=== PATIENT | female | born 1955 | race Caucasian/White ===

== ENCOUNTER 2023-04-07 11:13 | Emergency (ER) | payer MEDICARE ==
[2023-04-07 11:42] VITALS: BP 173/77; PULSE 70; RESP 18; TEMP 98.7
--- NOTE | 2023-04-07 12:07 | ED ---
Neck Injury/Pain HPI - General Chief Complaint: Neck Pain/Injury Stated Complaint: pain management Time Seen by Provider: 04/07/23 11:46 Source: patient, RN notes reviewed Mode of arrival: ambulatory Limitations: no limitations - History of Present Illness Initial Comments: This is a 67-year-old female who presents to the emergency department for pain medication. Patient just moved here from [place] 2 weeks ago, and on 01/28 of this year she fell and fractured C2. She is taking oxycodone 5 mg every 6 hours for pain management, however she has since run out of her medication, and she is here for medication refills. She does have an upcoming appointment with Dr. Morales next week, which was the soonest that she could get in. The medication is working very well for her and she denies any other complaints. MD Complaint: neck pain, neck injury - Related Data Previous Rx's Medication Instructions Recorded oxyCODONE-APAP 5-325MG [Percocet 1 tab PO Q6HR PRN 7 Days #28 tab 04/07/23 5-325 mg] Allergies Allergy/AdvReac Type Severity Reaction Status Date / Time gabapentin Allergy Confusion Verified 04/07/23 11:37 Iodinated Contrast Media Allergy Rash/Hives Verified 04/07/23 11:37 lisinopril Allergy Unknown Verified 04/07/23 11:37 Review of Systems ROS Statement: Those systems with pertinent positive or pertinent negative responses have been documented in the HPI. ROS Other: All systems not noted in ROS Statement are negative. Past Medical History Past Medical History: CVA/TIA, GERD/Reflux, Hypertension, Liver Disease Additional Past Medical History / Comment(s): Anemia History of Any Multi-Drug Resistant Organisms: C-DIFF, MRSA Smoking Status: Never smoker Past Alcohol Use History: Abuse Past Drug Use History: None Reported General Exam Limitations: no limitations General appearance: alert, in no apparent distress Head exam: Present: atraumatic, normocephalic, normal inspection Neck exam: Present: other (C-collar in place) Respiratory exam: Present: normal lung sounds bilaterally. Absent: respiratory distress, wheezes, rales, rhonchi, stridor Cardiovascular Exam: Present: regular rate, normal rhythm, normal heart sounds. Absent: systolic murmur, diastolic murmur, rubs, gallop, clicks Neurological exam: Present: alert, oriented X3, CN II-XII intact Psychiatric exam: Present: normal affect, normal mood Skin exam: Present: warm, dry, intact, normal color. Absent: rash Course Vital Signs 04/07/23 11:19 Temperature 98.7 F Pulse Rate 70 Respiratory 18 Rate Blood Pressure 173/77 O2 Sat by Pulse 95 Oximetry Medical Decision Making - Medical Decision Making This is a 67-year-old female who presents to the emergency department for pain medication refill. Was pt. sent in by a medical professional or institution? @ -No Did you speak to anyone other than the patient for history? @ -No Did you review nursing and triage notes? @ -Yes, and I agree, it is accurate with regards to the patient's symptoms. Were old charts reviewed? @ -No Differential Diagnosis? @ -Not applicable EKG interpreted by me (3pts min.)? @ -Not obtained X-rays interpreted by me (1pt min.)? @ -Not obtained CT interpreted by me (1pt min.)? @ -Not obtained U/S interpreted by me (1pt. min.)? @ -Not obtained What testing was considered but not performed? (CT, X-rays, U/S, labs)? Why? @ -None What meds were considered but not given? Why? @ -None Did you discuss the management of the patient with other professionals? @ -No Did you reconcile home meds? @ -No Was smoking cessation discussed for >3mins.? @ -No Was critical care preformed (if so, how long)? @ -No Were there social determinants of health that impacted care today? How? (Ho melessness, low income, unemployed, alcoholism, drug addiction, transportation, low edu. Level, literacy, decrease access to med. care, [facility], rehab)? @ -No Was there de-escalation of care discussed even if they declined? (Discuss DNR or withdrawal of care, Hospice)? @ -No What co-morbidities impacted this encounter? (DM, HTN, Smoking, COPD, CAD, Cancer, CVA, Hep., AIDS, mental health diagnosis, sleep apnea, morbid obesity)? @ -Cervical fracture Was patient admitted / discharged? @ -Discharged. Patient brought with her substantial documentation confirming her injury and medication dosing. Given the nature of her injury and because she is already taking this medication, I was agreeable to giving her a short refill until she is able to see Dr. Morales next week. Rx for oxycodone provided to be taken every 6 hours as previously prescribed. Patient discharged home in stable condition. Undiagnosed new problem with uncertain prognosis? @ -None Drug Therapy requiring intensive monitoring for toxicity (Heparin, Nitro, Insulin, Cardizem)? @ -None Were any procedures done? @ -None Diagnosis/symptom? @ -C2 fracture Acute, or Chronic, or Acute on Chronic? @ -Acute Uncomplicated (without systemic symptoms) or Complicated (systemic symptoms)? @ -Uncomplicated Side effects of treatment? @ -None Exacerbation, Progression, or Severe Exacerbation] @ -Not applicable Poses a threat to life or bodily function? @ -No Return precautions reviewed in depth, the patient is instructed to return to the emergency department with any new, worsening, or concerning symptoms. Patient verbalized understanding. This case was discussed in detail with the attending ED physician, Dr. Clemens. Presentation, findings, and treatment plan discussed in detail as well. Disposition Clinical Impression: C2 cervical fracture Disposition: HOME SELF-CARE Instructions (If sedation given, give patient instructions): Cervical Fracture (ED) Additional Instructions: Return to the emergency department with any new, worsening, or concerning symptoms. Continue taking your pain medication as prescribed. Follow up with Dr. Morales as scheduled. Prescriptions: oxyCODONE-APAP 5-325MG [Percocet 5-325 mg] 1 tab PO Q6HR PRN 7 Days #28 tab PRN Reason: Pain Is patient prescribed a controlled substance at d/c from ED?: Yes When asked, does pt state using other controlled substances?: No Referrals: None,Stated [Primary Care Provider] - 1-2 days Forms: [facility], [facility]
== END 2023-04-07 13:06 | disposition home or self-care (01) ==
LOC: EC 11:13
DX: S12.100A Unspecified displaced fracture of second cervical vertebra, initial encounter for closed fracture (principal); I10 Essential (primary) hypertension; Z88.9 Allergy status to unspecified drugs, medicaments and biological substances; Z91.041 Radiographic dye allergy status; Z88.8 Allergy status to other drugs, medicaments and biological substances; X58.XXXA Exposure to other specified factors, initial encounter
CPT/HCPCS: 99283

== ENCOUNTER → 2023-04-10 | Outpatient (CLI) | payer MEDICARE, OTHER ==
--- NOTE | 2023-04-10 16:55 | CT ---
EXAMINATION TYPE: CT cervical spine wo con CT DLP: 268.3 mGycm, Automated exposure control for dose reduction was used. DATE OF EXAM: 04/10/2023 4:37 PM COMPARISON: Radiograph 04/10/2023. CLINICAL INDICATION:Female, 67 years old with history of M54.2 CERVICALIA; neck pain x 6 weeks, pt un sure of level of fx TECHNIQUE: Axial CT images from the skull base to the inferior aspect of T2 we obtained without intra venous contrast. Coronal and sagittal reformatted images were also reviewed. Contrast used: mL of , (if blank None) Oral contrast used: (if blank None) FINDINGS: Fracture: No acute fracture visualized. Remote appearing fracture of the odontoid process is present. Osseous structures: Multilevel degenerative disc disease changes with endplate spurring and disc oste ophyte complex's. Vertebral alignment: Grade 1 anterolisthesis of C5 and C6. Spinal canal/Neural Foramina: Disc osteophyte complexes at C5-C6 with at least mild spinal canal sten osis. Facet joint uncovertebral joint arthropathy scattered throughout the cervical spine with varyin g degrees of neural foraminal stenosis. Neck soft tissues: Prevertebral soft tissues are within normal limits. Other: The airway is patent. The lung apices are clear. Atherosclerosis of the arterial vasculature. IMPRESSION: 1. No evidence of cervical spine fracture. Remote Appearing odontoid process fracture. Correlate with priors at outside institutions. 2. Moderate to severe multilevel degenerative disc disease.
== END | disposition home or self-care (01) ==
LOC: RADCTMAIN 16:20
PROVIDERS: ATTEND Orthopaedic Surgery
DX: M50.30 Other cervical disc degeneration, unspecified cervical region (principal); Z87.81 Personal history of (healed) traumatic fracture
CPT/HCPCS: 72125

== ENCOUNTER → 2023-04-11 | Outpatient (CLI) | payer MEDICARE, OTHER ==
--- NOTE | 2023-04-11 17:01 | MR ---
EXAMINATION TYPE: MR cervical spine wo con DATE OF EXAM: 04/11/2023 COMPARISON: CT cervical spine 04/10/2023 HISTORY: Neck fracture C2. CONTRAST: None TECHNIQUE: Multiplanar multiecho imaging on a 3.0 Felicitas magnet is performed through the cervical spin e. FINDINGS: The craniovertebral junction is normal. Vertebral body alignment is reviewed. There is a g rade 1 spondylolisthesis of C5 anteriorly on C6. Remaining vertebral body alignment is preserved. The fracture at C2 appears in preserved alignment and positioning. Spinal cord maintains normal signal throughout its visualized course. C7-T1: No focal disc herniation or significant disc bulge is evident. No spinal canal stenosis or n eural foraminal stenosis is present. C6-7: No focal disc herniation or significant disc bulge is evident. No spinal canal stenosis or summer ral foraminal stenosis is present. C5-6: Grade 1 spondylolisthesis of C5 anteriorly on C6. Disc uncovering is present. Some posterior th ecal sac compression from the facets may be present. C4-5: No focal disc herniation or significant disc bulge is evident. No spinal canal stenosis or summer ral foraminal stenosis is present. C3-4: No focal disc herniation or significant disc bulge is evident. No spinal canal stenosis or summer ral foraminal stenosis is present. C2-3: No focal disc herniation or significant disc bulge is evident. No spinal canal stenosis or summer ral foraminal stenosis is present. The base of the dens fracture is evident as a low signal area. IMPRESSION: 1. Base of the dens fracture. C2 fracture fragments appearing preserved alignment and positioning. 2. Grade 1 spondylolisthesis of C5 anterior on C6.
== END | disposition home or self-care (01) ==
LOC: RADMRIMAIN 14:47
PROVIDERS: ATTEND Orthopaedic Surgery
DX: S12.110A Anterior displaced Type II dens fracture, initial encounter for closed fracture (principal); M43.12 Spondylolisthesis, cervical region
CPT/HCPCS: 72141

== ENCOUNTER 2023-04-20 11:10 | Inpatient (IN) | payer MEDICARE, OTHER ==
[2023-04-20] MEDS ORDERED: SODIUM CHLORIDE 0.9% 1,000 ML IV ONE (11:52)
[2023-04-20] MEDS ORDERED: LORazepam 2 MG/ML INJ IV STA (12:20)
--- NOTE | 2023-04-20 12:43 | XR ---
EXAMINATION TYPE: XR chest 2V DATE OF EXAM: 04/20/2023 12:38 PM CLINICAL INDICATION:Female, 67 years old with history of altered mental status; COMPARISON: None TECHNIQUE: XR chest 2V Frontal and lateral views of the chest. FINDINGS: Lungs/Pleura: There is no evidence of pleural effusion, focal consolidation, or pneumothorax. Pulmonary vascularity: Mild pulmonary vascular congestion. Heart/mediastinum: Cardiomediastinal silhouette is enlarged and stable. Musculoskeletal: No acute osseous pathology. Shoulder fixation hardware appears intact. IMPRESSION: Cardiomegaly and may be mild pulmonary gastric congestion correlate with serum BNP.
[2023-04-20 12:49] LABS: INR 1.1 (<1.2); Partial Thromboplastin Time 28.9 sec (22.0-30.0)
[2023-04-20 12:55] LABS: Anisocytosis Slight; Basophils % (A) 0 %; Eosinophils # (A) 0.2 k/uL (0-0.7); Eosinophils % (A) 6 %; HCT 31.9 % (34.0-46.0); HGB 11.3 gm/dL (11.4-16.0); Lymphocytes # (A) 0.7 k/uL (1.0-4.8); Lymphocytes % (A) 18 %; MCH 31.9 pg (25.0-35.0); MCHC 35.4 g/dL (31.0-37.0); MCV 90.1 fL (80.0-100.0); Mean Platelet Volume 8.7; Monocytes # (A) 0.2 k/uL (0-1.0); Monocytes % (A) 6 %; Neutrophils # (A) 2.7 k/uL (1.3-7.7); Neutrophils % (A) 68 %; Poikilocytosis Slight; RBC 3.54 m/uL (3.80-5.40); RDW 16.2 % (11.5-15.5)
[2023-04-20 13:06] LABS: ALT 24 U/L (4-34); AST 45 U/L (14-36); African American GFR (CKD) >90 (>60 ml/min/1.73 sqM); Albumin 3.7 g/dL (3.5-5.0); Alcohol <10 mg/dL; Alkaline Phosphatase 260 U/L (38-126); Anion Gap 12 mmol/L; Blood Urea Nitrogen 27 mg/dL (7-17); Calcium 9.5 mg/dL (8.4-10.2); Carbon Dioxide 16 mmol/L (22-30); Chloride 110 mmol/L (98-107); Glucose 110 mg/dL (74-99); Non-African American GFR(CKD) >90 (>60 ml/min/1.73 sqM); Potassium 4.6 mmol/L (3.5-5.1); Sodium 138 mmol/L (137-145); Total Bilirubin 2.4 mg/dL (0.2-1.3); Total Protein 7.8 g/dL (6.3-8.2)
[2023-04-20 13:07] LABS: Platelet Count 67 k/uL (150-450)
[2023-04-20 13:20] LABS: Appearance,Urine Clear (Clear); Bilirubin,Urine Negative (Negative); Blood,Urine Negative (Negative); Color,Urine Colorless; Glucose,Urine (UA) Negative (Negative); Ketones,Urine Negative (Negative); Leukocyte Esterase,Urine Negative (Negative); Nitrite,Urine Negative (Negative); Protein,Urine Negative (Negative); Specific Gravity,Urine 1.004 (1.001-1.035); Urobilinogen,Urine <2.0 mg/dL (<2.0)
[2023-04-20 13:28] LABS: Amphetamine Screen,Urine Not Detected (NotDetected); Barbiturate Screen,Urine Not Detected (NotDetected); Benzodiazepines Screen,Urine Not Detected (NotDetected); Cocaine Screen,Urine Not Detected (NotDetected); Methadone Screen, Urine Not Detected (NotDetected); Opiate Screen,Urine Not Detected (NotDetected); Oxycodone Screen, Urine Not Detected (NotDetected); Phencyclidine Screen,Urine Not Detected (NotDetected); Tricyclic Antidepressant,Urine Not Detected (NotDetected); Urn Cannabinoid Scrn Not Detected (NotDetected)
--- NOTE | 2023-04-20 13:30 | CT ---
EXAMINATION TYPE: CT brain cspine wo con DATE OF EXAM: 04/20/2023 COMPARISON: Cervical spine 04/10/2023 HISTORY: 67-year-old female confusion, AMS CT DLP: 1330.4 mGycm Automated exposure control for dose reduction was used. Technique: Examination of the head was done in axial plane without intravenous contrast. Coronal and sagittal reconstructions performed. CT of the cervical spine was obtained in axial plane without intravenous injection of contrast mater ial. Coronal and sagittal reformatted images were obtained from the axial views for evaluation of f ractures, spinal alignment and canal. FINDINGS: Head: There is no evidence of acute intracranial hemorrhage, acute ischemic changes, mass, mass-effect, or extra-axial fluid collection. There is no effacement of cerebral sulci or basal subarachnoid cister ns. There is no hydrocephalus. There is no midline shift. Paulson-white matter distinction is preserv ed. Atherosclerotic calcifications in the carotid siphons. Rightward nasal septal deviation. Paranasal sinuses and mastoid air cells are well pneumatized. Orbit s and globes are intact. Cervical spine: Redemonstrated type II dens fracture. 4 mm of distraction slightly increased from prior. Degenerative change C1 dens articulation. Slight posterior subluxation of C1 on C2 when assessing the lateral mas s articulations from side to side. Severe degenerative disc disease C5-C6. Nearly grade 2 anterolisthesis secondary to hypertrophic face t arthropathy. Remaining alignment is maintained. No taya canal compromise is seen. Variable mild neural foraminal stenoses as outlined above. Sagittal and coronal reformatted images confirm above findings. COMBINED IMPRESSION: 1. No acute intracranial abnormality seen. 2. Known unstable type II dens fracture. Discussed with Dr. Smith in the ER. Additional history th at the patient sustained injury back in January and remains in a C-collar for conservative management . Healing remains incomplete. There may be minimally increased distraction of 4 mm now versus 3 mm, p reviously. Additional moderate multilevel spondylotic change with similar grade 2 anterolisthesis C5- C6. No new fracture seen.
[2023-04-20] MEDS ORDERED: LACTULOSE 20 GM/30 ML CUP PO ONE (13:42)
[2023-04-20] MEDS ORDERED: NALOXONE 0.4 MG/ML 1 ML VIAL IV PRN (14:16)
[2023-04-20 14:19] LABS: Glucose,Whole Blood 108 mg/dL (70-110)
--- NOTE | 2023-04-20 14:59 | ED ---
General Adult HPI - General Chief complaint: Altered Mental Status Stated complaint: confusion Time Seen by Provider: 04/20/23 11:19 Source: patient, family, RN notes reviewed, old records reviewed Mode of arrival: ambulatory Limitations: no limitations - History of Present Illness Initial comments: Patient is a 67-year-old female presents with her son over concern for altered mental status. History of a known medically managed dens fracture currently in a cervical collar and follows up with Dr. Morales. Also has a history of alcoholic liver disease, as well as elevated ammonia levels. Has been without her normal medications for blood days is patient is recently relocated to [place]. Since for multiple days of confusion. Patient's son is concerned that ammonia levels may be elevated. No obvious fevers, cough, vomiting, chest pain, nausea, vomiting, diarrhea. No other acute complaints this time. Presents for further evaluation. Patient is unable to provide any history. She is confused. She is only able to tell me her name. Is due to follow-up with Dr. Merritt as her new PCP but has not yet been seen. - Related Data Home Medications Medication Instructions Recorded Confirmed Multivitamins, Thera [Multivitamin 1 tab PO DAILY 04/20/23 04/20/23 (formulary)] oxyCODONE HCL [OxyIR] 5 mg PO Q6H PRN 04/20/23 04/20/23 Allergies Allergy/AdvReac Type Severity Reaction Status Date / Time gabapentin Allergy Confusion Verified 04/20/23 14:24 Iodinated Contrast Media Allergy Rash/Hives Verified 04/20/23 14:24 lisinopril Allergy Unknown Verified 04/20/23 14:24 Review of Systems ROS Statement: Those systems with pertinent positive or pertinent negative responses have been documented in the HPI. ROS Other: All systems not noted in ROS Statement are negative. Past Medical History Past Medical History: CVA/TIA, GERD/Reflux, Hypertension, Liver Disease Additional Past Medical History / Comment(s): Anemia History of Any Multi-Drug Resistant Organisms: C-DIFF, MRSA Past Surgical History: No Surgical Hx Reported Past Psychological History: No Psychological Hx Reported Smoking Status: Never smoker Past Alcohol Use History: Abuse Past Drug Use History: None Reported General Exam - General Exam Comments Initial Comments: General: Appears confused. Cervical collar in place. HEAD: Normal with no signs of head trauma. EYES: PERRLA, EOMI, conjunctiva normal, no discharge. Pupils are 3 mm and equal bilaterally. ENT: Hearing grossly intact, normal oropharynx. Cervical collar in place. RESPIRATORY: Clear breath sounds bilaterally. No wheezes, rales, or rhonchi. C/V: Regular rate and rhythm. S1 and S2 auscultated, peripheral pulses 2+ and intact throughout ABD: Abd is soft, nontender, nondistended EXT: Normal range of motion, no obvious deformity SKIN: No rashes or lesions observed on exposed skin. NEURO: Alert and oriented x 1. This is below baseline. Moving all 4 extremities. Limitations: no limitations Course Vital Signs 04/20/23 11:12 Temperature 97.6 F Pulse Rate 76 Respiratory 20 Rate Blood Pressure 168/95 O2 Sat by Pulse 99 Oximetry Medical Decision Making - Medical Decision Making Was pt. sent in by a medical professional or institution (, [place], [facility], urgent care, hospital, or residential...) When possible be specific @ -No Did you speak to anyone other than the patient for history (EMS, parent, family, police, friend...)? What history was obtained from this source @ -Patient's son is the primary historian. Did you review nursing and triage notes (agree or disagree)? Why? @ -I reviewed and agree with nursing and triage notes Were old charts reviewed (outside hosp., previous admission, EMS record, old EKG, old radiological studies, urgent care reports/EKG's, residential records)? Report findings @ -Old charts reviewed Differential Diagnosis (chest pain, altered mental status, abdominal pain women, abdominal pain men, vaginal bleeding, weakness, fever, dyspnea, syncope, headache, dizziness, GI bleed, back pain, seizure, CVA, palpatations, mental health, musculoskeletal)? @ -Differential Altered Mental Status: Hypoglycemia, DKA, hypercapnia, ETOH, overdose, CO poisoning, trauma, myxedema coma, HTN encephalopathy, infection, encephalitis, psychosis, intercranial h emorrhage, hepatic encephalopathy, meningitis, CVA, this is not meant to be an all-inclusive list EKG interpreted by me (3pts min.). @ -As above X-rays interpreted by me (1pt min.). @ -Chest xRay reveals no obvious acute cardio pulmonary process. CT interpreted by me (1pt min.). @ -CT brain and C-spine reveals chronic findings including the dens fracture, which appears similar in nature to recent CT imaging. U/S interpreted by me (1pt. min.). @ -None done What testing was considered but not performed or refused? (CT, X-rays, U/S, labs)? Why? @ -None What meds were considered but not given or refused? Why? @ -None Did you discuss the management of the patient with other professionals (professionals i.e. DrBlanquita, PA, [facility], lab, RT, psych nurse, addiction social worker, photography and prints curator, teacher, admitting officer, field nurse case manager)? Give summary @ -No Was smoking cessation discussed for >3mins.? @ -No Was critical care preformed (if so, how long)? @ -No Were there social determinants of health that impacted care today? How? (Homelessness, low income, unemployed, alcoholism, drug addiction, transportation, low edu. Level, literacy, decrease access to med. care, [facility], rehab)? @ -No Was there de-escalation of care discussed even if they declined (Discuss DNR or withdrawal of care, Hospice)? DNR status @ -No What co-morbidities impacted this encounter? (DM, HTN, Smoking, COPD, CAD, Cancer, CVA, ARF, Chemo, Hep., AIDS, mental health diagnosis, sleep apnea, morbid obesity)? @ -None Was patient admitted / discharged? Hospital course, mention meds given and route, prescriptions, significant lab abnormalities, going to OR and other pertinent info. @ -Based on the patient's presentation and physical exam, was brought in by son for altered mental status. We will obtain workup. Patient sent in agreement this plan. Patient will be given a 1 L fluid bolus. We will reimage her C- spine as we are uncertain if she fell. This also included CT of the brain. He was in agreement with this plan. Vital signs are within acceptable limits. EKG shows no signs of acute ischemia. Imaging unremarkable for any acute process. Chronic process of the dens fracture is redemonstrated and appears unchanged. Patient's labs are remarkable for mild thrombocytopenia at 67. Patient has elevated ammonia of 295. Remainder of the workup relatively unremarkable. I updated the patient as well as her son. She'll be started on lactulose. She will be admitted. He was in agreement this plan. This patient is supposed to follow up with Dr. Merritt, and therefore the patient will be admitted to a nature is covering for his group. Dr. Alcantara accepted the admission. Undiagnosed new problem with uncertain prognosis? @ -No Drug Therapy requiring intensive monitoring for toxicity (Heparin, Nitro, Insulin, Cardizem)? @ -No Were any procedures done? @ -No Diagnosis/symptom? @ -Hepatic encephalopathy, hyperammonemia Acute, or Chronic, or Acute on Chronic? @ -Acute Uncomplicated (without systemic symptoms) or Complicated (systemic symptoms)? @ -Complicated Side effects of treatment? @ -No Exacerbation, Progression, or Severe Exacerbation? @ -No Poses a threat to life or bodily function? How? (Chest pain, USA, SC, pneumonia, PE, COPD, DKA, ARF, appy, cholecystitis, CVA, Diverticulitis, Homicidal, Suicid al, threat to staff... and all critical care pts) @ -yes Diagnosis/symptom? @ -Type II dens fracture Acute, or Chronic, or Acute on Chronic? @ -Chronic Uncomplicated (without systemic symptoms) or Complicated (systemic symptoms)? @ -Uncomplicated Side effects of treatment? @ -none Exacerbation, Progression, or Severe Exacerbation] @ -no Poses a threat to life or bodily function? @ -Potentially - Lab Data Result diagrams: 04/20/23 12:28 04/20/23 12:28 Lab Results 04/20/23 04/20/23 04/20/23 Range/Units 12:28 12:28 12:28 WBC 4.0 (3.8-10.6) k/uL RBC 3.54 L (3.80-5.40) m/uL Hgb 11.3 L (11.4-16.0) gm/dL Hct 31.9 L (34.0-46.0) % MCV 90.1 (80.0-100.0) fL MCH 31.9 (25.0-35.0) pg MCHC 35.4 (31.0-37.0) g/dL RDW 16.2 H (11.5-15.5) % Plt Count 67 L (150-450) k/uL MPV 8.7 Neutrophils % 68 % Lymphocytes % 18 % Monocytes % 6 % Eosinophils % 6 % Basophils % 0 % Neutrophils # 2.7 (1.3-7.7) k/uL Lymphocytes # 0.7 L (1.0-4.8) k/uL Monocytes # 0.2 (0-1.0) k/uL Eosinophils # 0.2 (0-0.7) k/uL Basophils # 0.0 (0-0.2) k/uL Manual Slide Review Performed Poikilocytosis Slight Anisocytosis Slight PT 12.0 (10.0-12.5) sec INR 1.1 (<1.2) APTT 28.9 (22.0-30.0) sec Sodium 138 (137-145) mmol/L Potassium 4.6 (3.5-5.1) mmol/L Chloride 110 H (98-107) mmol/L Carbon Dioxide 16 L (22-30) mmol/L Anion Gap 12 mmol/L BUN 27 H (7-17) mg/dL Creatinine 0.65 (0.52-1.04) mg/dL Est GFR (CKD-EPI)AfAm >90 (>60 ml/min/1.73 sqM) Est GFR (CKD-EPI)NonAf >90 (>60 ml/min/1.73 sqM) Glucose 110 H (74-99) mg/dL POC Glucose (mg/dL) (70-110) mg/dL POC Glu Facing Baster ID Calcium 9.5 (8.4-10.2) mg/dL Total Bilirubin 2.4 H (0.2-1.3) mg/dL AST 45 H (14-36) U/L ALT 24 (4-34) U/L Alkaline Phosphatase 260 H (38-126) U/L Ammonia (<30) umol/L Troponin I (0.000-0.034) ng/mL Total Protein 7.8 (6.3-8.2) g/dL Albumin 3.7 (3.5-5.0) g/dL Urine Color Urine Appearance (Clear) Urine pH (5.0-8.0) Ur Specific [place] (1.001-1.035) Urine Protein (Negative) Urine Glucose (UA) (Negative) Urine Ketones (Negative) Urine Blood (Negative) Urine Nitrite (Negative) Urine Bilirubin (Negative) Urine Urobilinogen (<2.0) mg/dL Ur Leukocyte Esterase (Negative) Urine Opiates Screen (NotDetected) Ur Oxycodone Screen (NotDetected) Urine Methadone Screen (NotDetected) Ur Barbiturates Screen (NotDetected) U Tricyclic Antidepress (NotDetected) Ur Phencyclidine Scrn (NotDetected) Ur Amphetamines Screen (NotDetected) U Methamphetamines Scrn (NotDetected) U Benzodiazepines Scrn (NotDetected) Urine Cocaine Screen (NotDetected) U Marijuana (THC) Screen (NotDetected) Ur Drug Screen Comment Serum Alcohol <10 mg/dL 04/20/23 04/20/23 04/20/23 Range/Units 12:28 12:28 13:10 WBC (3.8-10.6) k/uL RBC (3.80-5.40) m/uL Hgb (11.4-16.0) gm/dL Hct (34.0-46.0) % MCV (80.0-100.0) fL MCH (25.0-35.0) pg MCHC (31.0-37.0) g/dL RDW (11.5-15.5) % Plt Count (150-450) k/uL MPV Neutrophils % % Lymphocytes % % Monocytes % % Eosinophils % % Basophils % % Neutrophils # (1.3-7.7) k/uL Lymphocytes # (1.0-4.8) k/uL Monocytes # (0-1.0) k/uL Eosinophils # (0-0.7) k/uL Basophils # (0-0.2) k/uL Manual Slide Review Poikilocytosis Anisocytosis PT (10.0-12.5) sec INR (<1.2) APTT (22.0-30.0) sec Sodium (137-145) mmol/L Potassium (3.5-5.1) mmol/L Chloride (98-107) mmol/L Carbon Dioxide (22-30) mmol/L Anion Gap mmol/L BUN (7-17) mg/dL Creatinine (0.52-1.04) mg/dL Est GFR (CKD-EPI)AfAm (>60 ml/min/1.73 sqM) Est GFR (CKD-EPI)NonAf (>60 ml/min/1.73 sqM) Glucose (74-99) mg/dL POC Glucose (mg/dL) (70-110) mg/dL POC Glu Facing Baster ID Calcium (8.4-10.2) mg/dL Total Bilirubin (0.2-1.3) mg/dL AST (14-36) U/L ALT (4-34) U/L Alkaline Phosphatase (38-126) U/L Ammonia 295 H (<30) umol/L Troponin I <0.012 (0.000-0.034) ng/mL Total Protein (6.3-8.2) g/dL Albumin (3.5-5.0) g/dL Urine Color Colorless Urine Appearance Clear (Clear) Urine pH 7.0 (5.0-8.0) Ur Specific [place] 1.004 (1.001-1.035) Urine Protein Negative (Negative) Urine Glucose (UA) Negative (Negative) Urine Ketones Negative (Negative) Urine Blood Negative (Negative) Urine Nitrite Negative (Negative) Urine Bilirubin Negative (Negative) Urine Urobilinogen <2.0 (<2.0) mg/dL Ur Leukocyte Esterase Negative (Negative) Urine Opiates Screen Not Detected (NotDetected) Ur Oxycodone Screen Not Detected (NotDetected) Urine Methadone Screen Not Detected (NotDetected) Ur Barbiturates Screen Not Detected (NotDetected) U Tricyclic Antidepress Not Detected (NotDetected) Ur Phencyclidine Scrn Not Detected (NotDetected) Ur Amphetamines Screen Not Detected (NotDetected) U Methamphetamines Scrn Not Detected (NotDetected) U Benzodiazepines Scrn Not Detected (NotDetected) Urine Cocaine Screen Not Detected (NotDetected) U Marijuana (THC) Screen Not Detected (NotDetected) Ur Drug Screen Comment SEE COMMENT Serum Alcohol mg/dL 04/20/23 Range/Units 14:08 WBC (3.8-10.6) k/uL RBC (3.80-5.40) m/uL Hgb (11.4-16.0) gm/dL Hct (34.0-46.0) % MCV (80.0-100.0) fL MCH (25.0-35.0) pg MCHC (31.0-37.0) g/dL RDW (11.5-15.5) % Plt Count (150-450) k/uL MPV Neutrophils % % Lymphocytes % % Monocytes % % Eosinophils % % Basophils % % Neutrophils # (1.3-7.7) k/uL Lymphocytes # (1.0-4.8) k/uL Monocytes # (0-1.0) k/uL Eosinophils # (0-0.7) k/uL Basophils # (0-0.2) k/uL Manual Slide Review Poikilocytosis Anisocytosis PT (10.0-12.5) sec INR (<1.2) APTT (22.0-30.0) sec Sodium (137-145) mmol/L Potassium (3.5-5.1) mmol/L Chloride (98-107) mmol/L Carbon Dioxide (22-30) mmol/L Anion Gap mmol/L BUN (7-17) mg/dL Creatinine (0.52-1.04) mg/dL Est GFR (CKD-EPI)AfAm (>60 ml/min/1.73 sqM) Est GFR (CKD-EPI)NonAf (>60 ml/min/1.73 sqM) Glucose (74-99) mg/dL POC Glucose (mg/dL) 108 (70-110) mg/dL POC Glu Facing Baster ID Paramjit Cm Calcium (8.4-10.2) mg/dL Total Bilirubin (0.2-1.3) mg/dL AST (14-36) U/L ALT (4-34) U/L Alkaline Phosphatase (38-126) U/L Ammonia (<30) umol/L Troponin I (0.000-0.034) ng/mL Total Protein (6.3-8.2) g/dL Albumin (3.5-5.0) g/dL Urine Color Urine Appearance (Clear) Urine pH (5.0-8.0) Ur Specific [place] (1.001-1.035) Urine Protein (Negative) Urine Glucose (UA) (Negative) Urine Ketones (Negative) Urine Blood (Negative) Urine Nitrite (Negative) Urine Bilirubin (Negative) Urine Urobilinogen (<2.0) mg/dL Ur Leukocyte Esterase (Negative) Urine Opiates Screen (NotDetected) Ur Oxycodone Screen (NotDetected) Urine Methadone Screen (NotDetected) Ur Barbiturates Screen (NotDetected) U Tricyclic Antidepress (NotDetected) Ur Phencyclidine Scrn (NotDetected) Ur Amphetamines Screen (NotDetected) U Methamphetamines Scrn (NotDetected) U Benzodiazepines Scrn (NotDetected) Urine Cocaine Screen (NotDetected) U Marijuana (THC) Screen (NotDetected) Ur Drug Screen Comment Serum Alcohol mg/dL - EKG Data -: EKG Interpreted by Me EKG Comments: 12-lead Electrocardiogram Interpretation Note EKG was reviewed and interpreted by myself. 12-lead ECG performed at 1326 is interpreted by me as revealing normal sinus rhythm at a rate of 79 beats per minute. [place] is normal. IA interval is 193 ms, QRS ration is 110 ms, QTc is 444 ms.. There were no ST or T wave abnormalities to suggest myocardial ischemia or injury. R wave progression across the precordium was satisfactory. By my interpretation this EKG is non-diagnostic for acute ischemia. Disposition Clinical Impression: Hepatic encephalopathy, Hyperammonemia, Dens fracture Disposition: ADMITTED IP TO THIS [facility] Condition: Serious Referrals: None,Stated [Primary Care Provider] - 1-2 days Time of Disposition: 14:10
[2023-04-20] MEDS: LACTULOSE 20 GM/30 ML CUP PO SCH ×2 (15:55→23:19)
[2023-04-20] MEDS: SODIUM CHLORIDE 0.9% 1,000 ML IV SCH ×2 (15:55→23:26)
--- NOTE | 2023-04-20 18:28 | P.HPIM ---
History of Present Illness H&P Date: 04/20/23 Chief Complaint: Altered mental status 67-year-old female with history of liver disease, hypertension, CVA/TIA, GERD, presents with her son over concern for altered mental status. History of a known medically managed dens fracture currently in a cervical collar and follows up with Dr. Morales. Also has a history of alcoholic liver disease, as well as elevated ammonia levels. Has been without her normal medications for blood days is patient is recently relocated to [place]. Since for multiple days of confusion. Patient's son is concerned that ammonia levels may be elevated. No obvious fevers, cough, vomiting, chest pain, nausea, vomiting, diarrhea. No other acute complaints this time. Presents for further evaluation. Patient is unable to provide any history. She is confused. She is only able to tell me her name. Is due to follow-up with Dr. Merritt as her new PCP but has not yet been seen. Medrol completed in ED reveals a WBC of 4.0, hemoglobin of 11.3 and platelet count of 67, sodium 138, potassium 4.6, BUN/creatinine of 27/0.65, total bilirub in elevated at 2.4, AST of 45, ammonia elevated at [address] of the head is negative for any acute intracranial process CT cervical spine reveals no known type II dens fracture Review of Systems ROS unobtainable: due to mental status Past Medical History Past Medical History: CVA/TIA, GERD/Reflux, Hypertension, Liver Disease Additional Past Medical History / Comment(s): Anemia History of Any Multi-Drug Resistant Organisms: C-DIFF, MRSA Past Surgical History: No Surgical Hx Reported Past Psychological History: No Psychological Hx Reported Smoking Status: Never smoker Past Alcohol Use History: Abuse Past Drug Use History: None Reported Medications and Allergies Home Medications Medication Instructions Recorded Confirmed Type Multivitamins, Thera [Multivitamin 1 tab PO DAILY 04/20/23 04/20/23 History (formulary)] oxyCODONE HCL [OxyIR] 5 mg PO Q6H PRN 04/20/23 04/20/23 History Allergies Allergy/AdvReac Type Severity Reaction Status Date / Time gabapentin Allergy Confusion Verified 04/20/23 14:24 Iodinated Contrast Media Allergy Rash/Hives Verified 04/20/23 14:24 lisinopril Allergy Unknown Verified 04/20/23 14:24 Physical Exam Vitals: Vital Signs Temp Pulse Resp BP Pulse Ox 04/20/23 11:12 97.6 F 76 20 168/95 99 Intake and Output 04/20/23 04/20/23 04/20/23 06:59 14:59 22:59 Other: Weight 61.235 kg General: Appears confused. Cervical collar in place. HEAD: Normal with no signs of head trauma. EYES: PERRLA, EOMI, conjunctiva normal, no discharge. Pupils are 3 mm and equal bilaterally. ENT: Hearing grossly intact, normal oropharynx. Cervical collar in place. RESPIRATORY: Clear breath sounds bilaterally. No wheezes, rales, or rhonchi. C/V: Regular rate and rhythm. S1 and S2 auscultated, peripheral pulses 2+ and intact throughout ABD: Abd is soft, nontender, nondistended EXT: Normal range of motion, no obvious deformity SKIN: No rashes or lesions observed on exposed skin. NEURO: Alert and oriented x 1. This is below baseline. Moving all 4 extremities. Results CBC & Chem 7: 04/20/23 12:28 04/20/23 12:28 Labs: Abnormal Lab Results - Last 24 Hours (Table) 04/20/23 04/20/23 04/20/23 Range/Units 12:28 12:28 12:28 RBC 3.54 L (3.80-5.40) m/uL Hgb 11.3 L (11.4-16.0) gm/dL Hct 31.9 L (34.0-46.0) % RDW 16.2 H (11.5-15.5) % Plt Count 67 L (150-450) k/uL Lymphocytes # 0.7 L (1.0-4.8) k/uL Chloride 110 H (98-107) mmol/L Carbon Dioxide 16 L (22-30) mmol/L BUN 27 H (7-17) mg/dL Glucose 110 H (74-99) mg/dL Total Bilirubin 2.4 H (0.2-1.3) mg/dL AST 45 H (14-36) U/L Alkaline Phosphatase 260 H (38-126) U/L Ammonia 295 H (<30) umol/L Assessment and Plan Assessment: 1. Altered mental status; hepatic encephalopathy - Ammonia level is elevated at 295 - Patient received lactulose in ED; we will schedule lactulose at 30 mg by mouth 3 times a day with a 2-3 soft bowel movements daily - Monitor serum ammonia levels 2. Liver cirrhosis - AST/ALT and bilirubin is elevated consistent with liver disease - We will monitor periodically 3. Dens fracture; patient has cervical collar; son reports history of fall in January and patient has been in c-collar for conservative management - Patient follows up with surgery as outpatient 4. Uncontrolled hypertension; [place] and has been out of her medications; supposed to be taking lisinopril; we will resume 5 mg daily with plans to titrate as needed DVT prophylaxis; SCDs/subcu heparin CODE STATUS; full code
[2023-04-21] MEDS ORDERED: KETOROLAC 15 MG/ML 1 ML VIAL IVP STA (04:52)
[2023-04-21 08:29] LABS: Basophils % (A) 1 %; Eosinophils # (A) 0.3 k/uL (0-0.7); Eosinophils % (A) 6 %; HCT 34.8 % (34.0-46.0); Lymphocytes % (A) 21 %; MCH 31.7 pg (25.0-35.0); MCHC 34.6 g/dL (31.0-37.0); MCV 91.6 fL (80.0-100.0); Mean Platelet Volume 8.2; Monocytes # (A) 0.4 k/uL (0-1.0); Monocytes % (A) 8 %; Neutrophils # (A) 3.1 k/uL (1.3-7.7); Neutrophils % (A) 64 %; Poikilocytosis Slight; RDW 15.9 % (11.5-15.5); WBC 4.9 k/uL (3.8-10.6)
[2023-04-21 08:42] LABS: Platelet Count 72 k/uL (150-450)
[2023-04-21] MEDS: LACTULOSE 20 GM/30 ML CUP PO SCH ×5 (09:08→21:27)
[2023-04-21] MEDS: MULTIVITAMINS, THERA 1 EACH TAB PO SCH (09:08)
[2023-04-21 09:24] LABS: ALT 25 U/L (4-34); AST 45 U/L (14-36); African American GFR (CKD) >90 (>60 ml/min/1.73 sqM); Albumin 3.8 g/dL (3.5-5.0); Albumin/Globulin Ratio 0.9; Alkaline Phosphatase 214 U/L (38-126); Anion Gap 13 mmol/L; Bilirubin,Unconjugated 2.9 mg/dL (0.0-1.1); Blood Urea Nitrogen 19 mg/dL (7-17); Calcium 9.6 mg/dL (8.4-10.2); Carbon Dioxide 15 mmol/L (22-30); Chloride 113 mmol/L (98-107); Globulin 4.3 g/dL; Glucose 95 mg/dL (74-99); Non-African American GFR(CKD) >90 (>60 ml/min/1.73 sqM); Potassium 3.8 mmol/L (3.5-5.1); Sodium 141 mmol/L (137-145); Total Bilirubin 3.5 mg/dL (0.2-1.3); Total Protein 8.1 g/dL (6.3-8.2)
[2023-04-21] MEDS: ONDANSETRON 4 MG/2 ML VIAL IVP PRN (11:31)
--- NOTE | 2023-04-21 15:54 | P.PN ---
Subjective Progress Note Date: 04/21/23 67-year-old female with history of liver disease, hypertension, CVA/TIA, GERD, presents with her son over concern for altered mental status. History of a known medically managed dens fracture currently in a cervical collar and follows up with Dr. Morales. Also has a history of alcoholic liver disease, as well as elevated ammonia levels. Has been without her normal medications for blood days is patient is recently relocated to [place]. Since for multiple days of confusion. Patient's son is concerned that ammonia levels may be elevated. No obvious fevers, cough, vomiting, chest pain, nausea, vomiting, diarrhea. No other acute complaints this time. Presents for further evaluation. Patient is unable to provide any history. She is confused. She is only able to tell me her name. Is due to follow-up with Dr. Merritt as her new PCP but has not yet been seen. Medrol completed in ED reveals a WBC of 4.0, hemoglobin of 11.3 and platelet count of 67, sodium 138, potassium 4.6, BUN/creatinine of 27/0.65, total bilirubin elevated at 2.4, AST of 45, ammonia elevated at [address] of the head is negative for any acute intracranial process CT cervical spine reveals no known type II dens fracture Objective - Vital Signs Vital signs: Vital Signs Temp 97.9 F 04/21/23 07:15 Pulse 92 04/21/23 07:15 Resp 19 04/21/23 07:15 BP 160/76 04/21/23 07:15 Pulse Ox 95 04/21/23 08:29 FiO2 Intake & Output 04/20/23 04/21/23 04/21/23 18:59 06:59 18:59 Weight 61.235 kg 61.235 kg Other: # Voids 1 - Exam General: Appears confused. Cervical collar in place. HEAD: Normal with no signs of head trauma. EYES: PERRLA, EOMI, conjunctiva normal, no discharge. Pupils are 3 mm and equal bilaterally. ENT: Hearing grossly intact, normal oropharynx. Cervical collar in place. RESPIRATORY: Clear breath sounds bilaterally. No wheezes, rales, or rhonchi. C/V: Regular rate and rhythm. S1 and S2 auscultated, peripheral pulses 2+ and intact throughout ABD: Abd is soft, nontender, nondistended EXT: Normal range of motion, no obvious deformity SKIN: No rashes or lesions observed on exposed skin. NEURO: Alert and oriented x 1. This is below baseline. Moving all 4 extremities. - Labs CBC & Chem 7: 04/21/23 07:10 04/21/23 07:10 Labs: Abnormal Lab Results - Last 24 Hours (Table) 04/20/23 04/20/23 04/20/23 Range/Units 12:28 12:28 12:28 RBC 3.54 L (3.80-5.40) m/uL Hgb 11.3 L (11.4-16.0) gm/dL Hct 31.9 L (34.0-46.0) % RDW 16.2 H (11.5-15.5) % Plt Count 67 L (150-450) k/uL Lymphocytes # 0.7 L (1.0-4.8) k/uL Chloride 110 H (98-107) mmol/L Carbon Dioxide 16 L (22-30) mmol/L BUN 27 H (7-17) mg/dL Glucose 110 H (74-99) mg/dL Total Bilirubin 2.4 H (0.2-1.3) mg/dL Unconjugated Bilirubin (0.0-1.1) mg/dL AST 45 H (14-36) U/L Alkaline Phosphatase 260 H (38-126) U/L Ammonia 295 H (<30) umol/L 04/21/23 04/21/23 Range/Units 07:10 07:10 RBC (3.80-5.40) m/uL Hgb (11.4-16.0) gm/dL Hct (34.0-46.0) % RDW 15.9 H (11.5-15.5) % Plt Count 72 L (150-450) k/uL Lymphocytes # (1.0-4.8) k/uL Chloride 113 H (98-107) mmol/L Carbon Dioxide 15 L (22-30) mmol/L BUN 19 H (7-17) mg/dL Glucose (74-99) mg/dL Total Bilirubin 3.5 H (0.2-1.3) mg/dL Unconjugated Bilirubin 2.9 H (0.0-1.1) mg/dL AST 45 H (14-36) U/L Alkaline Phosphatase 214 H (38-126) U/L Ammonia (<30) umol/L Assessment and Plan Assessment: 1. Altered mental status; hepatic encephalopathy - Ammonia level is elevated at 295 - Patient received lactulose in ED; we will schedule lactulose at 30 mg by mouth 3 times a day with a 2-3 soft bowel movements daily - Monitor serum ammonia levels 2. Liver cirrhosis - AST/ALT and bilirubin is elevated consistent with liver disease - We will monitor periodically 3. Dens fracture; patient has cervical collar; son reports history of fall in January and patient has been in c-collar for conservative management - Patient follows up with surgery as outpatient 4. Uncontrolled hypertension; [place] and has been out of her medications; supposed to be taking lisinopril; we will resume 5 mg daily with plans to titrate as needed DVT prophylaxis; SCDs/subcu heparin CODE STATUS; full code
[2023-04-21] MEDS: KETOROLAC 15 MG/ML 1 ML VIAL IM SCH ×2 (16:51→16:57)
[2023-04-22] MEDS: KETOROLAC 15 MG/ML 1 ML VIAL IM SCH ×2 (06:05→13:57)
[2023-04-22] MEDS: MULTIVITAMINS, THERA 1 EACH TAB PO SCH (09:38)
[2023-04-22] MEDS: LACTULOSE 20 GM/30 ML CUP PO SCH ×3 (09:38→22:09)
[2023-04-22] MEDS: KETOROLAC 15 MG/ML 1 ML VIAL IVP SCH ×2 (14:00→17:17)
[2023-04-22] MEDS: SODIUM CHLORIDE 0.9% 1,000 ML IV SCH (15:42)
--- NOTE | 2023-04-22 17:18 | P.PN ---
Subjective Progress Note Date: 04/22/23 67-year-old female with history of liver disease, hypertension, CVA/TIA, GERD, presents with her son over concern for altered mental status. History of a known medically managed dens fracture currently in a cervical collar and follows up with Dr. Morales. Also has a history of alcoholic liver disease, as well as elevated ammonia levels. Has been without her normal medications for blood days is patient is recently relocated to [place]. Since for multiple days of confusion. Patient's son is concerned that ammonia levels may be elevated. No obvious fevers, cough, vomiting, chest pain, nausea, vomiting, diarrhea. No other acute complaints this time. Presents for further evaluation. Patient is unable to provide any history. She is confused. She is only able to tell me her name. Is due to follow-up with Dr. Merritt as her new PCP but has not yet been seen. Medrol completed in ED reveals a WBC of 4.0, hemoglobin of 11.3 and platelet count of 67, sodium 138, potassium 4.6, BUN/creatinine of 27/0.65, total bilirubin elevated at 2.4, AST of 45, ammonia elevated at [address] of the head is negative for any acute intracranial process CT cervical spine reveals no known type II dens fracture 24 hour interval change 04/22/2023 Patient is seen and evaluated in room at bedside; discussed with nursing staff; patient is more awake and alert but restless Vital signs are reviewed and remained stable Lab review shows ammonia is trending up slightly; patient reports that she did feel a couple doses of lactulose yesterday; counseling done on the need to take lactulose as prescribed; patient understands and is agreeable - We will increase lactulose up to 20 g by mouth 3 times a day Objective - Vital Signs Vital signs: Vital Signs Temp 98.2 F 04/22/23 06:44 Pulse 94 04/22/23 06:44 Resp 17 04/22/23 06:44 BP 155/81 04/22/23 06:44 Pulse Ox 95 04/22/23 09:23 FiO2 Intake & Output 04/21/23 04/22/23 04/22/23 18:59 06:59 18:59 Intake Total 610 Balance 610 Intake: Intake, IV Titration 160 Amount Sodium Chloride 0.9% 1, 160 000 ml @ 20 mls/hr IV . Q24H PIPE Rx#:[id number] Oral 450 Other: Voiding Method Bedside Commode Toilet # Voids 3 1 - Exam General: Appears confused. Cervical collar in place. HEAD: Normal with no signs of head trauma. EYES: PERRLA, EOMI, conjunctiva normal, no discharge. Pupils are 3 mm and equal bilaterally. ENT: Hearing grossly intact, normal oropharynx. Cervical collar in place. RESPIRATORY: Clear breath sounds bilaterally. No wheezes, rales, or rhonchi. C/V: Regular rate and rhythm. S1 and S2 auscultated, peripheral pulses 2+ and intact throughout ABD: Abd is soft, nontender, nondistended EXT: Normal range of motion, no obvious deformity SKIN: No rashes or lesions observed on exposed skin. NEURO: Alert and oriented x 1. This is below baseline. Moving all 4 extremities. - Labs CBC & Chem 7: 04/21/23 07:10 04/21/23 07:10 Labs: Abnormal Lab Results - Last 24 Hours (Table) 04/21/23 04/22/23 Range/Units 13:21 03:55 Ammonia 102 H 131 H (<30) umol/L Assessment and Plan Assessment: 1. Altered mental status; hepatic encephalopathy - Ammonia level is elevated at 295 - Patient received lactulose in ED; we will schedule lactulose at 30 mg by mouth 3 times a day with a 2-3 soft bowel movements daily - Monitor serum ammonia levels 2. Liver cirrhosis - AST/ALT and bilirubin is elevated consistent with liver disease - We will monitor periodically 3. Dens fracture; patient has cervical collar; son reports history of fall in January and patient has been in c-collar for conservative management - Patient follows up with surgery as outpatient 4. Uncontrolled hypertension; [place] and has been out of her medications; supposed to be taking lisinopril; we will resume 5 mg daily with plans to titrate as needed DVT prophylaxis; SCDs/subcu heparin CODE STATUS; full code
[2023-04-22] MEDS: ONDANSETRON 4 MG/2 ML VIAL IVP PRN (18:31)
[2023-04-23] MEDS: KETOROLAC 15 MG/ML 1 ML VIAL IVP SCH ×4 (00:38→17:02)
[2023-04-23] MEDS: QUEtiapine 25 MG TAB PO PRN (00:49)
[2023-04-23] MEDS: MULTIVITAMINS, THERA 1 EACH TAB PO SCH (08:32)
[2023-04-23] MEDS: LACTULOSE 20 GM/30 ML CUP PO SCH ×4 (08:33→21:30)
[2023-04-23] MEDS: SODIUM CHLORIDE 0.9% 1,000 ML IV SCH (15:35)
--- NOTE | 2023-04-23 16:04 | P.PN ---
Subjective Progress Note Date: 04/23/23 67-year-old female with history of liver disease, hypertension, CVA/TIA, GERD, presents with her son over concern for altered mental status. History of a known medically managed dens fracture currently in a cervical collar and follows up with Dr. Morales. Also has a history of alcoholic liver disease, as well as elevated ammonia levels. Has been without her normal medications for blood days is patient is recently relocated to [place]. Since for multiple days of confusion. Patient's son is concerned that ammonia levels may be elevated. No obvious fevers, cough, vomiting, chest pain, nausea, vomiting, diarrhea. No other acute complaints this time. Presents for further evaluation. Patient is unable to provide any history. She is confused. She is only able to tell me her name. Is due to follow-up with Dr. Merritt as her new PCP but has not yet been seen. Medrol completed in ED reveals a WBC of 4.0, hemoglobin of 11.3 and platelet count of 67, sodium 138, potassium 4.6, BUN/creatinine of 27/0.65, total bilirubin elevated at 2.4, AST of 45, ammonia elevated at [address] of the head is negative for any acute intracranial process CT cervical spine reveals no known type II dens fracture 24 hour interval change 04/22/2023 Patient is seen and evaluated in room at bedside; discussed with nursing staff; patient is more awake and alert but restless Vital signs are reviewed and remained stable Lab review shows ammonia is trending up slightly; patient reports that she did feel a couple doses of lactulose yesterday; counseling done on the need to take lactulose as prescribed; patient understands and is agreeable - We will increase lactulose up to 20 g by mouth 3 times a day 04/23/2023 Patient seen and evaluated at nursing staff at bedside; reports she has been taking lactulose as scheduled since morning; had 1 loose bowel movement this morning Vital signs are reviewed and remained stable Lab review shows ammonia trending up to 163 this morning; counseling done for need for taking lactulose as scheduled -- Patient understands; reports she's been taking it more regularly since morning -- Discharge in ammonia level is stable Objective - Vital Signs Vital signs: Vital Signs Temp 97.8 F 04/23/23 08:17 Pulse 101 H 04/23/23 08:17 Resp 17 04/23/23 08:17 BP 162/84 04/23/23 08:17 Pulse Ox 100 04/23/23 08:17 FiO2 Intake & Output 04/22/23 04/23/23 04/23/23 18:59 06:59 18:59 Intake Total 480 240 Balance 480 240 Intake: Oral 480 240 Other: Voiding Method Toilet # Voids 3 2 1 - Exam General: Appears confused. Cervical collar in place. HEAD: Normal with no signs of head trauma. EYES: PERRLA, EOMI, conjunctiva normal, no discharge. Pupils are 3 mm and equal bilaterally. ENT: Hearing grossly intact, normal oropharynx. Cervical collar in place. RESPIRATORY: Clear breath sounds bilaterally. No wheezes, rales, or rhonchi. C/V: Regular rate and rhythm. S1 and S2 auscultated, peripheral pulses 2+ and intact throughout ABD: Abd is soft, nontender, nondistended EXT: Normal range of motion, no obvious deformity SKIN: No rashes or lesions observed on exposed skin. NEURO: Alert and oriented x 1. This is below baseline. Moving all 4 extremities. - Labs CBC & Chem 7: 04/21/23 07:10 04/21/23 07:10 Labs: Abnormal Lab Results - Last 24 Hours (Table) 04/23/23 Range/Units 06:39 Ammonia 163 H (<30) umol/L Assessment and Plan Assessment: 1. Altered mental status; hepatic encephalopathy - Ammonia level is elevated at 295 - Patient received lactulose in ED; we will schedule lactulose at 30 mg by mouth 3 times a day with a 2-3 soft bowel movements daily - Monitor serum ammonia levels 2. Liver cirrhosis - AST/ALT and bilirubin is elevated consistent with liver disease - We will monitor periodically 3. Dens fracture; patient has cervical collar; son reports history of fall in January and patient has been in c-collar for conservative management - Patient follows up with surgery as outpatient 4. Uncontrolled hypertension; [place] and has been out of her medications; supposed to be taking lisinopril; we will resume 5 mg daily with plans to titrate as needed DVT prophylaxis; SCDs/subcu heparin CODE STATUS; full code
[2023-04-24] MEDS: KETOROLAC 15 MG/ML 1 ML VIAL IVP SCH ×5 (00:31→23:58)
[2023-04-24] MEDS ORDERED: LABETALOL 100 MG TAB PO ONE (00:59)
[2023-04-24] MEDS: QUEtiapine 25 MG TAB PO PRN (01:25)
[2023-04-24] MEDS: ONDANSETRON 4 MG/2 ML VIAL IVP PRN (01:44)
[2023-04-24] MEDS: MULTIVITAMINS, THERA 1 EACH TAB PO SCH (10:08)
[2023-04-24] MEDS: LACTULOSE 20 GM/30 ML CUP PO SCH ×3 (10:09→21:20)
--- NOTE | 2023-04-24 12:55 | P.PN ---
Subjective 67-year-old female with history of liver disease, hypertension, CVA/TIA, GERD, presents with her son over concern for altered mental status. History of a known medically managed dens fracture currently in a cervical collar and follows up with Dr. Morales. Also has a history of alcoholic liver disease, as well as elevated ammonia levels. Has been without her normal medications for blood days is patient is recently relocated to [place]. Since for multiple days of confusion. Patient's son is concerned that ammonia levels may be elevated. No obvious fevers, cough, vomiting, chest pain, nausea, vomiting, diarrhea. No other acute complaints this time. Presents for further evaluation. Patient is unable to provide any history. She is confused. She is only able to tell me her name. Is due to follow-up with Dr. Merritt as her new PCP but has not yet been seen. Medrol completed in ED reveals a WBC of 4.0, hemoglobin of 11.3 and platelet count of 67, sodium 138, potassium 4.6, BUN/creatinine of 27/0.65, total bilirubin elevated at 2.4, AST of 45, ammonia elevated at [address] of the head is negative for any acute intracranial process CT cervical spine reveals no known type II dens fracture 24 hour interval change 04/22/2023 Patient is seen and evaluated in room at bedside; discussed with nursing staff; patient is more awake and alert but restless Vital signs are reviewed and remained stable Lab review shows ammonia is trending up slightly; patient reports that she did feel a couple doses of lactulose yesterday; counseling done on the need to take lactulose as prescribed; patient understands and is agreeable - We will increase lactulose up to 20 g by mouth 3 times a day 04/23/2023 Patient seen and evaluated at nursing staff at bedside; reports she has been taking lactulose as scheduled since morning; had 1 loose bowel movement this morning Vital signs are reviewed and remained stable Lab review shows ammonia trending up to 163 this morning; counseling done for need for taking lactulose as scheduled -- Patient understands; reports she's been taking it more regularly since morning I am resuming the care of the patient today 04/24/2023 Patient she knows in the hospital, this is [facility] and the name of the president but she is confused about the date although she can't tell clear correctly. She is somewhat drowsy but easily arousable. She denies headache dizziness. She moves both upper and lower extremities symmetrical. No tingling or numbness. She has evidence of flapping tremor related to her liver disease. Blood pressure was elevated got 1 dose of labetalol every morning. Start small dose of propranolol. Labs reviewed. She has recent history of cervical fracture with 2 dens fracture with increased distraction minimally from 3 mm up to 4 mm, she still complains from neck pain and therefore we going to consult orthopedic service. Currently she has no heart regular in a Place. Patient is not taking lactulose as she supposed to therefore which is dose rectally. And monitor ammonia level and labs tomorrow. Objective - Vital Signs Vital signs: Vital Signs Temp 97.4 F L 04/24/23 07:00 Pulse 79 04/24/23 07:00 Resp 19 04/24/23 07:00 BP 96/61 04/24/23 07:00 Pulse Ox 96 04/24/23 07:00 FiO2 Intake & Output 04/23/23 04/24/23 04/24/23 18:59 06:59 18:59 Intake Total 2019 Balance 2019 Intake: Oral 2019 Other: Voiding Method Toilet # Voids 2 4 # Bowel Movements 2 10 1 - Exam -GENERAL: The patient is alert and oriented x1-2, not in any acute distress. Well developed, well nourished. HEENT: Pupils are round and equally reacting to light. EOMI. No scleral icterus. No conjunctival pallor. Normocephalic, atraumatic. No pharyngeal erythema. No thyromegaly. CARDIOVASCULAR: S1 and S2 present. No murmurs, rubs, or gallops. PULMONARY: Chest is clear to auscultation, no wheezing , no crackles. ABDOMEN: Soft, nontender, nondistended, normoactive bowel sounds. No palpable organomegaly. MUSCULOSKELETAL: No joint swelling or deformity. EXTREMITIES: No cyanosis, clubbing, or pedal edema. NEUROLOGICAL: Gross neurological examination did not reveal any focal deficits. SKIN: No rashes. no petechiae. - Labs CBC & Chem 7: 04/21/23 07:10 04/21/23 07:10 Labs: Abnormal Lab Results - Last 24 Hours (Table) 04/24/23 Range/Units 07:18 Ammonia 56 H (<30) umol/L Assessment and Plan Assessment: 1. Altered mental status; hepatic encephalopathy - Ammonia level is elevated at 295 - Patient received lactulose in ED; we will schedule lactulose, rectally with a 2-3 soft bowel movements daily - Monitor serum ammonia levels 2. Liver cirrhosis - AST/ALT and bilirubin is elevated consistent with liver disease - We will monitor periodically 3. Dens fracture; patient has cervical collar; son reports history of fall in January and patient has been in c-collar for conservative management - Patient follows up with surgery as outpatient - Consult orthopedic service 4. Uncontrolled hypertension; [place] and has been out of her medications; supposed to be taking lisinopril; we will resume 5 mg daily with plans to titrate as needed - Add the propranolol DVT prophylaxis; SCDs/subcu heparin CODE STATUS; full code
[2023-04-24] MEDS ORDERED: LACTULOSE 200 GM/300 ML (FROM 1/2 GAL JUG) RECTAL SCH (13:00)
[2023-04-24] MEDS: SODIUM CHLORIDE 0.9% 1,000 ML IV SCH (15:50)
[2023-04-24] MEDS: PROPRANOLOL 10 MG TAB PO SCH (20:53)
[2023-04-25] MEDS ORDERED: MELATONIN 5 MG TABLET PO PRN (01:17)
[2023-04-25] MEDS: KETOROLAC 15 MG/ML 1 ML VIAL IVP SCH (05:12)
[2023-04-25 08:43] LABS: ALT 27 U/L (8-44); AST 32 U/L (13-35); Albumin 3.8 g/dL (3.8-4.9); Albumin/Globulin Ratio 1.09 Ratio (1.60-3.17); Alkaline Phosphatase 156 U/L (41-126); BUN/Creat Ratio 46.78 Ratio (12.00-20.00); Blood Urea Nitrogen 42.1 mg/dL (9.0-27.0); Calcium 9.5 mg/dL (8.7-10.3); Carbon Dioxide 18.3 mmol/L (21.6-31.8); Chloride 109 mmol/L (96-109); Globulin 3.5 g/dL (1.6-3.3); Glucose 112 mg/dL (70-110); Potassium 4.3 mmol/L (3.5-5.5); Sodium 139 mmol/L (135-145); Total Bilirubin 2.7 mg/dL (0.3-1.2); Total Protein 7.3 g/dL (6.2-8.2)
[2023-04-25] MEDS: PROPRANOLOL 10 MG TAB PO SCH ×2 (08:49→21:55)
[2023-04-25] MEDS: LACTULOSE 20 GM/30 ML CUP PO SCH ×4 (08:49→21:55)
[2023-04-25] MEDS: MULTIVITAMINS, THERA 1 EACH TAB PO SCH (08:49)
[2023-04-25 09:32] LABS: Basophils # (A) 0.03 X 10*3/uL (0.00-0.10); Basophils % (A) 0.5 %; Eosinophils # (A) 0.58 X 10*3/uL (0.04-0.35); Eosinophils % (A) 9.4 %; HCT 31.6 % (37.2-46.3); HGB 10.7 g/dL (12.0-15.0); Immature Platelet Fraction 5.5 % (1.1-6.1); Lymphocytes # (A) 1.32 X 10*3/uL (0.90-5.00); Lymphocytes % (A) 21.3 %; MCH 30.7 pg (27.0-32.0); MCHC 33.9 g/dL (32.0-37.0); MCV 90.5 FL (80.0-97.0); Mean Platelet Volume 11.2 FL (9.5-12.2); Monocytes # (A) 0.58 X 10*3/uL (0.20-1.00); Monocytes % (A) 9.4 %; NRBC Per 100 WBC 0 X 10*3/uL (0.00-0.01); Neutrophils # (A) 3.66 X 10*3/uL (1.80-7.70); Neutrophils % (A) 59.1 %; Platelet Count 72 X 10*3/uL (140-440); RBC 3.49 X 10*6/uL (4.10-5.20); RBC Morphology Normal (Normal); RDW 15.9 % (11.5-14.5); WBC 6.19 X 10*3/uL (4.50-10.00)
--- NOTE | 2023-04-25 12:43 | P.CNOR ---
History of Present Illness - [facility] Consult date: 04/25/23 Requesting physician: Otoniel E Sheet Consult reason: neck pain, other (Type 2 Dens fracture) History of present illness: History of Presenting Illness Patient is a pleasant 67-year-old female who was brought into the ER by her son for altered mental status. Patient is known to our services, she has been seen in office related to a type II dens fracture. Patient was following with an orthopedic spine surgeon in [place]. The type II dens fracture is stable at this time with recommendation of patient to wear [place] J collar at all times. Patient does have a history of alcoholic liver disease, as well as elevated ammonia levels. Patient is to be taking lactulose daily, to which she admits to being noncompliant. Patient was recently relocated to [place] by her son. She has been unable to follow up with a primary care physician at this time. It is documented that patient is to follow with Dr. Merritt as PCP. Patient seen and examined this morning. Patient is resting comfortably in bed. She remains slightly confused, unable to correctly answer date and situation. Patient continues to deny any cervical pain at this time. She denies any numbness or tingling to the bilateral upper extremities. Patient reports that she has been up ambulatory within room with assistance. No acute concerns at this time. Review of Systems Pertinent positives and negatives as discussed in HPI, a complete review of systems was performed and all other systems are negative. Physical Examination General: The patient is awake and alert, in no acute distress Skin: Skin is warm and dry with no obvious rashes or lesions. Eye: Pupils are equal, round and reactive to light, extra-ocular movements are intact; there is normal conjunctiva bilaterally. Neck: The neck is supple, there is no tenderness and ROM intact. Cardiovascular: There is a regular rate and rhythm. No murmur, rub or gallop is appreciated. Respiratory: Lungs are clear to auscultation, respirations are non-labored, breath sounds are equal. Gastrointestinal: Soft, non-distended, non-tender abdomen. Back: There is no tenderness to palpation in the midline, paralumbar, parathoracic or buttocks region. There is no obvious deformity. Musculoskeletal: ROM limited secondary to pain and stiffness from surgical procedure. Shoulder abduction 5/5, elbow flexors 5/5, wrist dorsiflexors 5/5. finger abductor 5/5, methods and procedures analyst 5/5, hip flexor 5/5, knee flexor 5/5, ankle dorsiflexor 5/5, ankle plantarflexion 5/5 and extensor hallucis 5/5. Neurological: CN 2-12 intact. There are no obvious motor or sensory deficits. Movement and coordination equal and intact. Sensory exam to light touch intact C5-T1 and intact from L2-S1. Reflexes 2/4 in bilateral upper and lower extremities. Negative Hoffmans, babinski, and clonus signs. Psychiatric: Cooperative, appropriate mood & affect, normal judgment. Assessment and Plan Stable type II dens fracture At this time we do not recommend any emergent/urgent orthopedic surgical intervention. Patient may follow-up with Dr. Morales in office 06/18/23. Orthopedics is signing off at this time. Please do not hesitate to contact us for any further questions. 2. Appreciate medical management 3. Pain management - continue with chronic pain management 4. GI prophylaxis - senna 5. DVT prophylaxis - mechanical 6. PT/OT - patient is to wear [place] J collar at all times, weightbearing as tolerated with a walker as needed. 7. Appreciate consult I reviewed and discussed this case with my attending Dr. Morales, whom has reviewed this chart and films and is in agreement with assessment and plan of care as outlined above. I have personally seen and examined the patient, performed the documentation and the assessment and plan as written. Number of minutes spent on the visit:. 20m Past Medical History Past Medical History: CVA/TIA, GERD/Reflux, Hypertension, Liver Disease Additional Past Medical History / Comment(s): Anemia History of Any Multi-Drug Resistant Organisms: Unobtainable Past Surgical History: No Surgical Hx Reported Past Psychological History: No Psychological Hx Reported Smoking Status: Former smoker Past Alcohol Use History: Abuse Past Drug Use History: None Reported Medications and Allergies Home Medications Medication Instructions Recorded Confirmed Type Multivitamins, Thera [Multivitamin 1 tab PO DAILY 04/20/23 04/20/23 History (formulary)] oxyCODONE HCL [OxyIR] 5 mg PO Q6H PRN 04/20/23 04/20/23 History Allergies Allergy/AdvReac Type Severity Reaction Status Date / Time gabapentin Allergy Confusion Verified 04/20/23 14:24 Iodinated Contrast Media Allergy Rash/Hives Verified 04/20/23 14:24 lisinopril Allergy Unknown Verified 04/20/23 14:24 Results - Labs Labs: Abnormal Lab Results - Last 24 Hours (Table) 04/24/23 04/25/23 Range/Units 07:18 04:39 Ammonia 56 H 77 H (<30) umol/L H & H 04/20/23 04/21/23 Range/Units 12:28 07:10 Hgb 11.3 L 12.0 (11.4-16.0) gm/dL Hct 31.9 L 34.8 (34.0-46.0) % Coagulation 04/20/23 Range/Units 12:28 INR 1.1 (<1.2) Result Diagrams: 04/25/23 04:39 04/25/23 04:39
--- NOTE | 2023-04-25 12:47 | P.PN ---
Subjective 67-year-old female with history of liver disease, hypertension, CVA/TIA, GERD, presents with her son over concern for altered mental status. History of a known medically managed dens fracture currently in a cervical collar and follows up with Dr. Morales. Also has a history of alcoholic liver disease, as well as elevated ammonia levels. Has been without her normal medications for blood days is patient is recently relocated to [place]. Since for multiple days of confusion. Patient's son is concerned that ammonia levels may be elevated. No obvious fevers, cough, vomiting, chest pain, nausea, vomiting, diarrhea. No other acute complaints this time. Presents for further evaluation. Patient is unable to provide any history. She is confused. She is only able to tell me her name. Is due to follow-up with Dr. Merritt as her new PCP but has not yet been seen. Medrol completed in ED reveals a WBC of 4.0, hemoglobin of 11.3 and platelet count of 67, sodium 138, potassium 4.6, BUN/creatinine of 27/0.65, total bilirubin elevated at 2.4, AST of 45, ammonia elevated at [address] of the head is negative for any acute intracranial process CT cervical spine reveals no known type II dens fracture 24 hour interval change 04/22/2023 Patient is seen and evaluated in room at bedside; discussed with nursing staff; patient is more awake and alert but restless Vital signs are reviewed and remained stable Lab review shows ammonia is trending up slightly; patient reports that she did feel a couple doses of lactulose yesterday; counseling done on the need to take lactulose as prescribed; patient understands and is agreeable - We will increase lactulose up to 20 g by mouth 3 times a day 04/23/2023 Patient seen and evaluated at nursing staff at bedside; reports she has been taking lactulose as scheduled since morning; had 1 loose bowel movement this morning Vital signs are reviewed and remained stable Lab review shows ammonia trending up to 163 this morning; counseling done for need for taking lactulose as scheduled -- Patient understands; reports she's been taking it more regularly since morning I am resuming the care of the patient today 04/24/2023 Patient she knows in the hospital, this is [facility] and the name of the president but she is confused about the date although she can't tell clear correctly. She is somewhat drowsy but easily arousable. She denies headache dizziness. She moves both upper and lower extremities symmetrical. No tingling or numbness. She has evidence of flapping tremor related to her liver disease. Blood pressure was elevated got 1 dose of labetalol every morning. Start small dose of propranolol. Labs reviewed. She has recent history of cervical fracture with 2 dens fracture with increased distraction minimally from 3 mm up to 4 mm, she still complains from neck pain and therefore we going to consult orthopedic service. Currently she has no heart regular in a Place. Patient is not taking lactulose as she supposed to therefore which is dose rectally. And monitor ammonia level and labs tomorrow. 04/25/2023 Patient mentation is improving, close to baseline, she knows in the hospital and the name of the hospital, she knows the name of the president and somewhat the date, she has insight and she is calm. She is getting lactulose 30 g and she is having bowel movement. Discussed with the staff to hold that if she has 3-4 bowel movements. Orthopedic input is appreciated, patient is hard collar now and she can follow up with Dr. morales on 06/18/23 Possible discharge in 24 different or if she keeps improvement Objective - Vital Signs Vital signs: Vital Signs Temp 97.7 F 04/25/23 08:00 Pulse 88 04/25/23 08:00 Resp 16 04/25/23 08:00 BP 152/80 04/25/23 10:54 Pulse Ox 98 04/25/23 08:00 FiO2 Intake & Output 04/24/23 04/25/23 04/25/23 18:59 06:59 18:59 Other: Voiding Method Toilet Toilet # Voids 1 4 # Bowel Movements 1 - Exam -GENERAL: The patient is alert and oriented x1-2, not in any acute distress. Well developed, well nourished. HEENT: Pupils are round and equally reacting to light. EOMI. No scleral icterus. No conjunctival pallor. Normocephalic, atraumatic. No pharyngeal erythema. No thyromegaly. CARDIOVASCULAR: S1 and S2 present. No murmurs, rubs, or gallops. PULMONARY: Chest is clear to auscultation, no wheezing , no crackles. ABDOMEN: Soft, nontender, nondistended, normoactive bowel sounds. No palpable organomegaly. MUSCULOSKELETAL: No joint swelling or deformity. EXTREMITIES: No cyanosis, clubbing, or pedal edema. NEUROLOGICAL: Gross neurological examination did not reveal any focal deficits. SKIN: No rashes. no petechiae. - Labs CBC & Chem 7: 04/25/23 04:39 04/25/23 04:39 Labs: Abnormal Lab Results - Last 24 Hours (Table) 04/25/23 04/25/23 04/25/23 Range/Units 04:39 04:39 04:39 RBC 3.49 L (4.10-5.20) X 10*6/uL Hgb 10.7 L (12.0-15.0) g/dL Hct 31.6 L (37.2-46.3) % RDW 15.9 H (11.5-14.5) % Plt Count 72 L (140-440) X 10*3/uL Eosinophils # 0.58 H (0.04-0.35) X 10*3/uL Carbon Dioxide 18.3 L (21.6-31.8) mmol/L BUN 42.1 H (9.0-27.0) mg/dL BUN/Creatinine Ratio 46.78 H (12.00-20.00) Ratio Glucose 112 H (70-110) mg/dL Total Bilirubin 2.7 H (0.3-1.2) mg/dL Alkaline Phosphatase 156 H (41-126) U/L Ammonia 77 H (<30) umol/L Globulin 3.5 H (1.6-3.3) g/dL Albumin/Globulin Ratio 1.09 L (1.60-3.17) Ratio Assessment and Plan Assessment: 1. Altered mental status; hepatic encephalopathy - Ammonia level is elevated at 295 - Patient received lactulose in ED; we will schedule lactulose, rectally with a 2-3 soft bowel movements daily - Monitor serum ammonia levels 2. Liver cirrhosis - AST/ALT and bilirubin is elevated consistent with liver disease - We will monitor periodically 3. Dens fracture; patient has cervical collar; son reports history of fall in January and patient has been in c-collar for conservative management - Patient follows up with surgery as outpatient - Consult orthopedic service 4. Uncontrolled hypertension; [place] and has been out of her medications; supposed to be taking lisinopril; we will resume 5 mg daily with plans to titrate as needed - Add the propranolol DVT prophylaxis; SCDs/subcu heparin CODE STATUS; full code
[2023-04-25] MEDS: SODIUM CHLORIDE 0.9% 1,000 ML IV SCH (16:22)
[2023-04-26] MEDS: PROPRANOLOL 10 MG TAB PO SCH ×2 (08:44→21:35)
[2023-04-26] MEDS: MULTIVITAMINS, THERA 1 EACH TAB PO SCH (08:44)
[2023-04-26] MEDS: LACTULOSE 20 GM/30 ML CUP PO SCH ×4 (10:40→21:36)
[2023-04-26 11:51] VITALS: BMI 26.4
[2023-04-26] MEDS ORDERED: PROPRANOLOL 10 MG TAB PO STA (13:15)
[2023-04-26] MEDS: SODIUM CHLORIDE 0.9% 1,000 ML IV SCH ×2 (13:34→23:42)
--- NOTE | 2023-04-26 14:49 | CT ---
EXAMINATION TYPE: CT abdomen pelvis wo con DATE OF EXAM: 04/26/2023 COMPARISON: None HISTORY: [facility] CT DLP: 452.5 mGycm Automated exposure control for dose reduction was used. TECHNIQUE: Helical acquisition of images was performed from the lung bases through the pelvis. FINDINGS: The visualized lung bases are clear. There are multiple somewhat ill-defined hypodensities within the left lobe of the liver which could r epresent benign hemangiomas or cysts. Evaluation is limited due to lack of IV contrast. The pancreas is mildly atrophic. The spleen is mildly prominent. The gallbladder is contracted but there is no gallstones or biliary ductal dilatation. There is no renal calcification or hydronephrosis. Caliber the abdominal aorta is normal. The bowel loops are normal in caliber is no evidence of obstruction. There are multiple enlarged lymph nodes in the right paracolic gutter largest measuring approximately 2 cm. There is no free intraperitoneal air or fluid. No focal osseous lesions are seen. IMPRESSION: 1. Multiple enlarged lymph nodes in the right paracolic gutter. Findings are suspicious for malignanc y. 2. Multiple hypodensities within the liver which could represent benign hemangiomas with neoplasm not excluded. 3 prominent spleen. 4. Above combination of findings raises suspicion for lymphoma. CT with contrast might be useful for further evaluation.
[2023-04-26] MEDS ORDERED: RX INFO: IV CONTRAST WAS GIVEN 1 EACH MISC MISCELLANE PRN (16:05)
[2023-04-26] MEDS ORDERED: traMADol 50 MG TAB PO PRN (17:16)
--- NOTE | 2023-04-26 22:21 | P.PN ---
Subjective 67-year-old female with history of liver disease, hypertension, CVA/TIA, GERD, presents with her son over concern for altered mental status. History of a known medically managed dens fracture currently in a cervical collar and follows up with Dr. Morales. Also has a history of alcoholic liver disease, as well as elevated ammonia levels. Has been without her normal medications for blood days is patient is recently relocated to [place]. Since for multiple days of confusion. Patient's son is concerned that ammonia levels may be elevated. No obvious fevers, cough, vomiting, chest pain, nausea, vomiting, diarrhea. No other acute complaints this time. Presents for further evaluation. Patient is unable to provide any history. She is confused. She is only able to tell me her name. Is due to follow-up with Dr. Merritt as her new PCP but has not yet been seen. Medrol completed in ED reveals a WBC of 4.0, hemoglobin of 11.3 and platelet count of 67, sodium 138, potassium 4.6, BUN/creatinine of 27/0.65, total bilirubin elevated at 2.4, AST of 45, ammonia elevated at [address] of the head is negative for any acute intracranial process CT cervical spine reveals no known type II dens fracture 24 hour interval change 04/22/2023 Patient is seen and evaluated in room at bedside; discussed with nursing staff; patient is more awake and alert but restless Vital signs are reviewed and remained stable Lab review shows ammonia is trending up slightly; patient reports that she did feel a couple doses of lactulose yesterday; counseling done on the need to take lactulose as prescribed; patient understands and is agreeable - We will increase lactulose up to 20 g by mouth 3 times a day 04/23/2023 Patient seen and evaluated at nursing staff at bedside; reports she has been taking lactulose as scheduled since morning; had 1 loose bowel movement this morning Vital signs are reviewed and remained stable Lab review shows ammonia trending up to 163 this morning; counseling done for need for taking lactulose as scheduled -- Patient understands; reports she's been taking it more regularly since morning I am resuming the care of the patient today 04/24/2023 Patient she knows in the hospital, this is [facility] and the name of the president but she is confused about the date although she can't tell clear correctly. She is somewhat drowsy but easily arousable. She denies headache dizziness. She moves both upper and lower extremities symmetrical. No tingling or numbness. She has evidence of flapping tremor related to her liver disease. Blood pressure was elevated got 1 dose of labetalol every morning. Start small dose of propranolol. Labs reviewed. She has recent history of cervical fracture with 2 dens fracture with increased distraction minimally from 3 mm up to 4 mm, she still complains from neck pain and therefore we going to consult orthopedic service. Currently she has no heart regular in a Place. Patient is not taking lactulose as she supposed to therefore which is dose rectally. And monitor ammonia level and labs tomorrow. 04/25/2023 Patient mentation is improving, close to baseline, she knows in the hospital and the name of the hospital, she knows the name of the president and somewhat the date, she has insight and she is calm. She is getting lactulose 30 g and she is having bowel movement. Discussed with the staff to hold that if she has 3-4 bowel movements. Orthopedic input is appreciated, patient is hard collar now and she can follow up with Dr. morales on 06/18/23 Possible discharge in 24 different or if she keeps improvement 04/26/2023 Patient is still mildly confused, she has frequent bowel movements but neither the patient nor bedside nurse to tell how many. But her mentation improvement yet not back to baseline Maribel I talked to the son over the phone and he came to visit his mother for a few minutes. She denies any other complaints. She has occasional mild abdominal pain, she is also have certain jaundice. She just came from [place] as per son and she lives with him in her house, he works as a fire man and he works 24 hour shift for example tomorrow. She still drinking alcohol since last January Computed tomography scan of the abdomen without contrast showing a large lymphadenopathy in the right paracolic gutter, multiple hypodensities of the liver suspicious for cysts or hemangioma however cancer cannot be excluded and has prominent mild splenomegaly. These findings were suspicious for malignancy or lymphoma therefore hematology/oncology team were consulted Hematology/oncology team recommended CT of the chest with IV contrast, therefore IV line would be obtained and start gentle hydration until tomorrow with normal saline 75 mL/h. Check ammonia level tomorrow and continue with lactulose. Case discussed with the bedside nurse and the morning and at night as well. Review of systems CONSTITUTIONAL: No fever, no malaise, no fatigue. HEENT: No recent visual problems or hearing problems. Denied any sore throat. CARDIOVASCULAR: No orthopnea, PND, no palpitations, no syncope. PULMONARY: No shortness of breath, no cough, no hemoptysis. GASTROINTESTINAL: No diarrhea, no nausea, no vomiting, . Normoactive bowel sounds. NEUROLOGICAL: No headaches, no weakness, no numbness. Active Medications Generic Name Dose Route Start Last Admin Trade Name Freq PRN Reason Stop Dose Admin Sodium Chloride 1,000 mls @ 20 mls/hr 04/20/23 14:30 04/26/23 13:34 Saline 0.9% IV Not Given .Q24H PIPE Sodium Chloride 1,000 mls @ 75 mls/hr 04/26/23 22:30 Saline 0.9% IV .[id number] PIPE Lactulose 30 gm 04/24/23 18:00 04/26/23 21:36 Lactulose 20 Gm/30 Ml Cup PO 30 gm QID PIPE Administration Melatonin 5 mg 04/25/23 01:17 04/25/23 01:21 Melatonin 5 Mg Tablet PO 5 mg HS PRN Administration Insomnia Miscellaneous Information 1 each 04/26/23 16:05 Rx Info: Iv Contrast Was Given 1 Each Misc MISCELLANE 04/28/23 16:09 DAILY PRN Per Protocol Multivitamins 1 each 04/21/23 09:00 04/26/23 08:44 Multivitamins, Thera 1 Each Tab PO 1 each DAILY PIPE Administration Naloxone HCl 0.2 mg 04/20/23 14:16 Naloxone 0.4 Mg/Ml 1 Ml Vial IV Q2M PRN Opioid Reversal Ondansetron HCl 4 mg 04/20/23 14:16 04/24/23 01:44 Ondansetron 4 Mg/2 Ml Vial IVP 4 mg Q8HR PRN Administration Nausea And Vomiting Propranolol HCl 20 mg 04/26/23 21:00 04/26/23 21:35 Propranolol 10 Mg Tab PO 20 mg BID PIPE Administration Ropinirole HCl 0.75 mg 04/21/23 21:00 04/26/23 21:35 Ropinirole Hcl 0.25 Mg Tab PO 0.75 mg HS PIPE Administration Tramadol HCl 25 mg 04/26/23 17:16 Tramadol 50 Mg Tab PO QID PRN Pain Objective - Vital Signs Vital signs: Vital Signs Temp 98.2 F 04/26/23 19:20 Pulse 71 04/26/23 19:20 Resp 15 04/26/23 19:20 BP 137/73 04/26/23 19:20 Pulse Ox 95 04/26/23 19:20 FiO2 Intake & Output 04/26/23 04/26/23 04/27/23 06:59 18:59 06:59 Weight 61.235 kg Other: # Voids 4 4 # Bowel Movements 1 3 - Exam -GENERAL: The patient is alert and oriented x1-2, not in any acute distress. Well developed, well nourished. HEENT: Pupils are round and equally reacting to light. EOMI. No scleral icterus. No conjunctival pallor. Normocephalic, atraumatic. No pharyngeal erythema. No thyromegaly. CARDIOVASCULAR: S1 and S2 present. No murmurs, rubs, or gallops. PULMONARY: Chest is clear to auscultation, no wheezing , no crackles. ABDOMEN: Soft, nontender, nondistended, normoactive bowel sounds. No palpable organomegaly. MUSCULOSKELETAL: No joint swelling or deformity. EXTREMITIES: No cyanosis, clubbing, or pedal edema. NEUROLOGICAL: Gross neurological examination did not reveal any focal deficits. SKIN: No rashes. no petechiae. - Labs CBC & Chem 7: 04/25/23 04:39 04/25/23 04:39 Assessment and Plan Assessment: 1. Altered mental status; hepatic encephalopathy - Ammonia level is elevated at 295 - Patient received lactulose in ED; we will schedule lactulose, rectally with a 2-3 soft bowel movements daily - Monitor serum ammonia levels 2. Liver cirrhosis - AST/ALT and bilirubin is elevated consistent with liver disease - We will monitor periodically 3. Dens fracture; patient has cervical collar; son reports history of fall in January and patient has been in c-collar for conservative management - Patient follows up with surgery as outpatient - Consult orthopedic service 4. Uncontrolled hypertension; [place] and has been out of her medications; supposed to be taking lisinopril; we will resume 5 mg daily with plans to titrate as needed - Add the propranolol 5. Right paracolic gutter lymphadenopathy with multiple hypodensities of the liver and prominent splenic suspicious for lymphoma. - Hematology/oncology team consult - Screening CAT scan of the chest with contrast is ordered but oncology team Case discussed with the son and he is agreeable with the management plan so far DVT prophylaxis; SCDs/subcu heparin CODE STATUS; full code
[2023-04-26 23:03] LABS: Alpha Fetoprotein, Tumor Mkr <3.00 ng/mL (0.00-7.90); Cancer Antigen 19-9 51.1 U/mL (0.0-34.9); Carcinoembryonic Antigen 2.6 ng/mL (0.0-4.9)
[2023-04-27] MEDS ORDERED: FAMOTIDINE 20 MG/2 ML VIAL IV ONE (08:00)
[2023-04-27] MEDS ORDERED: diphenhydrAMINE 50 MG/ML 1 ML VIAL IVP ONE (08:00)
[2023-04-27] MEDS ORDERED: methylPREDNISolone SOD SUCCI 125 MG/2 ML VIAL IV ONE (08:00)
[2023-04-27] MEDS ORDERED: LORazepam 2 MG/ML INJ IV ONE (08:00)
[2023-04-27] MEDS: MULTIVITAMINS, THERA 1 EACH TAB PO SCH (09:40)
[2023-04-27] MEDS: PROPRANOLOL 10 MG TAB PO SCH ×2 (09:40→22:12)
--- NOTE | 2023-04-27 09:46 | P.PN ---
Subjective Progress Note Date: 04/27/23 Principal diagnosis: Neck pain Type II dens fracture Patient seen and examined at bedside. Patient is resting comfortably in bed. She continues to be mildly confused, oriented her to situation. Patient does present again without the [place] J collar. She states she does not feel like wearing it. Discussed risks of not wearing the collar. Patient verbalizes understanding. Patient denies any numbness or tingling to her upper extremities. New imaging of her cervical spine has been ordered, pending results. Continue to encourage patient to place collar and leave in place at all times. Objective - Vital Signs Vital signs: Vital Signs Temp 98.2 F 04/27/23 00:02 Pulse 63 04/27/23 00:02 Resp 16 04/27/23 00:02 BP 161/78 04/27/23 00:02 Pulse Ox 95 04/27/23 00:02 FiO2 Intake & Output 04/26/23 04/27/23 04/27/23 18:59 06:59 18:59 Weight 61.235 kg Other: Voiding Method Bedside Commode # Voids 4 4 # Bowel Movements 3 - Exam General: The patient is awake and alert, in no acute distress Skin: Skin is warm and dry with no obvious rashes or lesions. Eye: Pupils are equal, round and reactive to light, extra-ocular movements are intact; there is normal conjunctiva bilaterally. Neck: The neck is supple, there is no tenderness and ROM intact. Cardiovascular: There is a regular rate and rhythm. No murmur, rub or gallop is appreciated. Respiratory: Lungs are clear to auscultation, respirations are non-labored, breath sounds are equal. Gastrointestinal: Soft, non-distended, non-tender abdomen. Back: There is no tenderness to palpation in the midline, paralumbar, parathoracic or buttocks region. There is no obvious deformity. Musculoskeletal: ROM limited secondary to pain and stiffness from surgical procedure. Shoulder abduction 5/5, elbow flexors 5/5, wrist dorsiflexors 5/5. finger abductor 5/5, transfer controller 5/5, hip flexor 5/5, knee flexor 5/5, ankle dorsiflexor 5/5, ankle plantarflexion 5/5 and extensor hallucis 5/5. Neurological: CN 2-12 intact. There are no obvious motor or sensory deficits. Movement and coordination equal and intact. Sensory exam to light touch intact C5-T1 and intact from L2-S1. Reflexes 2/4 in bilateral upper and lower extremities. Negative Hoffmans, babinski, and clonus signs. Psychiatric: Cooperative, appropriate mood & affect, normal judgment. - Labs CBC & Chem 7: 04/25/23 04:39 04/25/23 04:39 Labs: Abnormal Lab Results - Last 24 Hours (Table) 04/26/23 04/27/23 Range/Units 04:39 06:27 Ammonia 128 H (<30) umol/L CA 19-9 Antigen 51.1 H (0.0-34.9) U/mL Assessment and Plan Assessment: 1. Neck pain 2. Type 2 dens fracture Plan: 1. Appreciate medical management 2. Pending CT of cervical spine 3. Pain management - continue with chronic pain management 4. GI prophylaxis - senna 5. DVT prophylaxis - mechanical 6. PT/OT - patient is to wear [place] J collar at all times, weightbearing as tolerated with a walker as needed. 7. Appreciate consult
[2023-04-27] MEDS: LACTULOSE 20 GM/30 ML CUP PO SCH ×4 (11:03→22:11)
[2023-04-27] MEDS: SODIUM CHLORIDE 0.9% 1,000 ML IV SCH ×2 (11:03→15:13)
[2023-04-27 12:18] LABS: ALT 28 U/L (8-44); AST 43 U/L (13-35); Albumin 3.5 g/dL (3.8-4.9); Alkaline Phosphatase 169 U/L (41-126); BUN/Creat Ratio 34.71 Ratio (12.00-20.00); Blood Urea Nitrogen 24.3 mg/dL (9.0-27.0); Calcium 9.2 mg/dL (8.7-10.3); Carbon Dioxide 16.1 mmol/L (21.6-31.8); Chloride 110 mmol/L (96-109); Globulin 3.5 g/dL (1.6-3.3); Glucose 111 mg/dL (70-110); Potassium 4.1 mmol/L (3.5-5.5); Sodium 137 mmol/L (135-145); Total Bilirubin 2.2 mg/dL (0.3-1.2)
--- NOTE | 2023-04-27 13:10 | CT ---
EXAMINATION TYPE: CT ChestAbdPelvis w con DATE OF EXAM: 04/27/2023 COMPARISON: CT abdomen pelvis without contrast dated 04/18/2023 HISTORY: LYMPHADENOPATHY CT DLP: 910.5 mGycm Automated exposure control for dose reduction was used. CONTRAST: CT scan of the chest, abdomen and pelvis is performed without Oral Contrast and with IV Contrast, pat ient injected with 100 mL of Isovue 300. FINDINGS: CT chest: The lungs are clear and there is no lung mass or nodule. There is no airspace consolidation or abnorm al interstitial density. There is no pleural effusion, pleural thickening or pneumothorax. The great vessels chest are normal is no mediastinal, hilar or axillary adenopathy. No focal osseous lesions are seen. There are postsurgical changes of the left humerus. CT abdomen and pelvis: The gallbladder wall is prominent but may be secondary to nondistention of the gallbladder. There is no gallstones and there is no pericholecystic fluid. There are multiple hypodense lesions within the liver the largest of which is seen in the lateral segment left lobe of liver measuring 2.7 cm. Statis tically these most likely represent simple cysts or hemangiomas. There is no focal mass of the pancreas or adrenal glands. There is mild splenomegaly. The greatest di mension spleen is 14.5 cm. The caliber the abdominal aorta is normal and there is no retroperitoneal adenopathy or hemorrhage. T here is no solid renal mass or hydronephrosis. There are multiple dilated veins in the right paracolic gutter which ultimately empty into the superi or mesenteric vein. There is no venous outflow obstruction. The inferior vena cava is widely patent a nd there are no filling defects. There are no filling defects within the portal vein. 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 The bowel loops are normal is no dilatation or obstruction. No inflammatory changes are identified in the bowel wall or mesentery. There is no free intraperitoneal air or fluid. There is no pelvic mass, free fluid, abscess or adenopathy. No focal osseous lesions are seen. IMPRESSION: 1. No significant abnormality seen within the chest. No adenopathy. 2. Mild splenomegaly. 3. Abnormal structures in the right paracolic gutter previously thought to represent enlarged lymph n odes on the noncontrast CT the abdomen dated 04/18/2023 correspond to what is now identified as a analia icocele or dilated veins draining into what appears to be a normal superior mesenteric vein and rolando l vein.. 4. Multiple hypodense lesions within liver, statistically most likely represent hepatic cysts or sherie gn hemangiomas. 5. No adenopathy within the abdomen or pelvis.
--- NOTE | 2023-04-27 13:24 | CT ---
EXAMINATION TYPE: CT soft tissue neck w con DATE OF EXAM: 04/27/2023 10:04 AM COMPARISON: None HISTORY: LYMPHADENOPATHY CT DLP: 194.9 mGycm Automated exposure control for dose reduction was used. CONTRAST: CT scan of the neck is performed following with IV Contrast, patient injected with 100 mL of Isovue 3 00. Axial images are obtained, coronal and sagittal reformatted images are reviewed. FINDINGS: Thyroid gland is homogeneous and not enlarged with no focal abnormality. The larynx including the thyroid, arytenoid and cricoid cartilages as well as the true and false voca l cords are normal and symmetric. The tongue base, epiglottis, aryepiglottic folds, piriform sinuses and vallecula are normal and symme tric. The parotid and submandibular glands are normal in size. There is no pharyngeal or parapharyngeal sof t tissue mass or fluid collection There is no adenopathy within the neck. There is calcification of the carotid bifurcations but no significant stenosis. IMPRESSION: No significant abnormality seen. There is no adenopathy within the neck.
--- NOTE | 2023-04-27 14:49 | P.CONS ---
History of Present Illness - Reason for Consult Consult date: 04/27/[address] AP, LAD Requesting physician: Otoniel Jurado Sheet - Chief Complaint altered mental status - History of Present Illness Patient is a 67-year-old female with a significant history of EtOH abuse, liver disease,and recent dens fracture and c-collar. consult was placed for abnormal CT abdomen and pelvis. Patient presented to emergency room for altered mental status. Upon admission ammonia was noted at 163. She's been treated with lactulose with some improvement in ammonia, today at 128. Bilirubin elevated at 2.7. AST and ALT normal. ALP elevated at 156. Continues on lactulose [address] abdomen and pelvis w/o revealed multiple large lymph nodes in the right paracolic gutter. Multiple hypodensities within the liver. Prominent spleen. chest x-ray revealed cardiomegaly and mild pulmonary congestion. HPI is limited due to patient's confusion. At today's visit patient is somnolent and was not answering questions. Spoke with nursing patient is somewhat confused but is usually A&Ox2, however she just received IV Benadryl prior to visit for premedications for CT scans. CBC revealed, WBC 6.1, hemoglobin 10.7, platelets 72,000. H2 17. AFP and CEA normal. CA 19-9 mildly elevated at 51.1, likely reactive. Review of Systems 10 point ROS is negative except as stated in the HPI Past Medical History Past Medical History: CVA/TIA, GERD/Reflux, Hypertension, Liver Disease Additional Past Medical History / Comment(s): Anemia History of Any Multi-Drug Resistant Organisms: Unobtainable Past Surgical History: No Surgical Hx Reported Past Psychological History: No Psychological Hx Reported Smoking Status: Former smoker Past Alcohol Use History: Abuse Past Drug Use History: None Reported Medications and Allergies Home Medications Medication Instructions Recorded Confirmed Type Multivitamins, Thera [Multivitamin 1 tab PO DAILY 04/20/23 04/20/23 History (formulary)] oxyCODONE HCL [OxyIR] 5 mg PO Q6H PRN 04/20/23 04/20/23 History Allergies Allergy/AdvReac Type Severity Reaction Status Date / Time gabapentin Allergy Confusion Verified 04/20/23 14:24 Iodinated Contrast Media Allergy Rash/Hives Verified 04/20/23 14:24 lisinopril Allergy Unknown Verified 04/20/23 14:24 Physical Exam Vitals: Vital Signs Temp Pulse Resp BP Pulse Ox 04/27/23 08:00 97.8 F 74 18 147/81 95 04/27/23 00:02 98.2 F 63 16 161/78 95 04/26/23 19:20 98.2 F 71 15 137/73 95 Intake and Output 04/26/23 04/27/23 04/27/23 22:59 06:59 14:59 Other: Voiding Method Bedside Commode Bedside Commode # Voids 4 4 1 # Bowel Movements 3 - Constitutional General appearance: no acute distress - Neck Neck: no lymphadenopathy - Respiratory Respiratory: bilateral: diminished - Cardiovascular Rhythm: regular Heart sounds: normal: S1, S2 - Gastrointestinal General gastrointestinal: soft, no tenderness - Integumentary Integumentary: no cyanotic - Musculoskeletal Musculoskeletal: generalized weakness - Psychiatric somnolent Results CBC & Chem 7: 04/25/23 04:39 04/27/23 06:27 Labs: Abnormal Lab Results - Last 24 Hours (Table) 04/26/23 04/27/23 04/27/23 Range/Units 04:39 06:27 06:27 Chloride 110 H (96-109) mmol/L Carbon Dioxide 16.1 L (21.6-31.8) mmol/L BUN/Creatinine Ratio 34.71 H (12.00-20.00) Ratio Glucose 111 H (70-110) mg/dL Total Bilirubin 2.2 H (0.3-1.2) mg/dL AST 43 H (13-35) U/L Alkaline Phosphatase 169 H (41-126) U/L Ammonia 128 H (<30) umol/L Albumin 3.5 L (3.8-4.9) g/dL Globulin 3.5 H (1.6-3.3) g/dL Albumin/Globulin Ratio 1.00 L (1.60-3.17) Ratio CA 19-9 Antigen 51.1 H (0.0-34.9) U/mL Comments: CT neck reviewed CT scan - abdomen: report reviewed CT scan - chest: report reviewed CT scan - pelvis: report reviewed Assessment and Plan (1) Abnormal CT of the abdomen Current Visit: Yes Status: Acute Priority: Medium Code(s): R93.5 - ABN FINDINGS ON DX IMAGING OF ABD REGIONS, INC RETROPERITON SNOMED Code(s): 92547751004813683 (2) Hepatic encephalopathy Current Visit: Yes Status: Acute Priority: High Code(s): K76.82 - HEPATIC ENCEPHALOPATHY SNOMED Code(s): 20699782 (3) Hyperammonemia Current Visit: Yes Status: Acute Priority: High Code(s): E72.20 - DISORDER OF UREA CYCLE METABOLISM, UNSPECIFIED SNOMED Code(s): 0425734 Plan: Hepatic encephalopathy/hyperammonemia: -Presented with altered mental status. Hx of ETOH abuse and hyperammonemia. Upon admission ammonia was noted at 163. She's been treated with lactulose with some improvement in ammonia, today at 128. Bilirubin elevated at 2.7. AST and ALT normal. ALP elevated at 156. Continues on lactulose 4 times daily -Defer to IM team for medical management Abnormal CT AP: -CT abdomen and pelvis w/o revealed multiple large lymph nodes in the right paracolic gutter. Multiple hypodensities within the liver. Prominent spleen. -LDH 217. AFP and CEA normal. CA 19-9 mildly elevated at 51.1, likely reactive in nature due to liver disease/cirrhosis -CT CAP and soft tissue w/ contrast ordered for further evaluation. CT chest abdomen and pelvis with contrast revealed no significant abnormality seen within the chest. Mild splenomegaly. Abnormal structures in the right pericolic gutter previously thought to represent enlarged lymph nodes correspond to what is now identified as a varicocele or dilated veins draining into what appears to the superior mesenteric vein and portal vein. Mild nodularity of the margin of the liver suggesting cirrhosis. Given the dilated veins in the right pericolic gutter and presence of mild splenomegaly, concern for portal hypertension. Multiple hypodense lesions within liver, most likely represent hepatic cysts or benign hemangiomas. No adenopathy within the abdomen or pelvis. CT soft tissue neck negative for any significant abnormality. No abnormal adenopathy noted. -As stated above, no concern for malignancy, workup negative. No further workup needed at that this time.
[2023-04-28] MEDS: SODIUM CHLORIDE 0.9% 1,000 ML IV SCH ×2 (02:50→02:52)
[2023-04-28 09:15] VITALS: RESP 19
[2023-04-28] MEDS: LACTULOSE 20 GM/30 ML CUP PO SCH ×3 (09:36→14:28)
[2023-04-28] MEDS: PROPRANOLOL 10 MG TAB PO SCH (09:36)
[2023-04-28] MEDS: MULTIVITAMINS, THERA 1 EACH TAB PO SCH (09:36)
[2023-04-28 15:59] VITALS: BP 138/75; PULSE 78; TEMP 97.9
--- NOTE | 2023-04-28 23:50 | P.DS ---
Providers Date of admission: 04/20/23 15:37 Attending physician: Eda Alcantara MD Consults: 04/24/23 12:47 Consult Physician Routine Consulting Provider: Woody Morales Consult Reason/Comments: cx fracture ,known to your service Do you want consulting provider notified?: Yes 04/26/23 15:52 Consult Physician Urgent Consulting Provider: Allan Roy Consult Reason/Comments: abn ct of abd, LAP Do you want consulting provider notified?: Yes Primary care physician: Jason Merritt MD Hospital Course: Diagnoses: 1. Altered mental status; hepatic encephalopathy, clinically improved and patient back to baseline 2. Liver cirrhosis, alcoholic 3. Dens fracture; patient has cervical collar; son reports history of fall in January and patient has been in c-collar for conservative management - Patient follows up with surgery as outpatient 4. Uncontrolled hypertension; - Add the propranolol, blood pressure better controlled 5. Right paracolic gutter lymphadenopathy with multiple hypodensities of the liver and prominent splenic suspicious for lymphoma. Developed by oncologist, repeat CAT scan show variceal rather than lymphadenopathy most likely related to her liver cirrhosis and her portal hypertension. Patient therefore was cleared for discharge by oncologist Hospital course: 67-year-old female with history of liver disease, hypertension, CVA/TIA, GERD, presents with her son over concern for altered mental status. History of a known medically managed dens fracture currently in a cervical collar and follows up with Dr. Morales. Also has a history of alcoholic liver disease, as well as elevated ammonia levels. Has been without her normal medications for blood days is patient is recently relocated to [place]. Since for multiple days of confusion. Patient's son is concerned that ammonia levels may be elevated. Was admitted with hepatic encephalopathy, she was treated with rifaximin and lactulose, yesterday she had 6 or movement on lactulose 30 g every 4 hours, as a result today she is fully awake and oriented, for the first time she is oriented to date and she told me the exact date. Also she is oriented to place and person as she knows she is in the hospital and the name of the president. She has insight into her illness and the importance of heaviness to treatment is explained extensively and she agrees. Patient was dissected decrease the frequ ency of lactulose 10-3 times a day to titrate bowel movement 3-4 per day. These instructions were provided both the patient and the son over the phone and both agreed to. Oncologist Faisal to the patient because CAT scan was suspicious for lymphadenopathy however repeat CAT scan with IV contrast showing the adhesions were actually varicocele related to portal hypertension and there is no suspicious past. Oncologist team after the patient for discharge today. However patient and son both informed her CA 19-9 still mildly elevated and therefore I recommended the patient follow up with oncologist Dr. Roy in 2 weeks after discharge also I like the patient to follow-up with engineering technology instructor and the contact information is provided for the patient and son for Dr. Rodriguez and they agreed to call and make appointment. Risks of cancer explained for them and both verbalized understanding Dr. Morales the patient for recent dense cervical fracture and the recommended outpatient follow-up scheduled date on May and patient agrees. Patient denies chest pain or dyspnea. She denies any other complaints. I talked to the son about the importance of it has to therapy and he agrees also about the importance of outpatient follow-up and he agrees as well. Problems and management plan were discussed with the patient and he verbalized understanding and acceptance Patient was found stable and can be discharged home in guarded prognosis however he needs follow-up as an outpatient. Patient was instructed to follow up with PCP Dr. Merritt within one week and patient agrees Patient was instructed to follow up with and Dr. Morales and engineering technology instructor Dr. Rodriguez as above and patient Agrees Physical exam Gen: patient is a AAOx3, no distress CVS: S1-S2, RRR, no murmur Lungs: B/L CTA, no wheezing Abdomen: soft, no distention, no tenderness, positive bowel sounds Extremity: no leg edema or induration Time spent more than 35 minutes Patient Condition at Discharge: Serious Plan - Discharge Summary Discharge Rx Participant: Yes New Discharge Prescriptions: New Lactulose [Cephulac] 30 gm PO TID #4000 ml Melatonin 5 mg PO HS PRN 5 Days #5 tab PRN Reason: Insomnia rOPINIRole HCL [Requip] 0.5 mg PO HS #60 tab Propranolol [Inderal] 20 mg PO BID #120 tab Ondansetron [Zofran] 4 mg PO Q8HR PRN 5 Days #10 tab PRN Reason: Nausea And Vomiting Continue Multivitamins, Thera [Multivitamin (formulary)] 1 tab PO DAILY Discontinued oxyCODONE HCL [OxyIR] 5 mg PO Q6H PRN PRN Reason: Pain Discharge Medication List Multivitamins, Thera [Multivitamin (formulary)] 1 tab PO DAILY 04/20/23 [ History] Lactulose [Cephulac] 30 gm PO TID #4000 ml 04/28/23 [Rx] Melatonin 5 mg PO HS PRN 5 Days #5 tab 04/28/23 [Rx] Ondansetron [Zofran] 4 mg PO Q8HR PRN 5 Days #10 tab 04/28/23 [Rx] Propranolol [Inderal] 20 mg PO BID #120 tab 04/28/23 [Rx] rOPINIRole HCL [Requip] 0.5 mg PO HS #60 tab 04/28/23 [Rx] Follow up Appointment(s)/Referral(s): Jaz Funes MD [STAFF PHYSICIAN] - 2 Weeks (engineering technology instructor ) Cyndie Pacheco MD [STAFF PHYSICIAN] - 2 Weeks None,Stated [REFERRING] - 1-2 days Woody Morales DO [Doctor of Osteopathic Medicine] - 06/18/23 Allan Roy MD [STAFF PHYSICIAN] - 2 Weeks Activity/Diet/Wound Care/Special Instructions: heart healthy diet activity is restricted till you see your doctor continue taking lactulose 30 mg three times per day , titrate for 3-4 bowel movements in 24 hours ( hold for more than 4 bowel movements) Discharge Disposition: HOME WITH HOME HEALTH SERVICES
== END 2023-04-28 15:54 | disposition home or self-care (01) | DRG 442 ==
LOC: EC 11:10 → 4SSUR 15:37
PROVIDERS: ADMIT Internal Medicine; ATTEND Internal Medicine
DX: K76.82 Hepatic encephalopathy (principal); K76.6 Portal hypertension; D69.6 Thrombocytopenia, unspecified; G25.2 Other specified forms of tremor; K21.9 Gastro-esophageal reflux disease without esophagitis; I10 Essential (primary) hypertension; W19.XXXD Unspecified fall, subsequent encounter; K70.30 Alcoholic cirrhosis of liver without ascites; S12.110D Anterior displaced Type II dens fracture, subsequent encounter for fracture with routine healing; Z86.14 Personal history of Methicillin resistant Staphylococcus aureus infection; Z11.52 Encounter for screening for COVID-19; Z91.041 Radiographic dye allergy status; Z86.73 Personal history of transient ischemic attack (TIA), and cerebral infarction without residual deficits; Z88.8 Allergy status to other drugs, medicaments and biological substances
CPT/HCPCS: 36415; 70450; 70491; 71046; 71260; 72125; 74176; 74177; 80048; 80053; 80076; 80306; 80320; 81003; 82105; 82140; 82378; 83615; 84484; 85025; 85610; 85730; 86301; 87636; 94760; 96360; 96361; 99285

== ENCOUNTER 2023-05-08 17:45 | Inpatient (IN) | payer MEDICARE, OTHER ==
--- NOTE | 2023-05-08 18:34 | ED ---
General Adult HPI - General Chief complaint: Weakness Stated complaint: AMS Time Seen by Provider: 05/08/23 18:10 Source: patient, family, RN notes reviewed Mode of arrival: wheelchair Limitations: no limitations - History of Present Illness Initial comments: Patient is a pleasant 67-year-old female presenting to the emergency department with confusion. Majority of history comes from sun patient is a poor historian. Patient has no complaints of this time. Patient is on lactulose secondary to chronic liver disease from history of alcohol use. No weakness. No fevers at home. No upper respiratory symptoms - Related Data Home Medications Medication Instructions Recorded Confirmed Multivitamins, Thera [Multivitamin 1 tab PO DAILY 04/20/23 05/08/23 (formulary)] Previous Rx's Medication Instructions Recorded Lactulose [Cephulac] 30 gm PO TID #4000 ml 04/28/23 Melatonin 5 mg PO HS PRN 5 Days #5 tab 04/28/23 Ondansetron [Zofran] 4 mg PO Q8HR PRN 5 Days #10 tab 04/28/23 Propranolol [Inderal] 20 mg PO BID #120 tab 04/28/23 rOPINIRole HCL [Requip] 0.5 mg PO HS #60 tab 04/28/23 Allergies Allergy/AdvReac Type Severity Reaction Status Date / Time Iodinated Contrast Media Allergy Rash/Hives Verified 05/08/23 20:16 lisinopril Allergy Unknown Verified 05/08/23 20:16 gabapentin AdvReac Confusion/a Verified 05/08/23 20:16 ggression/v iolent Review of Systems ROS Statement: Those systems with pertinent positive or pertinent negative responses have been documented in the HPI. ROS Other: All systems not noted in ROS Statement are negative. Constitutional: Denies: fever, chills Eyes: Denies: eye pain ENT: Denies: congestion Respiratory: Denies: cough, dyspnea Neurological: Reports: as per HPI, confusion Past Medical History Past Medical History: CVA/TIA, GERD/Reflux, Hypertension, Liver Disease Additional Past Medical History / Comment(s): Anemia, hepatic encephlopathy History of Any Multi-Drug Resistant Organisms: Unobtainable Past Surgical History: No Surgical Hx Reported Past Psychological History: No Psychological Hx Reported Smoking Status: Former smoker Past Alcohol Use History: Abuse Past Drug Use History: None Reported General Exam Limitations: no limitations General appearance: alert, in no apparent distress Head exam: Present: normocephalic Eye exam: Present: normal appearance, PERRL, EOMI ENT exam: Present: mucous membranes dry Neck exam: Present: normal inspection Respiratory exam: Present: normal lung sounds bilaterally Cardiovascular Exam: Present: regular rate, normal rhythm GI/Abdominal exam: Present: soft, tenderness (Diffuse tenderness which patient states is chronic). Absent: distended Extremities exam: Present: normal inspection. Absent: pedal edema, calf tenderness Neurological exam: Present: alert. Absent: motor sensory deficit Expanded Neurological exam: Present: protecting the airway Patient oriented to: Present: person, place. Absent: time Cranial nerves: EOM's Intact: Normal Motor strength exam: RUE: 5, LUE: 5, RLE: 5, LLE: 5 Eye Response: (4) open spontaneously Motor Response: (6) obeys commands Verbal Response: (4) confused conversation Psychiatric exam: Present: flat affect Skin exam: Present: normal color Course Vital Signs 05/08/23 05/08/23 17:57 20:06 Temperature 99.4 F Pulse Rate 77 74 Respiratory 20 18 Rate Blood Pressure 135/75 132/65 O2 Sat by Pulse 98 100 Oximetry EKG Findings - EKG Results: EKG: interpreted by ERMD, sinus rhythm, normal axis, normal QRS, normal ST/T Medical Decision Making - Medical Decision Making Was pt. sent in by a medical professional or institution ([facility], [facility], urgent care, hospital, or residential...) When possible be specific @ -No Did you speak to anyone other than the patient for history (EMS, parent, family, police, friend...)? What history was obtained from this source @ -Son provides majority of history is patient is a poor historian Did you review nursing and triage notes (agree or disagree)? Why? @ -I reviewed and agree with nursing and triage notes Were old charts reviewed (outside hosp., previous admission, EMS record, old EKG, old radiological studies, urgent care reports/EKG's, residential records)? Report findings @ -Previous admission reviewed Differential Diagnosis (chest pain, altered mental status, abdominal pain women, abdominal pain men, vaginal bleeding, weakness, fever, dyspnea, syncope, headache, dizziness, GI bleed, back pain, seizure, CVA, palpatations, mental health, musculoskeletal)? @ -Differential Altered Mental Status: Hypoglycemia, DKA, hypercapnia, ETOH, overdose, CO poisoning, trauma, myxedema coma, HTN encephalopathy, infection, encephalitis, psychosis, intercranial hemorrhage, hepatic encephalopathy, meningitis, CVA, this is not meant to be an all-inclusive list EKG interpreted by me (3pts min.). @ -As above X-rays interpreted by me (1pt min.). @ -Chest x-ray may have a small amount cephalization CT interpreted by me (1pt min.). @ -None done U/S interpreted by me (1pt. min.). @ -None done What testing was considered but not performed or refused? (CT, X-rays, U/S, labs)? Why? @ -Computed tomography scan of the brain and BNP will be added What meds were considered but not given or refused? Why? @ -None Did you discuss the management of the patient with other professionals (niels edgar i.e. , PA, [facility], lab, RT, psych nurse, social worker clinical, weave defect charting clerk, teacher, second officer, case making machine operator)? Give summary @ -Case discussed with Dr. Calix who will admit Was smoking cessation discussed for >3mins.? @ -No Was critical care preformed (if so, how long)? @ -No Were there social determinants of health that impacted care today? How? (Homelessness, low income, unemployed, alcoholism, drug addiction, transportation, low edu. Level, literacy, decrease access to med. care, assisted, rehab)? @ -No Was there de-escalation of care discussed even if they declined (Discuss DNR or withdrawal of care, Hospice)? DNR status @ -No What co-morbidities impacted this encounter? (DM, HTN, Smoking, COPD, CAD, Cancer, CVA, ARF, Chemo, Hep., AIDS, mental health diagnosis, sleep apnea, morbid obesity)? @ -None Was patient admitted / discharged? Hospital course, mention meds given and route, prescriptions, significant lab abnormalities, going to OR and other pertinent info. @ -Patient reevaluated and somewhat improved. Patient is alert and eating with sons assistant operator's. Patient and family are updated on results and plan. Patient will be admitted with probable placement. Computed tomography scan brain and BNP have been added. Undiagnosed new problem with uncertain prognosis? @ -No Drug Therapy requiring intensive monitoring for toxicity (Heparin, Nitro, Insulin, Cardizem)? @ -No Were any procedures done? @ -No Diagnosis/symptom? @ -Weakness, dehydration, altered mental status Acute, or Chronic, or Acute on Chronic? @ -Acute on chronic, acute, acute on chronic Uncomplicated (without systemic symptoms) or Complicated (systemic symptoms)? @ -default Side effects of treatment? @ -No Exacerbation, Progression, or Severe Exacerbation? @ -No Poses a threat to life or bodily function? How? (Chest pain, [place], [place], pneumonia, PE, COPD, DKA, ARF, appy, cholecystitis, CVA, Diverticulitis, Homicidal, Suicidal, threat to staff... and all critical care pts) @ -No - Lab Data Result diagrams: 05/08/23 21:26 05/08/23 21:26 Lab Results 05/08/23 05/08/23 05/08/23 Range/Units 19:03 19:03 19:03 WBC (3.8-10.6) k/uL RBC (3.80-5.40) m/uL Hgb (11.4-16.0) gm/dL Hct (34.0-46.0) % MCV (80.0-100.0) fL MCH (25.0-35.0) pg MCHC (31.0-37.0) g/dL RDW (11.5-15.5) % Plt Count (150-450) k/uL MPV Neutrophils % % Lymphocytes % % Monocytes % % Eosinophils % % Basophils % % Neutrophils # (1.3-7.7) k/uL Lymphocytes # (1.0-4.8) k/uL Monocytes # (0-1.0) k/uL Eosinophils # (0-0.7) k/uL Basophils # (0-0.2) k/uL Poikilocytosis Anisocytosis PT (10.0-12.5) sec INR (<1.2) APTT (22.0-30.0) sec Sodium (137-145) mmol/L Potassium (3.5-5.1) mmol/L Chloride (98-107) mmol/L Carbon Dioxide (22-30) mmol/L Anion Gap mmol/L BUN (7-17) mg/dL Creatinine (0.52-1.04) mg/dL Est GFR (CKD-EPI)AfAm (>60 ml/min/1.73 sqM) Est GFR (CKD-EPI)NonAf (>60 ml/min/1.73 sqM) Glucose (74-99) mg/dL Plasma Lactic Acid Hola 1.7 (0.7-2.0) mmol/L Calcium (8.4-10.2) mg/dL Magnesium (1.6-2.3) mg/dL Total Bilirubin (0.2-1.3) mg/dL AST (14-36) U/L ALT (4-34) U/L Alkaline Phosphatase (38-126) U/L Ammonia (<30) umol/L Troponin I <0.012 (0.000-0.034) ng/mL Total Protein (6.3-8.2) g/dL Albumin (3.5-5.0) g/dL Urine Color Yellow Urine Appearance Clear (Clear) Urine pH 5.0 (5.0-8.0) Ur Specific Fowler 1.031 (1.001-1.035) Urine Protein Trace H (Negative) Urine Glucose (UA) Negative (Negative) Urine Ketones Negative (Negative) Urine Blood Negative (Negative) Urine Nitrite Negative (Negative) Urine Bilirubin Negative (Negative) Urine Urobilinogen <2.0 (<2.0) mg/dL Ur Leukocyte Esterase Moderate H (Negative) Urine RBC 11 H (0-5) /hpf Urine WBC 6 H (0-5) /hpf Ur Squamous Epith Cells 4 (0-4) /hpf Hyaline Casts 1 (0-2) /lpf Urine Mucus Moderate H (None) /hpf Influenza Type A (PCR) (Not Detectd) Influenza Type B (PCR) (Not Detectd) RSV (PCR) (Not Detectd) SARS-CoV-2 (PCR) (Not Detectd) 05/08/23 05/08/23 05/08/23 Range/Units 19:03 21:26 21:26 WBC 4.2 (3.8-10.6) k/uL RBC 3.45 L (3.80-5.40) m/uL Hgb 11.1 L (11.4-16.0) gm/dL Hct 31.2 L (34.0-46.0) % MCV 90.4 (80.0-100.0) fL MCH 32.0 (25.0-35.0) pg MCHC 35.4 (31.0-37.0) g/dL RDW 16.4 H (11.5-15.5) % Plt Count 76 L (150-450) k/uL MPV 8.4 Neutrophils % 76 % Lymphocytes % 14 % Monocytes % 7 % Eosinophils % 1 % Basophils % 0 % Neutrophils # 3.2 (1.3-7.7) k/uL Lymphocytes # 0.6 L (1.0-4.8) k/uL Monocytes # 0.3 (0-1.0) k/uL Eosinophils # 0.0 (0-0.7) k/uL Basophils # 0.0 (0-0.2) k/uL Poikilocytosis Slight Anisocytosis Slight PT 12.5 (10.0-12.5) sec INR 1.2 H (<1.2) APTT 28.6 (22.0-30.0) sec Sodium (137-145) mmol/L Potassium (3.5-5.1) mmol/L Chloride (98-107) mmol/L Carbon Dioxide (22-30) mmol/L Anion Gap mmol/L BUN (7-17) mg/dL Creatinine (0.52-1.04) mg/dL Est GFR (CKD-EPI)AfAm (>60 ml/min/1.73 sqM) Est GFR (CKD-EPI)NonAf (>60 ml/min/1.73 sqM) Glucose (74-99) mg/dL Plasma Lactic Acid Hola (0.7-2.0) mmol/L Calcium (8.4-10.2) mg/dL Magnesium (1.6-2.3) mg/dL Total Bilirubin (0.2-1.3) mg/dL AST (14-36) U/L ALT (4-34) U/L Alkaline Phosphatase (38-126) U/L Ammonia (<30) umol/L Troponin I (0.000-0.034) ng/mL Total Protein (6.3-8.2) g/dL Albumin (3.5-5.0) g/dL Urine Color Urine Appearance (Clear) Urine pH (5.0-8.0) Ur Specific Fowler (1.001-1.035) Urine Protein (Negative) Urine Glucose (UA) (Negative) Urine Ketones (Negative) Urine Blood (Negative) Urine Nitrite (Negative) Urine Bilirubin (Negative) Urine Urobilinogen (<2.0) mg/dL Ur Leukocyte Esterase (Negative) Urine RBC (0-5) /hpf Urine WBC (0-5) /hpf Ur Squamous Epith Cells (0-4) /hpf Hyaline Casts (0-2) /lpf Urine Mucus (None) /hpf Influenza Type A (PCR) Not Detected (Not Detectd) Influenza Type B (PCR) Not Detected (Not Detectd) RSV (PCR) Not Detected (Not Detectd) SARS-CoV-2 (PCR) Not Detected (Not Detectd) 05/08/23 05/08/23 Range/Units 21:26 21:26 WBC (3.8-10.6) k/uL RBC (3.80-5.40) m/uL Hgb (11.4-16.0) gm/dL Hct (34.0-46.0) % MCV (80.0-100.0) fL MCH (25.0-35.0) pg MCHC (31.0-37.0) g/dL RDW (11.5-15.5) % Plt Count (150-450) k/uL MPV Neutrophils % % Lymphocytes % % Monocytes % % Eosinophils % % Basophils % % Neutrophils # (1.3-7.7) k/uL Lymphocytes # (1.0-4.8) k/uL Monocytes # (0-1.0) k/uL Eosinophils # (0-0.7) k/uL Basophils # (0-0.2) k/uL Poikilocytosis Anisocytosis PT (10.0-12.5) sec INR (<1.2) APTT (22.0-30.0) sec Sodium 137 (137-145) mmol/L Potassium 3.7 (3.5-5.1) mmol/L Chloride 111 H (98-107) mmol/L Carbon Dioxide 13 L (22-30) mmol/L Anion Gap 13 mmol/L BUN 25 H (7-17) mg/dL Creatinine 0.70 (0.52-1.04) mg/dL Est GFR (CKD-EPI)AfAm >90 (>60 ml/min/1.73 sqM) Est GFR (CKD-EPI)NonAf 89 (>60 ml/min/1.73 sqM) Glucose 105 H (74-99) mg/dL Plasma Lactic Acid Hola (0.7-2.0) mmol/L Calcium 9.3 (8.4-10.2) mg/dL Magnesium 1.7 (1.6-2.3) mg/dL Total Bilirubin 4.0 H (0.2-1.3) mg/dL AST 40 H (14-36) U/L ALT 32 (4-34) U/L Alkaline Phosphatase 176 H (38-126) U/L Ammonia 28 (<30) umol/L Troponin I (0.000-0.034) ng/mL Total Protein 7.6 (6.3-8.2) g/dL Albumin 3.6 (3.5-5.0) g/dL Urine Color Urine Appearance (Clear) Urine pH (5.0-8.0) Ur Specific Fowler (1.001-1.035) Urine Protein (Negative) Urine Glucose (UA) (Negative) Urine Ketones (Negative) Urine Blood (Negative) Urine Nitrite (Negative) Urine Bilirubin (Negative) Urine Urobilinogen (<2.0) mg/dL Ur Leukocyte Esterase (Negative) Urine RBC (0-5) /hpf Urine WBC (0-5) /hpf Ur Squamous Epith Cells (0-4) /hpf Hyaline Casts (0-2) /lpf Urine Mucus (None) /hpf Influenza Type A (PCR) (Not Detectd) Influenza Type B (PCR) (Not Detectd) RSV (PCR) (Not Detectd) SARS-CoV-2 (PCR) (Not Detectd) Disposition Clinical Impression: Weakness, Dehydration, Altered mental status Disposition: ADMITTED IP TO THIS HOSP Is patient prescribed a controlled substance at d/c from ED?: No Referrals: Jason Merritt MD [STAFF PHYSICIAN] - 1-2 days Time of Disposition: 22:24
--- NOTE | 2023-05-08 20:24 | XR ---
EXAMINATION TYPE: XR chest 2V DATE OF EXAM: 05/08/2023 7:39 PM CLINICAL INDICATION:Female, 67 years old with history of Weakness; [facility] COMPARISON: Chest radiographs from TECHNIQUE: XR chest 2V Frontal and lateral views of the chest. FINDINGS: Lungs/Pleura: There is no evidence of pleural effusion, focal consolidation, or pneumothorax. Pulmonary vascularity: Pulmonary vascular congestion. Heart/mediastinum: Cardiomediastinal silhouette is enlarged and stable. Musculoskeletal: No acute osseous pathology. Left shoulder hardware appears intact. IMPRESSION: Cardiomegaly and mild pulmonary vascular congestion. Correlate with BNP for congestive heart failure.
[2023-05-08 21:19] LABS: Appearance,Urine Clear (Clear); Bilirubin,Urine Negative (Negative); Blood,Urine Negative (Negative); Color,Urine Yellow; Glucose,Urine (UA) Negative (Negative); Hyaline Casts,Urine 1 /lpf (0-2); Ketones,Urine Negative (Negative); Leukocyte Esterase,Urine Moderate (Negative); Mucus,Urine Moderate /hpf; Nitrite,Urine Negative (Negative); Protein,Urine Trace (Negative); RBC,Urine 11 /hpf (0-5); Specific Gravity,Urine 1.031 (1.001-1.035); Squamous Epithelial Cell,Urine 4 /hpf (0-4); Urobilinogen,Urine <2.0 mg/dL (<2.0); WBC,Urine 6 /hpf (0-5)
[2023-05-08 21:36] LABS: Anisocytosis Slight; Basophils % (A) 0 %; Eosinophils % (A) 1 %; HCT 31.2 % (34.0-46.0); HGB 11.1 gm/dL (11.4-16.0); Lymphocytes # (A) 0.6 k/uL (1.0-4.8); Lymphocytes % (A) 14 %; MCHC 35.4 g/dL (31.0-37.0); MCV 90.4 fL (80.0-100.0); Mean Platelet Volume 8.4; Monocytes # (A) 0.3 k/uL (0-1.0); Monocytes % (A) 7 %; Neutrophils # (A) 3.2 k/uL (1.3-7.7); Neutrophils % (A) 76 %; Platelet Count 76 k/uL (150-450); Poikilocytosis Slight; RBC 3.45 m/uL (3.80-5.40); RDW 16.4 % (11.5-15.5); WBC 4.2 k/uL (3.8-10.6)
[2023-05-08 21:54] LABS: INR 1.2 (<1.2); Partial Thromboplastin Time 28.6 sec (22.0-30.0); Prothrombin Time 12.5 sec (10.0-12.5)
[2023-05-08 22:06] LABS: ALT 32 U/L (4-34); AST 40 U/L (14-36); African American GFR (CKD) >90 (>60 ml/min/1.73 sqM); Albumin 3.6 g/dL (3.5-5.0); Alkaline Phosphatase 176 U/L (38-126); Anion Gap 13 mmol/L; Blood Urea Nitrogen 25 mg/dL (7-17); Calcium 9.3 mg/dL (8.4-10.2); Carbon Dioxide 13 mmol/L (22-30); Chloride 111 mmol/L (98-107); Glucose 105 mg/dL (74-99); Magnesium 1.7 mg/dL (1.6-2.3); Non-African American GFR(CKD) 89 (>60 ml/min/1.73 sqM); Potassium 3.7 mmol/L (3.5-5.1); Sodium 137 mmol/L (137-145); Total Protein 7.6 g/dL (6.3-8.2)
[2023-05-08] MEDS ORDERED: NALOXONE 0.4 MG/ML 1 ML VIAL IV PRN (22:25)
--- NOTE | 2023-05-09 00:02 | CT ---
EXAM: CT Head Without Intravenous Contrast CLINICAL HISTORY: ITS.REASON CT Reason: ams TECHNIQUE: Axial computed tomography images of the head/brain without intravenous contrast. CTDI is 49.2 mGy and DLP is 1153.4 mGy-cm. This CT exam was performed using one or more of the following dose reduction techniques: automated exposure control, adjustment of the mA and/or kV according to patient size, and/or use of iterative reconstruction technique. COMPARISON: No relevant prior studies available. FINDINGS: Brain: No hemorrhage or mass effect. Ventricles: No hydrocephalus. Bones/joints: Unremarkable. Soft tissues: Unremarkable. Sinuses: No air fluid level. Mastoid air cells: Clear. IMPRESSION: No acute hemorrhage, hydrocephalus, or mass effect.
[2023-05-09] MEDS: SODIUM CHLORIDE 0.9% 1,000 ML IV SCH ×2 (00:42→11:52)
[2023-05-09 07:13] LABS: Anisocytosis Slight; Basophils % (A) 0 %; Eosinophils # (A) 0.2 k/uL (0-0.7); Eosinophils % (A) 4 %; HCT 26.5 % (34.0-46.0); Lymphocytes # (A) 0.7 k/uL (1.0-4.8); Lymphocytes % (A) 21 %; MCH 32.3 pg (25.0-35.0); MCHC 35.9 g/dL (31.0-37.0); MCV 89.9 fL (80.0-100.0); Mean Platelet Volume 8.7; Monocytes # (A) 0.3 k/uL (0-1.0); Monocytes % (A) 10 %; Neutrophils # (A) 2.1 k/uL (1.3-7.7); Neutrophils % (A) 62 %; Poikilocytosis Slight; RBC 2.95 m/uL (3.80-5.40); RDW 16.6 % (11.5-15.5); WBC 3.5 k/uL (3.8-10.6)
[2023-05-09 07:31] LABS: HGB 9.5 gm/dL (11.4-16.0)
[2023-05-09 07:32] LABS: ALT 28 U/L (4-34); AST 37 U/L (14-36); African American GFR (CKD) >90 (>60 ml/min/1.73 sqM); Alkaline Phosphatase 183 U/L (38-126); Anion Gap 9 mmol/L; Blood Urea Nitrogen 24 mg/dL (7-17); Calcium 8.6 mg/dL (8.4-10.2); Carbon Dioxide 17 mmol/L (22-30); Chloride 108 mmol/L (98-107); Glucose 108 mg/dL (74-99); Magnesium 1.5 mg/dL (1.6-2.3); Non-African American GFR(CKD) >90 (>60 ml/min/1.73 sqM); Platelet Count 64 k/uL (150-450); Potassium 3.7 mmol/L (3.5-5.1); Sodium 134 mmol/L (137-145); Total Bilirubin 2.9 mg/dL (0.2-1.3); Total Protein 6.7 g/dL (6.3-8.2)
[2023-05-09] MEDS ORDERED: FAMOTIDINE 20 MG TAB PO SCH (09:00)
[2023-05-09] MEDS ORDERED: Magnesium Replacement Protocol 1 EACH MISC MISCELLANE PRN (09:27)
[2023-05-09] MEDS: MAGNESIUM SULFATE-D5W PMX 1 GM in DEXTROSE/WATER 1 100ML.BAG IVPB SCH ×2 (10:10→11:51)
[2023-05-09] MEDS ORDERED: ONDANSETRON 4 MG TAB PO PRN (11:06)
[2023-05-09] MEDS: PANTOPRAZOLE 40 MG TABLET PO SCH (11:51)
[2023-05-09] MEDS: FOLIC ACID 1 MG TAB PO SCH (11:51)
[2023-05-09] MEDS: THIAMINE 100 MG TAB PO SCH ×2 (11:51→17:17)
[2023-05-09] MEDS: LACTULOSE 20 GM/30 ML CUP PO SCH ×3 (11:52→22:07)
[2023-05-09] MEDS: KETOROLAC 15 MG/ML 1 ML VIAL IVP SCH ×3 (12:53→23:47)
--- NOTE | 2023-05-09 12:54 | HP ---
HISTORY AND PHYSICAL CHIEF COMPLAINT: Confusion. HISTORY OF PRESENT ILLNESS: This is a 67-year-old woman with a past medical history of chronic liver disease, on lactulose, complaints of confusion. The preop intake is poor apparently, the patient is recently brought back from [place] by family. The patient admitted for further evaluation and treatment. The patient is confused, unable to give a coherent history. The patient has anemia. Ammonia was 28 yesterday. UA showed some WBCs. CT scan of the brain, which I reviewed personally showed no significant acute abnormality. There is no history of any fever, rigors, or chills. PAST MEDICAL HISTORY: Reviewed include hypertension, liver disease, hepatic encephalopathy. Rest of the history and rest of the chart is also reviewed. HOME MEDICATIONS: Reviewed include Requip. Dose and rest of medications reviewed. ALLERGIES: Iodinated contrast dye. FAMILY HISTORY: No history of heart disease or strokes in the family. SOCIAL HISTORY: Could not be taken. REVIEW OF SYSTEMS: Could not be taken. History of alcohol abuse per history. PHYSICAL EXAMINATION: VITAL SIGNS: Pulse is 86, blood pressure 134/74, respirations 16. HEENT: Conjunctivae normal. NECK: No jugular venous distention. CARDIOVASCULAR: S1, S2 muffled. RESPIRATIONS: Breath sounds diminished at the bases. ABDOMEN: Soft, nontender. No masses. LEGS: No edema. NERVOUS SYSTEM: Nonfocal. SKIN: No ulcer, rash, bleeding. JOINTS: No active deforming arthropathy. LABORATORY DATA: Reviewed. ASSESSMENT: 1. Change in mental status, possibly acute on chronic hepatic encephalopathy. 2. History of EtOH. 3. Elevated bilirubin. 4. 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 5. Anemia and thrombocytopenia possibly secondary to cirrhosis of liver. 6. Hypertension. 7. History of cerebrovascular accident, transient ischemic attack. 8. Gait dysfunction. RECOMMENDATIONS: This is a 67-year-old woman, who presented with multiple complex medical issues. At this time, I recommend to continue the current medications, symptomatic treatment. Continue the lactulose. We will obtain blood cultures, rule out the possibility of sepsis. Otherwise, obtain a CT scan of the abdomen and pelvis and continue to monitor. The patient will require more than 2 nights stay in the hospital to delineate and treat the above-mentioned multiple complex medical issues. The CT scan did not show any acute abnormality. Chest x-ray which was reviewed personally showed cardiomegaly and minimal pulmonary vascular congestion. I would recommend CT scan of the abdomen, pelvis and chest also to rule out any other abnormalities. Home medications will be continued once they are confirmed. As mentioned earlier, overall prognosis is guarded because of the multiple complex medical issues and further recommendations to follow. See orders for further details. We will consult Dock Attendant, PT, OT evaluation also to evaluate the home situation. Possible ECF rehab. MMODL / KATIEN: [id number] /
--- NOTE | 2023-05-09 14:16 | P.CNOR ---
History of Present Illness - [facility] Consult date: 05/09/23 Requesting physician: Mckenzie Posadas Consult reason: other (neck pain, fx, was seen in office) History of present illness: Patient is a 67-year-old female who presented to the emergency department due to confusion. Patient has a past medical history significant for chronic liver disease from history of alcohol use. Orthopedics consulted due to previous fracture in the cervical spine. Patient was seen at bedside this afternoon on 5 N lying in semirecumbent position in bed. Patient did seem somewhat confused during encounter. Patient states she has had neck pain that has been ongoing is unsure how long it has been ongoing for. Patient denies any recent history of falls/trauma. Patient denies any previous orthopedic spine surgery. Patient states the neck pain is worse in the morning when she wakes up and worse with certain movements. Patient states she was given a c-collar to wear a home, but does not wear it all the time. Patient says she does not have a collar since being in the hospital. Patient states most the pain is localized to the neck and denies radiation of pain. Patient says normally she ambulates independently without the use of a walker or cane. Computed tomography scan of the cervical spine performed on 04/11/2023 did demonstrate grade 1 anterolisthesis of C5 on C6 as well as base of dens fracture. Patient states at that time she discussed with her family and do not want any surgical intervention. Patient denies any other orthopedic issues at this time. Patient says since last months she has not had any change in her symptoms. Patient denies chest pain, fever, shortness breath, nausea, vomiting, change in vision, loss of bowel/bladder control. Patient denies saddle anesthesia. Past Medical History Past Medical History: GERD/Reflux, Hypertension, Liver Disease Additional Past Medical History / Comment(s): Anemia, hepatic encephlopathy. Patient denies having hx of CVA/TIA.in prevouis charting CVA/TIA was checked off. History of Any Multi-Drug Resistant Organisms: Unobtainable Past Surgical History: No Surgical Hx Reported Past Anesthesia/Blood Transfusion Reactions: Unable to Obtain Past Psychological History: No Psychological Hx Reported Smoking Status: Never smoker Past Alcohol Use History: Abuse Past Drug Use History: None Reported Medications and Allergies Home Medications Medication Instructions Recorded Confirmed Type Multivitamins, Thera [Multivitamin 1 tab PO DAILY 04/20/23 05/08/23 History (formulary)] Lactulose [Cephulac] 30 gm PO TID #4000 ml 04/28/23 05/08/23 Rx Melatonin 5 mg PO HS PRN 5 Days #5 tab 04/28/23 05/08/23 Rx Ondansetron [Zofran] 4 mg PO Q8HR PRN 5 Days #10 tab 04/28/23 05/08/23 Rx Propranolol [Inderal] 20 mg PO BID #120 tab 04/28/23 05/08/23 Rx rOPINIRole HCL [Requip] 0.5 mg PO HS #60 tab 04/28/23 05/08/23 Rx Allergies Allergy/AdvReac Type Severity Reaction Status Date / Time Iodinated Contrast Media Allergy Rash/Hives Verified 05/08/23 20:16 lisinopril Allergy Unknown Verified 05/08/23 20:16 gabapentin AdvReac Confusion/a Verified 05/08/23 20:16 ggression/v iolent Physical Examination Inspection: Negative for any open fractures, erythema/open wounds or ecchymosis. Sensation: Equal, symmetric, bilaterally intact throughout the upper and lower extremities. Palpation: Moderate TTP diffusely throughout the cervical spine at midline. mild TTP throughout lumbar spine at midline. NTTP throughout rest exam Range of motion: Patient has full range of motion throughout bilateral lower extremity is on exam. Patient has full range of motion throughout bilateral upper extremities on exam. Motor: 4/5 in all major motor in bilateral lower extremities. 4-/5 in all major motor groups in bilateral upper extremities. Neurovascular: Radial pulses intact, 2+ bilaterally. Cap refill under 3 seconds in digits of the upper extremities. Special tests: Negative Homans bilaterally. Negative clonus bilaterally. Negative Felix 's bilaterally. Results - Labs Labs: Abnormal Lab Results - Last 24 Hours (Table) 05/08/23 05/08/23 05/08/23 Range/Units 19:03 21:26 21:26 WBC (3.8-10.6) k/uL RBC 3.45 L (3.80-5.40) m/uL Hgb 11.1 L (11.4-16.0) gm/dL Hct 31.2 L (34.0-46.0) % RDW 16.4 H (11.5-15.5) % Plt Count 76 L (150-450) k/uL Lymphocytes # 0.6 L (1.0-4.8) k/uL INR 1.2 H (<1.2) Sodium (137-145) mmol/L Chloride (98-107) mmol/L Carbon Dioxide (22-30) mmol/L BUN (7-17) mg/dL Glucose (74-99) mg/dL Magnesium (1.6-2.3) mg/dL Total Bilirubin (0.2-1.3) mg/dL AST (14-36) U/L Alkaline Phosphatase (38-126) U/L Albumin (3.5-5.0) g/dL Urine Protein Trace H (Negative) Ur Leukocyte Esterase Moderate H (Negative) Urine RBC 11 H (0-5) /hpf Urine WBC 6 H (0-5) /hpf Urine Mucus Moderate H (None) /hpf 05/08/23 05/09/23 05/09/23 Range/Units 21:26 06:26 06:26 WBC 3.5 L (3.8-10.6) k/uL RBC 2.95 L (3.80-5.40) m/uL Hgb 9.5 L D (11.4-16.0) gm/dL Hct 26.5 L (34.0-46.0) % RDW 16.6 H (11.5-15.5) % Plt Count 64 L (150-450) k/uL Lymphocytes # 0.7 L (1.0-4.8) k/uL INR (<1.2) Sodium 134 L (137-145) mmol/L Chloride 111 H 108 H (98-107) mmol/L Carbon Dioxide 13 L 17 L (22-30) mmol/L BUN 25 H 24 H (7-17) mg/dL Glucose 105 H 108 H (74-99) mg/dL Magnesium 1.5 L (1.6-2.3) mg/dL Total Bilirubin 4.0 H 2.9 H (0.2-1.3) mg/dL AST 40 H 37 H (14-36) U/L Alkaline Phosphatase 176 H 183 H (38-126) U/L Albumin 3.0 L (3.5-5.0) g/dL Urine Protein (Negative) Ur Leukocyte Esterase (Negative) Urine RBC (0-5) /hpf Urine WBC (0-5) /hpf Urine Mucus (None) /hpf H & H 05/08/23 05/09/23 Range/Units 21:26 06:26 Hgb 11.1 L 9.5 L D (11.4-16.0) gm/dL Hct 31.2 L 26.5 L (34.0-46.0) % Coagulation 05/08/23 Range/Units 21:26 INR 1.2 H (<1.2) Result Diagrams: 05/09/23 06:26 05/09/23 06:26 Assessment and Plan Assessment: 1. History of grade 1 anterolisthesis C5 and C6 and base of dens fracture Plan: 1. History of grade 1 anterolisthesis C5 and C6 and base of dens fracture - I did discuss the findings of the computed tomography scan from 04/11/2023 with patient at bedside this afternoon. Patient does need a hard cervical collar. Hard cervical collar has been ordered. I did discuss the findings of the exam and patient with my attending, Dr. Morales. At this time we are recommending new computed tomography scan of the cervical spine to evaluate for any potential changes in spine. Pain medication as needed. Further ortho recommendations pending CT of cervical spine. We'll continue to follow patient during standard hospital. 2. Appreciate medical management 3. Pain management - Toradol 4. DVT prophylaxis - mechanical 5. GI prophylaxis - Protonix 6. PT/OT - WBAT w/walker and hard c-collar on at all times 7. Encourage incentive spirometer use 8. Appreciate consult Time with Patient: Less than 30
--- NOTE | 2023-05-09 16:33 | P.CNNES ---
History of Present Illness Consult date: 05/09/23 Requesting physician: Fran Marley Reason for Consult: weak, ams History of Present Illness: Patient is a 67-year-old female came to the hospital yesterday at 5:45 PM for altered mental status. Patient very encephalopathic, not able to provide any history. Patient apparently lived in [place], and used to be in for about 24 years. Patient apparently was evicted from home in the . Patient's son brought her to [place]. Patient used to live independent, but was confused, getting worse. Patient's son Reinaldo reported to clinical social work aide that patient normally is alert and oriented, 100% independent, able to care for all her own needs including bathing, dressing, ambulation, preparing meals but recently has been presenting with confusion, not being compliant with medication, not to bring her c-collar. She would wet her brief and would put back her wet brief. Patient also has history of neck surgery. According to clinical social work aide note, family wants placement for the patient at this time. Vital signs on arrival blood pressure 135/75, pulse rate 77 temperature 99.4. EKG shows sinus rhythm. Chest x-ray revealed cardiomegaly and mild pulmonary vascular congestion. Correlate with BNP for congestive heart failure. CT head showed no acute hemorrhage, hydrocephalus or mass effect. I personally reviewed CT head, agree with the findings. Visualized paranasal sinuses are clear. Blood test shows normal WBC, hemoglobin 11.1, platelets 76. PT/PTT is normal. Electrolytes are normal, BUN 25 creatinine 0.70. AST is borderline 40, ALT 32. Ammonia is normal 28. Troponin negative. TSH normal. UA shows moderate leukocyte esterase, 6 WBC. Influenza, RSV and ray virus PCR negative. Pre vious MRI of the cervical spine 04/11/2023 revealed base of the dens fracture. C2 fracture fragments appearing reserve alignment and positioning. Grade 1 spondylolisthesis of C5 anterior on C6. Home medications include Zofran, propranolol 20 mg twice a day, Requip 0.5 mg at bedtime, melatonin, lactulose and multivitamin. Review of Systems ROS unobtainable: due to mental status Past Medical History Past Medical History: GERD/Reflux, Hypertension, Liver Disease Additional Past Medical History / Comment(s): Anemia, hepatic encephlopathy. Patient denies having hx of CVA/TIA.in prevouis charting CVA/TIA was checked off. History of Any Multi-Drug Resistant Organisms: Unobtainable Past Surgical History: No Surgical Hx Reported Past Anesthesia/Blood Transfusion Reactions: Unable to Obtain Past Psychological History: No Psychological Hx Reported Smoking Status: Never smoker Past Alcohol Use History: Abuse Past Drug Use History: None Reported Medications and Allergies Home Medications Medication Instructions Recorded Confirmed Type Multivitamins, Thera [Multivitamin 1 tab PO DAILY 04/20/23 05/08/23 History (formulary)] Lactulose [Cephulac] 30 gm PO TID #4000 ml 04/28/23 05/08/23 Rx Melatonin 5 mg PO HS PRN 5 Days #5 tab 04/28/23 05/08/23 Rx Ondansetron [Zofran] 4 mg PO Q8HR PRN 5 Days #10 tab 04/28/23 05/08/23 Rx Propranolol [Inderal] 20 mg PO BID #120 tab 04/28/23 05/08/23 Rx rOPINIRole HCL [Requip] 0.5 mg PO HS #60 tab 04/28/23 05/08/23 Rx Allergies Allergy/AdvReac Type Severity Reaction Status Date / Time Iodinated Contrast Media Allergy Rash/Hives Verified 05/08/23 20:16 lisinopril Allergy Unknown Verified 05/08/23 20:16 gabapentin AdvReac Confusion/a Verified 05/08/23 20:16 ggression/v iolent Physical Examination - Vital Signs Vital Signs: Vital Signs Temp Pulse Pulse Resp BP BP Pulse Ox 05/09/23 07:04 98.7 F 89 16 149/80 97 05/08/23 23:50 97.6 F 86 16 134/75 97 05/08/23 23:00 85 20 110/77 98 05/08/23 22:00 79 22 143/69 96 05/08/23 20:06 74 18 132/65 100 05/08/23 17:57 99.4 F 77 20 135/75 98 Intake and Output 05/08/23 05/09/23 05/09/23 22:59 06:59 14:59 Other: Voiding Method Bedside Commode Diaper # Voids 1 1 # Bowel Movements 2 Weight 68.039 kg 68.039 kg Patient is an elderly female, who is laying in the bed, appears very encephalopathic, somnolent. Patient is sleeping, snoring at times. Very encephalopathic. Patient's limited speech was fine. He did not notice any slurring. Patient did not cooperate with examination. Attention, concentration is severely impaired and fund of knowledge cannot be assessed due to mental status. On cranial nerve examination, pupils are equal, round and reacting to light. Visual garcia cannot be tested. Gaze is midline. Extra ocular muscles cannot be tested. Face is symmetric. Lower cranial nerves cannot be tested because patient not cooperating. On muscle strength testing, patient did not cooperate for the testing. Tone is equal bilaterally. Patient is moving all 4 extremities. Deep tendon reflexes are diminished and plantars are flat. Sensory to touch is equal with no neglect on double simultaneous stimulation. Cerebellar functions cannot be tested. Tone and bulk of muscles normal. Gait deferred.. On general examination, there is no carotid bruit or murmur, S1-S2 audible. Chest is clear on consultation. Abdomen is soft nontender. No organomegaly, bowel sounds present. Peripheral pulses are present. No peripheral edema. Results - Laboratory Findings CBC and BMP: 05/10/23 06:19 05/10/23 06:19 Abnormal Lab Findings: Abnormal Labs 05/08/23 05/08/23 05/08/23 19:03 21:26 21:26 WBC RBC 3.45 L Hgb 11.1 L Hct 31.2 L RDW 16.4 H Plt Count 76 L Lymphocytes # 0.6 L INR 1.2 H Sodium Chloride Carbon Dioxide BUN Glucose Magnesium Total Bilirubin AST Alkaline Phosphatase Albumin Urine Protein Trace H Ur Leukocyte Esterase Moderate H Urine RBC 11 H Urine WBC 6 H Urine Mucus Moderate H 05/08/23 05/09/23 05/09/23 21:26 06:26 06:26 WBC 3.5 L RBC 2.95 L Hgb 9.5 L D Hct 26.5 L RDW 16.6 H Plt Count 64 L Lymphocytes # 0.7 L INR Sodium 134 L Chloride 111 H 108 H Carbon Dioxide 13 L 17 L BUN 25 H 24 H Glucose 105 H 108 H Magnesium 1.5 L Total Bilirubin 4.0 H 2.9 H AST 40 H 37 H Alkaline Phosphatase 176 H 183 H Albumin 3.0 L Urine Protein Ur Leukocyte Esterase Urine RBC Urine WBC Urine Mucus Assessment and Plan Assessment: * Altered mental status, likely due to hepatic encephalopathy * Chronic liver disease * Hypertension * History of C2 dens fracture, grade 1 anterolisthesis C5 and C6, patient on cervical collar, noncompliant. Plan: * EEG evaluate for encephalopathy, perhaps hepatic encephalopathy * Ammonia level was normal 28, on yesterday, but needs to recheck. Patient previously has multiple instances of elevated ammonia. * Consider lactulose. * Orthopedic surgery on board for dens fracture. * We will try to obtain collateral history from patient's son. * Neurology will follow clinically. Thank you for the consult.
--- NOTE | 2023-05-09 19:45 | CT ---
EXAMINATION TYPE: CT cervical spine wo con CT DLP: 1158 mGycm, Automated exposure control for dose reduction was used. DATE OF EXAM: 05/09/2023 5:25 PM COMPARISON: CT brain cervical spine 04/20/2023. CLINICAL INDICATION:Female, 67 years old with history of pain; PHH, pain, unable to obtain hx TECHNIQUE: Axial CT images from the skull base to the inferior aspect of T2 we obtained without intra venous contrast. Coronal and sagittal reformatted images were also reviewed. IV contrast used: None. Oral contrast used: None. Cervical spine findings: Examination is severely limited, as the cath laboratory technician reports they were unable to obtain history and the pa tient was uncooperative. Multiple scan attempts were made to obtain the best images possible due to r epeated patient motion. The study is nondiagnostic. The patient has a known C2 fracture however I am unable to confidently as sess this, other than to say it seems to still be present and does not appear healed. Recommend follo w-up/repeat study when the patient can be more cooperative. IMPRESSION: Nondiagnostic study as discussed above.
[2023-05-09] MEDS: PROPRANOLOL 20 MG TAB PO SCH (20:33)
--- NOTE | 2023-05-09 22:48 | P.CONS ---
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, recent admission to hospital hepatic encephalopathy hypertension reflux patient has been brought into the hospital for evaluation of confusion patient denies having any fever or any chills and no significant fever has been recorded on presentation to the hospital patient is confused and unaware of her surroundings where she is however denies any headache no photophobia no nausea no vomiting or any diarrhea reported by nursing staff patient denies having any chest pain shortness of breath or cough on arrival to the ER patient was afebrile and no fever have recorded subsequently patient was not tachycardic hypotensive or hypoxic did have a white count of 4.2 creatinine 0.70 bilirubin was 4.0 AST 40 urine which was moderate leukocyte esterase 6 WBC with negative influenza COVID and RSV patient did have a chest x-ray cardiomegaly mild pulm vascular congestion, infectious was consulted today for AMS confusion and further workup Review of Systems Positive points has been mentioned in HPI complete review could not be obtained because of his underlying mental status Past Medical History Past Medical History: GERD/Reflux, Hypertension, Liver Disease Additional Past Medical History / Comment(s): Anemia, hepatic encephlopathy. Patient denies having hx of CVA/TIA.in prevouis charting CVA/TIA was checked off. History of Any Multi-Drug Resistant Organisms: Unobtainable Past Surgical History: No Surgical Hx Reported Past Anesthesia/Blood Transfusion Reactions: Unable to Obtain Past Psychological History: No Psychological Hx Reported Smoking Status: Never smoker Past Alcohol Use History: Abuse Past Drug Use History: None Reported Medications and Allergies Home Medications Medication Instructions Recorded Confirmed Type Multivitamins, Thera [Multivitamin 1 tab PO DAILY 04/20/23 05/08/23 History (formulary)] Melatonin 5 mg PO HS PRN 5 Days #5 tab 04/28/23 05/08/23 Rx Ondansetron [Zofran] 4 mg PO Q8HR PRN 5 Days #10 tab 04/28/23 05/08/23 Rx Propranolol [Inderal] 20 mg PO BID #120 tab 04/28/23 05/08/23 Rx rOPINIRole HCL [Requip] 0.5 mg PO HS #60 tab 04/28/23 05/08/23 Rx Acetaminophen Tab [Tylenol] 650 mg PO Q6HR PRN tab 05/17/23 Rx Folic Acid 1 mg PO DAILY@1200 tab 05/17/23 Rx HYDROcodone/APAP 5-325MG [Metaline 1 each PO Q6HR PRN #4 tab 05/17/23 Rx 5-325] Heparin Sodium,Porcine (1 ml) 5,000 unit SQ Q12HR each 05/17/23 Rx [Heparin Sodium] Lactulose [Cephulac] 20 gm PO Q12H ml 05/17/23 Rx Magnesium Oxide [Mag-Ox] 400 mg PO BID tab 05/17/23 Rx OLANZapine ODT [ZyPREXA Zydis] 2.5 mg PO TID PRN tab 05/17/23 Rx Pantoprazole [Protonix] 40 mg PO AC-BRKFST tab 05/17/23 Rx Thiamine [Vitamin B-1] 100 mg PO BID-W/MEALS tab 05/17/23 Rx cloNIDine HCL [Catapres] 0.1 mg PO DAILY tab 05/17/23 Rx Allergies Allergy/AdvReac Type Severity Reaction Status Date / Time Iodinated Contrast Media Allergy Rash/Hives Verified 05/08/23 20:16 lisinopril Allergy Unknown Verified 05/08/23 20:16 gabapentin AdvReac Confusion/a Verified 05/08/23 20:16 ggression/v iolent Physical Exam Vitals: Vital Signs Temp Pulse Pulse Resp BP BP Pulse Ox 05/09/23 07:04 98.7 F 89 16 149/80 97 05/08/23 23:50 97.6 F 86 16 134/75 97 05/08/23 23:00 85 20 110/77 98 05/08/23 22:00 79 22 143/69 96 05/08/23 20:06 74 18 132/65 100 05/08/23 17:57 99.4 F 77 20 135/75 98 Intake and Output 05/08/23 05/09/23 05/09/23 22:59 06:59 14:59 Other: Voiding Method Bedside Commode Bedside Commode Diaper Diaper # Voids 1 1 # Bowel Movements 2 Weight 68.039 kg 68.039 kg GENERAL DESCRIPTION: Elderly female lying in bed, no distress. No tachypnea or accessory muscle of respiration use. HEENT: Shows Pallor , no scleral icterus. Oral mucous membrane is dry. No pharyngeal erythema or thrush NECK: Trachea central, no thyromegaly. LUNGS: Unlabored breathing. Clear to auscultation anteriorly. No wheeze or crackle. HEART: S1, S2, regular rate and rhythm. No loud murmur ABDOMEN: Soft, no tenderness , guarding or rigidity, no organomegaly EXTREMITIES: No edema of feet. SKIN: No rash, no masses palpable. NEUROLOGICAL: The patient is pleasantly confused orientation cannot be determined Results CBC & Chem 7: 05/16/23 06:42 05/16/23 06:42 Labs: Abnormal Lab Results - Last 24 Hours (Table) 05/08/23 05/08/23 05/08/23 Range/Units 19:03 21:26 21:26 WBC (3.8-10.6) k/uL RBC 3.45 L (3.80-5.40) m/uL Hgb 11.1 L (11.4-16.0) gm/dL Hct 31.2 L (34.0-46.0) % RDW 16.4 H (11.5-15.5) % Plt Count 76 L (150-450) k/uL Lymphocytes # 0.6 L (1.0-4.8) k/uL INR 1.2 H (<1.2) Sodium (137-145) mmol/L Chloride (98-107) mmol/L Carbon Dioxide (22-30) mmol/L BUN (7-17) mg/dL Glucose (74-99) mg/dL Magnesium (1.6-2.3) mg/dL Total Bilirubin (0.2-1.3) mg/dL AST (14-36) U/L Alkaline Phosphatase (38-126) U/L Albumin (3.5-5.0) g/dL Urine Protein Trace H (Negative) Ur Leukocyte Esterase Moderate H (Negative) Urine RBC 11 H (0-5) /hpf Urine WBC 6 H (0-5) /hpf Urine Mucus Moderate H (None) /hpf 05/08/23 05/09/23 05/09/23 Range/Units 21:26 06:26 06:26 WBC 3.5 L (3.8-10.6) k/uL RBC 2.95 L (3.80-5.40) m/uL Hgb 9.5 L D (11.4-16.0) gm/dL Hct 26.5 L (34.0-46.0) % RDW 16.6 H (11.5-15.5) % Plt Count 64 L (150-450) k/uL Lymphocytes # 0.7 L (1.0-4.8) k/uL INR (<1.2) Sodium 134 L (137-145) mmol/L Chloride 111 H 108 H (98-107) mmol/L Carbon Dioxide 13 L 17 L (22-30) mmol/L BUN 25 H 24 H (7-17) mg/dL Glucose 105 H 108 H (74-99) mg/dL Magnesium 1.5 L (1.6-2.3) mg/dL Total Bilirubin 4.0 H 2.9 H (0.2-1.3) mg/dL AST 40 H 37 H (14-36) U/L Alkaline Phosphatase 176 H 183 H (38-126) U/L Albumin 3.0 L (3.5-5.0) g/dL Urine Protein (Negative) Ur Leukocyte Esterase (Negative) Urine RBC (0-5) /hpf Urine WBC (0-5) /hpf Urine Mucus (None) /hpf Assessment and Plan (1) Hepatic encephalopathy Status: Acute Priority: High Code(s): K76.82 - HEPATIC ENCEPHALOPATHY SNOMED Code(s): 70904023 (2) UTI (urinary tract infection) Status: Acute Code(s): N39.0 - URINARY TRACT INFECTION, SITE NOT SPECIFIED SNOMED Code(s): 09598540 Plan: 1patient presented to hospital with confusion in this patient who do have a history of alcohol liver disease/cirrhosis with recent admission to the hospital with hepatic encephalopathy more likely metabolic and related to hepatic encephalopathy patient currently denies having any headache no neck rigidity no fever or elevated white count clinic suspicion is low for encephalitis 2-patient did have a positive UA and a possible component of symptomatic urinary tract infection from enteric gram-negative pathogen 3-continue with Rocephin while waiting for the culture to finalize We will follow on clinical condition and cultures to further adjust medication if needed Thank you for this consultation we will follow the patient along with you Dictation was produced using dragon dictation software. please excuse any grammatical, word or spelling errors. Time with Patient: Greater than 30
[2023-05-10] MEDS: SODIUM CHLORIDE 0.9% 1,000 ML IV SCH ×3 (01:57→23:35)
[2023-05-10] MEDS: KETOROLAC 15 MG/ML 1 ML VIAL IVP SCH ×4 (05:13→23:34)
[2023-05-10] MEDS: LACTULOSE 20 GM/30 ML CUP PO SCH ×3 (08:28→22:08)
[2023-05-10] MEDS: MULTIVITAMINS, THERA 1 EACH TAB PO SCH (08:28)
[2023-05-10] MEDS: THIAMINE 100 MG TAB PO SCH ×2 (08:28→17:24)
[2023-05-10] MEDS: PANTOPRAZOLE 40 MG TABLET PO SCH (08:29)
[2023-05-10] MEDS: PROPRANOLOL 20 MG TAB PO SCH ×2 (08:29→20:10)
--- NOTE | 2023-05-10 09:28 | P.PN ---
Subjective Progress Note Date: 05/10/23 Principal diagnosis: Subacute vs chronic C2 fracture Cervical pain Patient seen and examined this morning. Patient is sitting upright comfortably in bed. Patient continues to be mildly confused, patient does not recall the date and she understands that she is in the hospital but does not remember which one. Patient does present without a hard cervical collar. Discussed the importance of her wearing the hard cervical collar. Patient does have an [place] hard cervical collar and a [place] J collar at home. Patient reports she does not like to wear them. She was unable to remain still through the CT scan of the cervical spine that was performed yesterday. Patient is more alert and calm this morning. We will reorder this scan to hopefully obtain results to further her plan of care. Continue to encourage pateint to wear any type of collar at this time, [place] J is strongly recommended. Patient denies any numbness or tingling or radicular symptoms to her bilateral upper extremities. No difficulty in breathing or shortness of breath. Denies any dizziness. No acute concern at this time. Objective - Vital Signs Vital signs: Vital Signs Temp 97.9 F 05/10/23 07:09 Pulse 73 05/10/23 07:09 Resp 16 05/10/23 07:09 BP 127/70 05/10/23 07:09 Pulse Ox 97 05/10/23 07:09 FiO2 Intake & Output 05/09/23 05/10/23 05/10/23 18:59 06:59 18:59 Intake Total 100 Balance 100 Intake: Intake, IV Titration 100 Amount Magnesium Sulfate-D5w Pmx 100 1 gm In Dextrose/Water 1 100ml.bag @ 100 mls/hr IVPB Q1H [facility] Rx#: [id number] Other: Voiding Method Bedside Commode Bedside Commode Diaper Diaper # Voids 4 4 # Bowel Movements 1 - Exam Physical Examination General: The patient is awake and alert, in no acute distress Skin: Skin is warm and dry with no obvious rashes or lesions. Eye: Pupils are equal, round and reactive to light, extra-ocular movements are intact; there is normal conjunctiva bilaterally. Neck: The neck is supple, there is mild tenderness and ROM is limited secondary to pain and stiffness Cardiovascular: There is a regular rate and rhythm. No murmur, rub or gallop is appreciated. Respiratory: Lungs are clear to auscultation, respirations are non-labored, breath sounds are equal. Gastrointestinal: Soft, non-distended, non-tender abdomen. Back: There is no tenderness to palpation in the midline, paralumbar, parathoracic or buttocks region. There is no obvious deformity . Musculoskeletal: ROM limited secondary to pain and stiffness from surgical procedure. Muscle strength in all major muscle groups of bilateral upper extremities 4/5, bilateral lower extremities 4/5. Neurological: CN 2-12 intact. There are no obvious motor or sensory deficits. Movement and coordination equal and intact. Sensory exam to light touch intact C5-T1 and intact from L2-S1. Reflexes 2/4 in bilateral upper and lower extremities. Negative Hoffmans, babinski, and clonus signs. Psychiatric: Cooperative, appropriate mood & affect, normal judgment. - Labs CBC & Chem 7: 05/09/23 06:26 05/09/23 06:26 Labs: Abnormal Lab Results - Last 24 Hours (Table) 05/10/23 Range/Units 06:19 Ammonia 119 H (<30) umol/L Assessment and Plan Assessment: History of Subacute vs chronic C2 dens fracture Grade 1 anterolithesis C5 onto C6 Cervical pain Generalized weakness Plan: At this time we will re-order CT scan of the cervical spine to hopefully obtain clearer images to assess fracture. 2. Appreciate medical management 3. Pain management - Continue with antiinflammatories 4. GI prophylaxis - per medicine 5. DVT prophylaxis -mechanical 6. PT/OT - weightbearing as tolerated with a walker as needed. 7. Appreciate consult
[2023-05-10 09:35] LABS: Basophils # (A) 0.01 X 10*3/uL (0.00-0.10); Basophils % (A) 0.3 %; Eosinophils # (A) 0.28 X 10*3/uL (0.04-0.35); Eosinophils % (A) 8.1 %; HCT 25.4 % (37.2-46.3); HGB 8.5 g/dL (12.0-15.0); Immature Platelet Fraction 3.8 % (1.1-6.1); Lymphocytes # (A) 0.48 X 10*3/uL (0.90-5.00); Lymphocytes % (A) 13.9 %; MCH 30.8 pg (27.0-32.0); MCHC 33.5 g/dL (32.0-37.0); Mean Platelet Volume 11.4 FL (9.5-12.2); Monocytes # (A) 0.32 X 10*3/uL (0.20-1.00); Monocytes % (A) 9.3 %; NRBC Per 100 WBC 0 X 10*3/uL (0.00-0.01); Neutrophils # (A) 2.35 X 10*3/uL (1.80-7.70); Neutrophils % (A) 68.1 %; Platelet Count 63 X 10*3/uL (140-440); RBC 2.76 X 10*6/uL (4.10-5.20); RDW 16.6 % (11.5-14.5); WBC 3.45 X 10*3/uL (4.50-10.00)
[2023-05-10 11:13] LABS: ALT 26 U/L (8-44); AST 37 U/L (13-35); Albumin 3.1 g/dL (3.8-4.9); Albumin/Globulin Ratio 1.07 Ratio (1.60-3.17); Alkaline Phosphatase 180 U/L (41-126); BUN/Creat Ratio 31.25 Ratio (12.00-20.00); Carbon Dioxide 16.7 mmol/L (21.6-31.8); Chloride 112 mmol/L (96-109); Globulin 2.9 g/dL (1.6-3.3); Glucose 112 mg/dL (70-110); Potassium 4.3 mmol/L (3.5-5.5); Sodium 139 mmol/L (135-145)
[2023-05-10] MEDS: FOLIC ACID 1 MG TAB PO SCH (11:57)
--- NOTE | 2023-05-10 11:59 | CT ---
EXAMINATION TYPE: CT cervical spine wo con CT DLP: 323.6 mGycm, Automated exposure control for dose reduction was used. DATE OF EXAM: 05/10/2023 9:48 AM COMPARISON: CT 05/09/2023 and 04/10/2023; the most recent study was nondiagnostic so comparison is ess entially to the 04/10/2023 study. CLINICAL INDICATION:Female, 67 years old with history of C2 fracture; PHH, C2 fracture TECHNIQUE: Axial CT images from the skull base to the inferior aspect of T2 we obtained without intra venous contrast. Coronal and sagittal reformatted images were also reviewed. Contrast used: mL of , (if blank None) Oral contrast used: (if blank None) Cervical spine: Bones and spinal canal: Generalized osteopenia. No evidence for destructive lesion. Type II dens fracture is redemonstrated, with slight irregularity along the fracture margins suggesti ng some bony remodeling as before, however no significant healing progression is seen compared to the prior study. There is again some dorsal tilting of the dens fragment associated with distraction of the anterior fracture lucency (about 4 mm anteriorly, unchanged) and relatively preserved alignment o f the cortical margins of C2 along the posterior aspect of the fracture. Degenerative changes anterio rly C1-C2 are again seen. The atlantodental space is not widened, somewhat narrowed by degenerative c hanges. Anterior arch of C1 travels dorsally in contiguity with the dens fragment. Stable mild retrod ental soft tissue density with small calcification. Again the lateral masses of C1 are posteriorly di splaced relative to the lateral masses of C2. This measures up to 6.5 mm bilaterally and is essential ly unchanged. Craniocervical junction is intact, with the above changes causing mild narrowing of the space available for the cord. No additional acute fracture is identified. Facets are normally aligned. There is mild/moderate multi level degenerative disc disease and facet arthrosis redemonstrated greatest at C5-C6 were there is re latively advanced degenerative disc disease and 4 mm anterolisthesis C5 on C6 which is similar to cici or. Trace degenerative anterolisthesis also again seen at C3-C4 and C4-C5. There is mild to moderate canal and neural foraminal stenoses at the C5-C6 level. Chronic appearing mild superior endplate depressions/Schmorl's nodes T2 and T3, and mild height loss along the superior endplate T4, similar to prior. No definite critical spinal canal stenosis is demonstrated by CT, however if the canal and contents a re of concern and/or there are neurologic abnormalities, MRI would be recommended. Soft tissues: Soft tissues demonstrate no acute abnormality. There are heavy calcifications of the carotid arteries in the neck, especially the bifurcation regions. Some calcifications are also seen along the aortic arch, and branch vessels. Visualized distal ascending aorta may be somewhat ectatic. Chronic parenchy mal changes in the lung apices without acute infiltrate or pneumothorax. A hypodense 9 mm right thyro id lobe nodule may be further assessed with ultrasound. No significant prevertebral soft tissue thick ening. IMPRESSION: 1. Redemonstration of unstable type II dens fracture with associated displacement/angulation, simila r to the prior study. There has been no significant interval progression of healing. 2. Multilevel cervical spondylosis with relatively advanced degenerative disc disease C5-C6 and unch anged 4 mm anterolisthesis here.
--- NOTE | 2023-05-10 16:19 | P.PN ---
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 On today's evaluation that is 05/10/2023 patient remains to be afebrile patient is pleasantly confused unable to provide reliable history she is breathing comfortably on room air no vomiting diarrhea or any other changes reported by the nursing staff. Patient did have white count of 3.45, creatinine 0.8, platelet have ammonia level of 119 Objective - Vital Signs Vital signs: Vital Signs Temp 98.4 F 05/10/23 13:09 Pulse 81 05/10/23 13:09 Resp 16 05/10/23 13:09 BP 155/73 05/10/23 13:09 Pulse Ox 96 05/10/23 13:09 FiO2 Intake & Output 05/09/23 05/10/23 05/10/23 18:59 06:59 18:59 Intake Total 100 Balance 100 Intake: Intake, IV Titration 100 Amount Magnesium Sulfate-D5w Pmx 100 1 gm In Dextrose/Water 1 100ml.bag @ 100 mls/hr IVPB Q1H [facility] Rx#: [id number] Other: Voiding Method Bedside Commode Bedside Commode Bedside Commode Diaper Diaper Diaper # Voids 4 4 # Bowel Movements 1 - Exam GENERAL DESCRIPTION: An elderly female RESPIRATORY SYSTEM: Unlabored breathing , decreased breath sounds at bases HEART: S1 S2 regular rate and rhythm , ABDOMEN: Soft , no tenderness EXTREMITIES: No edema feet - Labs CBC & Chem 7: 05/10/23 06:19 05/10/23 06:19 Labs: Abnormal Lab Results - Last 24 Hours (Table) 05/10/23 05/10/23 05/10/23 Range/Units 06:19 06:19 06:19 WBC 3.45 L (4.50-10.00) X 10*3/uL RBC 2.76 L (4.10-5.20) X 10*6/uL Hgb 8.5 L (12.0-15.0) g/dL Hct 25.4 L (37.2-46.3) % RDW 16.6 H (11.5-14.5) % Plt Count 63 L (140-440) X 10*3/uL Lymphocytes # 0.48 L (0.90-5.00) X 10*3/uL Chloride 112 H (96-109) mmol/L Carbon Dioxide 16.7 L (21.6-31.8) mmol/L BUN/Creatinine Ratio 31.25 H (12.00-20.00) Ratio Glucose 112 H (70-110) mg/dL Total Bilirubin 2.0 H (0.3-1.2) mg/dL AST 37 H (13-35) U/L Alkaline Phosphatase 180 H (41-126) U/L Ammonia 119 H (<30) umol/L Total Protein 6.0 L (6.2-8.2) g/dL Albumin 3.1 L (3.8-4.9) g/dL Albumin/Globulin Ratio 1.07 L (1.60-3.17) Ratio Assessment and Plan (1) Altered mental status Current Visit: Yes Status: Acute Code(s): R41.82 - ALTERED MENTAL STATUS, UNSPECIFIED SNOMED Code(s): 394068862 (2) Hepatic encephalopathy Current Visit: Yes Status: Acute Priority: High Code(s): K76.82 - HEPATIC ENCEPHALOPATHY SNOMED Code(s): 47441973 (3) UTI (urinary tract infection) Current Visit: Yes Status: Acute Code(s): N39.0 - URINARY TRACT INFECTION, SITE NOT SPECIFIED SNOMED Code(s): 80397347 Plan: 1patient presented to hospital with confusion in this patient who do have a history of alcohol liver disease/cirrhosis with recent admission to the hospital with hepatic encephalopathy more likely metabolic and related to hepatic encephalopathy patient currently denies having any headache no neck rigidity no fever or elevated white count clinic suspicion is low for encephalitis, patient did have elevated ammonia and likely dealing with hepatic encephalopathy 2-patient did have a positive UA and a possible component of symptomatic urinary tract infection from enteric gram-negative pathogen 3-patient continue with Rocephin while waiting for the culture to finalize Dictation was produced using [employer] software. please excuse any grammatical, word or spelling errors.
[2023-05-10] MEDS: HEPARIN SODIUM,PORCINE 5,000 UNIT/ML 1 ML VIAL SQ SCH (20:09)
--- NOTE | 2023-05-10 21:27 | PN ---
PROGRESS NOTE DATE OF SERVICE: 05/10/2023 SUBJECTIVE: This is a 67-year-old woman who was admitted with multiple complex medical issues, had possibly chronic hepatic encephalopathy. The patient also had history of EtOH. The patient also had a C2 fracture, which is rather chronic. Orthopedic Surgery is following the patient closely. Cervical CT scan has been reviewed. PAST MEDICAL HISTORY: Reviewed. REVIEW OF SYSTEMS: The patient is confused. CURRENT MEDICATIONS: Reviewed include lactulose, dose and rest of medications noted. PHYSICAL EXAMINATION: VITAL SIGNS: Pulse is 73, blood pressure 120/77, respirations 16. CHEST: Clear to auscultation. CARDIOVASCULAR: S1, S2. ABDOMEN: Soft. NERVOUS SYSTEM: Mild diffuse weakness. Full exam is not possible. The patient is not cooperative. LABORATORY DATA: WBC 3.5, hemoglobin is 8.5. Rest of the labs are noted. ASSESSMENT: 1. Change in mental status, possible acute on chronic metabolic encephalopathy. 2. Chronic C2 fracture. 3. History of EtOH. 4. Mild pancytopenia possibly secondary to chronic liver disease. 5. Elevated bilirubin. 6. 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 7. Hypertension. 8. History of cerebrovascular accident, transient ischemic attack. 9. Gait dysfunction. 10.Metabolic encephalopathy, multifactorial. RECOMMENDATIONS AND DISCUSSION: This is a 67-year-old woman, who presented with multiple complex medical issues. I recommend to continue current medications, symptomatic treatment. Otherwise, closely follow with multiple consultants. Orthopedic Surgery and Infectious Disease are following the patient closely. Guarded prognosis. Further recommendations to follow. I would recommend PT OT evaluation, possible ECF rehab and Psychiatry and Neurology also being consulted and the workup is also in progress. MMODL / IJN: [id number] /
[2023-05-11 01:31] LABS: Amphetamine Screen,Urine Not Detected (NotDetected); Barbiturate Screen,Urine Not Detected (NotDetected); Benzodiazepines Screen,Urine Not Detected (NotDetected); Cocaine Screen,Urine Not Detected (NotDetected); Methadone Screen, Urine Not Detected (NotDetected); Opiate Screen,Urine Not Detected (NotDetected); Oxycodone Screen, Urine Not Detected (NotDetected); Phencyclidine Screen,Urine Not Detected (NotDetected); Tricyclic Antidepressant,Urine Not Detected (NotDetected); Urn Cannabinoid Scrn Not Detected (NotDetected)
--- NOTE | 2023-05-11 06:12 | P.PN ---
Subjective Progress Note Date: 05/10/23 Patient was seen for a follow-up. Patient is laying in the bed. She is alert and awake, but has quite slow mentation. Patient states that she did drink heavily for 5 years. She is not able to quantify how much she used to drink, states he used to take 3-4 drinks for 3-4 years. Patient admits to falling in February 2023 but does not remember why she fell. Patient denies any tobacco use. Objective - Vital Signs Vital signs: Vital Signs Temp 97.9 F 05/10/23 07:09 Pulse 73 05/10/23 07:09 Resp 16 05/10/23 07:09 BP 127/70 05/10/23 07:09 Pulse Ox 97 05/10/23 07:09 FiO2 Intake & Output 05/09/23 05/10/23 05/10/23 18:59 06:59 18:59 Intake Total 100 Balance 100 Intake: Intake, IV Titration 100 Amount Magnesium Sulfate-D5w Pmx 100 1 gm In Dextrose/Water 1 100ml.bag @ 100 mls/hr IVPB Q1H [facility] Rx#: [id number] Other: Voiding Method Bedside Commode Bedside Commode Bedside Commode Diaper Diaper Diaper # Voids 4 4 # Bowel Movements 1 - Exam Patient is alert and awake, but has very slow mentation, prolonged latency time to answer questions. Delayed responses. Speech and language functions are normal. Patient states that she is in "[facility]", in [facility]. Then she recalled said "I take it back", and sat was in [facility]. She knows name of the current president Mr. Scott [employer]. She believes the month is March and the year is . Cranial nerves are normal. 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 Ankles are normal. No ataxia for retmge-uy-owyt testing. Sensory to touch is equal. - Labs CBC & Chem 7: 05/10/23 06:19 05/10/23 06:19 Labs: Abnormal Lab Results - Last 24 Hours (Table) 05/10/23 05/10/23 05/10/23 Range/Units 06:19 06:19 06:19 WBC 3.45 L (4.50-10.00) X 10*3/uL RBC 2.76 L (4.10-5.20) X 10*6/uL Hgb 8.5 L (12.0-15.0) g/dL Hct 25.4 L (37.2-46.3) % RDW 16.6 H (11.5-14.5) % Plt Count 63 L (140-440) X 10*3/uL Lymphocytes # 0.48 L (0.90-5.00) X 10*3/uL Chloride 112 H (96-109) mmol/L Carbon Dioxide 16.7 L (21.6-31.8) mmol/L BUN/Creatinine Ratio 31.25 H (12.00-20.00) Ratio Glucose 112 H (70-110) mg/dL Total Bilirubin 2.0 H (0.3-1.2) mg/dL AST 37 H (13-35) U/L Alkaline Phosphatase 180 H (41-126) U/L Ammonia 119 H (<30) umol/L Total Protein 6.0 L (6.2-8.2) g/dL Albumin 3.1 L (3.8-4.9) g/dL Albumin/Globulin Ratio 1.07 L (1.60-3.17) Ratio Assessment and Plan Assessment: * Altered mental status, likely due to hepatic encephalopathy * Chronic liver disease, probable cirrhosis of liver, as per CT abdomen and pelvis report from 04/27/2023. * Acute UTI. Urine growing > 100,000 gram-negative bacilli. * History of alcoholism * Hypertension * History of C2 dens fracture, grade 1 anterolisthesis C5 and C6, patient on cervical collar, noncompliant. Plan: * EEG performed, which was abnormal due to background slowing of moderate to severe degree. This is suggestive of generalized cerebral dysfunction as can be seen with toxic metabolic encephalopathy or related to diffuse structural brain abnormality. Clinical correlation is recommended. No epileptiform activity was seen. * Patient's encephalopathy has much improved today. She still has mental slowing and delayed response. * Patient's ammonia yesterday was 28. Today he has gone up to 119. Continue lactulose. Patient previously has multiple instances of elevated ammonia. * Orthopedic surgery on board for dens fracture. Patient declining any surgery. * Patient has acute UTI. Consider starting antibiotics. * Continue folic acid 1 mg, thiamine 100 mg and multivitamins. * CT abdomen and pelvis from 04/27/2023 revealed mild nodularity of the margin of the liver, suggesting cirrhosis. Given dilated veins in the right paracolic gutter, draining into the superior Ms. intracranial brain and given presence of mild splenomegaly, the findings raise the question of portal hypertension.
[2023-05-11] MEDS: KETOROLAC 15 MG/ML 1 ML VIAL IVP SCH ×3 (06:19→17:22)
[2023-05-11] MEDS: LACTULOSE 20 GM/30 ML CUP PO SCH ×3 (08:32→22:13)
[2023-05-11] MEDS: MULTIVITAMINS, THERA 1 EACH TAB PO SCH (08:32)
[2023-05-11] MEDS: THIAMINE 100 MG TAB PO SCH ×2 (08:32→17:22)
[2023-05-11] MEDS: HEPARIN SODIUM,PORCINE 5,000 UNIT/ML 1 ML VIAL SQ SCH ×2 (08:32→20:17)
[2023-05-11] MEDS: PANTOPRAZOLE 40 MG TABLET PO SCH (08:32)
[2023-05-11] MEDS: PROPRANOLOL 20 MG TAB PO SCH ×2 (08:32→20:17)
--- NOTE | 2023-05-11 09:36 | P.PN ---
Subjective Progress Note Date: 05/11/23 Principal diagnosis: Subacute vs chronic C2 fracture Cervical pain Patient seen and examined this morning. Patient is sitting upright in bed. She remains mildly confused. Discussed with patient that she has a nonhealing C2 dens fracture, and that she needs to wear a [place] collar at all times. Patient reports that she will do what is necessary to not have to have surgery. Staff did reach out to patient's son in regards to [place] collar that was ordered from our office, he states that they never received or were able to obtain this collar. Prescription for the [place] collar has been placed in patient's chart. Instructed patient that she must wear this at all times. Patient verbalizes understanding. Patient continues to deny any numbness or tingling to the bilateral upper or lower extremities. No acute concerns at this time. Objective - Vital Signs Vital signs: Vital Signs Temp 98.2 F 05/11/23 03:33 Pulse 79 05/11/23 03:33 Resp 16 05/11/23 03:33 BP 148/75 05/11/23 02:00 Pulse Ox 97 05/11/23 03:33 FiO2 Intake & Output 05/10/23 05/11/23 05/11/23 18:59 06:59 18:59 Intake Total 900 590 Balance 900 590 Intake: Intake, IV Titration 900 Amount Sodium Chloride 0.9% 1, 900 000 ml @ 75 mls/hr IV . [id number] [facility] Rx#:[id number] Oral 590 Other: Voiding Method Bedside Commode Bedside Commode Diaper Diaper # Voids 3 3 # Bowel Movements 2 2 - Exam Physical Examination General: The patient is awake and alert, in no acute distress Skin: Skin is warm and dry with no obvious rashes or lesions. Eye: Pupils are equal, round and reactive to light, extra-ocular movements are intact; there is normal conjunctiva bilaterally. Neck: The neck is supple, there is mild tenderness and ROM is limited secondary to pain and stiffness. Cardiovascular: There is a regular rate and rhythm. No murmur, rub or gallop is appreciated. Respiratory: Lungs are clear to auscultation, respirations are non-labored, breath sounds are equal. Gastrointestinal: Soft, non-distended, non-tender abdomen. Back: There is no tenderness to palpation in the midline, paralumbar, parathoracic or buttocks region. There is no obvious deformity . Musculoskeletal: Muscle strength in all major muscle groups of bilateral upper extremities 4/5, bilateral lower extremities 4/5. Neurological: CN 2-12 intact. There are no obvious motor or sensory deficits. Movement and coordination equal and intact. Sensory exam to light touch intact C5-T1 and intact from L2-S1. Reflexes 2/4 in bilateral upper and lower extremities. Negative Hoffmans, babinski, and clonus signs. Psychiatric: Cooperative, appropriate mood & affect, normal judgment. - Labs CBC & Chem 7: 05/10/23 06:19 05/10/23 06:19 Labs: Abnormal Lab Results - Last 24 Hours (Table) 05/10/23 05/10/23 Range/Units 06:19 06:19 WBC 3.45 L (4.50-10.00) X 10*3/uL RBC 2.76 L (4.10-5.20) X 10*6/uL Hgb 8.5 L (12.0-15.0) g/dL Hct 25.4 L (37.2-46.3) % RDW 16.6 H (11.5-14.5) % Plt Count 63 L (140-440) X 10*3/uL Lymphocytes # 0.48 L (0.90-5.00) X 10*3/uL Chloride 112 H (96-109) mmol/L Carbon Dioxide 16.7 L (21.6-31.8) mmol/L BUN/Creatinine Ratio 31.25 H (12.00-20.00) Ratio Glucose 112 H (70-110) mg/dL Total Bilirubin 2.0 H (0.3-1.2) mg/dL AST 37 H (13-35) U/L Alkaline Phosphatase 180 H (41-126) U/L Total Protein 6.0 L (6.2-8.2) g/dL Albumin 3.1 L (3.8-4.9) g/dL Albumin/Globulin Ratio 1.07 L (1.60-3.17) Ratio Microbiology - Last 24 Hours (Table) 05/09/23 13:53 Urine Culture - Preliminary Urine,Voided Gram Neg Bacilli 05/09/23 12:10 Blood Culture - Preliminary Blood Assessment and Plan Assessment: Non-healing C2 dens fracture Grade 1 anterolithesis C5 onto C6 Cervical pain Generalized weakness Plan: CT of the cervical spine has been reviewed and re-demonstrates a mild displaced non-healing C2 dens fracture. Prescription for [place] J collar has been placed in chart. Patient is to wear this brace at all times. Our office is working to possibly order a bone stimulator for patient to use BID to optimize healing, pending insurance approval. Our office will reach out to patient and/or son with further update on bone stimulator status. Patient is cleared from orthopedic standpoint for discharge when medically stable. She may follow up in office in 2 weeks. Please reach out with any questions or concerns. 2. Appreciate medical management 3. Pain management - Continue with antiinflammatories 4. GI prophylaxis - per medicine 5. DVT prophylaxis -mechanical 6. PT/OT - weightbearing as tolerated with a walker as needed. Patient to wear [place] J cervical collar at all times. 7. Appreciate consult
[2023-05-11 11:09] LABS: Basophils # (A) 0.02 X 10*3/uL (0.00-0.10); Basophils % (A) 0.7 %; Eosinophils # (A) 0.28 X 10*3/uL (0.04-0.35); Eosinophils % (A) 9.3 %; HCT 27.7 % (37.2-46.3); HGB 9.4 g/dL (12.0-15.0); Lymphocytes # (A) 0.63 X 10*3/uL (0.90-5.00); Lymphocytes % (A) 20.9 %; MCH 30.9 pg (27.0-32.0); MCHC 33.9 g/dL (32.0-37.0); MCV 91.1 FL (80.0-97.0); Mean Platelet Volume 12.3 FL (9.5-12.2); Monocytes # (A) 0.34 X 10*3/uL (0.20-1.00); Monocytes % (A) 11.3 %; NRBC Per 100 WBC 0 X 10*3/uL (0.00-0.01); Neutrophils # (A) 1.73 X 10*3/uL (1.80-7.70); Neutrophils % (A) 57.5 %; Platelet Count 81 X 10*3/uL (140-440); RBC 3.04 X 10*6/uL (4.10-5.20); RDW 16.5 % (11.5-14.5); WBC 3.01 X 10*3/uL (4.50-10.00)
--- NOTE | 2023-05-11 11:29 | EEG ---
ELECTROENCEPHALOGRAM REPORT PREAMBLE: This is a 67-year-old female with altered mental status. EEG FINDINGS: This is a 21-channel digital EEG recorded with video component, utilizing 10/20 international system with referential and bipolar montages. The recording starts and continues with presence of medium to low amplitude mixed delta and theta frequency rhythm seen in bihemispheric region. Background does not seem to be reactive to eye opening or closing. Photic driving response was not seen. Different stages of sleep were not seen. No focal or generalized epileptiform activity was seen. EKG channel showed no obvious arrhythmia. IMPRESSION: This is an abnormal EEG due to background slowing of [id number]-[id number] degree. This is suggestive of generalized cerebral dysfunction as can be seen with toxic metabolic encephalopathy or related to diffuse structural brain abnormality. Clinical correlation is recommended. No epileptiform activity was seen. MMODL / IJN: [id number] /
[2023-05-11 11:46] LABS: ALT 29 U/L (8-44); AST 39 U/L (13-35); Albumin 3.3 g/dL (3.8-4.9); Albumin/Globulin Ratio 1.03 Ratio (1.60-3.17); Alkaline Phosphatase 177 U/L (41-126); Blood Urea Nitrogen 25.2 mg/dL (9.0-27.0); Chloride 112 mmol/L (96-109); Globulin 3.2 g/dL (1.6-3.3); Glucose 98 mg/dL (70-110); Potassium 4.5 mmol/L (3.5-5.5); Sodium 138 mmol/L (135-145); Total Bilirubin 2.3 mg/dL (0.3-1.2); Total Protein 6.5 g/dL (6.2-8.2)
[2023-05-11] MEDS: FOLIC ACID 1 MG TAB PO SCH (11:50)
--- NOTE | 2023-05-11 15:39 | P.PN ---
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 On today's evaluation that is 05/11/2023 patient continues to be afebrile patient is breathing comfortably on room air, the patient is more awake alert today and denies any chest pain shortness of breath or cough no vomiting diarrhea or any other changes reported by the nursing staff. Patient did have white count of 3.01, creatinine 0.8 urine is growing gram- negative Objective - Vital Signs Vital signs: Vital Signs Temp 98.0 F 05/11/23 07:17 Pulse 77 05/11/23 07:17 Resp 18 05/11/23 07:17 BP 181/82 05/11/23 07:17 Pulse Ox 97 05/11/23 07:17 FiO2 Intake & Output 05/10/23 05/11/23 05/11/23 18:59 06:59 18:59 Intake Total 900 590 Balance 900 590 Intake: Intake, IV Titration 900 Amount Sodium Chloride 0.9% 1, 900 000 ml @ 75 mls/hr IV . [id number] [facility] Rx#:[id number] Oral 590 Other: Voiding Method Bedside Commode Bedside Commode Diaper Diaper # Voids 3 3 1 # Bowel Movements 2 2 - Exam GENERAL DESCRIPTION: An elderly female RESPIRATORY SYSTEM: Unlabored breathing , decreased breath sounds at bases HEART: S1 S2 regular rate and rhythm , ABDOMEN: Soft , no tenderness EXTREMITIES: No edema feet - Labs CBC & Chem 7: 05/11/23 06:19 05/11/23 06:19 Labs: Abnormal Lab Results - Last 24 Hours (Table) 05/10/23 Range/Units 06:19 Chloride 112 H (96-109) mmol/L Carbon Dioxide 16.7 L (21.6-31.8) mmol/L BUN/Creatinine Ratio 31.25 H (12.00-20.00) Ratio Glucose 112 H (70-110) mg/dL Total Bilirubin 2.0 H (0.3-1.2) mg/dL AST 37 H (13-35) U/L Alkaline Phosphatase 180 H (41-126) U/L Total Protein 6.0 L (6.2-8.2) g/dL Albumin 3.1 L (3.8-4.9) g/dL Albumin/Globulin Ratio 1.07 L (1.60-3.17) Ratio Microbiology - Last 24 Hours (Table) 05/09/23 13:53 Urine Culture - Preliminary Urine,Voided Gram Neg Bacilli 05/09/23 12:10 Blood Culture - Preliminary Blood Assessment and Plan (1) Altered mental status Current Visit: Yes Status: Acute Code(s): R41.82 - ALTERED MENTAL STATUS, UNSPECIFIED SNOMED Code(s): 545350213 (2) Hepatic encephalopathy Current Visit: Yes Status: Acute Priority: High Code(s): K76.82 - HEPATIC ENCEPHALOPATHY SNOMED Code(s): 50034188 (3) UTI (urinary tract infection) Current Visit: Yes Status: Acute Code(s): N39.0 - URINARY TRACT INFECTION, SITE NOT SPECIFIED SNOMED Code(s): 46236910 Plan: 1patient presented to hospital with confusion in this patient who do have a history of alcohol liver disease/cirrhosis with recent admission to the hospital with hepatic encephalopathy more likely metabolic and related to hepatic encephalopathy patient currently denies having any headache no neck rigidity no fever or elevated white count clinic suspicion is low for encephalitis, patient did have elevated ammonia and likely dealing with hepatic encephalopathy 2-patient did have a positive UA and a possible component of symptomatic urinary tract infection from enteric gram-negative pathogen, urine culture currently growing gram-negative with ID sensitivities pending, patient started on Rocephin while waiting for the culture to finalize Dictation was produced using [employer] dictation software. please excuse any grammatical, word or spelling errors. Time with Patient: Less than 30
--- NOTE | 2023-05-11 19:02 | P.PN ---
Subjective Progress Note Date: 05/11/23 Patient was seen for a follow-up. Patient is sitting on the the bed. She is alert and awake, but has quite slow mentation. Patient states that she did drink heavily for 5 years. She is not able to quant bakari how much she used to drink, states he used to take 3-4 drinks for 3-4 years. Patient admits to falling in February 2023 but does not remember why she fell. Patient denies any tobacco use. Objective - Vital Signs Vital signs: Vital Signs Temp 98.2 F 05/11/23 13:52 Pulse 78 05/11/23 13:52 Resp 18 05/11/23 13:52 BP 172/82 05/11/23 13:52 Pulse Ox 94 L 05/11/23 13:52 FiO2 Intake & Output 05/10/23 05/11/23 05/11/23 18:59 06:59 18:59 Intake Total 900 590 Balance 900 590 Intake: Intake, IV Titration 900 Amount Sodium Chloride 0.9% 1, 900 000 ml @ 75 mls/hr IV . [id number] [facility] Rx#:[id number] Oral 590 Other: Voiding Method Bedside Commode Bedside Commode Bedside Commode Diaper Diaper Diaper # Voids 3 3 1 # Bowel Movements 2 2 - Exam Patient is alert and awake, but has slow mentation, prolonged latency time to answer questions. Delayed responses. Speech and language functions are normal. Patient states the current month is "46". She could not tell the year. Patient able to tell that she is in [place] in [place]. She knows name of the current president Mr. Scott Munson. Cranial nerves are normal. Muscle strength revealed normal biceps in the forensic document examiner, triceps is 5 on the right, 4+ left. Ankles are normal. No ataxia for [id number] testing. Sensory to touch is equal. - Labs CBC & Chem 7: 05/11/23 06:19 05/11/23 06:19 Labs: Abnormal Lab Results - Last 24 Hours (Table) 05/11/23 05/11/23 Range/Units 06:19 06:19 WBC 3.01 L (4.50-10.00) X 10*3/uL RBC 3.04 L (4.10-5.20) X 10*6/uL Hgb 9.4 L (12.0-15.0) g/dL Hct 27.7 L (37.2-46.3) % RDW 16.5 H (11.5-14.5) % Plt Count 81 L (140-440) X 10*3/uL MPV 12.3 H (9.5-12.2) FL Neutrophils # 1.73 L (1.80-7.70) X 10*3/uL Lymphocytes # 0.63 L (0.90-5.00) X 10*3/uL Chloride 112 H (96-109) mmol/L Carbon Dioxide 16.0 L (21.6-31.8) mmol/L BUN/Creatinine Ratio 31.50 H (12.00-20.00) Ratio Total Bilirubin 2.3 H (0.3-1.2) mg/dL AST 39 H (13-35) U/L Alkaline Phosphatase 177 H (41-126) U/L Albumin 3.3 L (3.8-4.9) g/dL Albumin/Globulin Ratio 1.03 L (1.60-3.17) Ratio Microbiology - Last 24 Hours (Table) 05/09/23 13:53 Urine Culture - Preliminary Urine,Voided Gram Neg Bacilli 05/09/23 12:10 Blood Culture - Preliminary Blood Assessment and Plan Assessment: * Altered mental status, likely due to hepatic encephalopathy * Chronic liver disease, probable cirrhosis of liver, as per CT abdomen and pelvis report from 04/27/2023. * Acute UTI. Urine growing > 100,000 gram-negative bacilli. * History of alcoholism * Hypertension * History of C2 dens fracture, grade 1 anterolisthesis C5 and C6, patient on cervical collar, noncompliant. Plan: * EEG performed, which was abnormal due to background slowing of moderate to severe degree. This is suggestive of generalized cerebral dysfunction as can be seen with toxic metabolic encephalopathy or related to diffuse structural brain abnormality. Clinical correlation is recommended. No epileptiform activity was seen. * Patient's encephalopathy has much improved today. She still has mental sl owing and delayed response. * Patient's ammonia is 119. Continue lactulose. Patient previously has multiple instances of elevated ammonia. Repeat ammonia in the morning. * Orthopedic surgery on board for dens fracture. Patient declining any surgery. * Patient has acute UTI. Patient started on ceftriaxone for UTI. * Continue folic acid 1 mg, thiamine 100 mg and multivitamins. * CT abdomen and pelvis from 04/27/2023 revealed mild nodularity of the margin of the liver, suggesting cirrhosis. Given dilated veins in the right paracolic gutter, draining into the superior Ms. intracranial brain and given presence of mild splenomegaly, the findings raise the question of portal hypertension.
[2023-05-11] MEDS: SODIUM CHLORIDE 0.9% 1,000 ML IV SCH (19:35)
[2023-05-12] MEDS: KETOROLAC 15 MG/ML 1 ML VIAL IVP SCH ×5 (00:01→23:02)
[2023-05-12] MEDS: SODIUM CHLORIDE 0.9% 1,000 ML IV SCH ×2 (08:46→20:58)
[2023-05-12] MEDS: LACTULOSE 20 GM/30 ML CUP PO SCH ×3 (08:47→23:01)
[2023-05-12] MEDS: HEPARIN SODIUM,PORCINE 5,000 UNIT/ML 1 ML VIAL SQ SCH ×2 (08:47→20:56)
[2023-05-12] MEDS: THIAMINE 100 MG TAB PO SCH ×2 (08:48→18:06)
[2023-05-12] MEDS: PROPRANOLOL 20 MG TAB PO SCH ×2 (08:48→20:56)
[2023-05-12] MEDS: FOLIC ACID 1 MG TAB PO SCH (08:48)
[2023-05-12] MEDS: PANTOPRAZOLE 40 MG TABLET PO SCH (08:48)
[2023-05-12] MEDS: MULTIVITAMINS, THERA 1 EACH TAB PO SCH (08:49)
--- NOTE | 2023-05-12 12:42 | P.PN ---
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 On today's evaluation that is 05/12/2023 patient remains to be afebrile patient is breathing comfortably on room air, the patient is slightly more confused today than yesterday however denies any chest pain shortness of breath or cough no vomiting diarrhea or any other changes reported by the nursing staff. Patient did have white count of 3.01, creatinine 0.8 as of 05/11/2023, ammonia level is 58 urine is growing Enterobacter Objective - Vital Signs Vital signs: Vital Signs Temp 98.2 F 05/12/23 07:23 Pulse 77 05/12/23 07:23 Resp 18 05/12/23 07:23 BP 171/70 05/12/23 07:23 Pulse Ox 96 05/12/23 07:23 FiO2 Intake & Output 05/11/23 05/12/23 05/12/23 18:59 06:59 18:59 Intake Total 590 Balance 590 Intake: Oral 590 Other: Voiding Method Bedside Commode Bedside Commode Diaper Diaper # Voids 5 5 # Bowel Movements 4 4 - Exam GENERAL DESCRIPTION: An elderly female RESPIRATORY SYSTEM: Unlabored breathing , decreased breath sounds at bases HEART: S1 S2 regular rate and rhythm , ABDOMEN: Soft , no tenderness EXTREMITIES: No edema feet - Labs CBC & Chem 7: 05/11/23 06:19 05/11/23 06:19 Labs: Abnormal Lab Results - Last 24 Hours (Table) 05/12/23 Range/Units 10:05 Ammonia 58 H (<30) umol/L Microbiology - Last 24 Hours (Table) 05/09/23 13:53 Urine Culture - Final Urine,Voided Enterobacter aerogenes 05/09/23 12:10 Blood Culture - Preliminary Blood Assessment and Plan (1) Altered mental status Current Visit: Yes Status: Acute Code(s): R41.82 - ALTERED MENTAL STATUS, UNSPECIFIED SNOMED Code(s): 887044910 (2) Hepatic encephalopathy Current Visit: Yes Status: Acute Priority: High Code(s): K76.82 - HEPATIC ENCEPHALOPATHY SNOMED Code(s): 07592297 (3) UTI (urinary tract infection) Current Visit: Yes Status: Acute Code(s): N39.0 - URINARY TRACT INFECTION, SITE NOT SPECIFIED SNOMED Code(s): 11419517 Plan: 1patient presented to hospital with confusion in this patient who do have a history of alcohol liver disease/cirrhosis with recent admission to the hospital with hepatic encephalopathy more likely metabolic and related to hepatic ence phalopathy patient currently denies having any headache no neck rigidity no fever or elevated white count clinic suspicion is low for encephalitis, patient did have elevated ammonia and likely dealing with hepatic encephalopathy 2-patient did have a positive UA and a possible component of symptomatic urinary tract infection, urine is growing Enterobacter that is sensitive to ceftriaxone to continue and monitor clinical course closely Dictation was produced using [employer] dictation software. please excuse any grammatical, word or spelling errors.
[2023-05-12] MEDS: cloNIDine HCL 0.1 MG TAB PO SCH ×2 (15:56→23:01)
[2023-05-12] MEDS ORDERED: OLANZapine ODT 5 MG TAB PO PRN (17:35)
--- NOTE | 2023-05-12 17:36 | P.CN ---
Psychiatric Consult - . Consult date: 05/12/23 Consult:: 05/12/23 17:19 IDENTIFYING DATA: This patient is a 67-year-old female REASON FOR REFERRAL: Psychiatry was consulted for confusion HISTORY OF PRESENT ILLNESS: The patient presented to the hospital for altered mental status. She was discovered to have hepatic encephalopathy, hyperammonemia, and UTI. She has been started on lactulose for hyperammonemia, ceftriaxone for UTI, folate and thiamine replacement given history of alcohol abuse. CT abdomen and pelvis suggested cirrhosis. CT head did not indicate any acute abnormality. Neurology is on board. Patient was seen this morning. She was A & Ox2 to location and person. She believed it was March 2021. She states that her mood is "good ". She denies depression and anxiety. She denies any pain. She denies auditory or visual hallucinations. She denies paranoia. However, as the interview progresses, patient became more irritable and agitated. Although patient denied substance use to this provider, she related to drinking 3-4 drinks over the past 3-4 years to other providers. Patient provided only vague superficial answers to this provider and is fairly concrete in her thinking. Her reported history from son, patient was apparently alert and oriented and was 100% independent prior to admission, but more recently has become confused and noncompliant with her medications. Nursing staff reports waxing and waning of her mentation. PAST PSYCHIATRIC HISTORY: Patient denied all psychiatric history PAST MEDICAL HISTORY: As per EMR ALLERGIES: as per EMR. CHEMICAL DEPENDENCY HISTORY: as per HPI. FAMILY PSYCHIATRIC/SUBSTANCE USE HISTORY: Denies all SOCIAL HISTORY: Patient reports being from [place] but moved to [place] to be closer to her son. Pt is . 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 MENTAL STATUS EXAM: General Appearance: Patient appears to be stated age is alert and mostly uncooperative. Patient appears to have poor hygiene and grooming wearing hospital gown with poor eye contact. Behavior: Restless and fidgeting Speech: Patient's speech is fluent and nonpressured. Mood/Affect: Patient reports their mood is irritable, affect is congruent Suicidality/Homicidality: Patient denies having any suicidal or homicidal ideation intent or plan. Perceptions: Patient denies any visual hallucinations and denies any auditory hallucinations Though content/process: There is no evidence of any delusional thought content and thought process is linear and goal-directed. Memory and concentration: AOX2, attention was good at the beginning of the interview and worsened as the interview progressed Judgment and insight: Poor, impulsive IMPRESSIONS: Acute delirium secondary to hepatic encephalopathy Alcohol use disorder PLAN: -At this time patient DOES NOT meet criteria for inpatient psychiatric admission. -Continue treatment of underlying medical conditions -Delirium precautions recommended with patient including - avoiding use of narcotics and MACHINIST sedatives, limit anticholinergic medications when possible, frequent re-orientation, minimize use of restraints, open window shades during the day and close them at night -Would recommend the following medication changes/additions: -Zyprexa Zydis 2.5 mg TID PRN for agitation. BBW discussed -Continue 1:1 sitter for safety -field crop farmworker to provide patient substance use treatment resources including AA/NA meetings in the community. -Communicated plan to patient's nurse -Psychiatry will sign off at this time. -Please call/contact with any questions or if patient needs re-evaluation
--- NOTE | 2023-05-12 21:56 | PN ---
PROGRESS NOTE DATE OF SERVICE: 05/12/2023 SUBJECTIVE: This 67-year-old woman, who was admitted with change in mental status and multiple medical issues, has a C2 fracture also. The patient is being closely monitored. No chest pain. No palpitations. No fever. PHYSICAL EXAMINATION: VITAL SIGNS: Pulse is 77, blood pressure 171/70, respirations 18. CHEST: Clear to auscultation. CARDIOVASCULAR: S1, S2. ABDOMEN: Soft. NERVOUS SYSTEM: Nonfocal. LABS: Hemoglobin 9.4. Rest of the labs are noted. The patient's ammonia is significantly increased. The patient is refusing lactulose. HOME MEDICATIONS: Reviewed. ASSESSMENT: 1. Change in mental status with possible [id number] metabolic encephalopathy. 2. Chronic C2 fracture. 3. Hepatic encephalopathy. 4. History of EtOH. 5. Hypertension. 6. Mild pancytopenia, possibly secondary to chronic liver disease. 7. Elevated bilirubin. 8. 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 9. History of cerebrovascular accident, transient ischemic attack. 10.Gait dysfunction. 11.Enterobacter aerogenes urinary tract infection. RECOMMENDATION: This 67-year-old woman presented with multiple complex medical issues. Continue current medications. Continue with lactulose. Continue the rest of medications. Add Norvasc to the current regimen, antibiotics. Cultures showing Enterobacter aerogenes. Prognosis, guarded. Further recommendations to follow. MMODL / IJN: [id number] /
[2023-05-13] MEDS: KETOROLAC 15 MG/ML 1 ML VIAL IVP SCH ×4 (05:27→23:37)
[2023-05-13 08:30] LABS: African American GFR (CKD) >90 (>60 ml/min/1.73 sqM); Anion Gap 10 mmol/L; Blood Urea Nitrogen 21 mg/dL (7-17); Calcium 8.7 mg/dL (8.4-10.2); Carbon Dioxide 16 mmol/L (22-30); Chloride 114 mmol/L (98-107); Glucose 135 mg/dL (74-99); Non-African American GFR(CKD) 89 (>60 ml/min/1.73 sqM); Potassium 4.2 mmol/L (3.5-5.1); Sodium 140 mmol/L (137-145)
[2023-05-13] MEDS: PROPRANOLOL 20 MG TAB PO SCH ×2 (08:39→20:45)
[2023-05-13] MEDS: cloNIDine HCL 0.1 MG TAB PO SCH ×2 (08:39→20:45)
[2023-05-13] MEDS: LACTULOSE 20 GM/30 ML CUP PO SCH ×3 (08:39→21:58)
[2023-05-13] MEDS: MULTIVITAMINS, THERA 1 EACH TAB PO SCH (08:39)
[2023-05-13] MEDS: THIAMINE 100 MG TAB PO SCH ×2 (08:39→17:07)
[2023-05-13] MEDS: PANTOPRAZOLE 40 MG TABLET PO SCH (08:39)
[2023-05-13] MEDS: HEPARIN SODIUM,PORCINE 5,000 UNIT/ML 1 ML VIAL SQ SCH ×2 (08:39→20:45)
[2023-05-13] MEDS: FOLIC ACID 1 MG TAB PO SCH (08:39)
[2023-05-13] MEDS: SODIUM CHLORIDE 0.9% 1,000 ML IV SCH ×2 (08:40→19:35)
--- NOTE | 2023-05-13 10:18 | P.PN ---
Subjective Progress Note Date: 05/12/23 Patient was seen for a follow-up. Patient is laying in the bed. She continues to be somewhat confused. She is alert and awake, but has quite slow mentation. Patient appears somewhat restless. Patient claims "I just have RLS". Albaniater was present, who states the patient has been little confused "here and there" Patient states that she did drink heavily for 5 years. She is not able to quantify how much she used to drink, states he used to take 3-4 drinks for 3-4 years. Patient admits to falling in February 2023 but does not remember why she fell. Patient denies any tobacco use. Objective - Vital Signs Vital signs: Vital Signs Temp 98.2 F 05/12/23 07:23 Pulse 77 05/12/23 07:23 Resp 18 05/12/23 07:23 BP 171/70 05/12/23 07:23 Pulse Ox 96 05/12/23 07:23 FiO2 Intake & Output 05/11/23 05/12/23 05/12/23 18:59 06:59 18:59 Intake Total 590 Balance 590 Intake: Oral 590 Other: Voiding Method Bedside Commode Bedside Commode Diaper Diaper # Voids 5 5 # Bowel Movements 4 4 - Exam Patient is alert and awake, but has slow mentation, prolonged latency time to answer questions. Delayed responses. Speech and language functions are normal. Patient again states that she is in [facility] in [place]. She knows it is April but believes the year is 2022. She knows she is in the hospital and then she said it is [facility]. She knows name of the current president Mr. Scott Munson. Cranial nerves are normal. Muscle strength revealed normal biceps in the 411 directory assistance operator, triceps is 5 on the right, 4+ left. Ankles are normal. No ataxia for [id number]-[id number] testing. Sensory to touch is equal. - Labs CBC & Chem 7: 05/11/23 06:19 05/13/23 06:53 Labs: Abnormal Lab Results - Last 24 Hours (Table) 05/12/23 Range/Units 10:05 Ammonia 58 H (<30) umol/L Microbiology - Last 24 Hours (Table) 05/09/23 13:53 Urine Culture - Final Urine,Voided Enterobacter aerogenes 05/09/23 12:10 Blood Culture - Preliminary Blood Assessment and Plan Assessment: * Altered mental status, likely due to hepatic encephalopathy * Chronic liver disease, probable cirrhosis of liver, as per CT abdomen and pelvis report from 04/27/2023. * Acute UTI. Urine growing > 100,000 gram-negative bacilli. Patient started on ceftriaxone. * History of alcoholism * Hypertension * History of C2 dens fracture, grade 1 anterolisthesis C5 and C6, patient on cervical collar, noncompliant. Plan: * Patient continues to be very confused, encephalopathic and fluctuating mental status. Her ammonia level is 58 as of today. * Patient has mild pancytopenia, likely due to her history of chronic liver disease. * Check B12, RPR. Patient is already on folic acid. * EEG performed, which was abnormal due to background slowing of moderate to severe degree. This is suggestive of generalized cerebral dysfunction as can be seen with toxic metabolic encephalopathy or related to diffuse structural brain abnormality. Clinical correlation is recommended. No epileptiform activity was seen. * Orthopedic surgery on board for dens fracture. Patient declining any surgery. * Patient has acute UTI. Patient started on ceftriaxone for UTI. * Continue folic acid 1 mg, thiamine 100 mg and multivitamins. * CT abdomen and pelvis from 04/27/2023 revealed mild nodularity of the margin of the liver, suggesting cirrhosis. Given dilated veins in the right paracolic gutter, draining into the superior mesenteric vein and given presence of mild splenomegaly, the findings raise the question of portal hypertension. * Consider GI evaluation.
--- NOTE | 2023-05-14 05:13 | PN ---
PROGRESS NOTE DATE OF SERVICE: 05/13/2023 SUBJECTIVE: This 67-year-old woman was admitted with change in mental status, metabolic encephalopathy, also had chronic C2 fracture. The patient has history of EtOH consumption and palpitation. Patient refusing lactulose. REVIEW OF SYSTEMS: Could not be taken. CURRENT MEDICATIONS: Reviewed. PHYSICAL EXAMINATION: VITAL SIGNS: Pulse 72, blood pressure 120/70, respirations 16. CHEST: Clear to auscultation. ABDOMEN: Soft. NERVOUS SYSTEM: Nonfocal.. LABORATORY DATA: Reviewed. ASSESSMENT: 1. Change in mental status, acute metabolic hepatic encephalopathy. 2. Chronic C2 fracture. 3. History of EtOH. 4. Hypertension. 5. Mild pancytopenia, possibly secondary to chronic liver disease. 6. Elevated bilirubin. 7. 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 8. History of CVA, TIA. 9. Gait dysfunction. 10.Enterobacter aerogenes UTI. RECOMMENDATIONS AND DISCUSSION: I recommend to continue current management and symptomatic treatment, otherwise, ammonia is improving at 58 at this time. Continue with lactulose. Continued repeat labs will be ordered. Prognosis guarded. PT, OT evaluation. Possible ECF rehab. Further recommendations to follow. See orders for details. MMODL / IJN: [id number] /
[2023-05-14] MEDS: KETOROLAC 15 MG/ML 1 ML VIAL IVP SCH ×2 (05:22→12:46)
[2023-05-14 07:12] LABS: Anisocytosis Slight; HCT 25.3 % (34.0-46.0); HGB 8.6 gm/dL (11.4-16.0); MCHC 33.9 g/dL (31.0-37.0); MCV 94.5 fL (80.0-100.0); Mean Platelet Volume 8.8; Platelet Count 55 k/uL (150-450); Poikilocytosis Slight; RBC 2.68 m/uL (3.80-5.40); RDW 16.8 % (11.5-15.5); WBC 2.6 k/uL (3.8-10.6)
--- NOTE | 2023-05-14 08:14 | P.PN ---
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 On today's evaluation that is 05/13/2023 patient r continues to be afebrile patient is breathing comfortably on room air, the patient is slightly more more alert than yesterday however denies any chest pain shortness of breath or cough no vomiting diarrhea or any other changes reported by the nursing staff. Patient last white count of 3.01, creatinine 0.70, ammonia level is 58 urine is growing Enterobacter Objective - Vital Signs Vital signs: Vital Signs Temp 97.1 F L 05/13/23 12:56 Pulse 72 05/13/23 12:56 Resp 16 05/13/23 12:56 BP 120/70 05/13/23 12:56 Pulse Ox 96 05/13/23 12:56 FiO2 Intake & Output 05/12/23 05/13/23 05/13/23 18:59 06:59 18:59 Intake Total 360 1490 Balance 360 1490 Intake: Intake, IV Titration 900 Amount Sodium Chloride 0.9% 1, 900 000 ml @ 75 mls/hr IV . [id number] [facility] Rx#:[id number] Oral 360 590 Other: Voiding Method Bedside Commode Bedside Commode Bedside Commode Diaper Diaper Diaper # Voids 3 4 - Exam GENERAL DESCRIPTION: An elderly female RESPIRATORY SYSTEM: Unlabored breathing , decreased breath sounds at bases HEART: S1 S2 regular rate and rhythm , ABDOMEN: Soft , no tenderness EXTREMITIES: No edema feet - Labs CBC & Chem 7: 05/14/23 06:37 05/13/23 06:53 Labs: Abnormal Lab Results - Last 24 Hours (Table) 05/13/23 Range/Units 06:53 Chloride 114 H (98-107) mmol/L Carbon Dioxide 16 L (22-30) mmol/L BUN 21 H (7-17) mg/dL Glucose 135 H (74-99) mg/dL Microbiology - Last 24 Hours (Table) 05/09/23 12:10 Blood Culture - Preliminary Blood Assessment and Plan (1) Altered mental status Current Visit: Yes Status: Acute Code(s): R41.82 - ALTERED MENTAL STATUS, UNSPECIFIED SNOMED Code(s): 540416745 (2) Hepatic encephalopathy Current Visit: Yes Status: Acute Priority: High Code(s): K76.82 - HEPATIC ENCEPHALOPATHY SNOMED Code(s): 44460665 (3) UTI (urinary tract infection) Current Visit: Yes Status: Acute Code(s): N39.0 - URINARY TRACT INFECTION, SITE NOT SPECIFIED SNOMED Code(s): 22663039 Plan: 1patient presented to hospital with confusion in this patient who do have a h istory of alcohol liver disease/cirrhosis with recent admission to the hospital with hepatic encephalopathy more likely metabolic and related to hepatic encephalopathy patient currently denies having any headache no neck rigidity no fever or elevated white count clinic suspicion is low for encephalitis, patient did have elevated ammonia and likely dealing with hepatic encephalopathy 2-patient did have a positive UA and a possible component of symptomatic urinary tract infection, urine is growing Enterobacter that is sensitive to ceftriaxone 3-patient to continue with ceftriaxone and monitor clinical course closely Dictation was produced using [employer] dictation software. please excuse any gra mmatical, word or spelling errors. Time with Patient: Less than 30
[2023-05-14] MEDS: MULTIVITAMINS, THERA 1 EACH TAB PO SCH (08:54)
[2023-05-14] MEDS: THIAMINE 100 MG TAB PO SCH ×2 (08:54→16:29)
[2023-05-14] MEDS: cloNIDine HCL 0.1 MG TAB PO SCH ×2 (08:54→21:04)
[2023-05-14] MEDS: HEPARIN SODIUM,PORCINE 5,000 UNIT/ML 1 ML VIAL SQ SCH ×2 (08:54→21:04)
[2023-05-14] MEDS: FOLIC ACID 1 MG TAB PO SCH (08:54)
[2023-05-14] MEDS: PROPRANOLOL 20 MG TAB PO SCH ×2 (08:55→21:04)
[2023-05-14] MEDS: LACTULOSE 20 GM/30 ML CUP PO SCH ×4 (08:55→21:05)
[2023-05-14] MEDS: PANTOPRAZOLE 40 MG TABLET PO SCH (08:56)
[2023-05-14 09:24] LABS: Band Neutrophils % 1 %; Eosinophils # (M) 0.36 k/uL (0-0.7); Lymphocytes # (M) 0.78 k/uL (1.0-4.8); Monocytes # (M) 0.34 k/uL (0-1.0); Neutrophils % (M) 44 %; Nucleated Red Blood Cells 0 /100 WBC (0-0); Total Cells Counted 200
--- NOTE | 2023-05-14 10:52 | P.PN ---
Subjective Progress Note Date: 05/14/23 Principal diagnosis: Subacute vs chronic C2 fracture Cervical pain Patient seen and examined this morning. Patient is sitting in bed with [place] collar present, although collar position is inaccurate covering her mouth. Repositioned collar to correct position. Patient reports that this feels much better and she is able to eat her breakfast. Patient remains pleasantly confus ed. She continues to deny any radicular symptoms or numbness/tingling to her bilateral upper and lower extremities. Our office is awaiting authorization for bone stimulator. No acute concerns at this time. Objective - Vital Signs Vital signs: Vital Signs Temp 97.7 F 05/14/23 07:47 Pulse 74 05/14/23 07:47 Resp 16 05/14/23 07:47 BP 145/77 05/14/23 07:47 Pulse Ox 95 05/14/23 07:47 FiO2 Intake & Output 05/13/23 05/14/23 05/14/23 18:59 06:59 18:59 Intake Total 360 Balance 360 Intake: Oral 360 Other: Voiding Method Bedside Commode Bedside Commode Diaper Diaper # Voids 4 6 # Bowel Movements 2 4 - Exam Physical Examination General: The patient is awake and alert, in no acute distress Skin: Skin is warm and dry with no obvious rashes or lesions. Eye: Pupils are equal, round and reactive to light, extra-ocular movements are intact; there is normal conjunctiva bilaterally. Neck: The neck is supple, there is mild tenderness and ROM is limited secondary to pain and [place] collar present. Cardiovascular: There is a regular rate and rhythm. No murmur, rub or gallop is appreciated. Respiratory: Lungs are clear to auscultation, respirations are non-labored, breath sounds are equal. Gastrointestinal: Soft, non-distended, non-tender abdomen. Back: There is no tenderness to palpation in the midline, paralumbar, parathoracic or buttocks region. There is no obvious deformity . Musculoskeletal: Muscle strength in all major muscle groups of bilateral upper extremities 4/5, bilateral lower extremities 4/5. Neurological: CN 2-12 intact. There are no obvious motor or sensory deficits. Movement and coordination equal and intact. Sensory exam to light touch intact C5-T1 and intact from L2-S1. Reflexes 2/4 in bilateral upper and lower extremities. Negative Hoffmans, babinski, and clonus signs. Psychiatric: Cooperative, appropriate mood & affect, normal judgment. - Labs CBC & Chem 7: 05/14/23 06:37 05/13/23 06:53 Labs: Abnormal Lab Results - Last 24 Hours (Table) 05/14/23 05/14/23 Range/Units 06:37 06:37 WBC 2.6 L (3.8-10.6) k/uL RBC 2.68 L (3.80-5.40) m/uL Hgb 8.6 L (11.4-16.0) gm/dL Hct 25.3 L (34.0-46.0) % RDW 16.8 H (11.5-15.5) % Plt Count 55 L (150-450) k/uL Ammonia 55 H (<30) umol/L Assessment and Plan Assessment: Non-healing C2 dens fracture Grade 1 anterolithesis C5 onto C6 Cervical pain Generalized weakness Plan: [place] collar present. Patient is to wear this brace at all times. Our officeis awaiting insurance approval for the bone stimulator for patient to use BID to optimize healing. Our office will reach out to patient and/or son with further update on bone stimulator status. Patient is cleared from orthopedic standpoint for discharge when medically stable. She may follow up in office in 2 weeks. Please reach out with any questions or concerns. 2. Appreciate medical management 3. Pain management - Continue with antiinflammatories 4. GI prophylaxis - per medicine 5. DVT prophylaxis -mechanical 6. PT/OT - weightbearing as tolerated with a walker as needed. Patient to wear [place] cervical collar at all times. 7. Appreciate consult
[2023-05-14 11:36] LABS: ALT 26 U/L (8-44); AST 37 U/L (13-35); Albumin/Globulin Ratio 1.03 Ratio (1.60-3.17); Alkaline Phosphatase 165 U/L (41-126); BUN/Creat Ratio 28.44 Ratio (12.00-20.00); Blood Urea Nitrogen 25.6 mg/dL (9.0-27.0); Calcium 8.6 mg/dL (8.7-10.3); Carbon Dioxide 17.2 mmol/L (21.6-31.8); Chloride 117 mmol/L (96-109); Globulin 2.9 g/dL (1.6-3.3); Glucose 94 mg/dL (70-110); Potassium 4.8 mmol/L (3.5-5.5); Sodium 143 mmol/L (135-145); Total Bilirubin 0.9 mg/dL (0.3-1.2); Total Protein 5.9 g/dL (6.2-8.2)
[2023-05-14] MEDS: SODIUM CHLORIDE 0.9% 1,000 ML IV SCH (12:47)
[2023-05-14] MEDS ORDERED: ACETAMINOPHEN TAB 325 MG TAB PO PRN (16:18)
--- NOTE | 2023-05-14 16:26 | PN ---
PROGRESS NOTE DATE OF SERVICE: 05/14/2023 SUBJECTIVE: This 67-year-old woman is admitted with change in mental status and hepatic encephalopathy, also had chronic C2 fracture also. No chest pain. No palpitations. No fever. EXAM: VITAL SIGNS: Pulse is 74, blood pressure , respiratory rate 16. CHEST: Clear to auscultation. CARDIOVASCULAR: S1, S2. ABDOMEN: Soft . LABORATORY DATA: WBC , hemoglobin is 8.6, rest of the labs are noted. Ammonia is 55. ASSESSMENT: 1. Change in mental status, acute metabolic encephalopathy. 2. Chronic C2 fracture. 3. History of EtOH. 4. Hypertension. 5. Mild pancytopenia, possibly secondary to chronic liver disease. 6. Elevated bilirubin. 7. 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 8. History of CVA, TIA. 9. Gait dysfunction. 10.Enterobacter aerogenes urinary tract infection. RECOMMENDATIONS: Recommended to continue current management and treatment, otherwise at this time I recommend to continue the continue the ammonia, repeat labs, PT/OT evaluation, possible ECF rehab. Further recommendations to follow. Follow closely with Orthopedic Surgery. Prognosis guarded. MMODL / IJN: [id number] /
--- NOTE | 2023-05-14 20:45 | P.PN ---
Subjective Progress Note Date: 05/14/23 Patient was seen for a follow-up. Patient is walking by herself without any device. She does have a hard neck collar. Patient's mentation has remarkably improved. However she is very frustrated with "massive diarrhea". She states that she has to go with bowel movement 7-8 times a day. It often leaks and matches up her pants, and the floor, and other people have to clean her up. She was crying profusely, very frustrated. Patient states that she did drink heavily for 5 years. She is not able to quantify how much she used to drink, states he used to take 3-4 drinks for 3-4 years. Patient admits to falling in February 2023 but does not remember why she fell. Patient denies any tobacco use. Objective - Vital Signs Vital signs: Vital Signs Temp 97.5 F L 05/14/23 20:00 Pulse 79 05/14/23 20:00 Resp 17 05/14/23 20:00 BP 133/72 05/14/23 20:00 Pulse Ox 97 05/14/23 20:00 FiO2 Intake & Output 05/14/23 05/14/23 05/15/23 06:59 18:59 06:59 Other: Voiding Method Bedside Commode Toilet Diaper Bedside Commode # Voids 6 2 # Bowel Movements 4 - Exam Patient is alert and awake, with normal mentation. Normal latency time to answer questions. Today she was able to answer all orientation questions correctly, including April 2023 and that she is in [facility] in [place]. She knows name of the current president Mr. Scott Munson. Her speech and language functions are normal. Cranial nerves are normal. Muscle strength revealed normal biceps in the zipper ironer, triceps is 5 on the right, 4+ left. Ankles are normal. No ataxia for [id number] testing. Sensory to touch is equal. - Labs CBC & Chem 7: 05/14/23 06:37 05/14/23 06:37 Labs: Abnormal Lab Results - Last 24 Hours (Table) 05/14/23 05/14/23 05/14/23 Range/Units 06:37 06:37 06:37 WBC 2.6 L (3.8-10.6) k/uL RBC 2.68 L (3.80-5.40) m/uL Hgb 8.6 L (11.4-16.0) gm/dL Hct 25.3 L (34.0-46.0) % RDW 16.8 H (11.5-15.5) % Plt Count 55 L (150-450) k/uL Neutrophils # (Manual) 1.10 L (1.3-7.7) k/uL Lymphocytes # (Manual) 0.78 L (1.0-4.8) k/uL Chloride 117 H (96-109) mmol/L Carbon Dioxide 17.2 L (21.6-31.8) mmol/L BUN/Creatinine Ratio 28.44 H (12.00-20.00) Ratio Calcium 8.6 L (8.7-10.3) mg/dL AST 37 H (13-35) U/L Alkaline Phosphatase 165 H (41-126) U/L Ammonia 55 H (<30) umol/L Total Protein 5.9 L (6.2-8.2) g/dL Albumin 3.0 L (3.8-4.9) g/dL Albumin/Globulin Ratio 1.03 L (1.60-3.17) Ratio Microbiology - Last 24 Hours (Table) 05/09/23 12:10 Blood Culture - Final Blood Assessment and Plan Assessment: * Altered mental status, likely due to hepatic encephalopathy, now resolved. * Chronic liver disease, probable cirrhosis of liver, as per CT abdomen and pelvis report from 04/27/2023. * Acute UTI. Urine growing > 100,000 gram-negative bacilli. Patient started on ceftriaxone. * History of alcoholism * Hypertension * History of C2 dens fracture, grade 1 anterolisthesis C5 and C6, patient on cervical collar, noncompliant. Plan: * Patient's mentation has remarkably improved. She is fully oriented. Patient is very frustrated with massive diarrhea. Will consult gastroenterology. * Patient has mild pancytopenia, likely due to her history of chronic liver dis ease. * B12 521, RPR nonreactive. Patient is already on folic acid. * EEG performed, which was abnormal due to background slowing of moderate to severe degree. This is suggestive of generalized cerebral dysfunction as can be seen with toxic metabolic encephalopathy or related to diffuse structural brain abnormality. Clinical correlation is recommended. No epileptiform activity was seen. * Orthopedic surgery on board for dens fracture. Patient declining any surgery. * Patient has acute UTI. Patient started on ceftriaxone for UTI. * Continue folic acid 1 mg, thiamine 100 mg and multivitamins. * CT abdomen and pelvis from 04/27/2023 revealed mild nodularity of the margin of the liver, suggesting cirrhosis. Given dilated veins in the right paracolic gutter, draining into the superior mesenteric vein and given presence of mild splenomegaly, the findings raise the question of portal hypertension. * Neurologically no other workup indicated. We will sign off. Dr. Matty Phillips starting neurology service in the morning for any neurological concerns.
[2023-05-14] MEDS: HYDROcodone/APAP 5-325MG 1 EACH TAB PO PRN (21:04)
[2023-05-15] MEDS: PANTOPRAZOLE 40 MG TABLET PO SCH (08:55)
[2023-05-15] MEDS: HYDROcodone/APAP 5-325MG 1 EACH TAB PO PRN ×2 (08:55→21:23)
[2023-05-15] MEDS: PROPRANOLOL 20 MG TAB PO SCH ×2 (08:55→21:22)
[2023-05-15] MEDS: HEPARIN SODIUM,PORCINE 5,000 UNIT/ML 1 ML VIAL SQ SCH ×2 (08:55→21:24)
[2023-05-15] MEDS: LACTULOSE 20 GM/30 ML CUP PO SCH ×4 (08:55→21:22)
[2023-05-15] MEDS: MULTIVITAMINS, THERA 1 EACH TAB PO SCH (08:56)
[2023-05-15] MEDS: THIAMINE 100 MG TAB PO SCH ×2 (08:56→16:44)
[2023-05-15] MEDS: cloNIDine HCL 0.1 MG TAB PO SCH ×2 (08:56→21:24)
[2023-05-15] MEDS: FOLIC ACID 1 MG TAB PO SCH (08:56)
[2023-05-15 11:16] LABS: ALT 28 U/L (8-44); AST 38 U/L (13-35); Albumin/Globulin Ratio 1.07 Ratio (1.60-3.17); Alkaline Phosphatase 208 U/L (41-126); BUN/Creat Ratio 27.12 Ratio (12.00-20.00); Blood Urea Nitrogen 21.7 mg/dL (9.0-27.0); Chloride 118 mmol/L (96-109); Globulin 2.8 g/dL (1.6-3.3); Glucose 104 mg/dL (70-110); Potassium 4.4 mmol/L (3.5-5.5); Sodium 144 mmol/L (135-145); Total Bilirubin 0.9 mg/dL (0.3-1.2); Total Protein 5.8 g/dL (6.2-8.2)
--- NOTE | 2023-05-15 11:25 | P.CONS ---
History of Present Illness - Reason for Consult Consult date: 05/15/23 Hepatic encephalopathy Requesting physician: Chanell Sanchez - Chief Complaint Altered mental status changes - History of Present Illness This is a 67-year-old white female who was admitted to the hospital with concerns for confusion and altered mental status changes. Patient was admitted on 05/08/2023 and has had multiple consultants including neurology, orthopedics for concerns for having cervical fracture and psychiatry. She is currently in a hard c-collar. She had an abnormal EEG consistent with metabolic encephalopathy. Psychiatry is making some changes to her medications. She has a past medical history including alcoholism, alcoholic liver disease, hyperten ruby, CVA/TIA, chronic anemia and hepatic encephalopathy related to liver disease. Patient is a poor historian states that she believes she was diagnosed with liver disease about 6 months ago and states she does not follow with anybody for her liver disease. She is unable to tell me when the last time she had any alcohol, how much she drank and for how long. However she is currently alert and oriented to person, place and time. She was unable to tell me the correct year and stated it was 1920 however she was able to say that President Jeimy was the current president.her home medications to include lactulose 30 g and 3 times a day as well as Inderal 20 mg by mouth twice a day. She states that she does take her lactulose as prescribed however that she does not like it because she usually has 7-8 bowel movements daily with incontinence. Today's ammonia level is 63, which is up from 55 yesterday. Yesterday's labs WBC 2.6 hemoglobin 8.6 hematocrit 25 platelet count 55,000 sodium 143 potassium 4.8 BUN 25 creatinine 0.9 total bilirubin 0.9 AST 37 ALT 26 alkaline phosphatase 165 Review of Systems REVIEW OF SYSTEMS: CARDIOPULMONARY: No chest pain, shortness of breath. Gastrointestinal: No abdominal pain. No nausea or vomiting. No hematemesis, coffee-ground emesis. No rectal bleeding, or melena. Stool incontinence with diarrhea for medication GENITOURINARY: No dysuria or hematuria. MUSCULOSKELETAL: Patient with a cervical fracture and hard neck collar. SKIN: No rashes. No jaundice. ENDOCRINE: No chills, fevers. No excessive weight gain or loss. No polydipsia or polyuria. PSYCHIATRIC: Unremarkable. NEUROLOGY: No change in mental status. Denies dizziness, headache. ENT: Vision unremarkable. CONSTITUTIONAL: No recent weight loss. No fever, chills, night sweats. Past Medical History Past Medical History: GERD/Reflux, Hypertension, Liver Disease Additional Past Medical History / Comment(s): Anemia, hepatic encephlopathy. Patient denies having hx of CVA/TIA.in prevouis charting CVA/TIA was checked off. History of Any Multi-Drug Resistant Organisms: Unobtainable Past Surgical History: No Surgical Hx Reported Past Anesthesia/Blood Transfusion Reactions: Unable to Obtain Past Psychological History: No Psychological Hx Reported Smoking Status: Never smoker Past Alcohol Use History: Abuse Past Drug Use History: None Reported Medications and Allergies Home Medications Medication Instructions Recorded Confirmed Type Multivitamins, Thera [Multivitamin 1 tab PO DAILY 04/20/23 05/08/23 History (formulary)] Lactulose [Cephulac] 30 gm PO TID #4000 ml 04/28/23 05/08/23 Rx Melatonin 5 mg PO HS PRN 5 Days #5 tab 04/28/23 05/08/23 Rx Ondansetron [Zofran] 4 mg PO Q8HR PRN 5 Days #10 tab 04/28/23 05/08/23 Rx Propranolol [Inderal] 20 mg PO BID #120 tab 04/28/23 05/08/23 Rx rOPINIRole HCL [Requip] 0.5 mg PO HS #60 tab 04/28/23 05/08/23 Rx Allergies Allergy/AdvReac Type Severity Reaction Status Date / Time Iodinated Contrast Media Allergy Rash/Hives Verified 05/08/23 20:16 lisinopril Allergy Unknown Verified 05/08/23 20:16 gabapentin AdvReac Confusion/a Verified 05/08/23 20:16 ggression/v iolent Physical Exam Vitals: Vital Signs Temp Pulse Resp BP BP Pulse Ox FiO2 05/15/23 07:56 94 L 21 05/15/23 07:12 97.8 F 74 18 128/69 96 05/15/23 02:00 98.2 F 79 18 139/76 95 05/14/23 20:00 97.5 F L 79 17 133/72 97 05/14/23 14:40 59 L 163/66 96 05/14/23 14:25 59 L 163/66 94 L 05/14/23 14:10 62 160/64 89 L 05/14/23 13:55 60 158/63 89 L 05/14/23 13:37 98.0 F 61 17 168/65 97 Intake and Output 05/14/23 05/15/23 05/15/23 22:59 06:59 14:59 Other: Voiding Method Toilet Bedside Commode # Voids 2 5 # Bowel Movements 4 General appearance: The patient is alert, oriented, appears in no acute distress. HET: Head is normocephalic and atraumatic. Conjunctiva pink. Sclera anicteric. Neck: Supple without lymphadenopathy. Trachea midline. Heart: Regular. Lungs: Equal expansion, normal respiratory effort. Abdomen: Soft, nontender, nondistended. No guarding or rigidity. Skin: No rashes. No jaundice. Extremities: Normal skin color and turgor. No pedal edema. Neurological: No focal deficits. Alert and oriented x3. Results CBC & Chem 7: 05/14/23 06:37 05/14/23 06:37 Labs: Abnormal Lab Results - Last 24 Hours (Table) 05/14/23 05/14/23 05/15/23 Range/Units 06:37 06:37 06:44 Neutrophils # (Manual) 1.10 L (1.3-7.7) k/uL Lymphocytes # (Manual) 0.78 L (1.0-4.8) k/uL Chloride 117 H (96-109) mmol/L Carbon Dioxide 17.2 L (21.6-31.8) mmol/L BUN/Creatinine Ratio 28.44 H (12.00-20.00) Ratio Calcium 8.6 L (8.7-10.3) mg/dL AST 37 H (13-35) U/L Alkaline Phosphatase 165 H (41-126) U/L Ammonia 63 H (<30) umol/L Total Protein 5.9 L (6.2-8.2) g/dL Albumin 3.0 L (3.8-4.9) g/dL Albumin/Globulin Ratio 1.03 L (1.60-3.17) Ratio Microbiology - Last 24 Hours (Table) 05/09/23 12:10 Blood Culture - Final Blood Assessment and Plan (1) Hepatic encephalopathy Narrative/Plan: 67-year-old female with reported history of alcohol abuse and underlying liver disease with a history of hepatic encephalopathy. Patient is very poor historian cannot state how much she drinks or drink and for how many years. States she was diagnosed about 6 months ago. States she does not follow with anybody for her liver disease. She was noted to have elevated ammonia during this hospitalization and which continues to rise however she is reporting 7 to 8 bowel movements a day. Patient is currently on lactulose 30 g 3 times a day. May need to consider adding Xifaxan. Recommend outpatient follow-up with gastroenterology and alcohol abstinence. Current Visit: Yes Status: Acute Priority: High Code(s): K76.82 - HEPATIC ENCEPHALOPATHY SNOMED Code(s): 25286102 (2) Alcoholic liver disease Current Visit: Yes Status: Acute Code(s): K70.9 - ALCOHOLIC LIVER DISEASE, UNSPECIFIED SNOMED Code(s): 56611133 Plan: 1. Continue symptomatic and supportive care 2. Continue lactulose as ordered 3. Recommend alcohol abstinence 4. May need to consider adding Xifaxan for hepatic encephalopathy 5. Recommend outpatient follow-up with gastroenterology Thank you for this consultation we will continue to follow. Dr. Lino Pacheco I agree with the dictator's note, documented as a scribe by Susi Tate.
[2023-05-15 11:47] LABS: HCT 24.4 % (37.2-46.3); HGB 7.9 g/dL (12.0-15.0); Immature Platelet Fraction 5.1 % (1.1-6.1); MCH 30.9 pg (27.0-32.0); MCHC 32.4 g/dL (32.0-37.0); MCV 95.3 FL (80.0-97.0); Mean Platelet Volume 11.2 FL (9.5-12.2); NRBC Per 100 WBC 0 X 10*3/uL (0.00-0.01); Platelet Count 57 X 10*3/uL (140-440); RBC 2.56 X 10*6/uL (4.10-5.20); WBC 2.99 X 10*3/uL (4.50-10.00)
[2023-05-15 12:00] LABS: Basophils # (A) 0.02 X 10*3/uL (0.00-0.10); Basophils % (A) 0.7 %; Eosinophils # (A) 0.25 X 10*3/uL (0.04-0.35); Eosinophils % (A) 8.4 %; Lymphocytes # (A) 1.15 X 10*3/uL (0.90-5.00); Lymphocytes % (A) 38.5 %; Monocytes # (A) 0.35 X 10*3/uL (0.20-1.00); Monocytes % (A) 11.7 %; RBC Morphology Normal (Normal)
--- NOTE | 2023-05-15 14:40 | P.PN ---
Subjective Progress Note Date: 05/14/23 Principal diagnosis: Reason for follow-up is mental status changes likely hepatic encephalopathy Patient is a 67-year-old female with a past medical history significant for chronic liver disease/cirrhosis secondary to alcohol, recent admission to hospital hepatic encephalopathy hypertension reflux patient has been brought into the hospital for evaluation of confusion. On today's evaluation that is 05/14/2023, the patient continues to be afebrile patient is breathing comfortably on room air without need for supplemental oxygen the patient denies chest pain, no cough or sputum production patient denies abdominal pain no nausea no vomiting. Patient last white count of 2.6, creatinine is 0.9, urine is growing Enterobacter Objective - Vital Signs Vital signs: Vital Signs Temp 97.7 F 05/14/23 07:47 Pulse 74 05/14/23 07:47 Resp 16 05/14/23 07:47 BP 145/77 05/14/23 07:47 Pulse Ox 95 05/14/23 07:47 FiO2 Intake & Output 05/13/23 05/14/23 05/14/23 18:59 06:59 18:59 Intake Total 360 Balance 360 Intake: Oral 360 Other: Voiding Method Bedside Commode Bedside Commode Toilet Diaper Diaper Bedside Commode # Voids 4 6 # Bowel Movements 2 4 - Exam GENERAL DESCRIPTION: An elderly female RESPIRATORY SYSTEM: Unlabored breathing , decreased breath sounds at bases HEART: S1 S2 regular rate and rhythm , ABDOMEN: Soft , no tenderness EXTREMITIES: No edema feet - Labs CBC & Chem 7: 05/15/23 06:44 05/15/23 06:44 Labs: Abnormal Lab Results - Last 24 Hours (Table) 05/14/23 05/14/23 05/14/23 Range/Units 06:37 06:37 06:37 WBC 2.6 L (3.8-10.6) k/uL RBC 2.68 L (3.80-5.40) m/uL Hgb 8.6 L (11.4-16.0) gm/dL Hct 25.3 L (34.0-46.0) % RDW 16.8 H (11.5-15.5) % Plt Count 55 L (150-450) k/uL Neutrophils # (Manual) 1.10 L (1.3-7.7) k/uL Lymphocytes # (Manual) 0.78 L (1.0-4.8) k/uL Chloride 117 H (96-109) mmol/L Carbon Dioxide 17.2 L (21.6-31.8) mmol/L BUN/Creatinine Ratio 28.44 H (12.00-20.00) Ratio Calcium 8.6 L (8.7-10.3) mg/dL AST 37 H (13-35) U/L Alkaline Phosphatase 165 H (41-126) U/L Ammonia 55 H (<30) umol/L Total Protein 5.9 L (6.2-8.2) g/dL Albumin 3.0 L (3.8-4.9) g/dL Albumin/Globulin Ratio 1.03 L (1.60-3.17) Ratio Assessment and Plan (1) Altered mental status Current Visit: Yes Status: Acute Code(s): R41.82 - ALTERED MENTAL STATUS, UNSPECIFIED SNOMED Code(s): 126006070 (2) Hepatic encephalopathy Current Visit: Yes Status: Acute Priority: High Code(s): K76.82 - HEPATIC ENCEPHALOPATHY SNOMED Code(s): 14141722 (3) UTI (urinary tract infection) Current Visit: Yes Status: Acute Code(s): N39.0 - URINARY TRACT INFECTION, SITE NOT SPECIFIED SNOMED Code(s): 45221207 Plan: 1patient presented to hospital with confusion in this patient who do have a history of alcohol liver disease/cirrhosis with recent admission to the hospital with hepatic encephalopathy more likely metabolic and related to hepatic encephalopathy patient currently denies having any headache no neck rigidity no fever or elevated white count clinic suspicion is low for encephalitis, patient did have elevated ammonia and likely dealing with hepatic encephalopathy 2-patient did have a positive UA and a possible component of symptomatic urinary tract infection, urine is growing Enterobacter that is sensitive to ceftriaxone 3-patient to continue with ceftriaxone and will transition to short course of oral antibiotics on discharge Dictation was produced using [employer] dictation software. please excuse any grammatical, word or spelling errors. Time with Patient: Less than 30
--- NOTE | 2023-05-15 14:41 | P.PN ---
Subjective Progress Note Date: 05/15/23 Principal diagnosis: Reason for follow-up is mental status changes likely hepatic encephalopathy Patient is a 67-year-old female with a past medical history significant for chronic liver disease/cirrhosis secondary to alcohol, recent admission to hospital hepatic encephalopathy hypertension reflux patient has been brought into the hospital for evaluation of confusion. On today's evaluation that is 05/15/2023, the patient remains to be afebrile, the patient is breathing comfortably on room air and the patient denies any shortness of breath, the patient denies chest pain or any cough , patient denies any nausea/vomiting abdominal pain or new symptoms Patient last white count of 2.99, creatinine is 0.8, urine is growing Enterobacter Objective - Vital Signs Vital signs: Vital Signs Temp 97.8 F 05/15/23 07:12 Pulse 74 05/15/23 07:12 Resp 18 05/15/23 07:12 BP 128/69 05/15/23 07:12 Pulse Ox 94 L 05/15/23 07:56 FiO2 21 05/15/23 07:56 Intake & Output 05/14/23 05/15/23 05/15/23 18:59 06:59 18:59 Other: Voiding Method Toilet Toilet Bedside Commode Bedside Commode # Voids 2 5 # Bowel Movements 4 - Exam GENERAL DESCRIPTION: An elderly female RESPIRATORY SYSTEM: Unlabored breathing , decreased breath sounds at bases HEART: S1 S2 regular rate and rhythm , ABDOMEN: Soft , no tenderness EXTREMITIES: No edema feet - Labs CBC & Chem 7: 05/15/23 06:44 05/15/23 06:44 Labs: Abnormal Lab Results - Last 24 Hours (Table) 05/15/23 05/15/23 05/15/23 Range/Units 06:44 06:44 06:44 WBC 2.99 L (4.50-10.00) X 10*3/uL RBC 2.56 L (4.10-5.20) X 10*6/uL Hgb 7.9 L (12.0-15.0) g/dL Hct 24.4 L (37.2-46.3) % RDW 18.0 H (11.5-14.5) % Plt Count 57 L (140-440) X 10*3/uL Neutrophils # 1.20 L (1.80-7.70) X 10*3/uL Chloride 118 H (96-109) mmol/L Carbon Dioxide 18.0 L (21.6-31.8) mmol/L BUN/Creatinine Ratio 27.12 H (12.00-20.00) Ratio AST 38 H (13-35) U/L Alkaline Phosphatase 208 H (41-126) U/L Ammonia 63 H (<30) umol/L Total Protein 5.8 L (6.2-8.2) g/dL Albumin 3.0 L (3.8-4.9) g/dL Albumin/Globulin Ratio 1.07 L (1.60-3.17) Ratio Microbiology - Last 24 Hours (Table) 05/09/23 12:10 Blood Culture - Final Blood Assessment and Plan (1) Altered mental status Current Visit: Yes Status: Acute Code(s): R41.82 - ALTERED MENTAL STATUS, UNSPECIFIED SNOMED Code(s): 423838640 (2) Hepatic encephalopathy Current Visit: Yes Status: Acute Priority: High Code(s): K76.82 - HEPATIC ENCEPHALOPATHY SNOMED Code(s): 35846138 (3) UTI (urinary tract infection) Current Visit: Yes Status: Acute Code(s): N39.0 - URINARY TRACT INFECTION, SITE NOT SPECIFIED SNOMED Code(s): 30691710 Plan: 1patient presented to hospital with confusion in this patient who do have a history of alcohol liver disease/cirrhosis with recent admission to the hospital with hepatic encephalopathy more likely metabolic and related to hepatic encephalopathy patient currently denies having any headache no neck rigidity no fever or elevated white count clinic suspicion is low for encephalitis, patient did have elevated ammonia and likely dealing with hepatic encephalopathy, GI has been consulted for further management of underlying hepatic encephalopathy 2-patient did have a positive UA and a possible component of symptomatic urinary tract infection, urine is growing Enterobacter that is sensitive to ceftriaxone 3-patient remains to be afebrile and white count is normal, patient to continue with ceftriaxone and monitor clinical course closely Dictation was produced using [employer] dictation software. please excuse any grammatical, word or spelling errors. Time with Patient: Less than 30
--- NOTE | 2023-05-16 06:02 | P.PN ---
Subjective Progress Note Date: 05/15/23 This is a 67-year-old female who was recently admitted with change in mental status and hepatic encephalopathy being closely monitored with multiple medical consultations including neurology, psychiatry, infectious disease. There was concern of possible urinary tract infection although patient is not eliciting any pain or burning or frequency with urination. Patient has received adequate dosing of ceftriaxone and will discontinue and monitor closely off antibiotic therapy. Patient also noted to have a chronic C2 fracture and was to be wearing a collar at all times per orthopedics. Patient reevaluated by orthopedics no plans of surgical intervention at this time recommending continuing with collar. Patient with overall generalized weakness and inability to care for herself would benefit from ECF for continued strength and mobility. Patient was independent prior to this hospitalization per son who she's been living with since February and brought here to [place]. Patient does have significant history of alcohol but reports has not had a drink in quite some time. Patient with liver disease is to continue on lactulose to have at least 2-3 bowel movements daily. Ammonia level is elevated and GI was consulted recommending to continue with lactulose. Social work following working on discharge planning and has placed referrals to ECF. Review of systems: Constitutional: No reports of fatigue, fever, or chills Cardiovascular: No reports of chest pain or palpitations Respiratory: No reports of shortness of breath or cough GI: No reports of nausea, no reports of vomiting, reports having multiple bowel movements, has been refusing lactulose : No reports of dysuria or retention Neurovascular: reports of generalized weakness All medications have been reviewed PHYSICAL EXAMINATION: GENERAL: The patient is alert and oriented x2-3, Well developed, well lui shed. Appears elderly HEENT: Pupils are round and equally reacting to light. EOMI. no scleral icterus. No conjunctival pallor. Normocephalic, atraumatic. No pharyngeal erythema. No thyromegaly. Cervical collar noted CARDIOVASCULAR: S1 and S2 muffled PULMONARY: diminished breath sounds bilaterally with no wheezing or rhonchi noted. ABDOMEN: soft. Nontender on exam. non-distended, normoactive bowel sounds. No palpable organomegaly. MUSCULOSKELETAL: No joint swelling or deformity. EXTREMITIES: No cyanosis, clubbing, or pedal edema. NEUROLOGICAL: Gross neurological examination did not reveal any focal deficits. Diffuse weakness SKIN: No rashes. Assessment: Change in mental status, acute metabolic encephalopathy, improving Chronic C2 fracture next line history of EtOH Hypertension history Mild pancytopenia, likely secondary to chronic liver disease Elevated bilirubin Alcoholic hepatitis versus cirrhosis Previous history of CVA/TIA Gait dysfunction with generalized weakness Possible acute urinary tract infection, present on admission with urine culture showing Enterobacter, although suspicion for infection is low this patient is denying any urinary symptoms or pain or burning or frequency with urination, likely asymptomatic bacteriuria. Patient has received 4-5 days of antibiotics and will discontinue GI prophylaxis DVT prophylaxis Full code Plan: Recommend to continue with current medications and management with multiple medical consultations following. Patient undergoing neurological workup GI was consulted for liver disease recommending to continue with lactulose and outpatient follow-up with GI. Continue to refrain from any alcohol use Recommend PT/OT therapy daily as patient was independent prior to this hospitalization and has had generalized decline per son who she's been living with since February with unsteady gait and increased weakness with concerns of her returning home with high risk for falls and being home alone his son works 24-hour shifts. Social work following working on referrals to [facility] for continued strength and mobility. Patient was evaluated by orthopedics recommending continuing with cervical collar and patient needs redirection on continuing to wear the collar she will remove it Continue with lactulose to have at least 2-3 bowel movements daily. Ammonia slightly elevated at 65 today and will follow-up with repeat labs The impression and plan of care has been dictated by Mckenzie Posadas, nurse practitioner as directed. MD Kirill I have performed a history and examination and MDM of this patient, discussed the same with the dictator, and agree with the dictator's assessment and plan as written ,documented as a scribe. Based on total visit time, I have performed more than 50% of the visit. Any additional findings or plans will be noted. Objective - Vital Signs Vital signs: Vital Signs Temp 98.5 F 05/16/23 01:32 Pulse 82 05/16/23 01:32 Resp 19 05/16/23 01:32 BP 149/70 05/16/23 01:32 Pulse Ox 92 L 05/16/23 01:32 FiO2 21 05/15/23 07:56 Intake & Output 05/15/23 05/15/23 05/16/23 06:59 18:59 06:59 Other: Voiding Method Toilet Toilet Bedside Commode Bedside Commode # Voids 5 3 2 # Bowel Movements 4 2 - Labs CBC & Chem 7: 05/15/23 06:44 05/15/23 06:44 Labs: Abnormal Lab Results - Last 24 Hours (Table) 05/15/23 05/15/23 05/15/23 Range/Units 06:44 06:44 06:44 WBC 2.99 L (4.50-10.00) X 10*3/uL RBC 2.56 L (4.10-5.20) X 10*6/uL Hgb 7.9 L (12.0-15.0) g/dL Hct 24.4 L (37.2-46.3) % RDW 18.0 H (11.5-14.5) % Plt Count 57 L (140-440) X 10*3/uL Neutrophils # 1.20 L (1.80-7.70) X 10*3/uL Chloride 118 H (96-109) mmol/L Carbon Dioxide 18.0 L (21.6-31.8) mmol/L BUN/Creatinine Ratio 27.12 H (12.00-20.00) Ratio AST 38 H (13-35) U/L Alkaline Phosphatase 208 H (41-126) U/L Ammonia 63 H (<30) umol/L Total Protein 5.8 L (6.2-8.2) g/dL Albumin 3.0 L (3.8-4.9) g/dL Albumin/Globulin Ratio 1.07 L (1.60-3.17) Ratio
[2023-05-16] MEDS: THIAMINE 100 MG TAB PO SCH ×2 (10:12→18:10)
[2023-05-16] MEDS: HEPARIN SODIUM,PORCINE 5,000 UNIT/ML 1 ML VIAL SQ SCH ×2 (10:12→20:30)
[2023-05-16] MEDS: MULTIVITAMINS, THERA 1 EACH TAB PO SCH (10:13)
[2023-05-16] MEDS: FOLIC ACID 1 MG TAB PO SCH (10:13)
[2023-05-16] MEDS: cloNIDine HCL 0.1 MG TAB PO SCH ×2 (10:13→20:30)
[2023-05-16] MEDS: PANTOPRAZOLE 40 MG TABLET PO SCH (10:13)
[2023-05-16] MEDS: LACTULOSE 20 GM/30 ML CUP PO SCH ×2 (10:14→19:24)
[2023-05-16] MEDS: PROPRANOLOL 20 MG TAB PO SCH ×2 (10:18→20:30)
[2023-05-16] MEDS: RIFAXIMIN 550 MG TABLET PO SCH ×2 (10:20→20:30)
[2023-05-16 11:18] LABS: ALT 26 U/L (8-44); AST 39 U/L (13-35); Albumin 2.9 g/dL (3.8-4.9); Alkaline Phosphatase 170 U/L (41-126); BUN/Creat Ratio 24.89 Ratio (12.00-20.00); Blood Urea Nitrogen 22.4 mg/dL (9.0-27.0); Calcium 8.9 mg/dL (8.7-10.3); Carbon Dioxide 18.2 mmol/L (21.6-31.8); Chloride 116 mmol/L (96-109); Globulin 2.9 g/dL (1.6-3.3); Glucose 98 mg/dL (70-110); Magnesium 1.5 mg/dL (1.5-2.4); Potassium 4.6 mmol/L (3.5-5.5); Sodium 143 mmol/L (135-145); Total Bilirubin 1.1 mg/dL (0.3-1.2); Total Protein 5.8 g/dL (6.2-8.2)
[2023-05-16 11:54] LABS: Basophils # (A) 0.02 X 10*3/uL (0.00-0.10); Basophils % (A) 0.6 %; Eosinophils # (A) 0.26 X 10*3/uL (0.04-0.35); HCT 24.5 % (37.2-46.3); HGB 7.9 g/dL (12.0-15.0); Immature Platelet Fraction 5.8 % (1.1-6.1); Lymphocytes # (A) 1.49 X 10*3/uL (0.90-5.00); Lymphocytes % (A) 45.6 %; MCH 31.1 pg (27.0-32.0); MCHC 32.2 g/dL (32.0-37.0); MCV 96.5 FL (80.0-97.0); Monocytes # (A) 0.27 X 10*3/uL (0.20-1.00); Monocytes % (A) 8.3 %; NRBC Per 100 WBC 0 X 10*3/uL (0.00-0.01); Neutrophils # (A) 1.22 X 10*3/uL (1.80-7.70); Neutrophils % (A) 37.2 %; Platelet Count 53 X 10*3/uL (140-440); RBC 2.54 X 10*6/uL (4.10-5.20); RBC Morphology Normal (Normal); RDW 18.1 % (11.5-14.5); WBC 3.27 X 10*3/uL (4.50-10.00)
[2023-05-16 14:35] VITALS: BMI 29.2
--- NOTE | 2023-05-16 15:11 | P.PN ---
Subjective Progress Note Date: 05/16/23 Principal diagnosis: Hepatic encephalopathy This is a 67-year-old white female who was admitted to the hospital with concerns for confusion and altered mental status changes. Patient was admitted on 05/08/2023 and has had multiple consultants including neurology, orthopedics for concerns for having cervical fracture and psychiatry. She is currently in a hard c-collar. She had an abnormal EEG consistent with metabolic encephalopathy. Psychiatry is making some changes to her medications. She has a past medical history including alcoholism, alcoholic liver disease, hyper tension, CVA/TIA, chronic anemia and hepatic encephalopathy related to liver disease. Patient is a poor historian states that she believes she was diagnosed with liver disease about 6 months ago and states she does not follow with anybody for her liver disease. She is unable to tell me when the last time she had any alcohol, how much she drank and for how long. However she is currently alert and oriented to person, place and time. She was unable to tell me the correct year and stated it was 1920 however she was able to say that President Jeimy was the current president.her home medications to include lactulose 30 g and 3 times a day as well as Inderal 20 mg by mouth twice a day. She states that she does take her lactulose as prescribed however that she does not like it because she usually has 7-8 bowel movements daily with incontinence. Today's ammonia level is 63, which is up from 55 yesterday. Yesterday's labs WBC 2.6 hemoglobin 8.6 hematocrit 25 platelet count 55,000 sodium 143 potassium 4.8 BUN 25 creatinine 0.9 total bilirubin 0.9 AST 37 ALT 26 alkaline phosphatase 165 05/16/2023 Patient seen and examined is a follow-up. She has been reporting that she's been taking her lactulose as scheduled. Despite this ammonia levels have been increasing. No other acute changes through the night. She is awake and alert. Objective - Vital Signs Vital signs: Vital Signs Temp 98.5 F 05/16/23 01:32 Pulse 82 05/16/23 01:32 Resp 19 05/16/23 01:32 BP 149/70 05/16/23 01:32 Pulse Ox 92 L 05/16/23 01:32 FiO2 21 05/15/23 07:56 Intake & Output 05/15/23 05/16/23 05/16/23 18:59 06:59 18:59 Other: Voiding Method Toilet Bedside Commode # Voids 3 2 # Bowel Movements 2 - Exam General appearance: The patient is alert, oriented, appears in no acute distress. HET: Head is normocephalic and atraumatic. Conjunctiva pink. Sclera anicteric. Neck: Supple without lymphadenopathy. Abdomen: Soft, nontender, nondistended with bowel sounds. No guarding or rigidity. Extremities: Normal skin color and turgor. No pedal edema Skin: No rashes, no jaundice Neurological: No focal deficits. Alert and oriented. - Labs CBC & Chem 7: 05/16/23 06:42 05/16/23 06:42 Labs: Abnormal Lab Results - Last 24 Hours (Table) 05/15/23 05/15/23 05/16/23 Range/Units 06:44 06:44 06:42 WBC 2.99 L (4.50-10.00) X 10*3/uL RBC 2.56 L (4.10-5.20) X 10*6/uL Hgb 7.9 L (12.0-15.0) g/dL Hct 24.4 L (37.2-46.3) % RDW 18.0 H (11.5-14.5) % Plt Count 57 L (140-440) X 10*3/uL Neutrophils # 1.20 L (1.80-7.70) X 10*3/uL Chloride 118 H (96-109) mmol/L Carbon Dioxide 18.0 L (21.6-31.8) mmol/L BUN/Creatinine Ratio 27.12 H (12.00-20.00) Ratio AST 38 H (13-35) U/L Alkaline Phosphatase 208 H (41-126) U/L Ammonia 123 H (<30) umol/L Total Protein 5.8 L (6.2-8.2) g/dL Albumin 3.0 L (3.8-4.9) g/dL Albumin/Globulin Ratio 1.07 L (1.60-3.17) Ratio Assessment and Plan (1) Hepatic encephalopathy Narrative/Plan: 67-year-old female with reported history of alcohol abuse and underlying liver disease with a history of hepatic encephalopathy. Patient is very poor historian cannot state how much she drinks or drink and for how many years. States she was diagnosed about 6 months ago. States she does not follow with anybody for her liver disease. She was noted to have elevated ammonia during this hospitalization and which continues to rise however she is reporting 7 to 8 bowel movements a day. Patient is currently on lactulose 30 g 3 times a day. May need to consider adding Xifaxan. Recommend outpatient follow-up with gastroenterology and alcohol abstinence. Current Visit: Yes Status: Acute Priority: High Code(s): K76.82 - HEPATIC ENCEPHALOPATHY SNOMED Code(s): 05614141 (2) Alcoholic liver disease Current Visit: Yes Status: Acute Code(s): K70.9 - ALCOHOLIC LIVER DISEASE, UNSPECIFIED SNOMED Code(s): 48439211 Plan: 1. Continue symptomatic and supportive care 2. Continue lactulose as ordered, monitor that patient is taking lactulose as prescribed 3. Recommend alcohol abstinence 4. Will add Xifaxan 550 mg twice a day 5. Repeat daily ammonia 6. Recommend outpatient follow-up with gastroenterology Thank you for this consultation we will continue to follow. Dr. Lino Pacheco I agree with the dictator's note, documented as a scribe by Susi Tate.
--- NOTE | 2023-05-16 17:34 | P.PN ---
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 On today's evaluation that is 05/16/2023, the patient continues to be afebrile patient is breathing comfortably on room air, no need for supplemental oxygen, patient denies any chest pain or cough no nausea no vomiting patient has been complaining of lactulose giving her lots of diarrhea but no abdominal pain Patient last white count of 3.27, creatinine is 0.9, urine is growing Enterobacter Objective - Vital Signs Vital signs: Vital Signs Temp 97.8 F 05/16/23 07:03 Pulse 75 05/16/23 07:03 Resp 17 05/16/23 07:03 BP 135/77 05/16/23 07:03 Pulse Ox 93 L 05/16/23 07:03 FiO2 21 05/15/23 07:56 Intake & Output 05/15/23 05/16/23 05/16/23 18:59 06:59 18:59 Other: Voiding Method Toilet Bedside Commode # Voids 3 2 1 # Bowel Movements 2 - Exam GENERAL DESCRIPTION: An elderly female RESPIRATORY SYSTEM: Unlabored breathing , decreased breath sounds at bases HEART: S1 S2 regular rate and rhythm , ABDOMEN: Soft , no tenderness EXTREMITIES: No edema feet - Labs CBC & Chem 7: 05/16/23 06:42 05/16/23 06:42 Labs: Abnormal Lab Results - Last 24 Hours (Table) 05/16/23 05/16/23 05/16/23 Range/Units 06:42 06:42 06:42 WBC 3.27 L (4.50-10.00) X 10*3/uL RBC 2.54 L (4.10-5.20) X 10*6/uL Hgb 7.9 L (12.0-15.0) g/dL Hct 24.5 L (37.2-46.3) % RDW 18.1 H (11.5-14.5) % Plt Count 53 L (140-440) X 10*3/uL Neutrophils # 1.22 L (1.80-7.70) X 10*3/uL Chloride 116 H (96-109) mmol/L Carbon Dioxide 18.2 L (21.6-31.8) mmol/L BUN/Creatinine Ratio 24.89 H (12.00-20.00) Ratio AST 39 H (13-35) U/L Alkaline Phosphatase 170 H (41-126) U/L Ammonia 123 H (<30) umol/L Total Protein 5.8 L (6.2-8.2) g/dL Albumin 2.9 L (3.8-4.9) g/dL Albumin/Globulin Ratio 1.00 L (1.60-3.17) Ratio Assessment and Plan (1) Altered mental status Current Visit: Yes Status: Acute Code(s): R41.82 - ALTERED MENTAL STATUS, UNSPECIFIED SNOMED Code(s): 951315721 (2) Hepatic encephalopathy Current Visit: Yes Status: Acute Priority: High Code(s): K76.82 - HEPATIC ENCEPHALOPATHY SNOMED Code(s): 29098126 (3) UTI (urinary tract infection) Current Visit: Yes Status: Acute Code(s): N39.0 - URINARY TRACT INFECTION, SITE NOT SPECIFIED SNOMED Code(s): 84737722 Plan: 1patient presented to hospital with confusion in this patient who do have a history of alcohol liver disease/cirrhosis with recent admission to the hospital with hepatic encephalopathy more likely metabolic and related to hepatic encephalopathy patient currently denies having any headache no neck rigidity no fever or elevated white count clinic suspicion is low for encephalitis, patient did have elevated ammonia and likely dealing with hepatic encephalopathy, GI has been consulted for further management of underlying hepatic encephalopathy 2-patient did have a positive UA and a possible component of symptomatic urinary tract infection, urine is growing Enterobacter that is sensitive to ceftriaxone which will be continued and will monitor clinical course closely lactulose has been discussed with admitting team Dictation was produced using [employer] dictation software. please excuse any grammatical, word or spelling errors. Time with Patient: Less than 30
[2023-05-16] MEDS: HYDROcodone/APAP 5-325MG 1 EACH TAB PO PRN (20:30)
[2023-05-17] MEDS ORDERED: Magnesium Replacement Protocol 1 EACH MISC MISCELLANE PRN (04:54)
[2023-05-17] MEDS: MAGNESIUM SULFATE-D5W PMX 1 GM in DEXTROSE/WATER 1 100ML.BAG IVPB SCH ×2 (05:04→06:10)
[2023-05-17] MEDS: LACTULOSE 20 GM/30 ML CUP PO SCH (06:12)
--- NOTE | 2023-05-17 06:36 | P.PN ---
Subjective Progress Note Date: 05/16/23 This is a 67-year-old female who was recently admitted with change in mental status and hepatic encephalopathy being closely monitored with multiple medical consultations including neurology, psychiatry, infectious disease. There was concern of possible urinary tract infection although patient is not eliciting any pain or burning or frequency with urination. Patient has received adequate dosing of ceftriaxone and will discontinue and monitor closely off antibiotic therapy. Patient also noted to have a chronic C2 fracture and was to be wearing a collar at all times per orthopedics. Patient reevaluated by orthopedics no plans of surgical intervention at this time recommending continuing with collar. Patient with overall generalized weakness and inability to care for herself would benefit from ECF for continued strength and mobility. Patient was independent prior to this hospitalization per son who she's been living with since February and brought here to [place]. Patient does have significant history of alcohol but reports has not had a drink in quite some time. Patient with liver disease is to continue on lactulose to have at least 2-3 bowel movements daily. Ammonia level is elevated and GI was consulted recommending to continue with lactulose. Social work following working on discharge planning and has placed referrals to ECF. 05/16/2023 Patient is seen in follow-up with multiple medical consultations following continues to be confused with encephalopathy although has periods of alert mentation. Patient's ammonia is 123 today and per nursing documentation has been refusing. Will discuss with nursing staff along with patient she is unable to refuse and needs to have at least 2-3 loose bowel movements daily for this chronic hyperammonemia. Review of systems: Constitutional: No reports of fatigue, fever, or chills Cardiovascular: No reports of chest pain or palpitations Respiratory: No reports of shortness of breath or cough GI: No reports of nausea, no reports of vomiting, reports having multiple bowel movements, has been refusing lactulose : No reports of dysuria or retention Neurovascular: reports of generalized weakness All medications have been reviewed PHYSICAL EXAMINATION: GENERAL: The patient is alert and oriented x2-3, Well developed, well nourished. Appears elderly HEENT: Pupils are round and equally reacting to light. EOMI. no scleral icterus. No conjunctival pallor. Normocephalic, atraumatic. No pharyngeal erythema. No thyromegaly. Cervical collar noted CARDIOVASCULAR: S1 and S2 muffled PULMONARY: diminished breath sounds bilaterally with no wheezing or rhonchi noted. ABDOMEN: soft. Nontender on exam. non-distended, normoactive bowel sounds. No palpable organomegaly. MUSCULOSKELETAL: No joint swelling or deformity. EXTREMITIES: No cyanosis, clubbing, or pedal edema. NEUROLOGICAL: Gross neurological examination did not reveal any focal deficits. Diffuse weakness SKIN: No rashes. Assessment: Change in mental status, acute metabolic encephalopathy, improving Chronic C2 fracture next line history of EtOH Hypertension history Mild pancytopenia, likely secondary to chronic liver disease Elevated bilirubin Alcoholic hepatitis versus cirrhosis Previous history of CVA/TIA Gait dysfunction with generalized weakness Possible acute urinary tract infection, present on admission with urine culture showing Enterobacter, although suspicion for infection is low this patient is denying any urinary symptoms or pain or burning or frequency with urination, likely asymptomatic bacteriuria. Patient has received 4-5 days of antibiotics and will discontinue GI prophylaxis DVT prophylaxis Full code Plan: Recommend to continue with current medications and management with multiple medical consultations following. Patient undergoing neurological workup although negative GI was consulted for liver disease recommending to continue with lactulose and outpatient follow-up with GI. Continue to refrain from any alcohol use. Patient started on rifaximin Recommend PT/OT therapy daily as patient was independent prior to this hospitalization and has had generalized decline per son who she's been living with since February with unsteady gait and increased weakness with concerns of her returning home with high risk for falls and being home alone his son works 24-hour shifts. Social work following working on referrals to [facility] for continued strength and mobility. Patient was evaluated by orthopedics recommending continuing with cervical collar and patient needs redirection on continuing to wear the collar she will remove it Continue with lactulose to have at least 2-3 bowel movements daily. Ammonia elevated at 123 today and discussed with patient at the bedside will make lactulose twice a day as long as patient is having 2-3 bowel movements a day as patient has been refusing she reports she is having upwards of 10 bowel movements daily and has been incontinent of stool unable to make it to the bathroom. will follow-up with repeat labs The impression and plan of care has been dictated by Mckenzie Posadas, nurse practitioner as directed. MD Kirill I have performed a history and examination and MDM of this patient, discussed the same with the dictator, and agree with the dictator's assessment and plan as written ,documented as a scribe. Based on total visit time, I have performed more than 50% of the visit. Any additional findings or plans will be noted. Objective - Vital Signs Vital signs: Vital Signs Temp 97.8 F 05/16/23 07:03 Pulse 75 05/16/23 07:03 Resp 17 05/16/23 07:03 BP 135/77 05/16/23 07:03 Pulse Ox 93 L 05/16/23 07:03 FiO2 21 05/15/23 07:56 Intake & Output 05/15/23 05/16/23 05/16/23 18:59 06:59 18:59 Other: Voiding Method Toilet Bedside Commode # Voids 3 2 1 # Bowel Movements 2 - Labs CBC & Chem 7: 05/16/23 06:42 05/16/23 06:42 Labs: Abnormal Lab Results - Last 24 Hours (Table) 05/15/23 05/15/23 05/16/23 Range/Units 06:44 06:44 06:42 WBC 2.99 L (4.50-10.00) X 10*3/uL RBC 2.56 L (4.10-5.20) X 10*6/uL Hgb 7.9 L (12.0-15.0) g/dL Hct 24.4 L (37.2-46.3) % RDW 18.0 H (11.5-14.5) % Plt Count 57 L (140-440) X 10*3/uL Neutrophils # 1.20 L (1.80-7.70) X 10*3/uL Chloride 118 H (96-109) mmol/L Carbon Dioxide 18.0 L (21.6-31.8) mmol/L BUN/Creatinine Ratio 27.12 H (12.00-20.00) Ratio AST 38 H (13-35) U/L Alkaline Phosphatase 208 H (41-126) U/L Ammonia 123 H (<30) umol/L Total Protein 5.8 L (6.2-8.2) g/dL Albumin 3.0 L (3.8-4.9) g/dL Albumin/Globulin Ratio 1.07 L (1.60-3.17) Ratio
[2023-05-17 07:41] VITALS: TEMP 98.1
--- NOTE | 2023-05-17 08:03 | P.PN ---
Subjective Progress Note Date: 05/17/23 Principal diagnosis: Hepatic encephalopathy This is a 67-year-old white female who was admitted to the hospital with concerns for confusion and altered mental status changes. Patient was admitted on 05/08/2023 and has had multiple consultants including neurology, orthopedics for concerns for having cervical fracture and psychiatry. She is currently in a hard c-collar. She had an abnormal EEG consistent with metabolic encephalopathy. Psychiatry is making some changes to her medications. She has a past medical history including alcoholism, alcoholic liver disease, hyper tension, CVA/TIA, chronic anemia and hepatic encephalopathy related to liver disease. Patient is a poor historian states that she believes she was diagnosed with liver disease about 6 months ago and states she does not follow with anybody for her liver disease. She is unable to tell me when the last time she had any alcohol, how much she drank and for how long. However she is currently alert and oriented to person, place and time. She was unable to tell me the correct year and stated it was 1920 however she was able to say that President Jeimy was the current president.her home medications to include lactulose 30 g and 3 times a day as well as Inderal 20 mg by mouth twice a day. She states that she does take her lactulose as prescribed however that she does not like it because she usually has 7-8 bowel movements daily with incontinence. Today's ammonia level is 63, which is up from 55 yesterday. Yesterday's labs WBC 2.6 hemoglobin 8.6 hematocrit 25 platelet count 55,000 sodium 143 potassium 4.8 BUN 25 creatinine 0.9 total bilirubin 0.9 AST 37 ALT 26 alkaline phosphatase 165 05/16/2023 Patient seen and examined is a follow-up. She has been reporting that she's been taking her lactulose as scheduled. Despite this ammonia levels have been increasing. No other acute changes through the night. She is awake and alert. 1823 Patient is seen and examined today as a follow-up for hepatic encephalopathy. She is alert and oriented. She states that she had several bowel movements yesterday and took all 3 of her doses of lactulose. Nursing reported that even prior to taking 3 doses. She has been having at least 4 bowel movements daily, which is adequate. Lactulose has been changed to twice daily and Xifaxan has been added. Repeat ammonia level today currently pending. She denies any abdominal pain, nausea or vomiting. Objective - Vital Signs Vital signs: Vital Signs Temp 98.1 F 05/17/23 07:27 Pulse 70 05/17/23 07:27 Resp 16 05/17/23 07:27 BP 129/71 05/17/23 07:27 Pulse Ox 95 05/17/23 07:27 FiO2 21 05/15/23 07:56 Intake & Output 05/16/23 05/17/23 05/17/23 18:59 06:59 18:59 Intake Total 120 Balance 120 Weight 68.039 kg Intake: Oral 120 Other: Voiding Method Toilet Toilet Bedside Commode Bedside Commode # Voids 1 1 # Bowel Movements 1 - Exam General appearance: The patient is alert, oriented, appears in no acute distress. HET: Head is normocephalic and atraumatic. Conjunctiva pink. Sclera anicteric. Neck: Supple without lymphadenopathy. Abdomen: Soft, nontender, nondistended with bowel sounds. No guarding or rigidity. Extremities: Normal skin color and turgor. No pedal edema Skin: No rashes, no jaundice Neurological: No focal deficits. Alert and oriented. - Labs CBC & Chem 7: 05/16/23 06:42 05/16/23 06:42 Labs: Abnormal Lab Results - Last 24 Hours (Table) 05/16/23 05/16/23 05/17/23 Range/Units 06:42 06:42 05:50 WBC 3.27 L (4.50-10.00) X 10*3/uL RBC 2.54 L (4.10-5.20) X 10*6/uL Hgb 7.9 L (12.0-15.0) g/dL Hct 24.5 L (37.2-46.3) % RDW 18.1 H (11.5-14.5) % Plt Count 53 L (140-440) X 10*3/uL Neutrophils # 1.22 L (1.80-7.70) X 10*3/uL Chloride 116 H (96-109) mmol/L Carbon Dioxide 18.2 L (21.6-31.8) mmol/L BUN/Creatinine Ratio 24.89 H (12.00-20.00) Ratio AST 39 H (13-35) U/L Alkaline Phosphatase 170 H (41-126) U/L Ammonia 70 H (<30) umol/L Total Protein 5.8 L (6.2-8.2) g/dL Albumin 2.9 L (3.8-4.9) g/dL Albumin/Globulin Ratio 1.00 L (1.60-3.17) Ratio Assessment and Plan (1) Hepatic encephalopathy Narrative/Plan: 67-year-old female with reported history of alcohol abuse and underlying liver disease with a history of hepatic encephalopathy. Patient is very poor historian cannot state how much she drinks or drink and for how many years. States she was diagnosed about 6 months ago. States she does not follow with anybody for her liver disease. She was noted to have elevated ammonia during this hospitalization and which continues to rise however she is reporting 7 to 8 bowel movements a day. Patient is currently on lactulose 30 g 3 times a day. May need to consider adding Xifaxan. Recommend outpatient follow-up with gastroenterology and alcohol abstinence. Current Visit: Yes Status: Acute Priority: High Code(s): K76.82 - HEPATIC ENCEPHALOPATHY SNOMED Code(s): 86402431 (2) Alcoholic liver disease Current Visit: Yes Status: Acute Code(s): K70.9 - ALCOHOLIC LIVER DISEASE, UNSPECIFIED SNOMED Code(s): 04235347 Plan: 1. Continue symptomatic and supportive care 2. Continue lactulose as ordered, patient to have 3-4 bowel movements daily. Once patient reaches at least 3 bowel movements lactulose can be held. 3. Recommend alcohol abstinence 4. Will add Xifaxan 550 mg twice a day 5. Repeat daily ammonia 6. Recommend outpatient follow-up with gastroenterology Thank you for allowing us to participate in the care of the patient, the GI service will sign off, gastroenterology will not be available at the hospital this weekend and through next week. If further evaluation by gastroenterology is required the patient will need transfer as per the primary team's discretion. Dr. Lino Pacheco I agree with the dictator's note, documented as a scribe by Susi Tate.
[2023-05-17] MEDS: MULTIVITAMINS, THERA 1 EACH TAB PO SCH (09:31)
[2023-05-17] MEDS: HEPARIN SODIUM,PORCINE 5,000 UNIT/ML 1 ML VIAL SQ SCH (09:31)
[2023-05-17] MEDS: FOLIC ACID 1 MG TAB PO SCH (09:31)
[2023-05-17] MEDS: cloNIDine HCL 0.1 MG TAB PO SCH (09:31)
[2023-05-17] MEDS: PANTOPRAZOLE 40 MG TABLET PO SCH (09:31)
[2023-05-17] MEDS: THIAMINE 100 MG TAB PO SCH (09:31)
[2023-05-17] MEDS: RIFAXIMIN 550 MG TABLET PO SCH (09:32)
[2023-05-17] MEDS: PROPRANOLOL 20 MG TAB PO SCH (09:32)
[2023-05-17] MEDS: HYDROcodone/APAP 5-325MG 1 EACH TAB PO PRN (09:40)
[2023-05-17] MEDS ORDERED: MAGNESIUM OXIDE 400 MG TAB PO SCH (10:30)
[2023-05-17 13:27] VITALS: BP 119/61; PULSE 72; RESP 20
--- NOTE | 2023-05-17 13:48 | P.DS ---
Providers Date of admission: 05/09/23 11:05 Expected date of discharge: 05/17/23 Attending physician: Haley Buck Consults: 05/08/23 22:25 Consult Physician Routine Consulting Provider: Chanell Sanchez Consult Reason/Comments: weak, ams Do you want consulting provider notified?: Yes 05/09/23 11:27 Consult Physician Urgent Consulting Provider: Woody Morales Consult Reason/Comments: neck pain, fx, was seen in office Do you want consulting provider notified?: Yes 05/09/23 11:28 Consult Physician Urgent Consulting Provider: Lisa Tam Consult Reason/Comments: ams, confusion Do you want consulting provider notified?: Yes 05/14/23 15:45 Consult Physician Routine Consulting Provider: Jose Alberto Olivares Consult Reason/Comments: altered mental status, decision making capacity?, will need guardian Do you want consulting provider notified?: Yes 05/14/23 20:36 Consult Physician Routine Consulting Provider: Cyndie Pacheco Consult Reason/Comments: CLD, mentaion improve with lactulose but frustrated wth diarrhea, any recs? Do you want consulting provider notified?: Yes Primary care physician: Bren Smith Hospital Course: Final diagnosis Change in mental status, acute metabolic, hepatic encephalopathy, improving Alcoholic liver disease Chronic C2 fracture history of EtOH Hypertension history Mild pancytopenia, likely secondary to chronic liver disease Elevated bilirubin Alcoholic hepatitis versus cirrhosis Previous history of CVA/TIA Gait dysfunction with generalized weakness Possible acute urinary tract infection, present on admission with urine culture showing Enterobacter, although suspicion for infection is low this patient is denying any urinary symptoms or pain or burning or frequency with urination, likely asymptomatic bacteriuria. Patient has received 4-5 days of antibiotics and will discontinue GI prophylaxis DVT prophylaxis Full code Discharge disposition Patient is being discharged in a stable condition with guarded prognosis to [facility]. Patient will follow-up with Dr. Smith to establish in the outpatient setting upon discharge. Patient is to continue with wearing c-collar at all times and weight-bear as tolerated with close outpatient follow-up with orthopedics as scheduled. Patient is to follow-up with GI outpatient as well in the next 2-3 weeks. Patient have repeat ammonia level in the next 2 days Total time taken is greater than 35 minutes. Hospital course This is a 67-year-old female who was recently admitted with altered mentation with confusion with concerns of hepatic encephalopathy secondary to her liver disease and chronic alcohol abuse. Patient has been living with her son here from [place] since February and has been becoming more weak and becoming more altered at times and was scheduled to be taking lactulose although had been refusing as patient had multiple episodes of loose stools. Ammonia levels were elevated and patient was seen and evaluated by GI. Patient was started on lactulose scheduled and will continue twice daily to have at least 2-3 bowel movements daily. Patient to follow-up with GI outpatient once discharged to discuss resuming rifaximin once patient is discharged from [facility]. GI is aware and will follow-up with her in the outpatient setting on discharge. Patient was seen and evaluated by orthopedics as well as patient did have chronic C2 fracture and was scheduled to be wearing a collar which has been ordered and patient has received a lot of bed and to continue with weightbearing as tolerated. Patient with weakness would benefit from continued PT/OT therapy as patient was independent prior to this. Patient has been cleared by consultatio ns for discharge. Please refer to other consultation notes for further HPI. Currently no reports of chest pain, shortness of breath, or palpitations. Patient is afebrile. No reports of nausea or vomiting and patient is tolerating diet. Patient will be going to [facility] today. High risk for readmission as patient has been somewhat noncompliant with lactulose that she does not like having multiple loose stools throughout the day with fecal incontinence. Physical exam: Gen: This is a 67-year-old female who is awake, alert and oriented 2-3, well- developed, elderly-appearing HEENT: Head is atraumatic, normocephalic. Pupils equal, round. Sclerae is anicteric. Cervical collar noted NECK: Supple. No JVD. No lymphadenopathy. No thyromegaly. LUNGS: Clear to auscultation. No wheezes or rhonchi. No intercostal retractions. HEART: Regular rate and rhythm. No murmur. ABDOMEN: Soft. Bowel sounds are present. No masses. No tenderness. EXTREMITIES: No pedal edema. No calf tenderness. NEUROLOGICAL: Patient is awake, alert and oriented x2-3. Cranial nerves 2 through 12 are grossly intact. Please refer to medication reconciliation sheet for a list of medications. The impression and plan of care has been dictated by Mckenzie Posadas, Nurse Practitioner as directed. Dr. Domitila MD I have performed a history and examination and MDM of this patient, discussed the same with the dictator, and agree with the dictator's assessment and plan as written ,documented as a scribe. Based on total visit time, I have performed more than 50% of the visit. Patient Condition at Discharge: Fair Plan - Discharge Summary Discharge Rx Participant: No New Discharge Prescriptions: New Lactulose [Cephulac] 20 gm PO Q12H ml Folic Acid 1 mg PO DAILY@1200 tab Heparin Sodium,Porcine (1 ml) [Heparin Sodium] 5,000 unit SQ Q12HR each Magnesium Oxide [Mag-Ox] 400 mg PO BID tab HYDROcodone/APAP 5-325MG [[place] 5-325] 1 each PO Q6HR PRN #4 tab PRN Reason: Pain Pantoprazole [Protonix] 40 mg PO AC-BRKFST tab Acetaminophen Tab [Tylenol] 650 mg PO Q6HR PRN tab PRN Reason: Fever And/ Or Pain Thiamine [Vitamin B-1] 100 mg PO BID-W/MEALS tab OLANZapine ODT [ZyPREXA Zydis] 2.5 mg PO TID PRN tab PRN Reason: Agitation cloNIDine HCL [Catapres] 0.1 mg PO DAILY tab Continue Melatonin 5 mg PO HS PRN 5 Days #5 tab PRN Reason: Insomnia rOPINIRole HCL [Requip] 0.5 mg PO HS #60 tab Multivitamins, Thera [Multivitamin (formulary)] 1 tab PO DAILY Propranolol [Inderal] 20 mg PO BID #120 tab Ondansetron [Zofran] 4 mg PO Q8HR PRN 5 Days #10 tab PRN Reason: Nausea And Vomiting Discontinued Lactulose [Cephulac] 30 gm PO TID #4000 ml Discharge Medication List Multivitamins, Thera [Multivitamin (formulary)] 1 tab PO DAILY 04/20/23 [Hi story] Melatonin 5 mg PO HS PRN 5 Days #5 tab 04/28/23 [Rx] Ondansetron [Zofran] 4 mg PO Q8HR PRN 5 Days #10 tab 04/28/23 [Rx] Propranolol [Inderal] 20 mg PO BID #120 tab 04/28/23 [Rx] rOPINIRole HCL [Requip] 0.5 mg PO HS #60 tab 04/28/23 [Rx] Acetaminophen Tab [Tylenol] 650 mg PO Q6HR PRN tab 05/17/23 [Rx] Folic Acid 1 mg PO DAILY@1200 tab 05/17/23 [Rx] HYDROcodone/APAP 5-325MG [[place] 5-325] 1 each PO Q6HR PRN #4 tab 05/17/23 [Rx] Heparin Sodium,Porcine (1 ml) [Heparin Sodium] 5,000 unit SQ Q12HR each 05/17/23 [Rx] Lactulose [Cephulac] 20 gm PO Q12H ml 05/17/23 [Rx] Magnesium Oxide [Mag-Ox] 400 mg PO BID tab 05/17/23 [Rx] OLANZapine ODT [ZyPREXA Zydis] 2.5 mg PO TID PRN tab 05/17/23 [Rx] Pantoprazole [Protonix] 40 mg PO AC-BRKFST tab 05/17/23 [Rx] Thiamine [Vitamin B-1] 100 mg PO BID-W/MEALS tab 05/17/23 [Rx] cloNIDine HCL [Catapres] 0.1 mg PO DAILY tab 05/17/23 [Rx] Follow up Appointment(s)/Referral(s): Jason Merritt MD [STAFF PHYSICIAN] - 1-2 days [facility] [REFERRING] - 2 Weeks (Gastroenterology for alcohol liver disease/hepatic encephalopathy) Woody Morales DO [Doctor of Osteopathic Medicine] - 2 Weeks Activity/Diet/Wound Care/Special Instructions: Activity: WBAT tolerated with walker as needed, patient to wear [place] collar at all times. Patient follow-up with orthopedic outpatient Activity as tolerated Follow-up with GI outpatient Continue taking medications as prescribed Continue with lactulose twice daily for patient to be having at least 2-3 bowel movements daily Patient follow-up with primary care provider outpatient and establish Discharge Disposition: TRANSFER TO SNF/ECF
--- NOTE | 2023-05-17 16:00 | P.PN ---
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 On today's evaluation that is 05/17/2023 the patient denies having any fever or any chills, the patient is breathing comfortably on room air, patient denies chest pain cough, the patient denies having any abdominal pain still complaining of significant diarrhea Patient last white count of 3.27, creatinine is 0.9 as of yesterday, urine culture positive for Enterobacter Objective - Vital Signs Vital signs: Vital Signs Temp 98.1 F 05/17/23 12:48 Pulse 72 05/17/23 12:48 Resp 20 05/17/23 12:48 BP 119/61 05/17/23 12:48 Pulse Ox 94 L 05/17/23 12:48 FiO2 21 05/15/23 07:56 Intake & Output 05/16/23 05/17/23 05/17/23 18:59 06:59 18:59 Intake Total 120 Balance 120 Weight 68.039 kg Intake: Oral 120 Other: Voiding Method Toilet Toilet Bedside Commode Bedside Commode Bedside Commode # Voids 1 1 2 # Bowel Movements 1 - Exam GENERAL DESCRIPTION: An elderly female RESPIRATORY SYSTEM: Unlabored breathing , decreased breath sounds at bases HEART: S1 S2 regular rate and rhythm , ABDOMEN: Soft , no tenderness EXTREMITIES: No edema feet - Labs CBC & Chem 7: 05/16/23 06:42 05/16/23 06:42 Labs: Abnormal Lab Results - Last 24 Hours (Table) 05/17/23 Range/Units 05:50 Ammonia 70 H (<30) umol/L Assessment and Plan (1) Altered mental status Current Visit: Yes Status: Acute Code(s): R41.82 - ALTERED MENTAL STATUS, UNSPECIFIED SNOMED Code(s): 041793787 (2) Hepatic encephalopathy Current Visit: Yes Status: Acute Priority: High Code(s): K76.82 - HEPATIC ENCEPHALOPATHY SNOMED Code(s): 07257321 (3) UTI (urinary tract infection) Current Visit: Yes Status: Acute Code(s): N39.0 - URINARY TRACT INFECTION, SITE NOT SPECIFIED SNOMED Code(s): 94082297 Plan: 1patient presented to hospital with confusion in this patient who do have a history of alcohol liver disease/cirrhosis with recent admission to the hospital with hepatic encephalopathy more likely metabolic and related to hepatic encephalopathy patient currently denies having any headache no neck rigidity no fever or elevated white count clinic suspicion is low for encephalitis, patient did have elevated ammonia and likely dealing with hepatic encephalopathy, GI is following the patient for further management of underlying hepatic enceph alopathy 2-patient did have a positive UA and a possible component of symptomatic urinary tract infection, urine culture grew g Enterobacter that is sensitive to ceftriaxone patient received adequate antibiotics for the UTI which has been discontinued no need for antibiotic on discharge Dictation was produced using [employer] dictation software. please excuse any grammatical, word or spelling errors. Time with Patient: Less than 30
== END 2023-05-17 16:27 | DRG 441 ==
LOC: EC 17:45 → 6NMEDSUR 22:27 → 5NMEDONC 22:49 → OBSVTOIN 05-09 11:05
PROVIDERS: ADMIT Hospitalist; ATTEND Hospitalist
DX: K76.82 Hepatic encephalopathy (principal); G93.41 Metabolic encephalopathy; D61.818 Other pancytopenia; N39.0 Urinary tract infection, site not specified; E86.0 Dehydration; F10.20 Alcohol dependence, uncomplicated; K70.30 Alcoholic cirrhosis of liver without ascites; R26.9 Unspecified abnormalities of gait and mobility; I11.0 Hypertensive heart disease with heart failure; I50.9 Heart failure, unspecified; B96.89 Other specified bacterial agents as the cause of diseases classified elsewhere; T47.3X6A Underdosing of saline and osmotic laxatives, initial encounter; Z91.128 Patient's intentional underdosing of medication regimen for other reason; R15.2 Fecal urgency; Z86.73 Personal history of transient ischemic attack (TIA), and cerebral infarction without residual deficits; Z88.8 Allergy status to other drugs, medicaments and biological substances; Z91.041 Radiographic dye allergy status; S12.110G Anterior displaced Type II dens fracture, subsequent encounter for fracture with delayed healing; Z91.81 History of falling; R45.1 Restlessness and agitation; G25.81 Restless legs syndrome; M43.12 Spondylolisthesis, cervical region; Z79.899 Other long term (current) drug therapy; Z91.199 Patient's noncompliance with other medical treatment and regimen due to unspecified reason
CPT/HCPCS: 36415; 70450; 71046; 72125; 80048; 80053; 80306; 81001; 82140; 82607; 83605; 83735; 83880; 84443; 84484; 85025; 85610; 85730; 86780; 87040; 87077; 87086; 87186; 87636; 93005; 94760; 95816; 99285

== ENCOUNTER 2024-10-07 16:56 | Inpatient (IN) | payer MEDICARE, OTHER ==
[2024-10-07] MEDS ORDERED: NALOXONE 0.4 MG/ML 1 ML VIAL IV PRN (17:13)
--- NOTE | 2024-10-07 17:19 | ED ---
General Adult HPI - General Chief complaint: Recheck/Abnormal Lab/Rx Stated complaint: AMS Time Seen by Provider: 10/07/24 16:57 Source: patient, EMS, RN notes reviewed, old records reviewed Mode of arrival: EMS Limitations: altered mental status - History of Present Illness Initial comments: 69 female presenting as a transfer from outside hospital with hyperammonemia, history of liver cirrhosis and previous history of hepatic encephalopathy. Patient has had a worsening of her mental status at the memory care unit where she currently resides. She had been more agitated than usual. She received a workup at outside hospital including CT brain, CT abdomen pelvis, chest x-ray, laboratory testing including ammonia which was over 200. Patient was given a dose of lactulose through nasogastric tube as well as IV fluid and was transferred for further treatment of hepatic encephalopathy. - Related Data Home Medications Medication Instructions Recorded Confirmed Multivitamins, Thera [Multivitamin 1 tab PO DAILY 04/20/23 05/08/23 (formulary)] Previous Rx's Medication Instructions Recorded Melatonin 5 mg PO HS PRN 5 Days #5 tab 04/28/23 Ondansetron [Zofran] 4 mg PO Q8HR PRN 5 Days #10 tab 04/28/23 Propranolol [Inderal] 20 mg PO BID #120 tab 04/28/23 rOPINIRole HCL [Requip] 0.5 mg PO HS #60 tab 04/28/23 Acetaminophen Tab [Tylenol] 650 mg PO Q6HR PRN tab 05/17/23 Folic Acid 1 mg PO DAILY@1200 tab 05/17/23 HYDROcodone/APAP 5-325MG [[place] 1 each PO Q6HR PRN #4 tab 05/17/23 5-325] Heparin Sodium,Porcine (1 ml) 5,000 unit SQ Q12HR each 05/17/23 [Heparin Sodium] Lactulose [Cephulac] 20 gm PO Q12H ml 05/17/23 Magnesium Oxide [Mag-Ox] 400 mg PO BID tab 05/17/23 OLANZapine ODT [ZyPREXA Zydis] 2.5 mg PO TID PRN tab 05/17/23 Pantoprazole [Protonix] 40 mg PO AC-BRKFST tab 05/17/23 Thiamine [Vitamin B-1] 100 mg PO BID-W/MEALS tab 05/17/23 cloNIDine HCL [Catapres] 0.1 mg PO DAILY tab 05/17/23 Allergies Allergy/AdvReac Type Severity Reaction Status Date / Time Iodinated Contrast Media Allergy Rash/Hives Verified 05/08/23 20:16 lisinopril Allergy Unknown Verified 05/08/23 20:16 gabapentin AdvReac Confusion/a Verified 05/08/23 20:16 ggression/v iolent Review of Systems ROS Statement: Those systems with pertinent positive or pertinent negative responses have been documented in the HPI. ROS Other: All systems not noted in ROS Statement are negative. Past Medical History Past Medical History: GERD/Reflux, Hypertension, Liver Disease Additional Past Medical History / Comment(s): Anemia, hepatic encephlopathy. Patient denies having hx of CVA/TIA.in prevouis charting CVA/TIA was checked off. History of Any Multi-Drug Resistant Organisms: Unobtainable Past Surgical History: No Surgical Hx Reported Past Anesthesia/Blood Transfusion Reactions: Unable to Obtain Past Psychological History: No Psychological Hx Reported Smoking Status: Never smoker Past Alcohol Use History: Abuse Past Drug Use History: None Reported General Exam Limitations: altered mental status General appearance: lethargic Head exam: Present: atraumatic, normocephalic Eye exam: Present: PERRL Neck exam: Present: normal inspection. Absent: tenderness, meningismus Respiratory exam: Present: normal lung sounds bilaterally. Absent: respiratory distress, wheezes Cardiovascular Exam: Present: normal rhythm, tachycardia GI/Abdominal exam: Present: soft. Absent: distended, tenderness, guarding Neurological exam: Absent: alert, oriented X3 Skin exam: Present: warm, dry, intact. Absent: cyanosis, diaphoretic Course Vital Signs 10/07/24 16:58 Temperature 97.8 F Pulse Rate 105 H Respiratory 21 Rate O2 Sat by Pulse 92 L Oximetry Medical Decision Making - Medical Decision Making Was pt. sent in by a medical professional or institution (, PA, ELECTRIC CRANE OPERATOR, urgent care, hospital, or snf...) When possible be specific @ -No Did you speak to anyone other than the patient for history (EMS, parent, family, police, friend...)? What history was obtained from this source @ -No Did you review nursing and triage notes (agree or disagree)? Why? @ -I reviewed and agree with nursing and triage notes Were old charts reviewed (outside hosp., previous admission, EMS record, old EKG, old radiological studies, urgent care reports/EKG's, snf records)? Report findings @ -No old charts were reviewed Differential Altered Mental Status: Hypoglycemia, DKA, hypercapnia, ETOH, overdose, CO poisoning, trauma, myxedema coma, HTN encephalopathy, infection, encephalitis, psychosis, intercranial hemorrhage, hepatic encephalopathy, meningitis, CVA, this is not meant to be an all-inclusive list EKG interpreted by me (3pts min.). @ -As above X-rays interpreted by me (1pt min.). @ -None done CT interpreted by me (1pt min.). @ -None done U/S interpreted by me (1pt. min.). @ -None done What testing was considered but not performed or refused? (CT, X-rays, U/S, labs)? Why? @ -None What meds were considered but not given or refused? Why? @ -None Did you discuss the management of the patient with other professionals (professionals i.e. , PA, ELECTRIC CRANE OPERATOR, lab, RT, psych nurse, social media analyst, driver lifter of sanitation truck, teacher, special forces warrant officer, wrapper caser)? Give summary @ -EMH Was smoking cessation discussed for >3mins.? @ -No Was critical care preformed (if so, how long)? @ -No Were there social determinants of health that impacted care today? How? (Homelessness, low income, unemployed, alcoholism, drug addiction, transportation, low edu. Level, literacy, decrease access to med. care, assisted, re hab)? @ -No Was there de-escalation of care discussed even if they declined (Discuss DNR or withdrawal of care, Hospice)? DNR status @ -No What co-morbidities impacted this encounter? (DM, HTN, Smoking, COPD, CAD, Cancer, CVA, ARF, Chemo, Hep., AIDS, mental health diagnosis, sleep apnea, morbid obesity)? @Cirrhosis of the liver Was patient admitted / discharged? Hospital course, mention meds given and route, prescriptions, significant lab abnormalities, going to OR and other pertinent info. @ -69-year-old female presenting as a transfer from outside hospital with elevated ammonia, hepatic encephalopathy. Patient will be continued on IV fluids and lactulose through the nasogastric tube. Repeat CBC, CMP, PT/INR and ammonia levels have been ordered these results are pending. Undiagnosed new problem with uncertain prognosis? @ -No Drug Therapy requiring intensive monitoring for toxicity (Heparin, Nitro, Insulin, Cardizem)? @ -No Were any procedures done? @ -No Diagnosis/symptom? @ -Hyperammonemia, hepatic encephalopathy, history of liver cirrhosis Acute, or Chronic, or Acute on Chronic? @ -Acute on chronic Side effects of treatment? @ -No Exacerbation, Progression, or Severe Exacerbation? @ -No Poses a threat to life or bodily function? How? (Chest pain, [place], [place], pneumonia, PE, COPD, DKA, ARF, appy, cholecystitis, CVA, Diverticulitis, Homicidal, Suicidal, threat to staff... and all critical care pts) @ -No Disposition Clinical Impression: Alcoholic liver disease, Hepatic encephalopathy, Hyperammonemia Disposition: ADMITTED IP TO THIS [facility] Condition: Stable Is patient prescribed a controlled substance at d/c from ED?: No Referrals: Moises Torres MD [Primary Care Provider] - 1-2 days Time of Disposition: 17:19
[2024-10-07] MEDS: SODIUM CHLORIDE 0.9% 1,000 ML IV SCH (17:23)
[2024-10-07 17:38] LABS: Basophils # (A) 0.03 10*3/uL (0.00-0.10); Basophils % (A) 0.6 %; Eosinophils # (A) 0.12 10*3/uL (0.04-0.35); Eosinophils % (A) 2.2 %; HCT 36.5 % (37.2-46.3); Immature Platelet Fraction 2.8 % (1.1-6.1); Lymphocytes # (A) 0.95 10*3/uL (0.90-5.00); Lymphocytes % (A) 17.7 %; MCHC 35.6 g/dL (32.0-37.0); MCV 89.9 fL (80.0-97.0); Mean Platelet Volume 10.9 fL (9.5-12.2); Monocytes # (A) 0.46 10*3/uL (0.20-1.00); Monocytes % (A) 8.6 %; Neutrophils # (A) 3.79 10*3/uL (1.80-7.70); Neutrophils % (A) 70.7 %; Platelet Count 110 10*3/uL (140-440); RBC 4.06 10*6/uL (4.10-5.20); RDW 14.8 % (11.5-14.5); WBC 5.36 10*3/uL (4.50-10.00)
[2024-10-07 17:46] LABS: INR 1.1 (<1.2); Partial Thromboplastin Time 26.2 sec (22.0-30.0); Prothrombin Time 12.2 sec (10.0-12.5)
[2024-10-07 17:52] LABS: ALT 19 U/L (4-34); African American GFR (CKD) >90 (>60 ml/min/1.73 sqM); Albumin 3.7 g/dL (3.5-5.0); Anion Gap 13 mmol/L; Blood Urea Nitrogen 22 mg/dL (7-17); Calcium 9.7 mg/dL (8.4-10.2); Carbon Dioxide 13 mmol/L (22-30); Chloride 114 mmol/L (98-107); Glucose 124 mg/dL (74-99); Non-African American GFR(CKD) 88 (>60 ml/min/1.73 sqM); Sodium 140 mmol/L (137-145); Total Bilirubin 2.3 mg/dL (0.2-1.3); Total Protein 7.7 g/dL (6.3-8.2)
[2024-10-07 18:04] LABS: Potassium 4.3 mmol/L (3.5-5.1)
[2024-10-07 18:05] LABS: AST 46 U/L (14-36); Alkaline Phosphatase 163 U/L (38-126)
[2024-10-07] MEDS: LORazepam 1 MG/0.5 ML VIAL IV STA (19:48)
[2024-10-07] MEDS: LACTULOSE 20 GM/30 ML CUP NG-TUBE SCH (21:42)
[2024-10-08] MEDS: LORazepam 1 MG/0.5 ML VIAL IV STA (06:32)
--- NOTE | 2024-10-08 06:48 | XR ---
EXAMINATION TYPE: XR chest 1V confirm line [facility] DATE OF EXAM: 10/08/2024 CLINICAL INDICATION: Female, 69 years old with history of NG tube, placement. TECHNIQUE: Single AP portable semiupright view of the chest is obtained. COMPARISON: Chest x-ray from May 08, 2023 FINDINGS: A new Nasogastric tube projects below diaphragm. Elevated left hemidiaphragm redemonstrat ed. Lungs remain clear. Cardiac silhouette size remains within normal limits. Surgical changes of the left humerus are redemonstrated. IMPRESSION: Satisfactory positioning of nasogastric tube. [facility], , 10/08/2024 6:45 AM
[2024-10-08] MEDS: DEXMEDETOMIDINE/0.9% NACL(PMX) 400 MCG in EMPTY BAG 1 BAG IV SCH (11:32)
[2024-10-08 12:13] LABS: ABG Base Excess -5.7 mmol/L; ABG HCO3 17 mmol/L (21-25); ABG Oxygen Saturation 94.9 % (94-97); ABG PCO2 26 mmHg (35-45); ABG PH 7.43 (7.35-7.45); ABG PO2 72 mmHg (83-108); ABG TCO2 18 mmol/L (19-24); Allen Test Performed? Yes
[2024-10-08] MEDS ORDERED: TRIAMCINOLONE 0.1% CREAM 80 GM TUBE TOPICAL PRN (12:58)
--- NOTE | 2024-10-08 13:05 | P.HPIM ---
History of Present Illness 69-year-old female with baseline chronic dementia/encephalopathy from chronic alcoholism cirrhosis and hepatic encephalopathy was transferred from outside hospital with elevated ammonia of around 250. Patient had NG tube and patient i s is receiving lactulose through NG tube and patient. Recent ammonia is around 75. Patient is quite a bit agitated confused because of which patient was started on Precedex drip and was admitted to ICU. Patient will be started on Haldol for agitation will try to wean off of Precedex. CT brain CT abdomen pelvis and chest x-ray are all within normal limits from the outside hospital. Unfortunately patient is also on Tylenol as well as [place] as an outpatient which can cause severe encephalopathy and and patient can have acetaminophen toxicity because of cirrhosis. Presently my concern for acetaminophen toxicity is low. Urinalysis are not significantly elevated. REVIEW OF SYSTEMS: All other systems are negative except those mentioned in the HPI PHYSICAL EXAMINATION: GENERAL: Agitated, unable to assess orientation HEENT: Pupils are round and equally reacting to light. EOMI. No scleral icterus. No conjunctival pallor. Normocephalic, atraumatic. No pharyngeal erythema. No thyromegaly. CARDIOVASCULAR: S1 and S2 present. No murmurs, rubs, or gallops. PULMONARY: Chest is clear to auscultation, no wheezing or crackles. ABDOMEN: Soft, nontender, nondistended, normoactive bowel sounds. No palpable organomegaly. MUSCULOSKELETAL: No joint swelling or deformity. EXTREMITIES: No cyanosis, clubbing, or pedal edema. NEUROLOGICAL: Agitated on Precedex SKIN: No rashes. Assessment and plan -Hepatic encephalopathy in the toxic encephalopathy from medications. Patient will be continued on lactulose, will try to wean off Precedex patient will start on Haldol for agitation. Continue with IV fluids. Ammonia is improving and the latest is 79. Discontinue Claiborne and any other narcotics at this time. - Advanced alcoholic cirrhosis although patient does not have any significant ascites tachycardic to continue fluids at this time -History of alcohol abuse and dementia and chronic encephalopathy from alcohol use. Patient will be continued on thiamine and multivitamin supplementation - Depression continue with Cymbalta whenever she can take oral medications hold off on Remeron for now -Hypertension - Sinus tachycardia secondary to agitation DVT prophylaxis: Subcutaneous heparin Past Medical History Past Medical History: GERD/Reflux, Hypertension, Liver Disease Additional Past Medical History / Comment(s): Anemia, hepatic encephlopathy. Patient denies having hx of CVA/TIA.in prevouis charting CVA/TIA was checked off. History of Any Multi-Drug Resistant Organisms: Unobtainable Past Surgical History: No Surgical Hx Reported Past Anesthesia/Blood Transfusion Reactions: Unable to Obtain Past Psychological History: No Psychological Hx Reported Smoking Status: Never smoker Past Alcohol Use History: Abuse Past Drug Use History: None Reported Medications and Allergies Home Medications Medication Instructions Recorded Confirmed Type Multivitamins, Thera [Multivitamin 1 tab PO DAILY 04/20/23 10/07/24 History (formulary)] Propranolol [Inderal] 20 mg PO BID #120 tab 04/28/23 10/07/24 Rx Acetaminophen Tab [Tylenol] 650 mg PO Q6HR PRN tab 05/17/23 10/07/24 Rx Lactulose [Cephulac] 20 gm PO Q12H ml 05/17/23 10/07/24 Rx Ammonium Lactate Cream [Lac-Hydrin 1 applic TOPICAL BID 10/07/24 10/07/24 History 12% Cream] Cetirizine HCl [Zyrtec] 10 mg PO DAILY PRN 10/07/24 10/07/24 History DULoxetine HCL [Cymbalta] 60 mg PO DAILY 10/07/24 10/07/24 History Luna-Tussin Dm 10 ml PO Q4H PRN 10/07/24 10/07/24 History HYDROcodone/APAP 5-325MG [[place] 1 tab PO Q6HR PRN 10/07/24 10/07/24 History 5-325] Liniments Cream 1 applic TOPICAL Q6H PRN 10/07/24 10/07/24 History Loperamide [Imodium] 2 mg PO Q4H PRN 10/07/24 10/07/24 History Mag Hydrox/Aluminum Hyd/Simeth 20 ml PO Q8H PRN 10/07/24 10/07/24 History [Mylanta Maximum Strength Liq] Magnesium Hydroxide [Milk of 2,400 mg PO Q12H PRN 10/07/24 10/07/24 History Magnesia] Magnesium Oxide [Mag-Ox] 400 mg PO DAILY 10/07/24 10/07/24 History Mirtazapine 7.5 mg PO HS 10/07/24 10/07/24 History Omeprazole [PriLOSEC] 20 mg PO DAILY 10/07/24 10/07/24 History Triamcinolone 0.1% Cream [Kenalog 1 applic TOPICAL BID PRN 10/07/24 10/07/24 History 0.1% Cream] Vitamin B Complex/Folic Acid 1 tab PO DAILY 10/07/24 10/07/24 History [Vitamin B Complex] bisacodyL [Dulcolax] 10 mg PO DAILY PRN 10/07/24 10/07/24 History bisacodyL [Dulcolax] 10 mg RECTAL Q72H PRN 10/07/24 10/07/24 History rOPINIRole HCL [Requip] 0.5 mg PO HS 10/07/24 10/07/24 History Allergies Allergy/AdvReac Type Severity Reaction Status Date / Time Iodinated Contrast Media Allergy Rash/Hives Verified 10/07/24 18:09 lisinopril Allergy Unknown Verified 10/07/24 18:09 gabapentin AdvReac Confusion/a Verified 10/07/24 18:09 ggression/v iolent Physical Exam Vitals: Vital Signs Temp Pulse Resp BP Pulse Ox 10/08/24 12:00 117 H 34 H 125/66 92 L 10/08/24 11:33 121 H 32 H 145/81 92 L 10/08/24 10:37 124 H 18 130/92 95 10/08/24 10:18 120 H 18 92 L 10/08/24 10:11 121 H 28 H 110/90 92 L 10/08/24 05:37 120 H 20 165/78 96 10/08/24 02:47 122 H 20 147/98 98 10/07/24 23:30 115 H 24 153/82 93 L 10/07/24 22:06 114 H 20 160/69 95 10/07/24 18:37 107 H 20 159/80 93 L 10/07/24 16:58 97.8 F 105 H 21 92 L Intake and Output 10/07/24 10/08/24 10/08/24 22:59 06:59 14:59 Intake Total 9.458 Balance 9.458 Intake: Intake, IV Titration 9.458 Amount Dexmedetomidine/0.9% NaCl 9.458 (Pmx) 400 mcg In Empty Bag 1 bag @ 0.2 MCG/KG/HR 4.082 mls/hr IV .Q24H [facility] Rx#:[id number] Other: Weight 81.647 kg Results CBC & Chem 7: 10/07/24 17:14 10/07/24 17:14 Labs: Abnormal Lab Results - Last 24 Hours (Table) 10/07/24 10/07/24 10/07/24 Range/Units 17:14 17:14 17:14 RBC 4.06 L (4.10-5.20) 10*6/uL Hct 36.5 L (37.2-46.3) % Plt Count 110 L (140-440) 10*3/uL ABG pCO2 (35-45) mmHg ABG pO2 (83-108) mmHg ABG HCO3 (21-25) mmol/L ABG Total CO2 (19-24) mmol/L Chloride 114 H (98-107) mmol/L Carbon Dioxide 13 L (22-30) mmol/L BUN 22 H (7-17) mg/dL Glucose 124 H (74-99) mg/dL Total Bilirubin 2.3 H (0.2-1.3) mg/dL AST 46 H (14-36) U/L Alkaline Phosphatase 163 H (38-126) U/L Ammonia 159 H (<30) umol/L 10/08/24 10/08/24 Range/Units 10:34 12:06 RBC (4.10-5.20) 10*6/uL Hct (37.2-46.3) % Plt Count (140-440) 10*3/uL ABG pCO2 26 L (35-45) mmHg ABG pO2 72 L (83-108) mmHg ABG HCO3 17 L (21-25) mmol/L ABG Total CO2 18 L (19-24) mmol/L Chloride (98-107) mmol/L Carbon Dioxide (22-30) mmol/L BUN (7-17) mg/dL Glucose (74-99) mg/dL Total Bilirubin (0.2-1.3) mg/dL AST (14-36) U/L Alkaline Phosphatase (38-126) U/L Ammonia 79 H (<30) umol/L
[2024-10-08] MEDS: HALOPERIDOL LACTATE 5 MG/ML 1 ML VIAL IVP PRN (13:26)
[2024-10-08 14:17] LABS: Glucose,Whole Blood 146 mg/dL (70-110)
[2024-10-08 15:29] LABS: Basophils # (A) 0.03 10*3/uL (0.00-0.10); Basophils % (A) 0.3 %; Eosinophils # (A) 0.01 10*3/uL (0.04-0.35); Eosinophils % (A) 0.1 %; HCT 35.3 % (37.2-46.3); HGB 12.1 g/dL (12.0-15.0); Lymphocytes # (A) 0.66 10*3/uL (0.90-5.00); Lymphocytes % (A) 6.6 %; MCH 32.2 pg (27.0-32.0); MCHC 34.3 g/dL (32.0-37.0); MCV 93.9 fL (80.0-97.0); Monocytes # (A) 1.02 10*3/uL (0.20-1.00); Monocytes % (A) 10.2 %; Neutrophils # (A) 8.23 10*3/uL (1.80-7.70); Neutrophils % (A) 82.4 %; Platelet Count 100 10*3/uL (140-440); RBC 3.76 10*6/uL (4.10-5.20); RDW 15.4 % (11.5-14.5); WBC 9.99 10*3/uL (4.50-10.00)
--- NOTE | 2024-10-08 16:05 | P.CNPUL ---
History of Present Illness Consult date: 10/08/24 Requesting physician: Reina Ramesh Reason for consult: other (Hepatic encephalopathy) Chief complaint: Altered mental status History of present illness: This is a 69-year-old female with known history of chronic alcoholism, hepatic cirrhosis, hepatic encephalopathy, patient was transferred from [facility] with elevated ammonia level and altered mental status. Patient has been receiving lactulose and her most recent ammonia level is down to 75. Patient was seen in the ER, and she was noted to be quite encephalopathic, thrashing in bed, restless, agitated, could not conduct any reasonable conversation. Patient is thrashing in bed, eyes closed, and quite agitated. Hence I recommended patient to be admitted to the ICU instead of admitting her to the medical floor, and I recommended patient to be started on Precedex. Could not obtain any information from the patient herself, most of the information was obtained from the chart. Looking back at the chart, patient nguyen s have history of liver cirrhosis depression hypertension hypomagnesemia malnutrition pancytopenia restless leg syndrome thrombocytopenia and history of TIA. ABG in the ER showed a pO2 of 72 pCO2 26 pH of 7.43 bicarb is 18. CBC was relatively unremarkable hemoglobin was 12.1. Platelets were 100,000. Chest x- ray showed elevated left hemidiaphragm, otherwise lungs are clear and nasogastric tube is in proper position. Patient had a nasogastric tube placed for lactulose treatment. Review of Systems ROS unobtainable: due to mental status Past Medical History Past Medical History: GERD/Reflux, Hypertension, Liver Disease Additional Past Medical History / Comment(s): Anemia, hepatic encephlopathy. Patient denies having hx of CVA/TIA.in prevouis charting CVA/TIA was checked off. History of Any Multi-Drug Resistant Organisms: Unobtainable Date of last positivie culture/infection: NA MDRO Source:: Stool Past Surgical History: No Surgical Hx Reported Additional Past Surgical History / Comment(s): C2 Fracture Past Anesthesia/Blood Transfusion Reactions: Unable to Obtain Past Psychological History: No Psychological Hx Reported Smoking Status: Never smoker Past Alcohol Use History: Abuse Past Drug Use History: None Reported Medications and Allergies Home Medications Medication Instructions Recorded Confirmed Type Multivitamins, Thera [Multivitamin 1 tab PO DAILY 04/20/23 10/07/24 History (formulary)] Propranolol [Inderal] 20 mg PO BID #120 tab 04/28/23 10/07/24 Rx Acetaminophen Tab [Tylenol] 650 mg PO Q6HR PRN tab 05/17/23 10/07/24 Rx Lactulose [Cephulac] 20 gm PO Q12H ml 05/17/23 10/07/24 Rx Ammonium Lactate Cream [Lac-Hydrin 1 applic TOPICAL BID 10/07/24 10/07/24 History 12% Cream] Cetirizine HCl [Zyrtec] 10 mg PO DAILY PRN 10/07/24 10/07/24 History DULoxetine HCL [Cymbalta] 60 mg PO DAILY 10/07/24 10/07/24 History Luna-Tussin Dm 10 ml PO Q4H PRN 10/07/24 10/07/24 History HYDROcodone/APAP 5-325MG [[place] 1 tab PO Q6HR PRN 10/07/24 10/07/24 History 5-325] Liniments Cream 1 applic TOPICAL Q6H PRN 10/07/24 10/07/24 History Loperamide [Imodium] 2 mg PO Q4H PRN 10/07/24 10/07/24 History Mag Hydrox/Aluminum Hyd/Simeth 20 ml PO Q8H PRN 10/07/24 10/07/24 History [Mylanta Maximum Strength Liq] Magnesium Hydroxide [Milk of 2,400 mg PO Q12H PRN 10/07/24 10/07/24 History Magnesia] Magnesium Oxide [Mag-Ox] 400 mg PO DAILY 10/07/24 10/07/24 History Mirtazapine 7.5 mg PO HS 10/07/24 10/07/24 History Omeprazole [PriLOSEC] 20 mg PO DAILY 10/07/24 10/07/24 History Triamcinolone 0.1% Cream [Kenalog 1 applic TOPICAL BID PRN 10/07/24 10/07/24 History 0.1% Cream] Vitamin B Complex/Folic Acid 1 tab PO DAILY 10/07/24 10/07/24 History [Vitamin B Complex] bisacodyL [Dulcolax] 10 mg PO DAILY PRN 10/07/24 10/07/24 History bisacodyL [Dulcolax] 10 mg RECTAL Q72H PRN 10/07/24 10/07/24 History rOPINIRole HCL [Requip] 0.5 mg PO HS 10/07/24 10/07/24 History Allergies Allergy/AdvReac Type Severity Reaction Status Date / Time Iodinated Contrast Media Allergy Rash/Hives Verified 10/07/24 18:09 lisinopril Allergy Unknown Verified 10/07/24 18:09 gabapentin AdvReac Confusion/a Verified 10/07/24 18:09 ggression/v iolent Physical Exam Vitals: Vital Signs Temp Pulse Resp BP Pulse Ox 10/08/24 15:30 84 15 105/57 94 L 10/08/24 15:15 87 22 110/63 95 10/08/24 15:00 94 18 93 L 10/08/24 14:45 94 12 119/69 93 L 10/08/24 14:30 92 28 H 119/69 91 L 10/08/24 14:25 98.6 F 94 28 H 114/72 92 L 10/08/24 13:38 100.2 F H 10/08/24 13:07 113 H 26 H 155/70 93 L 10/08/24 12:00 117 H 34 H 125/66 92 L 10/08/24 11:33 121 H 32 H 145/81 92 L 10/08/24 10:37 124 H 18 130/92 95 10/08/24 10:18 120 H 18 92 L 10/08/24 10:11 121 H 28 H 110/90 92 L 10/08/24 05:37 120 H 20 165/78 96 10/08/24 02:47 122 H 20 147/98 98 10/07/24 23:30 115 H 24 153/82 93 L 10/07/24 22:06 114 H 20 160/69 95 10/07/24 18:37 107 H 20 159/80 93 L 10/07/24 16:58 97.8 F 105 H 21 92 L Intake and Output 10/08/24 10/08/24 10/08/24 06:59 14:59 22:59 Intake Total 104.155 75 Output Total 200 Balance -95.845 75 Intake: IV 75 75 Sodium Chloride 0.9% 1, 75 75 000 ml @ 75 mls/hr IV . [id number] [facility] Rx#:[id number] Intake, IV Titration 29.155 Amount Dexmedetomidine/0.9% NaCl 29.155 (Pmx) 400 mcg In Empty Bag 1 bag @ 0.2 MCG/KG/HR 4.082 mls/hr IV .Q24H [facility] Rx#:[id number] Output: Gastric Drainage 200 Other: # Bowel Movements 1 Weight 81.647 kg GENERAL: Revealed extremely agitated and restless 69-year-old, does not seem to be in respiratory distress. HEENT: Pupils are round and equally reacting to light. EOMI. No scleral icterus. No conjunctival pallor. Normocephalic, atraumatic. No pharyngeal erythema. No thyromegaly. CARDIOVASCULAR: Distant S1-S2, no S3 gallop. PULMONARY: Clear bilaterally no rhonchi no wheezes ABDOMEN: flat soft nontender no megaly no rebound no guarding MUSCULOSKELETAL: No clubbing edema or cyanosis no deformities and no limitation range of motion EXTREMITIES: No cyanosis, clubbing, or pedal edema. NEUROLOGICAL: Could not fully assess patient is clearly restless agitated and thrashing all over the bed SKIN: No rashes. Results - Laboratory Findings CBC and BMP: 10/08/24 15:11 10/07/24 17:14 ABG ABG pH 7.43 (7.35-7.45) 10/08/24 12:06 ABG pCO2 26 mmHg (35-45) L 10/08/24 12:06 ABG pO2 72 mmHg (83-108) L 10/08/24 12:06 ABG O2 Saturation 94.9 % (94-97) 10/08/24 12:06 PT/INR, D-dimer PT 12.2 sec (10.0-12.5) 10/07/24 17:14 INR 1.1 (<1.2) 10/07/24 17:14 Abnormal lab findings: Abnormal Labs 10/07/24 10/07/24 10/07/24 17:14 17:14 17:14 RBC 4.06 L Hct 36.5 L MCH Plt Count 110 L Neutrophils # Lymphocytes # Monocytes # Eosinophils # ABG pCO2 ABG pO2 ABG HCO3 ABG Total CO2 Chloride 114 H Carbon Dioxide 13 L BUN 22 H Glucose 124 H POC Glucose (mg/dL) Total Bilirubin 2.3 H AST 46 H Alkaline Phosphatase 163 H Ammonia 159 H 06/03/2410/08/24 10/08/24 10:34 12:06 14:16 RBC Hct MCH Plt Count Neutrophils # Lymphocytes # Monocytes # Eosinophils # ABG pCO2 26 L ABG pO2 72 L ABG HCO3 17 L ABG Total CO2 18 L Chloride Carbon Dioxide BUN Glucose POC Glucose (mg/dL) 146 H Total Bilirubin AST Alkaline Phosphatase Ammonia 79 H 10/08/24 15:11 RBC 3.76 L Hct 35.3 L MCH 32.2 H Plt Count 100 L Neutrophils # 8.23 H Lymphocytes # 0.66 L Monocytes # 1.02 H Eosinophils # 0.01 L ABG pCO2 ABG pO2 ABG HCO3 ABG Total CO2 Chloride Carbon Dioxide BUN Glucose POC Glucose (mg/dL) Total Bilirubin AST Alkaline Phosphatase Ammonia - Diagnostic Findings Chest x-ray: image reviewed (As noted HPI) Assessment and Plan Assessment: Impression: Acute toxic metabolic encephalopathy secondary to hepatic encephalopathy and coy vated ammonia level History of liver cirrhosis secondary to alcoholism History of depression Benign essential hypertension History of chronic anemia History of insomnia History of restless leg syndrome History of chronic thrombocytopenia History of TIA History of GERD Recommendation: Admit patient to the ICU Continue lactulose Continue supportive care measures GI and DVT prophylaxis Continue Precedex Continue thiamine CIWA protocol Will continue to follow Time with Patient: Greater than 30
[2024-10-08 16:31] LABS: African American GFR (CKD) >90 (>60 ml/min/1.73 sqM); Anion Gap 10 mmol/L; Blood Urea Nitrogen 25 mg/dL (7-17); Calcium 9.1 mg/dL (8.4-10.2); Carbon Dioxide 14 mmol/L (22-30); Chloride 120 mmol/L (98-107); Glucose 138 mg/dL (74-99); Magnesium 1.5 mg/dL (1.6-2.3); Non-African American GFR(CKD) 86 (>60 ml/min/1.73 sqM); Potassium 3.8 mmol/L (3.5-5.1); Sodium 144 mmol/L (137-145)
[2024-10-08] MEDS ORDERED: Magnesium Replacement Protocol 1 EACH MISC MISCELLANE PRN (16:38)
[2024-10-08] MEDS ORDERED: Potassium Replacement Protocol 1 EACH MISC MISCELLANE PRN (16:38)
[2024-10-08] MEDS: MAGNESIUM SULFATE-D5W PMX 1 GM in DEXTROSE/WATER 1 100ML.BAG IVPB SCH (17:17)
[2024-10-08] MEDS: POTASSIUM BICARBONATE/CIT AC 20 MEQ TABLET.EFF NG-TUBE SCH (17:17)
[2024-10-08] MEDS: PROPRANOLOL 10 MG TAB PO SCH (20:25)
[2024-10-08] MEDS: SODIUM CHLORIDE 0.9% 1,000 ML IV ONE (21:00)
[2024-10-08] MEDS: SODIUM CHLORIDE 0.9% 500 ML 500 ML IV ONE (21:00)
[2024-10-08 22:15] LABS: ABG Base Excess -7.7 mmol/L; ABG HCO3 16 mmol/L (21-25); ABG Oxygen Saturation 98.5 % (94-97); ABG PCO2 28 mmHg (35-45); ABG PH 7.38 (7.35-7.45); ABG PO2 106 mmHg (83-108); ABG TCO2 17 mmol/L (19-24); Allen Test Performed? Yes
[2024-10-09] MEDS: SODIUM CHLORIDE 0.9% 1,000 ML IV ONE (00:58)
[2024-10-09] MEDS: NOREPINEPHRINE 8 MG in SODIUM CHLORIDE 0.9% 250 ML IV SCH (05:34)
[2024-10-09 06:19] LABS: Basophils # (A) 0.02 10*3/uL (0.00-0.10); Basophils % (A) 0.2 %; Eosinophils # (A) 0.02 10*3/uL (0.04-0.35); Eosinophils % (A) 0.2 %; HCT 35.3 % (37.2-46.3); HGB 11.4 g/dL (12.0-15.0); Lymphocytes # (A) 1.19 10*3/uL (0.90-5.00); Lymphocytes % (A) 13.7 %; MCH 31.5 pg (27.0-32.0); MCHC 32.3 g/dL (32.0-37.0); MCV 97.5 fL (80.0-97.0); Mean Platelet Volume 10.8 fL (9.5-12.2); Monocytes # (A) 1.06 10*3/uL (0.20-1.00); Monocytes % (A) 12.2 %; Neutrophils # (A) 6.37 10*3/uL (1.80-7.70); Neutrophils % (A) 73.4 %; RBC 3.62 10*6/uL (4.10-5.20); RDW 15.8 % (11.5-14.5); WBC 8.69 10*3/uL (4.50-10.00)
[2024-10-09 06:28] LABS: African American GFR (CKD) >90 (>60 ml/min/1.73 sqM); Anion Gap 11 mmol/L; Blood Urea Nitrogen 26 mg/dL (7-17); Calcium 8.7 mg/dL (8.4-10.2); Carbon Dioxide 15 mmol/L (22-30); Chloride 118 mmol/L (98-107); Glucose 105 mg/dL (74-99); Non-African American GFR(CKD) 83 (>60 ml/min/1.73 sqM); Potassium 4.2 mmol/L (3.5-5.1); Sodium 144 mmol/L (137-145)
[2024-10-09] MEDS: PANTOPRAZOLE 40 MG TABLET PO SCH (06:44)
[2024-10-09] MEDS: DULoxetine HCL 60 MG CAPSULE.DR PO SCH (08:50)
[2024-10-09] MEDS ORDERED: NON FORMULARY DRUG (Vitamin B Complex/Folic Acid [Vitamin B Complex] 0.4 MG Tablet) PO SCH (09:00)
[2024-10-09] MEDS: MULTIVITAMINS, THERA 1 EACH TAB PO SCH (09:01)
[2024-10-09] MEDS: SODIUM BICARB 8.4% 50 ML SYR (1 MEQ/ML) IV STA (09:01)
[2024-10-09 10:04] LABS: Platelet Count 72 10*3/uL (140-440)
--- NOTE | 2024-10-09 12:16 | P.PN ---
Subjective Progress Note Date: 10/09/24 Principal diagnosis: Acute hepatic encephalopathy This is a 69-year-old female with known history of chronic alcoholism, hepatic cirrhosis, hepatic encephalopathy, patient was transferred from [facility] with elevated ammonia level and altered mental status. Patient has been receiving lactulose and her most recent ammonia level is down to 75. Patient was seen in the ER, and she was noted to be quite encephalopathic, thrashing in bed, restless, agitated, could not conduct any reasonable conversation. Patient is thrashing in bed, eyes closed, and quite agitated. Hence I recommended patient to be admitted to the ICU instead of admitting her to the medical floor, and I recommended patient to be started on Precedex. Could not obtain any information from the patient herself, most of the information was obtained from the chart. Looking back at the chart, patient does have history of liver cirrhosis depression hypertension hypomagnesemia malnutrition pancytopenia restless leg syndrome thrombocytopenia and history of TIA. ABG in the ER showed a pO2 of 72 pCO2 26 pH of 7.43 bicarb is 18. CBC was relatively unremarkable hemoglobin was 12.1. Platelets were 100,000. Chest x- ray showed elevated left hemidiaphragm, otherwise lungs are clear and nasogast nicki tube is in proper position. Patient had a nasogastric tube placed for lactulose treatment. Patient was seen today on 10/09/2024, remains in the ICU, she is on BiPAP, 12/5/45%, ammonia level is down to 56, patient remains quite encephalopathic. Labs showed mild metabolic acidosis and she was given 1 amp of bicarb. She is on Precedex at 0.2 mcg/kg/h, she is also on IV fluid at 75 cc/h 0.9 normal saline. Patient seems to be comfortable on BiPAP, not in distress, she opens her eyes, follows very simple instructions, but she tends to fall asleep again. WBC is 8.6 hemoglobin 11.4 ABG showed a pO2 of 106 pCO2 28 pH of 7.38 this was done yesterday. Basic metabolic profile is normal except for bicarb of 15 there is none anion gap. Metabolic acidosis. Objective - Vital Signs Vital signs: Vital Signs Temp 98.4 F 10/09/24 08:00 Pulse 65 10/09/24 11:00 Resp 22 10/09/24 11:54 BP 121/69 10/09/24 11:00 Pulse Ox 98 10/09/24 11:00 FiO2 35 10/09/24 09:00 Intake & Output 10/08/24 10/09/24 10/09/24 18:59 06:59 18:59 Intake Total 797.076 1430.425 377.551 Output Total 235 207 130 Balance 829.450 2856.425 247.551 Weight 81.647 kg 74.3 kg Intake: IV 650 825 375 Magnesium Sulfate-D5w Pmx 200 1 gm In Dextrose/Water 1 100ml.bag @ 100 mls/hr IVPB Q1H PIPE Rx#: [id number] Sodium Chloride 0.9% 1, 450 825 375 000 ml @ 75 mls/hr IV . [id number] PIPE Rx#:[id number] Intake, IV Titration 80.319 4127.425 2.551 Amount Dexmedetomidine/0.9% NaCl 80.319 127.425 2.551 (Pmx) 400 mcg In Empty Bag 1 bag @ 0.2 MCG/KG/HR 4.082 mls/hr IV .Q24H [facility] Rx#:[id number] Sodium Chloride 0.9% 1, 3000 000 ml @ 999 mls/hr IV . Q1H1M ONE Rx#:[id number] Sodium Chloride 0.9% 500 1000 ml 500 ml @ 999 mls/hr IV .Q31M ONE Rx#:[id number] Oral 240 Other 120 Output: Gastric Drainage 200 60 Urine 35 207 70 Other: Voiding Method Diaper Diaper Diaper Incontinent Incontinent Incontinent # Bowel Movements 1 - Exam GENERAL: Reveals 69-year-old female less agitated, calm, opens eyes and follows very simple instructions but remains relatively encephalopathic. HEENT: Pupils are round and equally reacting to light. EOMI. No scleral icterus. No conjunctival pallor. Normocephalic, atraumatic. No pharyngeal erythema. No thyromegaly. CARDIOVASCULAR: Distant S1-S2, no S3 gallop. PULMONARY: Clear bilaterally no rhonchi no wheezes ABDOMEN: flat soft nontender no megaly no rebound no guarding MUSCULOSKELETAL: No clubbing edema or cyanosis no deformities and no limitation range of motion EXTREMITIES: No cyanosis, clubbing, or pedal edema. NEUROLOGICAL: Encephalopathic but arousable opens eyes, follows very simple instructions and tends to fall asleep and quite lethargic when left alone.. SKIN: No rashes. - Labs CBC & Chem 7: 10/09/24 05:27 10/09/24 05:27 Labs: Abnormal Lab Results - Last 24 Hours (Table) 10/08/24 10/08/24 10/08/24 Range/Units 12:06 14:16 15:11 RBC 3.76 L (4.10-5.20) 10*6/uL Hgb (12.0-15.0) g/dL Hct 35.3 L (37.2-46.3) % MCV (80.0-97.0) fL MCH 32.2 H (27.0-32.0) pg Plt Count 100 L (140-440) 10*3/uL Neutrophils # 8.23 H (1.80-7.70) 10*3/uL Lymphocytes # 0.66 L (0.90-5.00) 10*3/uL Monocytes # 1.02 H (0.20-1.00) 10*3/uL Eosinophils # 0.01 L (0.04-0.35) 10*3/uL ABG pCO2 26 L (35-45) mmHg ABG pO2 72 L (83-108) mmHg ABG HCO3 17 L (21-25) mmol/L ABG Total CO2 18 L (19-24) mmol/L ABG O2 Saturation (94-97) % Hemoglobin (11.4-16.0) gm/dL Chloride (98-107) mmol/L Carbon Dioxide (22-30) mmol/L BUN (7-17) mg/dL Glucose (74-99) mg/dL POC Glucose (mg/dL) 146 H (70-110) mg/dL Magnesium (1.6-2.3) mg/dL Ammonia (<30) umol/L 10/08/24 10/08/24 10/09/24 Range/Units 16:00 22:13 05:27 RBC 3.62 L (4.10-5.20) 10*6/uL Hgb 11.4 L (12.0-15.0) g/dL Hct 35.3 L (37.2-46.3) % MCV 97.5 H (80.0-97.0) fL MCH (27.0-32.0) pg Plt Count 72 L (140-440) 10*3/uL Neutrophils # (1.80-7.70) 10*3/uL Lymphocytes # (0.90-5.00) 10*3/uL Monocytes # 1.06 H (0.20-1.00) 10*3/uL Eosinophils # 0.02 L (0.04-0.35) 10*3/uL ABG pCO2 28 L (35-45) mmHg ABG pO2 (83-108) mmHg ABG HCO3 16 L (21-25) mmol/L ABG Total CO2 17 L (19-24) mmol/L ABG O2 Saturation 98.5 H (94-97) % Hemoglobin 11.3 L (11.4-16.0) gm/dL Chloride 120 H (98-107) mmol/L Carbon Dioxide 14 L (22-30) mmol/L BUN 25 H (7-17) mg/dL Glucose 138 H (74-99) mg/dL POC Glucose (mg/dL) (70-110) mg/dL Magnesium 1.5 L (1.6-2.3) mg/dL Ammonia (<30) umol/L 10/09/24 10/09/24 Range/Units 05:27 05:27 RBC (4.10-5.20) 10*6/uL Hgb (12.0-15.0) g/dL Hct (37.2-46.3) % MCV (80.0-97.0) fL MCH (27.0-32.0) pg Plt Count (140-440) 10*3/uL Neutrophils # (1.80-7.70) 10*3/uL Lymphocytes # (0.90-5.00) 10*3/uL Monocytes # (0.20-1.00) 10*3/uL Eosinophils # (0.04-0.35) 10*3/uL ABG pCO2 (35-45) mmHg ABG pO2 (83-108) mmHg ABG HCO3 (21-25) mmol/L ABG Total CO2 (19-24) mmol/L ABG O2 Saturation (94-97) % Hemoglobin (11.4-16.0) gm/dL Chloride 118 H (98-107) mmol/L Carbon Dioxide 15 L (22-30) mmol/L BUN 26 H (7-17) mg/dL Glucose 105 H (74-99) mg/dL POC Glucose (mg/dL) (70-110) mg/dL Magnesium (1.6-2.3) mg/dL Ammonia 56 H (<30) umol/L Assessment and Plan Assessment: Impression: Acute toxic metabolic encephalopathy secondary to hepatic encephalopathy and elevated ammonia level History of liver cirrhosis secondary to alcoholism History of depression Benign essential hypertension History of chronic anemia History of insomnia History of restless leg syndrome History of chronic thrombocytopenia History of TIA History of GERD Recommendation: Continue to monitor in the ICU and continue BiPAP Continue lactulose Continue supportive care measures GI and DVT prophylaxis Continue Precedex, titrate down as tolerated Continue thiamine CIWA protocol Will continue to follow while in ICU. Time with Patient: Less than 30
[2024-10-09] MEDS: PANTOPRAZOLE 40 MG/10 ML VIAL IVP SCH (21:17)
--- NOTE | 2024-10-09 22:00 | P.PN ---
Subjective Progress Note Date: 10/09/24 69-year-old female with baseline chronic dementia/encephalopathy from chronic alcoholism cirrhosis and hepatic encephalopathy was transferred from outside hospital with elevated ammonia of around 250. Patient had NG tube and patient is is receiving lactulose through NG tube and patient. Recent ammonia is around 75. Patient is quite a bit agitated confused because of which patient was started on Precedex drip and was admitted to ICU. Patient will be started on Haldol for agitation will try to wean off of Precedex. CT brain CT abdomen pelvis and chest x-ray are all within normal limits from the outside hospital. Unfortunately patient is also on Tylenol as well as Downing as an outpatient which can cause severe encephalopathy and and patient can have acetaminophen toxicity because of cirrhosis. Presently my concern for acetaminophen toxicity is low. Urinalysis are not significantly elevated. 10/09/2024 Patient is evaluated today in the intensive care unit. Remains on BiPAP 04/03 with FiO2 of 35%. Patient remains altered. NG tube in place with small amt of coffee grounds in the canister although clearing up. Gastric occult was positive. Transitioned to IV protonix twice daily. Ammonia level down to 56 and continues on scheduled lactulose. Continues on IV precedex. Hemoglobin 11.4 Unable to complete review of systems due to patients level of consciousness. PHYSICAL EXAMINATION: GENERAL: unable to assess orientation altered. on BiPAP HEENT: Pupils are round and equally reacting to light. EOMI. No scleral icterus. No conjunctival pallor. Normocephalic, atraumatic. No pharyngeal erythema. No thyromegaly. CARDIOVASCULAR: S1 and S2 present. No murmurs, rubs, or gallops. PULMONARY: Chest is clear to auscultation, no wheezing or crackles. ABDOMEN: Soft, nontender, nondistended, normoactive bowel sounds. No palpable organomegaly. NG tube in place MUSCULOSKELETAL: No joint swelling or deformity. EXTREMITIES: No cyanosis, clubbing, or pedal edema. NEUROLOGICAL: Agitated on Precedex SKIN: No rashes. Assessment and plan -Altered mental status due to hepatic and toxic encephalopathy -Hepatic encephalopathy - Advanced alcoholic cirrhosis - History of alcohol abuse and dementia and chronic encephalopathy from alcohol use. - Depression - Hypertension - Sinus tachycardia secondary to agitation; resolved DVT prophylaxis: Subcutaneous heparin GI prophylaxis IV protonix twice daily Full Code Plan Continue IV precedex for the agitation Narcotics will be held Continue lactulose through NG tube Continued on thiamine and multivitamin supplementation Remeron held Cymbalta held until tolerating oral intake Continue normal saline at 75 mls/hr Monitor electrolytes and renal function Monitor hemoglobin Repeat ammonia level in the AM The impression and plan of care has been dictated by Eileen Parson, Nurse Practitioner as directed. Dr. Domitila MD I have performed a history and physical examination and medical decision making of this patient, discussed the same with the dictator, and agree with the dictators assessment and plan as written, documented as a scribe. Based on total visit time, I have performed more than 50% of this visit. Objective - Vital Signs Vital signs: Vital Signs Temp 98.3 F 10/09/24 07:00 Pulse 71 10/09/24 07:00 Resp 22 10/09/24 07:00 BP 95/56 10/09/24 07:00 Pulse Ox 97 10/09/24 07:00 FiO2 35 10/09/24 08:43 Intake & Output 10/08/24 10/09/24 10/09/24 18:59 06:59 18:59 Intake Total 677.575 6443.425 77.551 Output Total 235 207 75 Balance 174.986 7709.425 2.551 Weight 81.647 kg 74.3 kg Intake: IV 650 825 75 Magnesium Sulfate-D5w Pmx 200 1 gm In Dextrose/Water 1 100ml.bag @ 100 mls/hr IVPB Q1H PIPE Rx#: [id number] Sodium Chloride 0.9% 1, 450 825 75 000 ml @ 75 mls/hr IV . [id number] PIPE Rx#:[id number] Intake, IV Titration 80.319 4127.425 2.551 Amount Dexmedetomidine/0.9% NaCl 80.319 127.425 2.551 (Pmx) 400 mcg In Empty Bag 1 bag @ 0.2 MCG/KG/HR 4.082 mls/hr IV .Q24H PIPE Rx#:[id number] Sodium Chloride 0.9% 1, 3000 000 ml @ 999 mls/hr IV . Q1H1M ONE Rx#:[id number] Sodium Chloride 0.9% 500 1000 ml 500 ml @ 999 mls/hr IV .Q31M ONE Rx#:[id number] Oral 240 Other 120 Output: Gastric Drainage 200 60 Urine 35 207 15 Other: Voiding Method Diaper Diaper Incontinent Incontinent # Bowel Movements 1 - Labs CBC & Chem 7: 10/09/24 05:27 10/09/24 05:27 Labs: Abnormal Lab Results - Last 24 Hours (Table) 10/08/24 10/08/24 10/08/24 Range/Units 10:34 12:06 14:16 RBC (4.10-5.20) 10*6/uL Hgb (12.0-15.0) g/dL Hct (37.2-46.3) % MCV (80.0-97.0) fL MCH (27.0-32.0) pg Plt Count (140-440) 10*3/uL Neutrophils # (1.80-7.70) 10*3/uL Lymphocytes # (0.90-5.00) 10*3/uL Monocytes # (0.20-1.00) 10*3/uL Eosinophils # (0.04-0.35) 10*3/uL ABG pCO2 26 L (35-45) mmHg ABG pO2 72 L (83-108) mmHg ABG HCO3 17 L (21-25) mmol/L ABG Total CO2 18 L (19-24) mmol/L ABG O2 Saturation (94-97) % Hemoglobin (11.4-16.0) gm/dL Chloride (98-107) mmol/L Carbon Dioxide (22-30) mmol/L BUN (7-17) mg/dL Glucose (74-99) mg/dL POC Glucose (mg/dL) 146 H (70-110) mg/dL Magnesium (1.6-2.3) mg/dL Ammonia 79 H (<30) umol/L 10/08/24 10/08/24 10/08/24 Range/Units 15:11 16:00 22:13 RBC 3.76 L (4.10-5.20) 10*6/uL Hgb (12.0-15.0) g/dL Hct 35.3 L (37.2-46.3) % MCV (80.0-97.0) fL MCH 32.2 H (27.0-32.0) pg Plt Count 100 L (140-440) 10*3/uL Neutrophils # 8.23 H (1.80-7.70) 10*3/uL Lymphocytes # 0.66 L (0.90-5.00) 10*3/uL Monocytes # 1.02 H (0.20-1.00) 10*3/uL Eosinophils # 0.01 L (0.04-0.35) 10*3/uL ABG pCO2 28 L (35-45) mmHg ABG pO2 (83-108) mmHg ABG HCO3 16 L (21-25) mmol/L ABG Total CO2 17 L (19-24) mmol/L ABG O2 Saturation 98.5 H (94-97) % Hemoglobin 11.3 L (11.4-16.0) gm/dL Chloride 120 H (98-107) mmol/L Carbon Dioxide 14 L (22-30) mmol/L BUN 25 H (7-17) mg/dL Glucose 138 H (74-99) mg/dL POC Glucose (mg/dL) (70-110) mg/dL Magnesium 1.5 L (1.6-2.3) mg/dL Ammonia (<30) umol/L 10/09/24 10/09/24 10/09/24 Range/Units 05:27 05:27 05:27 RBC 3.62 L (4.10-5.20) 10*6/uL Hgb 11.4 L (12.0-15.0) g/dL Hct 35.3 L (37.2-46.3) % MCV 97.5 H (80.0-97.0) fL MCH (27.0-32.0) pg Plt Count (140-440) 10*3/uL Neutrophils # (1.80-7.70) 10*3/uL Lymphocytes # (0.90-5.00) 10*3/uL Monocytes # (0.20-1.00) 10*3/uL Eosinophils # (0.04-0.35) 10*3/uL ABG pCO2 (35-45) mmHg ABG pO2 (83-108) mmHg ABG HCO3 (21-25) mmol/L ABG Total CO2 (19-24) mmol/L ABG O2 Saturation (94-97) % Hemoglobin (11.4-16.0) gm/dL Chloride 118 H (98-107) mmol/L Carbon Dioxide 15 L (22-30) mmol/L BUN 26 H (7-17) mg/dL Glucose 105 H (74-99) mg/dL POC Glucose (mg/dL) (70-110) mg/dL Magnesium (1.6-2.3) mg/dL Ammonia 56 H (<30) umol/L Assessment and Plan Time with Patient: Less than 30
[2024-10-10 00:52] LABS: Appearance,Urine Cloudy (Clear); Bacteria,Urine Many /hpf; Bilirubin,Urine Negative (Negative); Blood,Urine Moderate (Negative); Color,Urine Yellow; Glucose,Urine (UA) Negative (Negative); Hyaline Casts,Urine 23 /lpf (0-2); Ketones,Urine Negative (Negative); Leukocyte Esterase,Urine Small (Negative); Mucus,Urine Many /hpf; Nitrite,Urine Negative (Negative); PH, Urine 5.5 (5.0-8.0); Protein,Urine 1+ (Negative); RBC,Urine 117 /hpf (0-5); Specific Gravity,Urine 1.032 (1.001-1.035); Squamous Epithelial Cell,Urine 4 /hpf (0-4); Urobilinogen,Urine <2.0 mg/dL (<2.0); WBC,Urine 127 /hpf (0-5)
[2024-10-10 07:08] LABS: Basophils # (A) 0.01 10*3/uL (0.00-0.10); Basophils % (A) 0.2 %; Eosinophils # (A) 0.11 10*3/uL (0.04-0.35); Eosinophils % (A) 1.7 %; HCT 32.5 % (37.2-46.3); HGB 10.6 g/dL (12.0-15.0); Lymphocytes % (A) 9.3 %; MCH 31.7 pg (27.0-32.0); MCHC 32.6 g/dL (32.0-37.0); MCV 97.3 fL (80.0-97.0); Mean Platelet Volume 11.1 fL (9.5-12.2); Monocytes # (A) 0.67 10*3/uL (0.20-1.00); Monocytes % (A) 10.4 %; Neutrophils # (A) 5.07 10*3/uL (1.80-7.70); Neutrophils % (A) 78.2 %; RBC 3.34 10*6/uL (4.10-5.20); RDW 15.6 % (11.5-14.5); WBC 6.47 10*3/uL (4.50-10.00)
[2024-10-10 07:26] LABS: African American GFR (CKD) >90 (>60 ml/min/1.73 sqM); Anion Gap 8 mmol/L; Blood Urea Nitrogen 31 mg/dL (7-17); Calcium 8.9 mg/dL (8.4-10.2); Carbon Dioxide 15 mmol/L (22-30); Chloride 125 mmol/L (98-107); Glucose 99 mg/dL (74-99); Magnesium 1.8 mg/dL (1.6-2.3); Non-African American GFR(CKD) >90 (>60 ml/min/1.73 sqM); Potassium 3.8 mmol/L (3.5-5.1); Sodium 148 mmol/L (137-145)
[2024-10-10 07:44] LABS: Platelet Count 54 10*3/uL (140-440)
[2024-10-10] MEDS: HEPARIN SODIUM,PORCINE 5,000 UNIT/ML 1 ML VIAL SQ SCH (08:34)
[2024-10-10] MEDS ORDERED: LORazepam 1 MG/0.5 ML VIAL IV PRN (09:42)
[2024-10-10] MEDS ORDERED: LORazepam 1 MG TAB PO PRN (09:42)
[2024-10-10] MEDS ORDERED: LORazepam 0.5 MG TAB PO PRN (09:42)
[2024-10-10] MEDS: FUROSEMIDE 10 MG/ML 2 ML VIAL IV ONE ×2 (11:11→23:19)
[2024-10-10] MEDS: LORazepam 1 MG/0.5 ML VIAL IV PRN ×2 (11:15→13:33)
[2024-10-10] MEDS: DEXTROSE 5% IN WATER 1,000 ML IV SCH (11:17)
--- NOTE | 2024-10-10 13:21 | P.PN ---
Subjective Progress Note Date: 10/10/24 Principal diagnosis: Acute hepatic encephalopathy This is a 69-year-old female with known history of chronic alcoholism, hepatic cirrhosis, hepatic encephalopathy, patient was transferred from [facility] with elevated ammonia level and altered mental status. Patient has been receiving lactulose and her most recent ammonia level is down to 75. Patient was seen in the ER, and she was noted to be quite encephalopathic, thrashing in bed, restless, agitated, could not conduct any reasonable conversation. Patient is thrashing in bed, eyes closed, and quite agitated. Hence I recommended patient to be admitted to the ICU instead of admitting her to the medical floor, and I recommended patient to be started on Precedex. Could not obtain any information from the patient herself, most of the information was obtained from the chart. Looking back at the chart, patient does have history of liver cirrhosis depression hypertension hypomagnesemia malnutrition pancytopenia restless leg syndrome thrombocytopenia and history of TIA. ABG in the ER showed a pO2 of 72 pCO2 26 pH of 7.43 bicarb is 18. CBC was relatively unremarkable hemoglobin was 12.1. Platelets were 100,000. Chest x- ray showed elevated left hemidiaphragm, otherwise lungs are clear and nasogast nicki tube is in proper position. Patient had a nasogastric tube placed for lactulose treatment. Patient was seen today on 10/09/2024, remains in the ICU, she is on BiPAP, 12/5/45%, ammonia level is down to 56, patient remains quite encephalopathic. Labs showed mild metabolic acidosis and she was given 1 amp of bicarb. She is on Precedex at 0.2 mcg/kg/h, she is also on IV fluid at 75 cc/h 0.9 normal saline. Patient seems to be comfortable on BiPAP, not in distress, she opens her eyes, follows very simple instructions, but she tends to fall asleep again. WBC is 8.6 hemoglobin 11.4 ABG showed a pO2 of 106 pCO2 28 pH of 7.38 this was done yesterday. Basic metabolic profile is normal except for bicarb of 15 there is none anion gap. Metabolic acidosis. Reevaluate today on 10/10/2024, patient remains in the ICU, on BiPAP, 12/5/35%, still on Precedex at 0.5 mcg/kg/h, patient is on IV fluid at 75 cc/h norepinephrine is presently on hold, patient did receive Lasix earlier today 20 mg IV push because of poor urine output her ammonia level is down to 24 patient is on ceftriaxone empirically her ammonia level is improving but mental status does not seem to be much improved. Still requiring a sitter at bedside. WBC count 6.4 hemoglobin 10.6 electrolytes showed low bicarb of 15 patient has elevated sodium of 148. Hence her IV fluid is to be changed to D5W gastric occult blood is positive, hemoglobin today is 10.6. Chest x-ray on admission showed no evidence of active disease. Objective - Vital Signs Vital signs: Vital Signs Temp 97.6 F 10/10/24 08:00 Pulse 71 10/10/24 12:00 Resp 14 10/10/24 12:00 BP 144/84 10/10/24 12:00 Pulse Ox 98 10/10/24 12:00 FiO2 35 10/10/24 08:14 Intake & Output 10/09/24 10/10/24 10/10/24 18:59 06:59 18:59 Intake Total 232.458 5378.788 484.575 Output Total 235 463 820 Balance 729.495 726.788 -335.425 Weight 74.3 kg 75.3 kg 75.3 kg Intake: IV 900 975 400 Dextrose 5% in Water 1, 50 000 ml @ 50 mls/hr IV . Q20H [facility] Rx#:[id number] Sodium Chloride 0.9% 1, 900 975 300 000 ml @ 75 mls/hr IV . [id number] [facility] Rx#:[id number] cefTRIAXone 1 gm In 50 Sodium Chloride 0.9% 50 ml @ 100 mls/hr IVPB Q24HR [facility] Rx#:[id number] Intake, IV Titration 64.495 94.788 84.575 Amount Dexmedetomidine/0.9% NaCl 64.495 44.788 84.575 (Pmx) 400 mcg In Empty Bag 1 bag @ 0.2 MCG/KG/HR 4.082 mls/hr IV .Q24H [facility]IPE Rx#:[id number] cefTRIAXone 1 gm In 50 Sodium Chloride 0.9% 50 ml @ 100 mls/hr IVPB Q24HR [facility] Rx#:[id number] Oral 0 Other 120 Output: Gastric Drainage 60 200 Urine 175 263 820 Other: Voiding Method Diaper Indwelling Catheter Indwelling Catheter Incontinent # Bowel Movements 1 - Exam GENERAL: Reveals 69-year-old female calm, on BiPAP, on Precedex HEENT: Pupils are round and equally reacting to light. EOMI. No scleral icterus. No conjunctival pallor. Normocephalic, atraumatic. No pharyngeal erythema. No thyromegaly. CARDIOVASCULAR: Distant S1-S2, no S3 gallop. PULMONARY: Clear bilaterally no rhonchi no wheezes ABDOMEN: flat soft nontender no megaly no rebound no guarding MUSCULOSKELETAL: No clubbing edema or cyanosis no deformities and no limitation range of motion EXTREMITIES: No cyanosis, clubbing, or pedal edema. NEUROLOGICAL: Encephalopathic but arousable opens eyes, f does not follow any instructions SKIN: No rashes. - Labs CBC & Chem 7: 10/10/24 06:48 10/10/24 06:48 Labs: Abnormal Lab Results - Last 24 Hours (Table) 10/10/24 10/10/24 10/10/24 Range/Units 00:00 06:48 06:48 RBC 3.34 L (4.10-5.20) 10*6/uL Hgb 10.6 L (12.0-15.0) g/dL Hct 32.5 L (37.2-46.3) % MCV 97.3 H (80.0-97.0) fL Plt Count 54 L (140-440) 10*3/uL Lymphocytes # 0.60 L (0.90-5.00) 10*3/uL Sodium 148 H (137-145) mmol/L Chloride 125 H (98-107) mmol/L Carbon Dioxide 15 L (22-30) mmol/L BUN 31 H (7-17) mg/dL Urine Appearance Cloudy H (Clear) Urine Protein 1+ H (Negative) Urine Blood Moderate H (Negative) Ur Leukocyte Esterase Small H (Negative) Urine RBC 117 H (0-5) /hpf Urine WBC 127 H (0-5) /hpf Urine Bacteria Many H (None) /hpf Hyaline Casts 23 H (0-2) /lpf Urine Mucus Many H (None) /hpf Assessment and Plan Assessment: Impression: Acute toxic metabolic encephalopathy secondary to hepatic encephalopathy and elevated ammonia level, however her ammonia level is down and mentation remains poor and the patient remains encephalopathic History of liver cirrhosis secondary to alcoholism History of depression Benign essential hypertension History of chronic anemia History of insomnia History of restless leg syndrome History of chronic thrombocytopenia History of TIA History of GERD Recommendation: Continue to monitor in the ICU and continue BiPAP Hold lactulose since her ammonia level is normal Continue supportive care measures GI and DVT prophylaxis, continue pantoprazole at 40 mg IV push twice daily monitor for any GI bleeding and monitor hemoglobin Taper and possibly discontinue Precedex Continue thiamine CIWA protocol Prognosis remains relatively poor and guarded. Will continue to follow while in ICU. Time with Patient: Less than 30
[2024-10-10] MEDS: POTASSIUM BICARBONATE/CIT AC 20 MEQ TABLET.EFF NG-TUBE SCH (16:48)
--- NOTE | 2024-10-10 18:06 | P.PN ---
Subjective Progress Note Date: 10/10/24 69-year-old female with baseline chronic dementia/encephalopathy from chronic alcoholism cirrhosis and hepatic encephalopathy was transferred from outside hospital with elevated ammonia of around 250. Patient had NG tube and patient is is receiving lactulose through NG tube and patient. Recent ammonia is around 75. Patient is quite a bit agitated confused because of which patient was started on Precedex drip and was admitted to ICU. Patient will be started on Haldol for agitation will try to wean off of Precedex. CT brain CT abdomen pelvis and chest x-ray are all within normal limits from the outside hospital. Unfortunately patient is also on Tylenol as well as [place] as an outpatient which can cause severe encephalopathy and and patient can have acetaminophen toxicity because of cirrhosis. Presently my concern for acetaminophen toxicity is low. Urinalysis are not significantly elevated. 10/09/2024 Patient is evaluated today in the intensive care unit. Remains on BiPAP 04/03 with FiO2 of 35%. Patient remains altered. NG tube in place with small amt of coffee grounds in the canister although clearing up. Gastric occult was positive. Transitioned to IV protonix twice daily. Ammonia level down to 56 and continues on scheduled lactulose. Continues on IV precedex. Hemoglobin 11.4 10/10/2024 Patient remains in the intensive care unit. Currently off the BiPAP. Patient remains confused and altered. NG tube in place and no evidence of coffee grounds in the canister today. Hemoglobin today 10.6. Sodium 148, BUN 31, creatinine 0.58. Ammonia level 24. UA was completed last night with concern for UTI. Was started on IV ceftriaxone and currently pending urine culture. Currently off pr ecedex. Unable to complete review of systems due to patients level of consciousness. PHYSICAL EXAMINATION: GENERAL: unable to assess orientation altered. On nasal cannula HEENT: Pupils are round and equally reacting to light. EOMI. No scleral icterus. No conjunctival pallor. Normocephalic, atraumatic. No pharyngeal erythema. No thyromegaly. CARDIOVASCULAR: S1 and S2 present. No murmurs, rubs, or gallops. PULMONARY: Chest is clear to auscultation, no wheezing or crackles. ABDOMEN: Soft, nontender, nondistended, normoactive bowel sounds. No palpable organomegaly. NG tube in place MUSCULOSKELETAL: No joint swelling or deformity. EXTREMITIES: No cyanosis, clubbing, or pedal edema. NEUROLOGICAL: Agitated on Precedex SKIN: No rashes. Assessment and plan - Altered mental status due to hepatic and toxic encephalopathy - Hepatic encephalopathy - Advanced alcoholic cirrhosis - History of alcohol abuse and dementia and chronic encephalopathy from alcohol use. - Depression - Hypertension - Sinus tachycardia secondary to agitation; resolved - Hypernatremia from free water deficit DVT prophylaxis: Subcutaneous heparin GI prophylaxis IV protonix twice daily Full Code Plan IV precedex has been weaned off and patient is currently on IV ativan scale Narcotics will be held Continue lactulose through NG tube Continued on thiamine and multivitamin supplementation Remeron held Cymbalta held until tolerating oral intake Change fluids to D5 water at 50 mls/hr AM chest xray Monitor electrolytes and renal function Monitor hemoglobin Repeat ammonia level in the AM Attempt to follow up with family tomorrow regarding code status and plan of care The impression and plan of care has been dictated by Eileen Parson Nurse Practitioner as directed. Dr. Domitila MD I have performed a history and physical examination and medical decision making of this patient, discussed the same with the dictator, and agree with the dictators assessment and plan as written, documented as a scribe. Based on total visit time, I have performed more than 50% of this visit. Objective - Vital Signs Vital signs: Vital Signs Temp 97.7 F 10/10/24 16:00 Pulse 79 10/10/24 17:00 Resp 22 10/10/24 17:00 BP 148/93 10/10/24 17:00 Pulse Ox 98 10/10/24 17:00 FiO2 35 10/10/24 08:14 Intake & Output 10/09/24 10/10/24 10/10/24 18:59 06:59 18:59 Intake Total 727.862 8051.788 734.575 Output Total 479 582 0922 Balance 729.495 726.788 -1240.425 Weight 74.3 kg 75.3 kg 75.3 kg Intake: IV 900 975 650 Dextrose 5% in Water 1, 300 000 ml @ 50 mls/hr IV . Q20H PIPE Rx#:[id number] Sodium Chloride 0.9% 1, 900 975 300 000 ml @ 75 mls/hr IV . [id number] PIPE Rx#:[id number] cefTRIAXone 1 gm In 50 Sodium Chloride 0.9% 50 ml @ 100 mls/hr IVPB Q24HR PIPE Rx#:[id number] Intake, IV Titration 64.495 94.788 84.575 Amount Dexmedetomidine/0.9% NaCl 64.495 44.788 84.575 (Pmx) 400 mcg In Empty Bag 1 bag @ 0.2 MCG/KG/HR 4.082 mls/hr IV .Q24H PIPE Rx#:[id number] cefTRIAXone 1 gm In 50 Sodium Chloride 0.9% 50 ml @ 100 mls/hr IVPB Q24HR PIPE Rx#:[id number] Oral 0 Other 120 Output: Gastric Drainage 60 200 Urine 268 712 8370 Other: Voiding Method Diaper Indwelling Catheter Indwelling Catheter Incontinent # Bowel Movements 1 1 - Labs CBC & Chem 7: 10/10/24 06:48 10/10/24 06:48 Labs: Abnormal Lab Results - Last 24 Hours (Table) 10/10/24 10/10/24 10/10/24 Range/Units 00:00 06:48 06:48 RBC 3.34 L (4.10-5.20) 10*6/uL Hgb 10.6 L (12.0-15.0) g/dL Hct 32.5 L (37.2-46.3) % MCV 97.3 H (80.0-97.0) fL Plt Count 54 L (140-440) 10*3/uL Lymphocytes # 0.60 L (0.90-5.00) 10*3/uL Sodium 148 H (137-145) mmol/L Chloride 125 H (98-107) mmol/L Carbon Dioxide 15 L (22-30) mmol/L BUN 31 H (7-17) mg/dL Urine Appearance Cloudy H (Clear) Urine Protein 1+ H (Negative) Urine Blood Moderate H (Negative) Ur Leukocyte Esterase Small H (Negative) Urine RBC 117 H (0-5) /hpf Urine WBC 127 H (0-5) /hpf Urine Bacteria Many H (None) /hpf Hyaline Casts 23 H (0-2) /lpf Urine Mucus Many H (None) /hpf Assessment and Plan Time with Patient: Less than 30
[2024-10-10] MEDS: HALOPERIDOL LACTATE 5 MG/ML 1 ML VIAL IM PRN (22:46)
[2024-10-11 05:59] LABS: Basophils # (A) 0.02 10*3/uL (0.00-0.10); Basophils % (A) 0.3 %; Eosinophils # (A) 0.27 10*3/uL (0.04-0.35); Eosinophils % (A) 3.8 %; HCT 31.7 % (37.2-46.3); HGB 10.9 g/dL (12.0-15.0); Lymphocytes # (A) 1.01 10*3/uL (0.90-5.00); MCH 31.8 pg (27.0-32.0); MCHC 34.4 g/dL (32.0-37.0); MCV 92.4 fL (80.0-97.0); Mean Platelet Volume 10.6 fL (9.5-12.2); Monocytes # (A) 0.81 10*3/uL (0.20-1.00); Monocytes % (A) 11.3 %; Neutrophils # (A) 5.07 10*3/uL (1.80-7.70); Neutrophils % (A) 70.3 %; RBC 3.43 10*6/uL (4.10-5.20); RDW 14.8 % (11.5-14.5)
[2024-10-11 06:12] LABS: Platelet Count 80 10*3/uL (140-440)
[2024-10-11 06:36] LABS: African American GFR (CKD) >90 (>60 ml/min/1.73 sqM); Anion Gap 10 mmol/L; Blood Urea Nitrogen 24 mg/dL (7-17); Calcium 9.4 mg/dL (8.4-10.2); Carbon Dioxide 19 mmol/L (22-30); Chloride 116 mmol/L (98-107); Glucose 94 mg/dL (74-99); Magnesium 1.3 mg/dL (1.6-2.3); Non-African American GFR(CKD) 88 (>60 ml/min/1.73 sqM); Potassium 2.9 mmol/L (3.5-5.1); Sodium 145 mmol/L (137-145)
--- NOTE | 2024-10-11 07:16 | XR ---
EXAMINATION TYPE: XR chest 1V portable DATE OF EXAM: 10/11/2024 5:50 AM COMPARISON: Chest radiographs from 10/08/2024 CLINICAL INDICATION: Female, 69 years old with history of hypoxia; H TECHNIQUE: XR chest 1V portable Frontal view of the chest. FINDINGS: Lungs/Pleura: Right-sided airspace opacities along the right heart border. There is no evidence of pl eural effusion, focal consolidation, or pneumothorax. Pulmonary vascularity: Unremarkable. Heart/mediastinum: Cardiomediastinal silhouette is unremarkable. Musculoskeletal: No acute osseous pathology. Other findings: None Lines/Tubes: Nasogastric tube with its distal tip and side-port projecting under the diaphragm. IMPRESSION: Right-sided airspace opacities correlate for pneumonia [facility], , 10/11/2024 7:13 AM
[2024-10-11] MEDS ORDERED: MAGNESIUM SULFATE-D5W PMX 1 GM in DEXTROSE/WATER 1 100ML.BAG IVPB SCH (07:45)
[2024-10-11] MEDS: MAGNESIUM SULFATE-D5W PMX 1 GM in DEXTROSE/WATER 1 100ML.BAG IVPB SCH (07:54)
[2024-10-11] MEDS: POTASSIUM BICARBONATE/CIT AC 20 MEQ TABLET.EFF NG-TUBE SCH ×3 (07:59→18:33)
[2024-10-11] MEDS: LACTULOSE 20 GM/30 ML CUP NG-TUBE SCH (08:34)
[2024-10-11] MEDS: FUROSEMIDE 10 MG/ML 2 ML VIAL IV ONE (09:48)
--- NOTE | 2024-10-11 12:08 | P.PN ---
Subjective Progress Note Date: 10/11/24 Principal diagnosis: Acute hepatic encephalopathy This is a 69-year-old female with known history of chronic alcoholism, hepatic cirrhosis, hepatic encephalopathy, patient was transferred from [facility] with elevated ammonia level and altered mental status. Patient has been receiving lactulose and her most recent ammonia level is down to 75. Patient was seen in the ER, and she was noted to be quite encephalopathic, thrashing in bed, restless, agitated, could not conduct any reasonable conversation. Patient is thrashing in bed, eyes closed, and quite agitated. Hence I recommended patient to be admitted to the ICU instead of admitting her to the medical floor, and I recommended patient to be started on Precedex. Could not obtain any information from the patient herself, most of the information was obtained from the chart. Looking back at the chart, patient does have history of liver cirrhosis depression hypertension hypomagnesemia malnutrition pancytopenia restless leg syndrome thrombocytopenia and history of TIA. ABG in the ER showed a pO2 of 72 pCO2 26 pH of 7.43 bicarb is 18. CBC was relatively unremarkable hemoglobin was 12.1. Platelets were 100,000. Chest x- ray showed elevated left hemidiaphragm, otherwise lungs are clear and nasogast nicki tube is in proper position. Patient had a nasogastric tube placed for lactulose treatment. Patient was seen today on 10/09/2024, remains in the ICU, she is on BiPAP, 12/5/45%, ammonia level is down to 56, patient remains quite encephalopathic. Labs showed mild metabolic acidosis and she was given 1 amp of bicarb. She is on Precedex at 0.2 mcg/kg/h, she is also on IV fluid at 75 cc/h 0.9 normal saline. Patient seems to be comfortable on BiPAP, not in distress, she opens her eyes, follows very simple instructions, but she tends to fall asleep again. WBC is 8.6 hemoglobin 11.4 ABG showed a pO2 of 106 pCO2 28 pH of 7.38 this was done yesterday. Basic metabolic profile is normal except for bicarb of 15 there is none anion gap. Metabolic acidosis. Reevaluate today on 10/10/2024, patient remains in the ICU, on BiPAP, 12/5/35%, still on Precedex at 0.5 mcg/kg/h, patient is on IV fluid at 75 cc/h norepinephrine is presently on hold, patient did receive Lasix earlier today 20 mg IV push because of poor urine output her ammonia level is down to 24 patient is on ceftriaxone empirically her ammonia level is improving but mental status does not seem to be much improved. Still requiring a sitter at bedside. WBC count 6.4 hemoglobin 10.6 electrolytes showed low bicarb of 15 patient has elevated sodium of 148. Hence her IV fluid is to be changed to D5W gastric occult blood is positive, hemoglobin today is 10.6. Chest x-ray on admission showed no evidence of active disease. Seen today on 10/11/2024, remains in the ICU, on 4 L nasal cannula, patient has D5W at 50 cc an hour, remains on lactulose but it is once a day given remains on Lasix intermittently she is her ammonia level is 9 today. Patient remains on Rocephin empirically. Mentation mane is the main issue and that is the reason why the patient is kept in the ICU, remains intermittently restless agitated and needs to be closely monitored. Patient is confused/encephalopathic. WBC count is 7.2 hemoglobin 10.9 sodium is down to 145 potassium 2.9 bicarb is 19 renal profile is normal, ammonia level is less than 9. Chest x-ray showed minimal opacities along the right heart border. No consolidation, no pleural effusion. Objective - Vital Signs Vital signs: Vital Signs Temp 98.3 F 10/11/24 08:00 Pulse 75 10/11/24 08:00 Resp 24 10/11/24 08:00 BP 145/77 10/11/24 08:00 Pulse Ox 97 10/11/24 08:19 FiO2 35 10/11/24 04:21 Intake & Output 10/10/24 10/11/24 10/11/24 18:59 06:59 18:59 Intake Total 784.575 660 250 Output Total 2145 1345 165 Balance -1360.425 -685 85 Weight 75.3 kg 70.5 kg Intake: IV 700 600 100 Dextrose 5% in Water 1, 350 600 100 000 ml @ 50 mls/hr IV . Q20H PIPE Rx#:[id number] Sodium Chloride 0.9% 1, 300 000 ml @ 75 mls/hr IV . [id number] [facility] Rx#:[id number] cefTRIAXone 1 gm In 50 Sodium Chloride 0.9% 50 ml @ 100 mls/hr IVPB Q24HR PIPE Rx#:[id number] Intake, IV Titration 84.575 100 Amount Dexmedetomidine/0.9% NaCl 84.575 (Pmx) 400 mcg In Empty Bag 1 bag @ 0.2 MCG/KG/HR 4.082 mls/hr IV .Q24H PIPE Rx#:[id number] Magnesium Sulfate-D5w Pmx 100 1 gm In Dextrose/Water 1 100ml.bag @ 100 mls/hr IVPB Q1H PIPE Rx#: [id number] Other 60 50 Output: Gastric Drainage 100 Urine 2145 1345 65 Other: Voiding Method Indwelling Catheter Indwelling Catheter Indwelling Catheter # Voids 1 # Bowel Movements 1 2 - Exam GENERAL: Reveals 69-year-old female calm, on 4 L nasal cannula, off Precedex HEENT: Pupils are round and equally reacting to light. EOMI. No scleral icterus. No conjunctival pallor. Normocephalic, atraumatic. No pharyngeal erythema. No thyromegaly. CARDIOVASCULAR: Distant S1-S2, no S3 gallop. PULMONARY: Clear bilaterally no rhonchi no wheezes ABDOMEN: flat soft nontender no megaly no rebound no guarding MUSCULOSKELETAL: No clubbing edema or cyanosis no deformities and no limitation range of motion EXTREMITIES: No cyanosis, clubbing, or pedal edema. NEUROLOGICAL: Encephalopathic but arousable opens eyes, f does not follow any instructions SKIN: No rashes. - Labs CBC & Chem 7: 10/11/24 05:45 10/11/24 05:45 Labs: Abnormal Lab Results - Last 24 Hours (Table) 10/11/24 10/11/24 Range/Units 05:45 05:45 RBC 3.43 L (4.10-5.20) 10*6/uL Hgb 10.9 L (12.0-15.0) g/dL Hct 31.7 L (37.2-46.3) % Plt Count 80 L (140-440) 10*3/uL Potassium 2.9 L (3.5-5.1) mmol/L Chloride 116 H (98-107) mmol/L Carbon Dioxide 19 L (22-30) mmol/L BUN 24 H (7-17) mg/dL Magnesium 1.3 L (1.6-2.3) mg/dL Microbiology - Last 24 Hours (Table) 10/10/24 00:00 Urine Culture - Preliminary Urine,Voided Gram Neg Bacilli Assessment and Plan Assessment: Impression: Acute toxic metabolic encephalopathy secondary to hepatic encephalopathy and elevated ammonia level, however her ammonia level is down and mentation remains poor and the patient remains encephalopathic History of liver cirrhosis secondary to alcoholism History of depression Benign essential hypertension History of chronic anemia History of insomnia History of restless leg syndrome History of chronic thrombocytopenia History of TIA History of GERD Recommendation: Continue to monitor in the ICU titrate oxygen accordingly Discontinue lactulose Continue supportive care measures GI and DVT prophylaxis, continue omeprazole Discontinue Precedex Continue thiamine CIWA protocol Prognosis remains relatively poor and guarded. Not quite ready to be transferred out of the ICU yet. Mostly because of her encephalopathy. Time with Patient: Less than 30
[2024-10-11] MEDS: LORazepam 1 MG TAB PO PRN (13:22)
--- NOTE | 2024-10-11 13:35 | P.PN ---
Subjective Progress Note Date: 10/11/24 69-year-old female with baseline chronic dementia/encephalopathy from chronic alcoholism cirrhosis and hepatic encephalopathy was transferred from outside hospital with elevated ammonia of around 250. Patient had NG tube and patient is is receiving lactulose through NG tube and patient. Recent ammonia is around 75. Patient is quite a bit agitated confused because of which patient was started on Precedex drip and was admitted to ICU. Patient will be started on Haldol for agitation will try to wean off of Precedex. CT brain CT abdomen pelvis and chest x-ray are all within normal limits from the outside hospital. Unfortunately patient is also on Tylenol as well as [place] as an outpatient which can cause severe encephalopathy and and patient can have acetaminophen toxicity because of cirrhosis. Presently my concern for acetaminophen toxicity is low. Urinalysis are not significantly elevated. 10/09/2024 Patient is evaluated today in the intensive care unit. Remains on BiPAP 04/03 with FiO2 of 35%. Patient remains altered. NG tube in place with small amt of coffee grounds in the canister although clearing up. Gastric occult was positive. Transitioned to IV protonix twice daily. Ammonia level down to 56 and continues on scheduled lactulose. Continues on IV precedex. Hemoglobin 11.4 10/10/2024 Patient remains in the intensive care unit. Currently off the BiPAP. Patient remains confused and altered. NG tube in place and no evidence of coffee grounds in the canister today. Hemoglobin today 10.6. Sodium 148, BUN 31, creatinine 0.58. Ammonia level 24. UA was completed last night with concern for UTI. Was started on IV ceftriaxone and currently pending urine culture. Currently off pr ecedex. 10/11/2024 Patient remains in intensive care unit currently off the BiPAP. Patient has not been sleeping per staff. Remains on lactulose which was cut down to daily. Ammonia level is down to less than 9 today. Urine culture currently pending she continues on IV ceftriaxone. Her mentation is slightly better than yesterday but still confused alert x 1. Has a sitter at the bedside. NG tube remains in place. Chest xray today reveals right-sided airspace opacities correlate for pneumonia. Unable to complete review of systems due to patients level of consciousness. PHYSICAL EXAMINATION: GENERAL: unable to assess orientation altered. AO x 1 today. On nasal cannula HEENT: Pupils are round and equally reacting to light. EOMI. No scleral icterus. No conjunctival pallor. Normocephalic, atraumatic. No pharyngeal erythema. No thyromegaly. CARDIOVASCULAR: S1 and S2 present. No murmurs, rubs, or gallops. PULMONARY: Chest is clear to auscultation, no wheezing or crackles. ABDOMEN: Soft, nontender, nondistended, normoactive bowel sounds. No palpable organomegaly. NG tube in place MUSCULOSKELETAL: No joint swelling or deformity. EXTREMITIES: No cyanosis, clubbing, or pedal edema. NEUROLOGICAL: Agitated on Precedex SKIN: No rashes. Assessment and plan - Altered mental status due to hepatic and toxic encephalopathy - Hepatic encephalopathy - Advanced alcoholic cirrhosis - History of alcohol abuse and dementia and chronic encephalopathy from alcohol use. - Depression - Hypertension - Sinus tachycardia secondary to agitation; resolved - Hypernatremia from free water deficit DVT prophylaxis: Subcutaneous heparin GI prophylaxis IV protonix twice daily Full Code Plan IV precedex has been weaned off and patient is currently on IV haldol Recommend to trial seroquel at HS Narcotics will be held Continue lactulose through NG tube Continued on thiamine and multivitamin supplementation Continue D5 water at 50 mls/hr Monitor electrolytes and renal function Monitor hemoglobin Attempt to follow up with family tomorrow regarding code status and plan of care The impression and plan of care has been dictated by Eileen Parson Nurse Practitioner as directed. Dr. Domitila MD I have performed a history and physical examination and medical decision making of this patient, discussed the same with the dictator, and agree with the dictators assessment and plan as written, documented as a scribe. Based on total visit time, I have performed more than 50% of this visit. Objective - Vital Signs Vital signs: Vital Signs Temp 98.3 F 10/11/24 08:00 Pulse 75 10/11/24 08:00 Resp 24 10/11/24 08:00 BP 145/77 10/11/24 08:00 Pulse Ox 97 10/11/24 08:19 FiO2 35 10/11/24 04:21 Intake & Output 10/10/24 10/11/24 10/11/24 18:59 06:59 18:59 Intake Total 784.575 660 250 Output Total 2145 1345 165 Balance -1360.425 -685 85 Weight 75.3 kg 70.5 kg Intake: IV 700 600 100 Dextrose 5% in Water 1, 350 600 100 000 ml @ 50 mls/hr IV . Q20H PIPE Rx#:[id number] Sodium Chloride 0.9% 1, 300 000 ml @ 75 mls/hr IV . [id number] PIPE Rx#:[id number] cefTRIAXone 1 gm In 50 Sodium Chloride 0.9% 50 ml @ 100 mls/hr IVPB Q24HR PIPE Rx#:[id number] Intake, IV Titration 84.575 100 Amount Dexmedetomidine/0.9% NaCl 84.575 (Pmx) 400 mcg In Empty Bag 1 bag @ 0.2 MCG/KG/HR 4.082 mls/hr IV .Q24H PIPE Rx#:[id number] Magnesium Sulfate-D5w Pmx 100 1 gm In Dextrose/Water 1 100ml.bag @ 100 mls/hr IVPB Q1H PIPE Rx#: [id number] Other 60 50 Output: Gastric Drainage 100 Urine 2145 1345 65 Other: Voiding Method Indwelling Catheter Indwelling Catheter Indwelling Catheter # Voids 1 # Bowel Movements 1 2 - Labs CBC & Chem 7: 10/11/24 05:45 10/11/24 11:50 Labs: Abnormal Lab Results - Last 24 Hours (Table) 10/11/24 10/11/24 Range/Units 05:45 05:45 RBC 3.43 L (4.10-5.20) 10*6/uL Hgb 10.9 L (12.0-15.0) g/dL Hct 31.7 L (37.2-46.3) % Plt Count 80 L (140-440) 10*3/uL Potassium 2.9 L (3.5-5.1) mmol/L Chloride 116 H (98-107) mmol/L Carbon Dioxide 19 L (22-30) mmol/L BUN 24 H (7-17) mg/dL Magnesium 1.3 L (1.6-2.3) mg/dL Assessment and Plan Time with Patient: Less than 30
[2024-10-11 18:17] LABS: Potassium 3.8 mmol/L (3.5-5.1)
[2024-10-11] MEDS: POTASSIUM CHLORIDE ER 20 MEQ TAB.ER PO SCH (19:48)
[2024-10-11] MEDS: amLODIPine 5 MG TAB PO SCH (22:35)
[2024-10-11] MEDS: QUEtiapine 25 MG TAB PO PRN (22:43)
[2024-10-12 06:14] LABS: Basophils # (A) 0.02 10*3/uL (0.00-0.10); Basophils % (A) 0.4 %; Eosinophils # (A) 0.29 10*3/uL (0.04-0.35); Eosinophils % (A) 5.8 %; HCT 33.3 % (37.2-46.3); HGB 11.3 g/dL (12.0-15.0); Lymphocytes # (A) 0.76 10*3/uL (0.90-5.00); Lymphocytes % (A) 15.1 %; MCH 31.7 pg (27.0-32.0); MCHC 33.9 g/dL (32.0-37.0); MCV 93.5 fL (80.0-97.0); Mean Platelet Volume 10.8 fL (9.5-12.2); Neutrophils # (A) 3.43 10*3/uL (1.80-7.70); Neutrophils % (A) 68.3 %; RBC 3.56 10*6/uL (4.10-5.20); RDW 14.8 % (11.5-14.5); WBC 5.02 10*3/uL (4.50-10.00)
[2024-10-12 06:26] LABS: Platelet Count 81 10*3/uL (140-440)
[2024-10-12 06:29] LABS: African American GFR (CKD) >90 (>60 ml/min/1.73 sqM); Anion Gap 6 mmol/L; Blood Urea Nitrogen 23 mg/dL (7-17); Calcium 9.3 mg/dL (8.4-10.2); Carbon Dioxide 25 mmol/L (22-30); Chloride 107 mmol/L (98-107); Glucose 121 mg/dL (74-99); Magnesium 1.5 mg/dL (1.6-2.3); Non-African American GFR(CKD) >90 (>60 ml/min/1.73 sqM); Potassium 3.6 mmol/L (3.5-5.1); Sodium 138 mmol/L (137-145)
[2024-10-12] MEDS ORDERED: Potassium Replacement Protocol 1 EACH MISC MISCELLANE PRN (06:48)
[2024-10-12] MEDS ORDERED: Magnesium Replacement Protocol 1 EACH MISC MISCELLANE PRN (06:48)
[2024-10-12] MEDS: MAGNESIUM SULFATE-D5W PMX 1 GM in DEXTROSE/WATER 1 100ML.BAG IVPB SCH (09:12)
[2024-10-12] MEDS: POTASSIUM BICARBONATE/CIT AC 20 MEQ TABLET.EFF NG-TUBE SCH (09:12)
[2024-10-12] MEDS: FUROSEMIDE 10 MG/ML 2 ML VIAL IV ONE (10:26)
--- NOTE | 2024-10-12 12:30 | P.PN ---
Subjective Progress Note Date: 10/12/24 Principal diagnosis: Acute hepatic encephalopathy This is a 69-year-old female with known history of chronic alcoholism, hepatic cirrhosis, hepatic encephalopathy, patient was transferred from [facility] with elevated ammonia level and altered mental status. Patient has been receiving lactulose and her most recent ammonia level is down to 75. Patient was seen in the ER, and she was noted to be quite encephalopathic, thrashing in bed, restless, agitated, could not conduct any reasonable conversation. Patient is thrashing in bed, eyes closed, and quite agitated. Hence I recommended patient to be admitted to the ICU instead of admitting her to the medical floor, and I recommended patient to be started on Precedex. Could not obtain any information from the patient herself, most of the information was obtained from the chart. Looking back at the chart, patient does have history of liver cirrhosis depression hypertension hypomagnesemia malnutrition pancytopenia restless leg syndrome thrombocytopenia and history of TIA. ABG in the ER showed a pO2 of 72 pCO2 26 pH of 7.43 bicarb is 18. CBC was relatively unremarkable hemoglobin was 12.1. Platelets were 100,000. Chest x- ray showed elevated left hemidiaphragm, otherwise lungs are clear and nasogast nicki tube is in proper position. Patient had a nasogastric tube placed for lactulose treatment. Patient was seen today on 10/09/2024, remains in the ICU, she is on BiPAP, 12/5/45%, ammonia level is down to 56, patient remains quite encephalopathic. Labs showed mild metabolic acidosis and she was given 1 amp of bicarb. She is on Precedex at 0.2 mcg/kg/h, she is also on IV fluid at 75 cc/h 0.9 normal saline. Patient seems to be comfortable on BiPAP, not in distress, she opens her eyes, follows very simple instructions, but she tends to fall asleep again. WBC is 8.6 hemoglobin 11.4 ABG showed a pO2 of 106 pCO2 28 pH of 7.38 this was done yesterday. Basic metabolic profile is normal except for bicarb of 15 there is none anion gap. Metabolic acidosis. Reevaluate today on 10/10/2024, patient remains in the ICU, on BiPAP, 12/5/35%, still on Precedex at 0.5 mcg/kg/h, patient is on IV fluid at 75 cc/h norepinephrine is presently on hold, patient did receive Lasix earlier today 20 mg IV push because of poor urine output her ammonia level is down to 24 patient is on ceftriaxone empirically her ammonia level is improving but mental status does not seem to be much improved. Still requiring a sitter at bedside. WBC count 6.4 hemoglobin 10.6 electrolytes showed low bicarb of 15 patient has elevated sodium of 148. Hence her IV fluid is to be changed to D5W gastric occult blood is positive, hemoglobin today is 10.6. Chest x-ray on admission showed no evidence of active disease. Seen today on 10/11/2024, remains in the ICU, on 4 L nasal cannula, patient has D5W at 50 cc an hour, remains on lactulose but it is once a day given remains on Lasix intermittently she is her ammonia level is 9 today. Patient remains on Rocephin empirically. Mentation mane is the main issue and that is the reason why the patient is kept in the ICU, remains intermittently restless agitated and needs to be closely monitored. Patient is confused/encephalopathic. WBC count is 7.2 hemoglobin 10.9 sodium is down to 145 potassium 2.9 bicarb is 19 renal profile is normal, ammonia level is less than 9. Chest x-ray showed minimal opacities along the right heart border. No consolidation, no pleural effusion. Seen today on 10/12/2024, patient is basically about the same, remains encephalopathic, continues to have a sitter at bedside, needs close monitoring, mostly because of her mental status and encephalopathy. At times she requires suctioning because she cannot clear her own secretions easily and does not cough on her own. Labs were reviewed WBC count is 9.9 hemoglobin is 9.1 electrolytes are normal renal profile is normal Objective - Vital Signs Vital signs: Vital Signs Temp 97.9 F 10/12/24 12:00 Pulse 58 L 10/12/24 12:00 Resp 20 10/12/24 12:00 BP 144/83 10/12/24 12:00 Pulse Ox 97 10/12/24 12:00 FiO2 35 10/12/24 10:00 Intake & Output 10/11/24 10/12/24 10/12/24 18:59 06:59 18:59 Intake Total 900 770 480 Output Total 1595 282 660 Balance -695 488 -180 Weight 68.4 kg Intake: IV 600 650 450 Dextrose 5% in Water 1, 600 650 150 000 ml @ 50 mls/hr IV . Q20H PIPE Rx#:[id number] Magnesium Sulfate-D5w Pmx 200 1 gm In Dextrose/Water 1 100ml.bag @ 100 mls/hr IVPB Q1H P[facility] Rx#: [id number] cefTRIAXone 1 gm In 100 Sodium Chloride 0.9% 50 ml @ 100 mls/hr IVPB Q24HR PIPE Rx#:[id number] Intake, IV Titration 100 Amount Magnesium Sulfate-D5w Pmx 100 1 gm In Dextrose/Water 1 100ml.bag @ 100 mls/hr IVPB Q1H PIPE Rx#: [id number] Oral 0 Other 200 120 30 Output: Gastric Drainage 100 25 Urine 1495 240 660 Stool 2 Oral Regurgitation 15 Other: Voiding Method Indwelling Catheter Indwelling Catheter Indwelling Catheter # Voids 1 # Bowel Movements 1 - Exam GENERAL: Reveals 69-year-old female calm, on 6 L high flow nasal cannula with O2 sat of 98% HEENT: Pupils are round and equally reacting to light. EOMI. No scleral icterus. No conjunctival pallor. Normocephalic, atraumatic. No pharyngeal erythema. No thyromegaly. CARDIOVASCULAR: Distant S1-S2, no S3 gallop. PULMONARY: Clear bilaterally no rhonchi no wheezes ABDOMEN: flat soft nontender no megaly no rebound no guarding MUSCULOSKELETAL: No clubbing edema or cyanosis no deformities and no limitation range of motion EXTREMITIES: No cyanosis, clubbing, or pedal edema. NEUROLOGICAL: Encephalopathic but arousable opens eyes, does not follow any instructions SKIN: No rashes. - Labs CBC & Chem 7: 10/12/24 05:41 10/12/24 05:41 Labs: Abnormal Lab Results - Last 24 Hours (Table) 10/12/24 10/12/24 10/12/24 Range/Units 05:41 05:41 05:41 RBC 3.56 L (4.10-5.20) 10*6/uL Hgb 11.3 L (12.0-15.0) g/dL Hct 33.3 L (37.2-46.3) % Plt Count 81 L (140-440) 10*3/uL Lymphocytes # 0.76 L (0.90-5.00) 10*3/uL BUN 23 H (7-17) mg/dL Creatinine 0.51 L (0.52-1.04) mg/dL Glucose 121 H (74-99) mg/dL Magnesium 1.5 L (1.6-2.3) mg/dL Ammonia 31 H (<30) umol/L Microbiology - Last 24 Hours (Table) 10/10/24 00:00 Urine Culture - Preliminary Urine,Voided Gram Neg Bacilli Assessment and Plan Assessment: Impression: Acute toxic metabolic encephalopathy secondary to hepatic encephalopathy and elevated ammonia level, however her ammonia level is down and mentation remains poor and the patient remains encephalopathic, ammonia level today is 31 History of liver cirrhosis secondary to alcoholism History of depression Benign essential hypertension History of chronic anemia History of insomnia History of restless leg syndrome History of chronic thrombocytopenia History of TIA History of GERD Recommendation: Continue to monitor in the ICU titrate oxygen accordingly Discontinue lactulose Continue supportive care measures GI and DVT prophylaxis, continue omeprazole Continue thiamine CIWA protocol Prognosis remains relatively poor and guarded. Patient may eventually need placement at this point she is quite encephalopathic and will continue to monitor in the ICU Time with Patient: Less than 30
--- NOTE | 2024-10-12 13:12 | P.PN ---
Subjective Progress Note Date: 10/12/24 69-year-old female with baseline chronic dementia/encephalopathy from chronic alcoholism cirrhosis and hepatic encephalopathy was transferred from outside hospital with elevated ammonia of around 250. Patient had NG tube and patient is is receiving lactulose through NG tube and patient. Recent ammonia is around 75. Patient is quite a bit agitated confused because of which patient was started on Precedex drip and was admitted to ICU. Patient will be started on Haldol for agitation will try to wean off of Precedex. CT brain CT abdomen pelvis and chest x-ray are all within normal limits from the outside hospital. Unfortunately patient is also on Tylenol as well as Allen as an outpatient which can cause severe encephalopathy and and patient can have acetaminophen toxicity because of cirrhosis. Presently my concern for acetaminophen toxicity is low. Urinalysis are not significantly elevated. 10/09/2024 Patient is evaluated today in the intensive care unit. Remains on BiPAP 04/03 with FiO2 of 35%. Patient remains altered. NG tube in place with small amt of coffee grounds in the canister although clearing up. Gastric occult was positive. Transitioned to IV protonix twice daily. Ammonia level down to 56 and continues on scheduled lactulose. Continues on IV precedex. Hemoglobin 11.4 10/10/2024 Patient remains in the intensive care unit. Currently off the BiPAP. Patient remains confused and altered. NG tube in place and no evidence of coffee grounds in the canister today. Hemoglobin today 10.6. Sodium 148, BUN 31, creatinine 0.58. Ammonia level 24. UA was completed last night with concern for UTI. Was started on IV ceftriaxone and currently pending urine culture. Currently off pr ecedex. 10/11/2024 Patient remains in intensive care unit currently off the BiPAP. Patient has not been sleeping per staff. Remains on lactulose which was cut down to daily. Ammonia level is down to less than 9 today. Urine culture currently pending she continues on IV ceftriaxone. Her mentation is slightly better than yesterday but still confused alert x 1. Has a sitter at the bedside. NG tube remains in place. Chest xray today reveals right-sided airspace opacities correlate for pneumonia. 10/12/2024 Patient remains in intensive care unit. Plan oxygen via nasal cannula at 2 L with saturations of 97%. She did require BiPAP overnight and did not get much sleep again. She is slow to respond able to state her name sometimes. Per the RN she will have moments of lucidity where she will be able to speak sentences but overall she still appears significantly encephalopathic. Her electrolytes are also normalizing today her sodium level is 138 her potassium was 3.6 BUN of 23 creatinine 0.51, magnesium of 1.5. Her ammonia level has gone back up to 31 after her lactulose was cut back. Patient will need to have 2-3 loose bowel movements per day in order to keep her ammonia at a normal level. Her urine culture showing gram-negative bacilli and she continues on a course of IV ce ftriaxone pending final cultures. In the last few years since she came over from [place]; son Reinaldo states she is not able to tell where she is and feels she is in a state of delirium and doesn't have a good sense of reality. He would like her to be evaluated by neurologist with concerns for possible Dementia. Discussed a dementia diagnosis with neurologist would have to come on an outpatient basis. Speech therapy was consulted for cognitive evaluation and this was discussed with Reinaldo who is the patients guardian. Will follow up tomorrow after the ST consultation. Unable to complete review of systems due to patients level of consciousness. PHYSICAL EXAMINATION: GENERAL: unable to assess orientation altered. AO x 1 today. On nasal cannula HEENT: Pupils are round and equally reacting to light. EOMI. No scleral icterus. No conjunctival pallor. Normocephalic, atraumatic. No pharyngeal erythema. No thyromegaly. CARDIOVASCULAR: S1 and S2 present. No murmurs, rubs, or gallops. PULMONARY: Chest is clear to auscultation, no wheezing or crackles. ABDOMEN: Soft, nontender, nondistended, normoactive bowel sounds. No palpable organomegaly. NG tube in place MUSCULOSKELETAL: No joint swelling or deformity. EXTREMITIES: No cyanosis, clubbing, or pedal edema. NEUROLOGICAL: Agitated and altered SKIN: No rashes. Assessment and plan - Altered mental status due to hepatic and toxic encephalopathy - Hepatic encephalopathy - Advanced alcoholic cirrhosis - Asymptomatic bacteriurea with cultures only growing 50-100,000 of gram negative bacilli. - History of alcohol abuse and dementia and chronic encephalopathy from alcohol use. - Depression - Hypertension - Sinus tachycardia secondary to agitation; resolved - Hypernatremia from free water deficit DVT prophylaxis: Subcutaneous heparin GI prophylaxis IV protonix twice daily Full Code Plan Stop the IV ceftriaxone IV precedex has been weaned off and patient is currently on IV haldol Recommend to trial seroquel at HS Narcotics will be held Continue lactulose through NG tube with goal of 2 to 3 loose bowel movements per day Continued on thiamine and multivitamin supplementation Continue D5 water at 50 mls/hr Monitor electrolytes and renal function Monitor hemoglobin Followed up with son Reinaldo who is patients legal guardian. Discussed hospice and steps going forward. Speech therapy was consulted although patient may not do well with evaluation. Concern she may also be aspirating on her secretions. NG tube remains in place. The impression and plan of care has been dictated by Eileen Parson Nurse Practitioner as directed. Dr. Domitila MD I have performed a history and physical examination and medical decision making of this patient, discussed the same with the dictator, and agree with the dictators assessment and plan as written, documented as a scribe. Based on total visit time, I have performed more than 50% of this visit. Objective - Vital Signs Vital signs: Vital Signs Temp 98.1 F 10/12/24 03:00 Pulse 64 10/12/24 07:00 Resp 19 10/12/24 07:00 BP 159/77 10/12/24 07:00 Pulse Ox 97 10/12/24 08:18 FiO2 35 10/11/24 04:21 Intake & Output 10/11/24 10/12/24 10/12/24 18:59 06:59 18:59 Intake Total 900 770 Output Total 1595 282 Balance -695 488 Weight 68.4 kg Intake: IV 600 650 Dextrose 5% in Water 1, 600 650 000 ml @ 50 mls/hr IV . Q20H PIPE Rx#:[id number] Intake, IV Titration 100 Amount Magnesium Sulfate-D5w Pmx 100 1 gm In Dextrose/Water 1 100ml.bag @ 100 mls/hr IVPB Q1H PIPE Rx#: [id number] Oral 0 Other 200 120 Output: Gastric Drainage 100 25 Urine 1495 240 Stool 2 Oral Regurgitation 15 Other: Voiding Method Indwelling Catheter Indwelling Catheter # Voids 1 # Bowel Movements 1 - Labs CBC & Chem 7: 10/12/24 05:41 10/12/24 05:41 Labs: Abnormal Lab Results - Last 24 Hours (Table) 10/12/24 10/12/24 10/12/24 Range/Units 05:41 05:41 05:41 RBC 3.56 L (4.10-5.20) 10*6/uL Hgb 11.3 L (12.0-15.0) g/dL Hct 33.3 L (37.2-46.3) % Plt Count 81 L (140-440) 10*3/uL Lymphocytes # 0.76 L (0.90-5.00) 10*3/uL BUN 23 H (7-17) mg/dL Creatinine 0.51 L (0.52-1.04) mg/dL Glucose 121 H (74-99) mg/dL Magnesium 1.5 L (1.6-2.3) mg/dL Ammonia 31 H (<30) umol/L Microbiology - Last 24 Hours (Table) 10/10/24 00:00 Urine Culture - Preliminary Urine,Voided Gram Neg Bacilli Assessment and Plan Time with Patient: Less than 30
[2024-10-12] MEDS: LACTULOSE 20 GM/30 ML CUP NG-TUBE SCH (15:24)
[2024-10-12 16:33] LABS: Magnesium 1.9 mg/dL (1.6-2.3); Potassium 4.2 mmol/L (3.5-5.1)
[2024-10-12] MEDS: MAGNESIUM SULFATE-D5W PMX 1 GM in DEXTROSE/WATER 1 100ML.BAG IVPB ONE (17:15)
[2024-10-12] MEDS: FUROSEMIDE 10 MG/ML 2 ML VIAL IV SCH (18:21)
[2024-10-13 06:24] LABS: African American GFR (CKD) >90 (>60 ml/min/1.73 sqM); Anion Gap 9 mmol/L; Blood Urea Nitrogen 22 mg/dL (7-17); Calcium 8.9 mg/dL (8.4-10.2); Carbon Dioxide 27 mmol/L (22-30); Chloride 100 mmol/L (98-107); Glucose 110 mg/dL (74-99); Magnesium 1.6 mg/dL (1.6-2.3); Non-African American GFR(CKD) 90 (>60 ml/min/1.73 sqM); Potassium 3.4 mmol/L (3.5-5.1); Sodium 136 mmol/L (137-145)
[2024-10-13] MEDS ORDERED: Potassium Replacement Protocol 1 EACH MISC MISCELLANE PRN (06:31)
[2024-10-13] MEDS ORDERED: Magnesium Replacement Protocol 1 EACH MISC MISCELLANE PRN (06:31)
[2024-10-13] MEDS: MAGNESIUM SULFATE-D5W PMX 1 GM in DEXTROSE/WATER 1 100ML.BAG IVPB SCH (06:39)
[2024-10-13] MEDS: POTASSIUM BICARBONATE/CIT AC 20 MEQ TABLET.EFF NG-TUBE SCH ×2 (06:39→17:18)
[2024-10-13 06:53] LABS: HCT 33.8 % (37.2-46.3); HGB 11.9 g/dL (12.0-15.0); MCH 32.2 pg (27.0-32.0); MCHC 35.2 g/dL (32.0-37.0); MCV 91.6 fL (80.0-97.0); Mean Platelet Volume 10.8 fL (9.5-12.2); RBC 3.69 10*6/uL (4.10-5.20); RDW 14.8 % (11.5-14.5); WBC 6.14 10*3/uL (4.50-10.00)
[2024-10-13 07:52] LABS: Eosinophils # (M) 0.18 k/uL (0-0.7); Monocytes # (M) 0.61 k/uL (0-1.0); Neutrophils # (M) 4.54 k/uL (1.3-7.7); Neutrophils % (M) 74 %; Nucleated Red Blood Cells 0 /100 WBC (0-0); Total Cells Counted 100
[2024-10-13 07:53] LABS: Platelet Count 89 10*3/uL (140-440)
[2024-10-13] MEDS ORDERED: LORazepam 1 MG TAB PO PRN (09:54)
[2024-10-13] MEDS: QUEtiapine 25 MG TAB PO SCH (10:39)
[2024-10-13] MEDS: SODIUM CHLORIDE 0.9% 1,000 ML IV SCH (11:23)
--- NOTE | 2024-10-13 13:54 | P.PN ---
Subjective Progress Note Date: 10/13/24 Principal diagnosis: Hepatic encephalopathy. This is a 69-year-old female with known history of chronic alcoholism, hepatic cirrhosis, hepatic encephalopathy, patient was transferred from [facility] with elevated ammonia level and altered mental status. Patient has be en receiving lactulose and her most recent ammonia level is down to 75. Patient was seen in the ER, and she was noted to be quite encephalopathic, thrashing in bed, restless, agitated, could not conduct any reasonable conversation. Patient is thrashing in bed, eyes closed, and quite agitated. Hence I recommended patient to be admitted to the ICU instead of admitting her to the medical floor, and I recommended patient to be started on Precedex. Could not obtain any information from the patient herself, most of the information was obtained from the chart. Looking back at the chart, patient does have history of liver cirrhosis depression hypertension hypomagnesemia malnutrition pancytopenia restless leg syndrome thrombocytopenia and history of TIA. ABG in the ER showed a pO2 of 72 pCO2 26 pH of 7.43 bicarb is 18. CBC was relatively unremarkable hemoglobin was 12.1. Platelets were 100,000. Chest x-ray showed elevated left hemidiaphragm, otherwise lungs are clear and nasogastric tube is in proper position. Patient had a nasogastric tube placed for lactulose treatment. Patient was seen today on 10/09/2024, remains in the ICU, she is on BiPAP, 12/5/45%, ammonia level is down to 56, patient remains quite encephalopathic. Labs showed mild metabolic acidosis and she was given 1 amp of bicarb. She is on Precedex at 0.2 mcg/kg/h, she is also on IV fluid at 75 cc/h 0.9 normal sa line. Patient seems to be comfortable on BiPAP, not in distress, she opens her eyes, follows very simple instructions, but she tends to fall asleep again. WBC is 8.6 hemoglobin 11.4 ABG showed a pO2 of 106 pCO2 28 pH of 7.38 this was done yesterday. Basic metabolic profile is normal except for bicarb of 15 there is none anion gap. Metabolic acidosis. Reevaluate today on 10/10/2024, patient remains in the ICU, on BiPAP, 12/5/35%, still on Precedex at 0.5 mcg/kg/h, patient is on IV fluid at 75 cc/h norepinephrine is presently on hold, patient did receive Lasix earlier today 20 mg IV push because of poor urine output her ammonia level is down to 24 patient is on ceftriaxone empirically her ammonia level is improving but mental status does not seem to be much improved. Still requiring a sitter at bedside. WBC count 6.4 hemoglobin 10.6 electrolytes showed low bicarb of 15 patient has el evated sodium of 148. Hence her IV fluid is to be changed to D5W gastric occult blood is positive, hemoglobin today is 10.6. Chest x-ray on admission showed no evidence of active disease. Seen today on 10/11/2024, remains in the ICU, on 4 L nasal cannula, patient has D5W at 50 cc an hour, remains on lactulose but it is once a day given remains on Lasix intermittently she is her ammonia level is 9 today. Patient remains on Rocephin empirically. Mentation mane is the main issue and that is the reason why the patient is kept in the ICU, remains intermittently restless agitated and needs to be closely monitored. Patient is confused/encephalopathic. WBC count is 7.2 hemoglobin 10.9 sodium is down to 145 potassium 2.9 bicarb is 19 renal profile is normal, ammonia level is less than 9. Chest x-ray showed minimal opacities along the right heart border. No consolidation, no pleural effusion. Seen today on 10/12/2024, patient is basically about the same, remains encephalopathic, continues to have a sitter at bedside, needs close monitoring, mostly because of her mental status and encephalopathy. At times she requires suctioning because she cannot clear her own secretions easily and does not cough on her own. Labs were reviewed WBC count is 9.9 hemoglobin is 9.1 electrolytes are normal renal profile is normal Progress note dated October 13, 2024. 69-year-old female seen today in room 254. The patient was admitted to the hospital on October 07. She came to the intensive care unit, from the emergency department. She came in with chronic liver disease and hepatic encephalopathy. Currently, she is seen in room 254. She continues on nasal O2 at 2 L. She is getting D5W at 50 cc an hour, saline at 10 cc an hour. At times, the patient is severely agitated. Today, we changed her medications a bit. We add Seroquel 25 mg 3 times a day, Haldol 48 mg IM every 4 hours as needed, and Ativan 0.5 to 1 mg every 6 hours as needed. White count of 6.14, hemoglobin 9.9, hematocrit 3 3.8, platelet count 89,000. Sodium 136, potassium 3.8, chlorides 100, CO2 27, BUN 22, creatinine 0.65. Glucose is 110. Calcium is 8.9. Ammonia level is down to 28 from 31. Urine cultures were positive for Escherichia coli. This is from October 10. No chest x-ray today. Objective - Vital Signs Vital signs: Vital Signs Temp 97.5 F L 10/13/24 12:00 Pulse 64 10/13/24 13:00 Resp 18 10/13/24 13:00 BP 108/81 10/13/24 13:00 Pulse Ox 94 L 10/13/24 13:00 FiO2 2 10/12/24 16:00 Intake & Output 10/12/24 10/13/24 10/13/24 18:59 06:59 18:59 Intake Total 880 660 810 Output Total 1110 695 700 Balance -230 -35 110 Weight 68.2 kg 68.7 kg Intake: IV 850 600 550 Dextrose 5% in Water 1, 450 600 350 000 ml @ 50 mls/hr IV . Q20H REPLACED BY [facility] Rx#:[id number] Magnesium Sulfate-D5w Pmx 100 200 1 gm In Dextrose/Water 1 100ml.bag @ 100 mls/hr IVPB ONCE ONE Rx#: [id number] Magnesium Sulfate-D5w Pmx 200 1 gm In Dextrose/Water 1 100ml.bag @ 100 mls/hr IVPB Q1H REPLACED BY [facility] Rx#: [id number] cefTRIAXone 1 gm In 100 Sodium Chloride 0.9% 50 ml @ 100 mls/hr IVPB Q24HR REPLACED BY [facility] Rx#:[id number] Oral 0 200 Other 30 60 60 Output: Gastric Drainage 50 Urine 1110 645 700 Other: Voiding Method Indwelling Catheter Indwelling Catheter Indwelling Catheter # Voids 1 # Bowel Movements 1 1 - Exam No acute distress, the patient is quite lethargic and somnolent. She does arouse. She is currently on 2 L of oxygen. HEENT examination is grossly unremarkable. Mucous membranes are moist. No oral lesions. Neck supple. Full range of motion. No adenopathy thyromegaly or neck vein distention. Cardiovascular examination reveals regular rhythm rate. S1-S2 normal. No S3 or S4. No discernible murmur noted. Heart sounds are distant. Lungs reveal bilateral rhonchi. No wheezes or crackles. Breath sounds are equal bilaterally. Abdomen soft bowel sounds are heard. No masses or tenderness. Extremities are intact. No cyanosis clubbing or edema. Skin is without rash or lesion. Neurologic examination is brief but nonfocal. - Labs CBC & Chem 7: 10/13/24 05:34 10/13/24 12:02 Labs: Abnormal Lab Results - Last 24 Hours (Table) 10/13/24 10/13/24 Range/Units 05:34 05:34 RBC 3.69 L (4.10-5.20) 10*6/uL Hgb 11.9 L (12.0-15.0) g/dL Hct 33.8 L (37.2-46.3) % MCH 32.2 H (27.0-32.0) pg Plt Count 89 L (140-440) 10*3/uL Lymphocytes # (Manual) 0.80 L (1.0-4.8) k/uL Sodium 136 L (137-145) mmol/L Potassium 3.4 L (3.5-5.1) mmol/L BUN 22 H (7-17) mg/dL Glucose 110 H (74-99) mg/dL Microbiology - Last 24 Hours (Table) 10/10/24 00:00 Urine Culture - Final Urine,Voided Escherichia coli Assessment and Plan Assessment: Acute toxic/metabolic encephalopathy, secondary to chronic liver disease, hepatic encephalopathy, as well as hyperammonemia. History of liver cirrhosis, secondary to chronic alcohol abuse. History of E. coli urinary tract infection. History of depression. Benign essential hypertension. History of chronic anemia. History of insomnia. History of restless leg syndrome. History of chronic thrombocytopenia. History of TIA. History of gastroesophageal reflux disease. Plan: Plan dated October 13, 2024. The patient is seen today in room 254. The patient is very lethargic and somnolent. She continues on 2 L of oxygen. She is getting D5W at 50 cc an hour. She is getting saline at 10 cc an hour. All labs, x-rays, and medications are reviewed. The patient is a quite agitated and confused at time s. We increase her Seroquel to 25 mg 3 times a day, write for Haldol 4 to 8 mg every 4 hours as needed IM, and add Ativan 0.5 to 1 mg IV, every 6 hours, as needed. Additional recommendations and suggestions are forthcoming. The patient's overall prognosis is very guarded. She continues on GI and DVT prophylaxis. Her ammonia level is back in the normal range. We continue her on the CIWA protocol. Dictation was produced using [employer] dictation software. Please excuse any grammatical, word or spelling errors. Time with Patient: Greater than 30
--- NOTE | 2024-10-13 14:57 | P.PN ---
Subjective Progress Note Date: 10/13/24 69-year-old female with baseline chronic dementia/encephalopathy from chronic alcoholism cirrhosis and hepatic encephalopathy was transferred from outside hospital with elevated ammonia of around 250. Patient had NG tube and patient is is receiving lactulose through NG tube and patient. Recent ammonia is around 75. Patient is quite a bit agitated confused because of which patient was started on Precedex drip and was admitted to ICU. Patient will be started on Haldol for agitation will try to wean off of Precedex. CT brain CT abdomen pelvis and chest x-ray are all within normal limits from the outside hospital. Unfortunately patient is also on Tylenol as well as [place] as an outpatient which can cause severe encephalopathy and and patient can have acetaminophen toxicity because of cirrhosis. Presently my concern for acetaminophen toxicity is low. Urinalysis are not significantly elevated. 10/09/2024 Patient is evaluated today in the intensive care unit. Remains on BiPAP 04/03 with FiO2 of 35%. Patient remains altered. NG tube in place with small amt of coffee grounds in the canister although clearing up. Gastric occult was positive. Transitioned to IV protonix twice daily. Ammonia level down to 56 and continues on scheduled lactulose. Continues on IV precedex. Hemoglobin 11.4 10/10/2024 Patient remains in the intensive care unit. Currently off the BiPAP. Patient remains confused and altered. NG tube in place and no evidence of coffee grounds in the canister today. Hemoglobin today 10.6. Sodium 148, BUN 31, creatinine 0.58. Ammonia level 24. UA was completed last night with concern for UTI. Was started on IV ceftriaxone and currently pending urine culture. Currently off pr ecedex. 10/11/2024 Patient remains in intensive care unit currently off the BiPAP. Patient has not been sleeping per staff. Remains on lactulose which was cut down to daily. Ammonia level is down to less than 9 today. Urine culture currently pending she continues on IV ceftriaxone. Her mentation is slightly better than yesterday but still confused alert x 1. Has a sitter at the bedside. NG tube remains in place. Chest xray today reveals right-sided airspace opacities correlate for pneumonia. 10/12/2024 Patient remains in intensive care unit. Plan oxygen via nasal cannula at 2 L with saturations of 97%. She did require BiPAP overnight and did not get much sleep again. She is slow to respond able to state her name sometimes. Per the RN she will have moments of lucidity where she will be able to speak sentences but overall she still appears significantly encephalopathic. Her electrolytes are also normalizing today her sodium level is 138 her potassium was 3.6 BUN of 23 creatinine 0.51, magnesium of 1.5. Her ammonia level has gone back up to 31 after her lactulose was cut back. Patient will need to have 2-3 loose bowel movements per day in order to keep her ammonia at a normal level. Her urine culture showing gram-negative bacilli and she continues on a course of IV ce ftriaxone pending final cultures. In the last few years since she came over from [place]; son Reinaldo states she is not able to tell where she is and feels she is in a state of delirium and doesn't have a good sense of reality. He would like her to be evaluated by neurologist with concerns for possible Dementia. Discussed a dementia diagnosis with neurologist would have to come on an outpatient basis. Speech therapy was consulted for cognitive evaluation and this was discussed with Reinaldo who is the patients guardian. Will follow up tomorrow after the ST consultation. 10/13/2024 Patient remains the intensive care unit. Ammonia is better at 28. She has been started on IV Lasix secondary to significant volume overload. Pending speech therapy evaluation today. Patient is more awake and alert x 2 able to tell me her name and birthday. She is more appropriate. NG tube remains in place. Unable to complete review of systems due to patients level of consciousness. PHYSICAL EXAMINATION: GENERAL: unable to assess orientation altered. AO x 1 today. On nasal cannula HEENT: Pupils are round and equally reacting to light. EOMI. No scleral icterus. No conjunctival pallor. Normocephalic, atraumatic. No pharyngeal erythema. No thyromegaly. CARDIOVASCULAR: S1 and S2 present. No murmurs, rubs, or gallops. PULMONARY: Chest is clear to auscultation, no wheezing or crackles. ABDOMEN: Soft, nontender, nondistended, normoactive bowel sounds. No palpable organomegaly. NG tube in place MUSCULOSKELETAL: No joint swelling or deformity. EXTREMITIES: No cyanosis, clubbing, or pedal edema. NEUROLOGICAL: Agitated and altered SKIN: No rashes. Assessment and plan - Altered mental status due to hepatic and toxic encephalopathy - Hepatic encephalopathy - Advanced alcoholic cirrhosis - Asymptomatic bacteriurea with cultures only growing 50-100,000 of gram negative bacilli. - History of alcohol abuse and dementia and chronic encephalopathy from alcohol use. - Depression - Hypertension - Sinus tachycardia secondary to agitation; resolved - Hypernatremia from free water deficit DVT prophylaxis: Subcutaneous heparin GI prophylaxis IV protonix twice daily Full Code Plan IV precedex has been weaned off and patient is currently on IV haldol Recommend to trial seroquel at HS Narcotics will be held Continue lactulose through NG tube with goal of 2 to 3 loose bowel movements per day Continued on thiamine and multivitamin supplementation Continue D5 water at 50 mls/hr Pulmonology has added IV Lasix 3 times daily Monitor electrolytes and renal function Monitor hemoglobin Pending speech therapy evaluation The impression and plan of care has been dictated by Eileen Parson, Nurse Practitioner as directed. Dr. Domitila MD I have performed a history and physical examination and medical decision making of this patient, discussed the same with the dictator, and agree with the dictators assessment and plan as written, documented as a scribe. Based on total visit time, I have performed more than 50% of this visit. Objective - Vital Signs Vital signs: Vital Signs Temp 97.8 F 10/13/24 08:00 Pulse 70 10/13/24 09:00 Resp 13 10/13/24 09:00 BP 119/59 10/13/24 09:00 Pulse Ox 95 10/13/24 09:00 FiO2 2 10/12/24 16:00 Intake & Output 10/12/24 10/13/24 10/13/24 18:59 06:59 18:59 Intake Total 880 660 610 Output Total 1110 695 175 Balance -230 -35 435 Weight 68.2 kg Intake: IV 850 600 350 Dextrose 5% in Water 1, 450 600 150 000 ml @ 50 mls/hr IV . Q20H [facility] Rx#:[id number] Magnesium Sulfate-D5w Pmx 100 200 1 gm In Dextrose/Water 1 100ml.bag @ 100 mls/hr IVPB ONCE ONE Rx#: [id number] Magnesium Sulfate-D5w Pmx 200 1 gm In Dextrose/Water 1 100ml.bag @ 100 mls/hr IVPB Q1H [facility] Rx#: [id number] cefTRIAXone 1 gm In 100 Sodium Chloride 0.9% 50 ml @ 100 mls/hr IVPB Q24HR [facility] Rx#:[id number] Oral 0 200 Other 30 60 60 Output: Gastric Drainage 50 Urine 1110 645 175 Other: Voiding Method Indwelling Catheter Indwelling Catheter Indwelling Catheter # Voids 1 # Bowel Movements 1 - Labs CBC & Chem 7: 10/13/24 05:34 10/13/24 12:02 Labs: Abnormal Lab Results - Last 24 Hours (Table) 10/13/24 10/13/24 Range/Units 05:34 05:34 RBC 3.69 L (4.10-5.20) 10*6/uL Hgb 11.9 L (12.0-15.0) g/dL Hct 33.8 L (37.2-46.3) % MCH 32.2 H (27.0-32.0) pg Plt Count 89 L (140-440) 10*3/uL Lymphocytes # (Manual) 0.80 L (1.0-4.8) k/uL Sodium 136 L (137-145) mmol/L Potassium 3.4 L (3.5-5.1) mmol/L BUN 22 H (7-17) mg/dL Glucose 110 H (74-99) mg/dL Microbiology - Last 24 Hours (Table) 10/10/24 00:00 Urine Culture - Final Urine,Voided Escherichia coli Assessment and Plan Time with Patient: Less than 30
[2024-10-14 06:29] LABS: African American GFR (CKD) >90 (>60 ml/min/1.73 sqM); Anion Gap 8 mmol/L; Blood Urea Nitrogen 20 mg/dL (7-17); Carbon Dioxide 25 mmol/L (22-30); Chloride 101 mmol/L (98-107); Glucose 117 mg/dL (74-99); Magnesium 1.5 mg/dL (1.6-2.3); Non-African American GFR(CKD) 87 (>60 ml/min/1.73 sqM); Potassium 3.7 mmol/L (3.5-5.1); Sodium 134 mmol/L (137-145)
[2024-10-14] MEDS: MAGNESIUM SULFATE-D5W PMX 1 GM in DEXTROSE/WATER 1 100ML.BAG IVPB ONE ×2 (06:56→08:48)
[2024-10-14] MEDS: POTASSIUM BICARBONATE/CIT AC 20 MEQ TABLET.EFF NG-TUBE ONE (07:05)
[2024-10-14 07:14] LABS: Basophils # (A) 0.02 10*3/uL (0.00-0.10); Basophils % (A) 0.4 %; Eosinophils # (A) 0.36 10*3/uL (0.04-0.35); Eosinophils % (A) 6.8 %; HCT 32.2 % (37.2-46.3); HGB 11.2 g/dL (12.0-15.0); Lymphocytes # (A) 0.96 10*3/uL (0.90-5.00); Lymphocytes % (A) 18.1 %; MCH 31.6 pg (27.0-32.0); MCHC 34.8 g/dL (32.0-37.0); Monocytes # (A) 0.64 10*3/uL (0.20-1.00); Monocytes % (A) 12.1 %; Neutrophils # (A) 3.31 10*3/uL (1.80-7.70); Neutrophils % (A) 62.4 %; RBC 3.54 10*6/uL (4.10-5.20); RDW 14.4 % (11.5-14.5)
[2024-10-14] MEDS: IBUPROFEN 600 MG TAB PO STA (08:47)
[2024-10-14 09:20] LABS: Platelet Count 99 10*3/uL (140-440)
--- NOTE | 2024-10-14 11:42 | P.PN ---
Subjective Progress Note Date: 10/14/24 Principal diagnosis: Hepatic encephalopathy. This is a 69-year-old female with known history of chronic alcoholism, hepatic cirrhosis, hepatic encephalopathy, patient was transferred from [facility] with elevated ammonia level and altered mental status. Patient has be en receiving lactulose and her most recent ammonia level is down to 75. Patient was seen in the ER, and she was noted to be quite encephalopathic, thrashing in bed, restless, agitated, could not conduct any reasonable conversation. Patient is thrashing in bed, eyes closed, and quite agitated. Hence I recommended patient to be admitted to the ICU instead of admitting her to the medical floor, and I recommended patient to be started on Precedex. Could not obtain any information from the patient herself, most of the information was obtained from the chart. Looking back at the chart, patient does have history of liver cirrhosis depression hypertension hypomagnesemia malnutrition pancytopenia restless leg syndrome thrombocytopenia and history of TIA. ABG in the ER showed a pO2 of 72 pCO2 26 pH of 7.43 bicarb is 18. CBC was relatively unremarkable hemoglobin was 12.1. Platelets were 100,000. Chest x-ray showed elevated left hemidiaphragm, otherwise lungs are clear and nasogastric tube is in proper position. Patient had a nasogastric tube placed for lactulose treatment. Patient was seen today on 10/09/2024, remains in the ICU, she is on BiPAP, 12/5/45%, ammonia level is down to 56, patient remains quite encephalopathic. Labs showed mild metabolic acidosis and she was given 1 amp of bicarb. She is on Precedex at 0.2 mcg/kg/h, she is also on IV fluid at 75 cc/h 0.9 normal sa line. Patient seems to be comfortable on BiPAP, not in distress, she opens her eyes, follows very simple instructions, but she tends to fall asleep again. WBC is 8.6 hemoglobin 11.4 ABG showed a pO2 of 106 pCO2 28 pH of 7.38 this was done yesterday. Basic metabolic profile is normal except for bicarb of 15 there is none anion gap. Metabolic acidosis. Reevaluate today on 10/10/2024, patient remains in the ICU, on BiPAP, 12/5/35%, still on Precedex at 0.5 mcg/kg/h, patient is on IV fluid at 75 cc/h norepinephrine is presently on hold, patient did receive Lasix earlier today 20 mg IV push because of poor urine output her ammonia level is down to 24 patient is on ceftriaxone empirically her ammonia level is improving but mental status does not seem to be much improved. Still requiring a sitter at bedside. WBC count 6.4 hemoglobin 10.6 electrolytes showed low bicarb of 15 patient has el evated sodium of 148. Hence her IV fluid is to be changed to D5W gastric occult blood is positive, hemoglobin today is 10.6. Chest x-ray on admission showed no evidence of active disease. Seen today on 10/11/2024, remains in the ICU, on 4 L nasal cannula, patient has D5W at 50 cc an hour, remains on lactulose but it is once a day given remains on Lasix intermittently she is her ammonia level is 9 today. Patient remains on Rocephin empirically. Mentation mane is the main issue and that is the reason why the patient is kept in the ICU, remains intermittently restless agitated and needs to be closely monitored. Patient is confused/encephalopathic. WBC count is 7.2 hemoglobin 10.9 sodium is down to 145 potassium 2.9 bicarb is 19 renal profile is normal, ammonia level is less than 9. Chest x-ray showed minimal opacities along the right heart border. No consolidation, no pleural effusion. Seen today on 10/12/2024, patient is basically about the same, remains encephalopathic, continues to have a sitter at bedside, needs close monitoring, mostly because of her mental status and encephalopathy. At times she requires suctioning because she cannot clear her own secretions easily and does not cough on her own. Labs were reviewed WBC count is 9.9 hemoglobin is 9.1 electrolytes are normal renal profile is normal Progress note dated October 13, 2024. 69-year-old female seen today in room 254. The patient was admitted to the hospital on October 07. She came to the intensive care unit, from the emergency department. She came in with chronic liver disease and hepatic encephalopathy. Currently, she is seen in room 254. She continues on nasal O2 at 2 L. She is getting D5W at 50 cc an hour, saline at 10 cc an hour. At times, the patient is severely agitated. Today, we changed her medications a bit. We add Seroquel 25 mg 3 times a day, Haldol 48 mg IM every 4 hours as needed, and Ativan 0.5 to 1 mg every 6 hours as needed. White count of 6.14, hemoglobin 9.9, hematocrit 3 3.8, platelet count 89,000. Sodium 136, potassium 3.8, chlorides 100, CO2 27, BUN 22, creatinine 0.65. Glucose is 110. Calcium is 8.9. Ammonia level is down to 28 from 31. Urine cultures were positive for Escherichia coli. This is from October 10. No chest x-ray today. Progress note dated October 14, 2024. 69-year-old female again seen today in room 254. She is doing about the same. She was admitted with a diagnosis of alcoholic liver disease, and hepatic encephalopathy. She continues on nasal O2 at 3 L. She is getting NG tube in place. She is getting D5W at 50 cc an hour. She has E. coli in her urine. We added back Rocephin. We will ask for neurology consult, as requested by the patient's family. Current labs include a white count 5.3, hemoglobin 11.2, hematocrit 32.2, and a platelet count of 99,000. Sodium 134, potassium 3.7, chlorides 101, CO2 25, BUN 20, creatinine 0.7. Glucose 117. Magnesium 1.5. Ammonia level was 26. Urine from October 10, showed evidence of Escherichia coli. No chest x-ray to report. Objective - Vital Signs Vital signs: Vital Signs Temp 97.9 F 10/14/24 08:00 Pulse 74 10/14/24 11:00 Resp 24 10/14/24 11:00 BP 100/64 10/14/24 11:00 Pulse Ox 92 L 10/14/24 11:00 FiO2 3 10/14/24 00:00 Intake & Output 10/13/24 10/14/24 10/14/24 18:59 06:59 18:59 Intake Total 1300 820 480 Output Total 1050 327 386 Balance 250 493 94 Weight 68.7 kg 67.4 kg Intake: IV 850 550 300 Dextrose 5% in Water 1, 650 550 250 000 ml @ 50 mls/hr IV . Q20H [facility] Rx#:[id number] Magnesium Sulfate-D5w Pmx 200 1 gm In Dextrose/Water 1 100ml.bag @ 100 mls/hr IVPB ONCE ONE Rx#: [id number] cefTRIAXone 1 gm In 50 Sodium Chloride 0.9% 50 ml @ 100 mls/hr IVPB Q24HR [facility] Rx#:[id number] Oral 310 Tube Feeding 50 180 150 Other 90 90 30 Output: Urine 1050 325 385 Stool 2 1 Other: Voiding Method Indwelling Catheter Indwelling Catheter Indwelling Catheter # Bowel Movements 1 1 - Exam No acute distress, the patient is quite lethargic and somnolent. She does arouse. She is currently on 3 L of oxygen. HEENT examination is grossly unremarkable. Mucous membranes are moist. No oral lesions. Neck supple. Full range of motion. No adenopathy thyromegaly or neck vein distention. Cardiovascular examination reveals regular rhythm rate. S1-S2 normal. No S3 or S4. No discernible murmur noted. Heart sounds are distant. Lungs reveal bilateral rhonchi. No wheezes or crackles. Breath sounds are equal bilaterally. Abdomen soft bowel sounds are heard. No masses or tenderness. Extremities are intact. No cyanosis clubbing or edema. Skin is without rash or lesion. Neurologic examination is brief but nonfocal. - Labs CBC & Chem 7: 10/14/24 05:27 10/14/24 05:27 Labs: Abnormal Lab Results - Last 24 Hours (Table) 10/14/24 10/14/24 Range/Units 05:27 05:27 RBC 3.54 L (4.10-5.20) 10*6/uL Hgb 11.2 L (12.0-15.0) g/dL Hct 32.2 L (37.2-46.3) % Plt Count 99 L (140-440) 10*3/uL Eosinophils # 0.36 H (0.04-0.35) 10*3/uL Sodium 134 L (137-145) mmol/L BUN 20 H (7-17) mg/dL Glucose 117 H (74-99) mg/dL Magnesium 1.5 L (1.6-2.3) mg/dL Assessment and Plan Assessment: Acute toxic/metabolic encephalopathy, secondary to chronic liver disease, hepatic encephalopathy, as well as hyperammonemia. History of liver cirrhosis, secondary to chronic alcohol abuse. History of E. coli urinary tract infection. History of depression. Benign essential hypertension. History of chronic anemia. History of insomnia. History of restless leg syndrome. History of chronic thrombocytopenia. History of TIA. History of gastroesophageal reflux disease. Plan: Plan dated October 13, 2024. The patient is seen today in room 254. The patient is very lethargic and somnolent. She continues on 2 L of oxygen. She is getting D5W at 50 cc an hour. She is getting saline at 10 cc an hour. All labs, x-rays, and medications are reviewed. The patient is a quite agitated and confused at times. We increase her Seroquel to 25 mg 3 times a day, write for Haldol 4 to 8 mg every 4 hours as needed IM, and add Ativan 0.5 to 1 mg IV, every 6 hours, as needed. Additional recommendations and suggestions are forthcoming. The patient's overall prognosis is very guarded. She continues on GI and DVT prophylaxis. Her ammonia level is back in the normal range. We continue her on the CIWA protocol. Dictation was produced using [employer] software. Ple ase excuse any grammatical, word or spelling errors. Plan dated October 14, 2024. The patient is seen today in room 254. Her mental status is still poor, with significant encephalopathy. The patient continues on 3 L nasal cannula. She has an NG tube in place. She is getting D5W at 50 cc an hour. We add back Rocephin for E. coli urinary tract infection. The family members request neurology consultation. Will have one of our neurologist see her. Clinically, she is doing poorly. I do not know that she will ever improve much beyond this. Her ammonia level is normal. Labs, x-rays, and all medications are reviewed. We will continue to follow make recommendations along the way. Dictation was produced using [employer] software. Please excuse any grammatical, word or spelling errors. Time with Patient: Greater than 30
--- NOTE | 2024-10-14 12:43 | P.PN ---
Subjective Progress Note Date: 10/14/24 69-year-old female with baseline chronic dementia/encephalopathy from chronic alcoholism cirrhosis and hepatic encephalopathy was transferred from outside hospital with elevated ammonia of around 250. Patient had NG tube and patient is is receiving lactulose through NG tube and patient. Recent ammonia is around 75. Patient is quite a bit agitated confused because of which patient was started on Precedex drip and was admitted to ICU. Patient will be started on Haldol for agitation will try to wean off of Precedex. CT brain CT abdomen pelvis and chest x-ray are all within normal limits from the outside hospital. Unfortunately patient is also on Tylenol as well as Mod[place] as an outpatient which can cause severe encephalopathy and and patient can have acetaminophen toxicity because of cirrhosis. Presently my concern for acetaminophen toxicity is low. Urinalysis are not significantly elevated. 10/09/2024 Patient is evaluated today in the intensive care unit. Remains on BiPAP 04/03 with FiO2 of 35%. Patient remains altered. NG tube in place with small amt of coffee grounds in the canister although clearing up. Gastric occult was positive. Transitioned to IV protonix twice daily. Ammonia level down to 56 and continues on scheduled lactulose. Continues on IV precedex. Hemoglobin 11.4 10/10/2024 Patient remains in the intensive care unit. Currently off the BiPAP. Patient remains confused and altered. NG tube in place and no evidence of coffee grounds in the canister today. Hemoglobin today 10.6. Sodium 148, BUN 31, creatinine 0.58. Ammonia level 24. UA was completed last night with concern for UTI. Was started on IV ceftriaxone and currently pending urine culture. Currently off pr ecedex. 10/11/2024 Patient remains in intensive care unit currently off the BiPAP. Patient has not been sleeping per staff. Remains on lactulose which was cut down to daily. Ammonia level is down to less than 9 today. Urine culture currently pending she continues on IV ceftriaxone. Her mentation is slightly better than yesterday but still confused alert x 1. Has a sitter at the bedside. NG tube remains in place. Chest xray today reveals right-sided airspace opacities correlate for pneumonia. 10/12/2024 Patient remains in intensive care unit. Plan oxygen via nasal cannula at 2 L with saturations of 97%. She did require BiPAP overnight and did not get much sleep again. She is slow to respond able to state her name sometimes. Per the RN she will have moments of lucidity where she will be able to speak sentences but overall she still appears significantly encephalopathic. Her electrolytes are also normalizing today her sodium level is 138 her potassium was 3.6 BUN of 23 creatinine 0.51, magnesium of 1.5. Her ammonia level has gone back up to 31 after her lactulose was cut back. Patient will need to have 2-3 loose bowel movements per day in order to keep her ammonia at a normal level. Her urine culture showing gram-negative bacilli and she continues on a course of IV ce ftriaxone pending final cultures. In the last few years since she came over from [place]; son Reinaldo states she is not able to tell where she is and feels she is in a state of delirium and doesn't have a good sense of reality. He would like her to be evaluated by neurologist with concerns for possible Dementia. Discussed a dementia diagnosis with neurologist would have to come on an outpatient basis. Speech therapy was consulted for cognitive evaluation and this was discussed with Reinaldo who is the patients guardian. Will follow up tomorrow after the ST consultation. 10/13/2024 Patient remains the intensive care unit. Ammonia is better at 28. She has been started on IV Lasix secondary to significant volume overload. Pending speech therapy evaluation today. Patient is more awake and alert x 2 able to tell me her name and birthday. She is more appropriate. NG tube remains in place. 10/14/2024 Patients mentation is worsen today and could be due to the sedating affect of the seroquel which was increased to TID by pulmonology. Neurology was consulted. Ammonia level 26 today. Continues on lactulose. NG tube remains in place and on enteral feedings. Speech therapy unable to complete evaluation again today because of her mentation. Unable to complete review of systems due to patients level of consciousness. PHYSICAL EXAMINATION: GENERAL: unable to assess orientation altered. AO x 1 today. On nasal cannula HEENT: Pupils are round and equally reacting to light. EOMI. No scleral icterus. No conjunctival pallor. Normocephalic, atraumatic. No pharyngeal erythema. No thyromegaly. CARDIOVASCULAR: S1 and S2 present. No murmurs, rubs, or gallops. PULMONARY: Chest is clear to auscultation, no wheezing or crackles. ABDOMEN: Soft, nontender, nondistended, normoactive bowel sounds. No palpable organomegaly. NG tube in place MUSCULOSKELETAL: No joint swelling or deformity. EXTREMITIES: No cyanosis, clubbing, or pedal edema. NEUROLOGICAL: Agitated and altered SKIN: No rashes. Assessment and plan - Altered mental status due to hepatic and toxic encephalopathy - Hepatic encephalopathy chronic because of the alcoholism - Advanced alcoholic cirrhosis - Asymptomatic bacteriurea with cultures only growing 50-100,000 of gram negative bacilli. - History of alcohol abuse and dementia and chronic encephalopathy from alcohol use. - Depression - Hypertension - Sinus tachycardia secondary to agitation; resolved - Hypernatremia from free water deficit DVT prophylaxis: Subcutaneous heparin GI prophylaxis IV protonix twice daily Full Code Plan IV precedex has been weaned off and patient is currently on IV haldol Recommend to trial seroquel at HS Narcotics will be held Continue lactulose through NG tube with goal of 2 to 3 loose bowel movements per day Continued on thiamine and multivitamin supplementation Continue D5 water at 50 mls/hr Pulmonology has added IV Lasix 3 times daily Monitor electrolytes and renal function Monitor hemoglobin Pending speech therapy evaluation Neurology consultation The impression and plan of care has been dictated by Eileen Parson, Nurse Practitioner as directed. Dr. Domitila MD I have performed a history and physical examination and medical decision making of this patient, discussed the same with the dictator, and agree with the dictators assessment and plan as written, documented as a scribe. Based on total visit time, I have performed more than 50% of this visit. Objective - Vital Signs Vital signs: Vital Signs Temp 97.8 F 10/14/24 12:00 Pulse 64 10/14/24 12:00 Resp 24 10/14/24 12:00 BP 94/52 10/14/24 12:00 Pulse Ox 93 L 10/14/24 12:00 FiO2 3 10/14/24 00:00 Intake & Output 10/13/24 10/14/24 10/14/24 18:59 06:59 18:59 Intake Total 1300 820 590 Output Total 1050 327 427 Balance 250 493 163 Weight 68.7 kg 67.4 kg Intake: IV 850 550 350 Dextrose 5% in Water 1, 650 550 300 000 ml @ 50 mls/hr IV . Q20H [facility] Rx#:[id number] Magnesium Sulfate-D5w Pmx 200 1 gm In Dextrose/Water 1 100ml.bag @ 100 mls/hr IVPB ONCE ONE Rx#: [id number] cefTRIAXone 1 gm In 50 Sodium Chloride 0.9% 50 ml @ 100 mls/hr IVPB Q24HR [facility] Rx#:[id number] Oral 310 Tube Feeding 50 180 180 Other 90 90 60 Output: Urine 1050 325 425 Stool 2 2 Other: Voiding Method Indwelling Catheter Indwelling Catheter Indwelling Catheter # Bowel Movements 1 1 - Labs CBC & Chem 7: 10/14/24 05:27 10/14/24 05:27 Labs: Abnormal Lab Results - Last 24 Hours (Table) 10/14/24 10/14/24 Range/Units 05:27 05:27 RBC 3.54 L (4.10-5.20) 10*6/uL Hgb 11.2 L (12.0-15.0) g/dL Hct 32.2 L (37.2-46.3) % Plt Count 99 L (140-440) 10*3/uL Eosinophils # 0.36 H (0.04-0.35) 10*3/uL Sodium 134 L (137-145) mmol/L BUN 20 H (7-17) mg/dL Glucose 117 H (74-99) mg/dL Magnesium 1.5 L (1.6-2.3) mg/dL Assessment and Plan Time with Patient: Less than 30
[2024-10-14 12:46] LABS: Magnesium 2.3 mg/dL (1.6-2.3); Phosphorus 3.7 mg/dL (2.5-4.5)
--- NOTE | 2024-10-14 13:58 | CT ---
EXAMINATION TYPE: CT brain wo con DATE OF EXAM: 10/14/2024 COMPARISON: 05/08/2023 CLINICAL INDICATION: Female, 69 years old with history of altered mental status; PHH, AMS CT DLP: 2722.4 mGycm Automated exposure control for dose reduction was used. Findings: The ventricles, basal cisterns and sulci over convexities are moderately enlarged consistent with mod erate generalized. There is moderate decreased density in the periventricular white matter consistent with chronic ischemic white matter demyelination. There is mild decreased density in the periventric ular white matter consistent with chronic ischemic white matter demyelination. There is no mass effect or shift of midline structures. There is no acute intra or extra-axial hemorrhage. The posterior fossa including the brainstem, fourth ventricle and cerebellopontine angles appear anish sly normal. The intraorbital contents appear normal symmetric There has been interval development of complete opacification of the maxillary sinuses. There is muc osal thickening in the frontal sinus. The Calvarium is intact. IMPRESSION: 1. Moderate generalized atrophy and mild to moderate chronic ischemic white matter demyelination. 2. No acute bleed or mass effect. 3. Interval development of marked sinusitis [facility], , 10/14/2024 1:55 PM
--- NOTE | 2024-10-14 15:32 | P.CNNES ---
History of Present Illness Consult date: 10/14/24 Requesting physician: Brenna Quiroga Reason for Consult: ams History of Present Illness: This is a 69 year-old woman with chronic alcoholism, chronic cirrhosis, hepatic encephalopathy who was transfered from outside hospital for elevated ammonia. History is obtained from medical records. It seems her ammonia at outside acility was 250. Patient is getting Lactulose during this hospital visit. Per primary team N.P., son notified her that patient has history of significant alcohol use and she has been having waxing waning confusion. Her son is concerned about dementia. Her ammonia is improving with lactulose. Per primary team she was doing better yesterday and her Seroquel was started again yesterday and today is confused. She had CT head at outside facility and was negative for acute process. Some of the work-up during this hospital visit: Patient had some episode of hypotension episode as low as 70's over 40's wbc is normal. ammonia level 159-->26 Review of Systems Limited Past Medical History Past Medical History: GERD/Reflux, Hypertension, Liver Disease Additional Past Medical History / Comment(s): Anemia, hepatic encephlopathy. Patient denies having hx of CVA/TIA.in prevouis charting CVA/TIA was checked off. History of Any Multi-Drug Resistant Organisms: Unobtainable Date of last positivie culture/infection: NA MDRO Source:: Stool Past Surgical History: No Surgical Hx Reported Additional Past Surgical History / Comment(s): C2 Fracture Past Anesthesia/Blood Transfusion Reactions: Unable to Obtain Past Psychological History: No Psychological Hx Reported Smoking Status: Never smoker Past Alcohol Use History: Abuse Past Drug Use History: None Reported Medications and Allergies Home Medications Medication Instructions Recorded Confirmed Type Multivitamins, Thera [Multivitamin 1 tab PO DAILY 04/20/23 10/07/24 History (formulary)] Propranolol [Inderal] 20 mg PO BID #120 tab 04/28/23 10/07/24 Rx Acetaminophen Tab [Tylenol] 650 mg PO Q6HR PRN tab 05/17/23 10/07/24 Rx Lactulose [Cephulac] 20 gm PO Q12H ml 05/17/23 10/07/24 Rx Ammonium Lactate Cream [Lac-Hydrin 1 applic TOPICAL BID 10/07/24 10/07/24 History 12% Cream] Cetirizine HCl [Zyrtec] 10 mg PO DAILY PRN 10/07/24 10/07/24 History DULoxetine HCL [Cymbalta] 60 mg PO DAILY 10/07/24 10/07/24 History Luna-Tussin Dm 10 ml PO Q4H PRN 10/07/24 10/07/24 History HYDROcodone/APAP 5-325MG [[place] 1 tab PO Q6HR PRN 10/07/24 10/07/24 History 5-325] Liniments Cream 1 applic TOPICAL Q6H PRN 10/07/24 10/07/24 History Loperamide [Imodium] 2 mg PO Q4H PRN 10/07/24 10/07/24 History Mag Hydrox/Aluminum Hyd/Simeth 20 ml PO Q8H PRN 10/07/24 10/07/24 History [Mylanta Maximum Strength Liq] Magnesium Hydroxide [Milk of 2,400 mg PO Q12H PRN 10/07/24 10/07/24 History Magnesia] Magnesium Oxide [Mag-Ox] 400 mg PO DAILY 10/07/24 10/07/24 History Mirtazapine 7.5 mg PO HS 10/07/24 10/07/24 History Omeprazole [PriLOSEC] 20 mg PO DAILY 10/07/24 10/07/24 History Triamcinolone 0.1% Cream [Kenalog 1 applic TOPICAL BID PRN 10/07/24 10/07/24 History 0.1% Cream] Vitamin B Complex/Folic Acid 1 tab PO DAILY 10/07/24 10/07/24 History [Vitamin B Complex] bisacodyL [Dulcolax] 10 mg PO DAILY PRN 10/07/24 10/07/24 History bisacodyL [Dulcolax] 10 mg RECTAL Q72H PRN 10/07/24 10/07/24 History rOPINIRole HCL [Requip] 0.5 mg PO HS 10/07/24 10/07/24 History Allergies Allergy/AdvReac Type Severity Reaction Status Date / Time Iodinated Contrast Media Allergy Rash/Hives Verified 10/07/24 18:09 lisinopril Allergy Unknown Verified 10/07/24 18:09 gabapentin AdvReac Confusion/a Verified 10/07/24 18:09 ggression/v iolent Physical Examination - Vital Signs Vital Signs: Vital Signs Temp Pulse Resp BP Pulse Ox FiO2 10/14/24 15:00 71 15 95/70 95 10/14/24 14:00 70 12 129/65 92 L 10/14/24 13:00 70 22 97/55 94 L 10/14/24 12:00 97.8 F 64 24 94/52 93 L 10/14/24 11:00 74 24 100/64 92 L 10/14/24 10:00 75 25 H 108/59 92 L 10/14/24 09:00 78 16 99/64 94 L 10/14/24 08:00 97.9 F 86 12 97/65 93 L 10/14/24 07:47 94 L 10/14/24 07:00 73 20 97/65 91 L 10/14/24 06:00 78 12 90/55 93 L 10/14/24 05:00 72 20 95/53 94 L 10/14/24 04:00 96.4 F L 71 19 104/57 94 L 10/14/24 03:00 67 21 90/60 94 L 10/14/24 02:00 72 12 98/49 91 L 10/14/24 01:00 70 19 93/50 95 10/14/24 00:00 97.0 F L 65 18 102/57 96 3 10/13/24 23:00 73 13 112/72 95 10/13/24 22:00 64 17 111/63 93 L 10/13/24 21:00 67 18 111/63 94 L 10/13/24 20:00 97.0 F L 75 14 123/67 97 10/13/24 19:00 70 19 95/50 96 10/13/24 18:00 72 15 111/54 95 10/13/24 17:00 68 17 122/79 95 10/13/24 16:00 97.9 F 70 15 107/50 95 Intake and Output 10/14/24 10/14/24 10/14/24 06:59 14:59 22:59 Intake Total 610 750 80 Output Total 187 512 20 Balance 423 238 60 Intake: IV 400 450 50 Dextrose 5% in Water 1, 400 400 50 000 ml @ 50 mls/hr IV . Q20H [facility] Rx#:[id number] cefTRIAXone 1 gm In 50 Sodium Chloride 0.9% 50 ml @ 100 mls/hr IVPB Q24HR [facility] Rx#:[id number] Tube Feeding 150 240 30 Other 60 60 Output: Urine 185 510 20 Stool 2 2 Other: Voiding Method Indwelling Catheter Indwelling Catheter # Bowel Movements 1 1 1 Weight 67.4 kg General: Lying in bed and does not appear in acute distress. HENT: NG tube Neuro: Very limited. She is very drowsy and to soft shoulder rub she started screaming. She is not following commands. Not verbalizing. No facial weakness that is significant from limited examination. Motor: Unable to assess. Results - Laboratory Findings CBC and BMP: 10/14/24 05:27 10/14/24 12:07 Abnormal Lab Findings: Abnormal Labs 10/07/24 10/07/24 10/07/24 17:14 17:14 17:14 RBC 4.06 L Hgb Hct 36.5 L MCV MCH Plt Count 110 L Neutrophils # Lymphocytes # Lymphocytes # (Manual) Monocytes # Eosinophils # ABG pCO2 ABG pO2 ABG HCO3 ABG Total CO2 ABG O2 Saturation Hemoglobin Sodium Potassium Chloride 114 H Carbon Dioxide 13 L BUN 22 H Creatinine Glucose 124 H POC Glucose (mg/dL) Magnesium Total Bilirubin 2.3 H AST 46 H Alkaline Phosphatase 163 H Ammonia 159 H Urine Appearance Urine Protein Urine Blood Ur Leukocyte Esterase Urine RBC Urine WBC Urine Bacteria Hyaline Casts Urine Mucus 10/08/24 10/08/24 10/08/24 10:34 12:06 14:16 RBC Hgb Hct MCV MCH Plt Count Neutrophils # Lymphocytes # Lymphocytes # (Manual) Monocytes # Eosinophils # ABG pCO2 26 L ABG pO2 72 L ABG HCO3 17 L ABG Total CO2 18 L ABG O2 Saturation Hemoglobin Sodium Potassium Chloride Carbon Dioxide BUN Creatinine Glucose POC Glucose (mg/dL) 146 H Magnesium Total Bilirubin AST Alkaline Phosphatase Ammonia 79 H Urine Appearance Urine Protein Urine Blood Ur Leukocyte Esterase Urine RBC Urine WBC Urine Bacteria Hyaline Casts Urine Mucus 10/08/24 10/08/24 10/08/24 15:11 16:00 22:13 RBC 3.76 L Hgb Hct 35.3 L MCV MCH 32.2 H Plt Count 100 L Neutrophils # 8.23 H Lymphocytes # 0.66 L Lymphocytes # (Manual) Monocytes # 1.02 H Eosinophils # 0.01 L ABG pCO2 28 L ABG pO2 ABG HCO3 16 L ABG Total CO2 17 L ABG O2 Saturation 98.5 H Hemoglobin 11.3 L Sodium Potassium Chloride 120 H Carbon Dioxide 14 L BUN 25 H Creatinine Glucose 138 H POC Glucose (mg/dL) Magnesium 1.5 L Total Bilirubin AST Alkaline Phosphatase Ammonia Urine Appearance Urine Protein Urine Blood Ur Leukocyte Esterase Urine RBC Urine WBC Urine Bacteria Hyaline Casts Urine Mucus 10/09/24 10/09/24 10/09/24 05:27 05:27 05:27 RBC 3.62 L Hgb 11.4 L Hct 35.3 L MCV 97.5 H MCH Plt Count 72 L Neutrophils # Lymphocytes # Lymphocytes # (Manual) Monocytes # 1.06 H Eosinophils # 0.02 L ABG pCO2 ABG pO2 ABG HCO3 ABG Total CO2 ABG O2 Saturation Hemoglobin Sodium Potassium Chloride 118 H Carbon Dioxide 15 L BUN 26 H Creatinine Glucose 105 H POC Glucose (mg/dL) Magnesium Total Bilirubin AST Alkaline Phosphatase Ammonia 56 H Urine Appearance Urine Protein Urine Blood Ur Leukocyte Esterase Urine RBC Urine WBC Urine Bacteria Hyaline Casts Urine Mucus 10/10/24 10/10/24 10/10/24 00:00 06:48 06:48 RBC 3.34 L Hgb 10.6 L Hct 32.5 L MCV 97.3 H MCH Plt Count 54 L Neutrophils # Lymphocytes # 0.60 L Lymphocytes # (Manual) Monocytes # Eosinophils # ABG pCO2 ABG pO2 ABG HCO3 ABG Total CO2 ABG O2 Saturation Hemoglobin Sodium 148 H Potassium Chloride 125 H Carbon Dioxide 15 L BUN 31 H Creatinine Glucose POC Glucose (mg/dL) Magnesium Total Bilirubin AST Alkaline Phosphatase Ammonia Urine Appearance Cloudy H Urine Protein 1+ H Urine Blood Moderate H Ur Leukocyte Esterase Small H Urine RBC 117 H Urine WBC 127 H Urine Bacteria Many H Hyaline Casts 23 H Urine Mucus Many H 10/11/24 10/11/24 10/12/24 05:45 05:45 05:41 RBC 3.43 L Hgb 10.9 L Hct 31.7 L MCV MCH Plt Count 80 L Neutrophils # Lymphocytes # Lymphocytes # (Manual) Monocytes # Eosinophils # ABG pCO2 ABG pO2 ABG HCO3 ABG Total CO2 ABG O2 Saturation Hemoglobin Sodium Potassium 2.9 L Chloride 116 H Carbon Dioxide 19 L BUN 24 H Creatinine Glucose POC Glucose (mg/dL) Magnesium 1.3 L Total Bilirubin AST Alkaline Phosphatase Ammonia 31 H Urine Appearance Urine Protein Urine Blood Ur Leukocyte Esterase Urine RBC Urine WBC Urine Bacteria Hyaline Casts Urine Mucus 10/12/24 10/12/24 10/13/24 05:41 05:41 05:34 RBC 3.56 L 3.69 L Hgb 11.3 L 11.9 L Hct 33.3 L 33.8 L MCV MCH 32.2 H Plt Count 81 L 89 L Neutrophils # Lymphocytes # 0.76 L Lymphocytes # (Manual) 0.80 L Monocytes # Eosinophils # ABG pCO2 ABG pO2 ABG HCO3 ABG Total CO2 ABG O2 Saturation Hemoglobin Sodium Potassium Chloride Carbon Dioxide BUN 23 H Creatinine 0.51 L Glucose 121 H POC Glucose (mg/dL) Magnesium 1.5 L Total Bilirubin AST Alkaline Phosphatase Ammonia Urine Appearance Urine Protein Urine Blood Ur Leukocyte Esterase Urine RBC Urine WBC Urine Bacteria Hyaline Casts Urine Mucus 10/13/24 10/14/24 10/14/24 05:34 05:27 05:27 RBC 3.54 L Hgb 11.2 L Hct 32.2 L MCV MCH Plt Count 99 L Neutrophils # Lymphocytes # Lymphocytes # (Manual) Monocytes # Eosinophils # 0.36 H ABG pCO2 ABG pO2 ABG HCO3 ABG Total CO2 ABG O2 Saturation Hemoglobin Sodium 136 L 134 L Potassium 3.4 L Chloride Carbon Dioxide BUN 22 H 20 H Creatinine Glucose 110 H 117 H POC Glucose (mg/dL) Magnesium 1.5 L Total Bilirubin AST Alkaline Phosphatase Ammonia Urine Appearance Urine Protein Urine Blood Ur Leukocyte Esterase Urine RBC Urine WBC Urine Bacteria Hyaline Casts Urine Mucus Assessment and Plan Assessment: This is a 69 year-old woman with elevated ammonia, cirrhosis, chronic alcohol use Hepatic encephalopathy Delirium due to above Hyperammonemia due to Advanced alcoholic cirrhosis--ammonia level normalized after lactulose Few Hypotension episode Thrombocytopenia History of alcohol abuse, chronic encephalopathy from alcohol use Depression Plan: I ordered CT head, EEG, vitamin B12, folate, thiamine level. Upon discharge, recommend outpatient neuropsych evaluation for detailed memory testing once ammonia continues to be stabilized. Patient is on Seroquel 25mg 1 tab tid. Please avoid sedation as much as possible for better neurological examination. Will defer the rest of medical management to primary team and other specialist. The plan is discussed with primary team N.P. Thank you for the consultation. Time with Patient: Greater than 30
--- NOTE | 2024-10-14 17:29 | XR ---
EXAMINATION TYPE: XR chest 1V portable DATE OF EXAM: 10/14/2024 5:05 PM COMPARISON: 10/11/2024 CLINICAL INDICATION: Female, 69 years old with history of hypoxia, TECHNIQUE: XR chest 1V portable view(s) obtained. FINDINGS: The heart size is normal. The pulmonary vasculature is normal. The lungs are clear. Elevation of the left diaphragm There is prior open reduction internal fixation of a left humeral fracture. IMPRESSION: 1. No acute pulmonary process. [facility], , 10/14/2024 5:27 PM
--- NOTE | 2024-10-14 23:29 | XR ---
EXAM: XR Chest, 1 View CLINICAL HISTORY: ITS.REASON XR Reason: ng tube placement TECHNIQUE: Frontal view of the chest. COMPARISON: No relevant prior studies available. FINDINGS: Lungs: Unremarkable. No consolidation. Pleural space: Small left pleural effusion. No pneumothorax. Heart: Cardiomegaly. Mediastinum: Unremarkable. Bones/joints: Left humerus ORIF. Tubes, lines and devices: Feeding tube terminates in the stomach. IMPRESSION: 1. Feeding tube terminates in the stomach. 2. Small left pleural effusion.
[2024-10-15] MEDS: SODIUM CHLORIDE 0.9% 500 ML 500 ML IV ONE (01:40)
[2024-10-15 05:55] LABS: Basophils # (A) 0.03 10*3/uL (0.00-0.10); Basophils % (A) 0.6 %; Eosinophils # (A) 0.37 10*3/uL (0.04-0.35); HCT 32.9 % (37.2-46.3); HGB 11.4 g/dL (12.0-15.0); Immature Platelet Fraction 5.3 % (1.1-6.1); Lymphocytes # (A) 0.94 10*3/uL (0.90-5.00); Lymphocytes % (A) 17.8 %; MCH 31.6 pg (27.0-32.0); MCHC 34.7 g/dL (32.0-37.0); MCV 91.1 fL (80.0-97.0); Monocytes # (A) 0.54 10*3/uL (0.20-1.00); Monocytes % (A) 10.2 %; Neutrophils # (A) 3.38 10*3/uL (1.80-7.70); Neutrophils % (A) 64.2 %; Platelet Count 106 10*3/uL (140-440); RBC 3.61 10*6/uL (4.10-5.20); RDW 14.4 % (11.5-14.5); WBC 5.27 10*3/uL (4.50-10.00)
[2024-10-15 06:27] LABS: African American GFR (CKD) 75 (>60 ml/min/1.73 sqM); Anion Gap 9 mmol/L; Blood Urea Nitrogen 21 mg/dL (7-17); Calcium 9.3 mg/dL (8.4-10.2); Carbon Dioxide 24 mmol/L (22-30); Chloride 102 mmol/L (98-107); Glucose 121 mg/dL (74-99); Non-African American GFR(CKD) 65 (>60 ml/min/1.73 sqM); Potassium 3.8 mmol/L (3.5-5.1); Sodium 135 mmol/L (137-145)
[2024-10-15] MEDS: HALOPERIDOL LACTATE 5 MG/ML 1 ML VIAL IM PRN (06:28)
[2024-10-15] MEDS: POTASSIUM BICARBONATE/CIT AC 20 MEQ TABLET.EFF NG-TUBE SCH (09:08)
[2024-10-15 12:31] VITALS: BMI 24.7
--- NOTE | 2024-10-15 14:52 | P.PN ---
Subjective Progress Note Date: 10/15/24 I am following-up with the patient and per the nurse she would state her name and harrison fluctuation in mentation but appears she was in memory rehab and she would refuse lactulose at that facility. Currently she is at baseline and is oriented X1. Objective - Vital Signs Vital signs: Vital Signs Temp 97.4 F L 10/15/24 12:00 Pulse 65 10/15/24 13:00 Resp 13 10/15/24 13:00 BP 91/51 10/15/24 13:00 Pulse Ox 92 L 10/15/24 13:00 FiO2 3 10/14/24 00:00 Intake & Output 10/14/24 10/15/24 10/15/24 18:59 06:59 18:59 Intake Total 1150 790 720 Output Total 1078 674 600 Balance 72 116 120 Weight 67.4 kg Intake: IV 700 550 450 Dextrose 5% in Water 1, 650 550 400 000 ml @ 50 mls/hr IV . Q20H [facility] Rx#:[id number] cefTRIAXone 1 gm In 50 50 Sodium Chloride 0.9% 50 ml @ 100 mls/hr IVPB Q24HR [facility] Rx#:[id number] Tube Feeding 360 210 210 Other 90 30 60 Output: Urine 1075 670 600 Stool 3 4 Other: Voiding Method Indwelling Catheter Indwelling Catheter Indwelling Catheter # Bowel Movements 1 1 1 - Exam General: Lying in bed and does not appear in acute distress. Neuro: Very limited. Patient is severely drowsy but would open eyes spontaneously. Not verbalizing or following commands. No facial weakness from limitation of examination. Spontaneously crosses her leg. Some of the work-up during this hospital visit: Patient had some episode of hypotension episode as low as 70's over 40's wbc is normal. ammonia level 159-->26 TSH: 0.638 CT head: Moderate generalized atrophy and mild to moderate chronic ischemic white matter demyelination. No acute bleed or mass effect. I personally reviewed CT and feel there is motion artifact. There is generalized atrophy but appreciable acute ischemia with limitation of examination. - Labs CBC & Chem 7: 10/15/24 05:23 10/15/24 05:23 Labs: Abnormal Lab Results - Last 24 Hours (Table) 10/15/24 10/15/24 Range/Units 05:23 05:23 RBC 3.61 L (4.10-5.20) 10*6/uL Hgb 11.4 L (12.0-15.0) g/dL Hct 32.9 L (37.2-46.3) % Plt Count 106 L (140-440) 10*3/uL Eosinophils # 0.37 H (0.04-0.35) 10*3/uL Sodium 135 L (137-145) mmol/L BUN 21 H (7-17) mg/dL Glucose 121 H (74-99) mg/dL Assessment and Plan Assessment: This is a 69 year-old woman with elevated ammonia, cirrhosis, chronic alcohol use Hepatic encephalopathy---ammonia normalized Delirium due to above Possible patient has underlying dementia due to her chronic alcohol use and hepatic cirrhosis. Hyperammonemia due to Advanced alcoholic cirrhosis--ammonia level normalized after lactulose Few Hypotension episode Thrombocytopenia History of alcohol abuse, chronic encephalopathy from alcohol use Depression Plan: Pending EEG, B12, folate, thiamine level. Upon discharge, recommend outpatient neuropsych evaluation for detailed memory testing once ammonia continues to be stabilized. Patient is on Seroquel 25mg 1 tab tid. Please avoid sedation as much as possible for better neurological examination. Will defer the rest of medical management to primary team and other specialist. The plan is discussed with her nurse. Time with Patient: Less than 30
--- NOTE | 2024-10-15 22:16 | P.PN ---
Subjective Progress Note Date: 10/15/24 69-year-old female with baseline chronic dementia/encephalopathy from chronic alcoholism cirrhosis and hepatic encephalopathy was transferred from outside hospital with elevated ammonia of around 250. Patient had NG tube and patient is is receiving lactulose through NG tube and patient. Recent ammonia is around 75. Patient is quite a bit agitated confused because of which patient was started on Precedex drip and was admitted to ICU. Patient will be started on Haldol for agitation will try to wean off of Precedex. CT brain CT abdomen pelvis and chest x-ray are all within normal limits from the outside hospital. Unfortunately patient is also on Tylenol as well as [place] as an outpatient which can cause severe encephalopathy and and patient can have acetaminophen toxicity because of cirrhosis. Presently my concern for acetaminophen toxicity is low. Urinalysis are not significantly elevated. 10/09/2024 Patient is evaluated today in the intensive care unit. Remains on BiPAP 04/03 with FiO2 of 35%. Patient remains altered. NG tube in place with small amt of coffee grounds in the canister although clearing up. Gastric occult was positive. Transitioned to IV protonix twice daily. Ammonia level down to 56 and continues on scheduled lactulose. Continues on IV precedex. Hemoglobin 11.4 10/10/2024 Patient remains in the intensive care unit. Currently off the BiPAP. Patient remains confused and altered. NG tube in place and no evidence of coffee grounds in the canister today. Hemoglobin today 10.6. Sodium 148, BUN 31, creatinine 0.58. Ammonia level 24. UA was completed last night with concern for UTI. Was started on IV ceftriaxone and currently pending urine culture. Currently off p recedex. 10/11/2024 Patient remains in intensive care unit currently off the BiPAP. Patient has not been sleeping per staff. Remains on lactulose which was cut down to daily. Ammonia level is down to less than 9 today. Urine culture currently pending she continues on IV ceftriaxone. Her mentation is slightly better than yesterday but still confused alert x 1. Has a sitter at the bedside. NG tube remains in place. Chest xray today reveals right-sided airspace opacities correlate for pneumonia. 10/12/2024 Patient remains in intensive care unit. Plan oxygen via nasal cannula at 2 L with saturations of 97%. She did require BiPAP overnight and did not get much sleep again. She is slow to respond able to state her name sometimes. Per the RN she will have moments of lucidity where she will be able to speak sentences but overall she still appears significantly encephalopathic. Her electrolytes are also normalizing today her sodium level is 138 her potassium was 3.6 BUN of 23 creatinine 0.51, magnesium of 1.5. Her ammonia level has gone back up to 31 after her lactulose was cut back. Patient will need to have 2-3 loose bowel movements per day in order to keep her ammonia at a normal level. Her urine culture showing gram-negative bacilli and she continues on a course of IV c eftriaxone pending final cultures. In the last few years since she came over from [place]; son Reinaldo states she is not able to tell where she is and feels she is in a state of delirium and doesn't have a good sense of reality. He would like her to be evaluated by neurologist with concerns for possible Dementia. Discussed a dementia diagnosis with neurologist would have to come on an outpatient basis. Speech therapy was consulted for cognitive evaluation and this was discussed with Reinaldo who is the patients guardian. Will follow up tomorrow after the ST consultation. 10/13/2024 Patient remains the intensive care unit. Ammonia is better at 28. She has been started on IV Lasix secondary to significant volume overload. Pending speech therapy evaluation today. Patient is more awake and alert x 2 able to tell me her name and birthday. She is more appropriate. NG tube remains in place. 10/14/2024 Patients mentation is worsen today and could be due to the sedating affect of the seroquel which was increased to TID by pulmonology. Neurology was consulted. Ammonia level 26 today. Continues on lactulose. NG tube remains in place and on enteral feedings. Speech therapy unable to complete evaluation again today because of her mentation. 10/15/2024 Patient is in the MICU. Awake alert and able to tell her name. Afebrile. Currently on room air. No cough or sputum production. Patient is on lactulose 30 g 3 times daily via NG tube. Patient is also on Seroquel 25 mg 3 times daily and antibiotics in the form of ceftriaxone. Patient is also on IV Lasix 20 mg every 8 hourly. Laboratory data showed WBC 5.2 hemoglobin 11.4 and platelets 106 sodium 135 potassium 3.8 chloride 102 bicarb is 24 BUN 21 and creatinine 0.90 and blood sugar 121 TSH 0.638 within normal limits. Most recent ammonia level 26 Urine culture showed E. coli. Unable to complete review of systems due to patients level of consciousness. PHYSICAL EXAMINATION: GENERAL: unable to assess orientation altered. AO x 1 today. On nasal cannula HEENT: Pupils are round and equally reacting to light. EOMI. No scleral icterus. No conjunctival pallor. Normocephalic, atraumatic. No pharyngeal erythema. No thyromegaly. CARDIOVASCULAR: S1 and S2 present. No murmurs, rubs, or gallops. PULMONARY: Chest is clear to auscultation, no wheezing or crackles. ABDOMEN: Soft, nontender, nondistended, normoactive bowel sounds. No palpable organomegaly. NG tube in place MUSCULOSKELETAL: No joint swelling or deformity. EXTREMITIES: No cyanosis, clubbing, or pedal edema. NEUROLOGICAL: Agitated and altered SKIN: No rashes. Assessment and plan - Altered mental status due to hepatic and toxic encephalopathy - Hepatic encephalopathy chronic because of the alcoholism - Advanced alcoholic cirrhosis - E. coli urinary tract infection - History of alcohol abuse and dementia and chronic encephalopathy from alcohol use. - Depression - Hypertension - Sinus tachycardia secondary to agitation; resolved - Hypernatremia from free water deficit DVT prophylaxis: Subcutaneous heparin GI prophylaxis IV protonix twice daily Full Code Plan IV precedex has been weaned off and patient is currently on IV haldol Patient is on Seroquel Narcotics will be held Continue lactulose through NG tube with goal of 2 to 3 loose bowel movements per day Continued on thiamine and multivitamin supplementation Continue D5 water at 50 mls/hr Patient is also on IV Lasix 3 times daily Monitor electrolytes and renal function Monitor hemoglobin Pending speech therapy evaluation Neurology is on board. Objective - Vital Signs Vital signs: Vital Signs Temp 97.4 F L 10/15/24 12:00 Pulse 71 10/15/24 12:00 Resp 16 10/15/24 12:00 BP 91/51 10/15/24 12:00 Pulse Ox 95 10/15/24 12:00 FiO2 3 10/14/24 00:00 Intake & Output 10/14/24 10/15/24 10/15/24 18:59 06:59 18:59 Intake Total 1150 790 420 Output Total 1078 674 430 Balance 72 116 -10 Weight 67.4 kg Intake: IV 700 550 300 Dextrose 5% in Water 1, 650 550 250 000 ml @ 50 mls/hr IV . Q20H [facility] Rx#:[id number] cefTRIAXone 1 gm In 50 50 Sodium Chloride 0.9% 50 ml @ 100 mls/hr IVPB Q24HR [facility] Rx#:[id number] Tube Feeding 360 210 90 Other 90 30 30 Output: Urine 1075 670 430 Stool 3 4 Other: Voiding Method Indwelling Catheter Indwelling Catheter Indwelling Catheter # Bowel Movements 1 1 1 - Labs CBC & Chem 7: 10/15/24 05:23 10/15/24 05:23 Labs: Abnormal Lab Results - Last 24 Hours (Table) 10/15/24 10/15/24 Range/Units 05:23 05:23 RBC 3.61 L (4.10-5.20) 10*6/uL Hgb 11.4 L (12.0-15.0) g/dL Hct 32.9 L (37.2-46.3) % Plt Count 106 L (140-440) 10*3/uL Eosinophils # 0.37 H (0.04-0.35) 10*3/uL Sodium 135 L (137-145) mmol/L BUN 21 H (7-17) mg/dL Glucose 121 H (74-99) mg/dL
--- NOTE | 2024-10-15 23:24 | EEG ---
ELECTROENCEPHALOGRAM REPORT CLINICAL HISTORY: This is a 69-year-old woman with altered mental status. The video EEG is obtained to evaluate for seizure epileptiform activity. RELEVANT MEDICATIONS: 1. Seroquel. 2. Ativan. EEG TYPE: This is a routine 21-channel EEG with video using the 10/20 electrode placement system. DESCRIPTION: Wakefulness is obtained. During awake state, the background was somewhat hard to assess because of the severe myogenic artifact, but it appears 5-6 hertz activity intermixed with delta activity. There was no physiological stage 2 sleep architecture. There is no focal slowing for limitation of examination. Interictal and ictal is from limitation of the study. There is no epileptiform discharge or seizure. ACTIVATION PROCEDURE: Photic stimulation and hyperventilation is not performed. CLINICAL INTERPRETATION: This is an abnormal routine EEG. The study was limited due to significant myogenic artifact. The background slowing is suggestive of moderately encephalopathy. There is no focal slowing, epileptiform discharge, or seizure on the EEG. Lack of epileptiform discharges does not rule out seizures. Clinical correlation is recommended. MMIRMA / KATIEN: [id number] / MTDGallo
[2024-10-16 04:35] LABS: HCT 33.2 % (37.2-46.3); HGB 11.6 g/dL (12.0-15.0); Immature Platelet Fraction 5.7 % (1.1-6.1); MCHC 34.9 g/dL (32.0-37.0); MCV 91.5 fL (80.0-97.0); Mean Platelet Volume 10.9 fL (9.5-12.2); Platelet Count 109 10*3/uL (140-440); RBC 3.63 10*6/uL (4.10-5.20); RDW 14.3 % (11.5-14.5); WBC 6.95 10*3/uL (4.50-10.00)
--- NOTE | 2024-10-16 04:45 | PN ---
PROGRESS NOTE SUBJECTIVE: A 69-year-old female, seen in room 254. This is a patient, who was admitted with a diagnosis of alcoholic liver disease, hepatic encephalopathy, cirrhosis. The patient has now been in the hospital for 8 days. She remains in room 254. Currently, she is on 4 L nasal cannula. She has an NG tube in place. She is receiving Jevity 1.5 at 30 mL an hour. She has a D5W IV running at 50 mL an hour, and saline running at 10 mL an hour. Her mental status really has not changed. On Sunday, we increased her sedation to include Ativan, Haldol, and Seroquel. The patient was seen by Neurology. His consultations appreciated. A CT scan of the brain did not show anything acute. EEG is currently pending. PHYSICAL EXAMINATION: VITAL SIGNS: Not available. The patient appears in no acute distress. Eyes open. Nasal O2 noted. NG tube in place. HEENT: Examination is grossly unremarkable. NECK: Supple, full range of motion. CARDIOVASCULAR: Examination reveals regular rhythm rate. Heart sounds are distant. LUNGS: Some scattered rhonchi. ABDOMEN: Soft. Bowel sounds are noted. EXTREMITIES: Intact. No cyanosis, clubbing, or edema. SKIN: Without rash. NEUROLOGIC: Examination is difficult to assess. The patient does respond, but responds poorly. LABORATORY STUDIES: No labs to report. No x-ray to report. ASSESSMENT: 1. Alcoholic liver disease. 2. Mental status changes, secondary to toxic/metabolic encephalopathy. 3. Hepatic encephalopathy. 4. History of chronic alcohol abuse. PLAN: The patient is seen in room 254. She continues on nasal O2 at 4 L. She is getting Jevity 1.5 at 30 mL an hour. NG tube in place. She has been seen by speech pathology for swallow evaluation. She is getting D5W at 50 mL an hour, and a KVO saline IV. We will continue to follow. The patient remains critically ill. No additional recommendations are made at this time. MMODL / IJN: [id number] /
[2024-10-16 04:58] LABS: African American GFR (CKD) 90 (>60 ml/min/1.73 sqM); Anion Gap 7 mmol/L; Blood Urea Nitrogen 21 mg/dL (7-17); Calcium 9.4 mg/dL (8.4-10.2); Carbon Dioxide 29 mmol/L (22-30); Chloride 97 mmol/L (98-107); Glucose 131 mg/dL (74-99); Non-African American GFR(CKD) 78 (>60 ml/min/1.73 sqM); Potassium 3.4 mmol/L (3.5-5.1); Sodium 133 mmol/L (137-145)
[2024-10-16] MEDS: POTASSIUM BICARBONATE/CIT AC 20 MEQ TABLET.EFF NG-TUBE SCH (06:42)
[2024-10-16 08:23] VITALS: TEMP 97.8
--- NOTE | 2024-10-16 11:39 | P.PN ---
Subjective Progress Note Date: 10/16/24 Principal diagnosis: Hepatic encephalopathy. This is a 69-year-old female with known history of chronic alcoholism, hepatic cirrhosis, hepatic encephalopathy, patient was transferred from [facility] with elevated ammonia level and altered mental status. Patient has be en receiving lactulose and her most recent ammonia level is down to 75. Patient was seen in the ER, and she was noted to be quite encephalopathic, thrashing in bed, restless, agitated, could not conduct any reasonable conversation. Patient is thrashing in bed, eyes closed, and quite agitated. Hence I recommended patient to be admitted to the ICU instead of admitting her to the medical floor, and I recommended patient to be started on Precedex. Could not obtain any information from the patient herself, most of the information was obtained from the chart. Looking back at the chart, patient does have history of liver cirrhosis depression hypertension hypomagnesemia malnutrition pancytopenia restless leg syndrome thrombocytopenia and history of TIA. ABG in the ER showed a pO2 of 72 pCO2 26 pH of 7.43 bicarb is 18. CBC was relatively unremarkable hemoglobin was 12.1. Platelets were 100,000. Chest x-ray showed elevated left hemidiaphragm, otherwise lungs are clear and nasogastric tube is in proper position. Patient had a nasogastric tube placed for lactulose treatment. Patient was seen today on 10/09/2024, remains in the ICU, she is on BiPAP, 12/5/45%, ammonia level is down to 56, patient remains quite encephalopathic. Labs showed mild metabolic acidosis and she was given 1 amp of bicarb. She is on Precedex at 0.2 mcg/kg/h, she is also on IV fluid at 75 cc/h 0.9 normal sa line. Patient seems to be comfortable on BiPAP, not in distress, she opens her eyes, follows very simple instructions, but she tends to fall asleep again. WBC is 8.6 hemoglobin 11.4 ABG showed a pO2 of 106 pCO2 28 pH of 7.38 this was done yesterday. Basic metabolic profile is normal except for bicarb of 15 there is none anion gap. Metabolic acidosis. Reevaluate today on 10/10/2024, patient remains in the ICU, on BiPAP, 12/5/35%, still on Precedex at 0.5 mcg/kg/h, patient is on IV fluid at 75 cc/h norepinephrine is presently on hold, patient did receive Lasix earlier today 20 mg IV push because of poor urine output her ammonia level is down to 24 patient is on ceftriaxone empirically her ammonia level is improving but mental status does not seem to be much improved. Still requiring a sitter at bedside. WBC count 6.4 hemoglobin 10.6 electrolytes showed low bicarb of 15 patient has el evated sodium of 148. Hence her IV fluid is to be changed to D5W gastric occult blood is positive, hemoglobin today is 10.6. Chest x-ray on admission showed no evidence of active disease. Seen today on 10/11/2024, remains in the ICU, on 4 L nasal cannula, patient has D5W at 50 cc an hour, remains on lactulose but it is once a day given remains on Lasix intermittently she is her ammonia level is 9 today. Patient remains on Rocephin empirically. Mentation mane is the main issue and that is the reason why the patient is kept in the ICU, remains intermittently restless agitated and needs to be closely monitored. Patient is confused/encephalopathic. WBC count is 7.2 hemoglobin 10.9 sodium is down to 145 potassium 2.9 bicarb is 19 renal profile is normal, ammonia level is less than 9. Chest x-ray showed minimal opacities along the right heart border. No consolidation, no pleural effusion. Seen today on 10/12/2024, patient is basically about the same, remains encephalopathic, continues to have a sitter at bedside, needs close monitoring, mostly because of her mental status and encephalopathy. At times she requires suctioning because she cannot clear her own secretions easily and does not cough on her own. Labs were reviewed WBC count is 9.9 hemoglobin is 9.1 electrolytes are normal renal profile is normal Progress note dated October 13, 2024. 69-year-old female seen today in room 254. The patient was admitted to the hospital on October 07. She came to the intensive care unit, from the emergency department. She came in with chronic liver disease and hepatic encephalopathy. Currently, she is seen in room 254. She continues on nasal O2 at 2 L. She is getting D5W at 50 cc an hour, saline at 10 cc an hour. At times, the patient is severely agitated. Today, we changed her medications a bit. We add Seroquel 25 mg 3 times a day, Haldol 48 mg IM every 4 hours as needed, and Ativan 0.5 to 1 mg every 6 hours as needed. White count of 6.14, hemoglobin 9.9, hematocrit 3 3.8, platelet count 89,000. Sodium 136, potassium 3.8, chlorides 100, CO2 27, BUN 22, creatinine 0.65. Glucose is 110. Calcium is 8.9. Ammonia level is down to 28 from 31. Urine cultures were positive for Escherichia coli. This is from October 10. No chest x-ray today. Progress note dated October 14, 2024. 69-year-old female again seen today in room 254. She is doing about the same. She was admitted with a diagnosis of alcoholic liver disease, and hepatic encephalopathy. She continues on nasal O2 at 3 L. She is getting NG tube in place. She is getting D5W at 50 cc an hour. She has E. coli in her urine. We added back Rocephin. We will ask for neurology consult, as requested by the patient's family. Current labs include a white count 5.3, hemoglobin 11.2, hematocrit 32.2, and a platelet count of 99,000. Sodium 134, potassium 3.7, chlorides 101, CO2 25, BUN 20, creatinine 0.7. Glucose 117. Magnesium 1.5. Ammonia level was 26. Urine from October 10, showed evidence of Escherichia coli. No chest x-ray to report. Progress note dated October 16, 2024. The patient is again seen today in room 254. Currently, she is on 2 L nasal cannula. She has an NG tube in place. She is getting D5W at 50 cc an hour. She is getting Jevity 1.5, at 30 cc an hour, which is goal. The plan is to eventually send the patient back to [facility]. Current labs include a white count 6.95, hemoglobin 9.6, hematocrit 33.2, platelet count of 109,000. Sodium 133, potassium 3.4, chloride 97, CO2 29, BUN 21, and creatinine 0.77. Glucose is 131. Calcium 9.4. Ammonia level was 28. Urine was positive for Escherichia coli. No chest x-ray to report. The patient's overall mental status is at baseline. Objective - Vital Signs Vital signs: Vital Signs Temp 97.8 F 10/16/24 08:00 Pulse 73 06/19/25 11:00 Resp 20 10/16/24 11:00 BP 106/61 10/16/24 11:00 Pulse Ox 95 10/16/24 11:00 FiO2 3 10/14/24 00:00 Intake & Output 10/15/24 10/16/24 10/16/24 18:59 06:59 18:59 Intake Total 1150 970 500 Output Total 850 360 420 Balance 300 610 80 Weight 67.4 kg 67.2 kg Intake: IV 700 550 300 Dextrose 5% in Water 1, 650 550 250 000 ml @ 50 mls/hr IV . Q20H PIPE Rx#:[id number] cefTRIAXone 1 gm In 50 50 Sodium Chloride 0.9% 50 ml @ 100 mls/hr IVPB Q24HR [facility] Rx#:[id number] Tube Feeding 360 330 170 Other 90 90 30 Output: Urine 850 360 420 Other: Voiding Method Indwelling Catheter Indwelling Catheter Indwelling Catheter # Bowel Movements 1 1 1 - Exam No acute distress, the patient is quite lethargic and somnolent. She does arouse. She is currently on 2 L of oxygen. HEENT examination is grossly unremarkable. Mucous membranes are moist. No oral lesions. NG tube in place. Neck supple. Full range of motion. No adenopathy thyromegaly or neck vein distention. Cardiovascular examination reveals regular rhythm rate. S1-S2 normal. No S3 or S4. No discernible murmur noted. Heart sounds are distant. Lungs reveal bilateral rhonchi. No wheezes or crackles. Breath sounds are equal bilaterally. Abdomen soft bowel sounds are heard. No masses or tenderness. Extremities are intact. No cyanosis clubbing or edema. Skin is without rash or lesion. Neurologic examination is brief but nonfocal. - Labs CBC & Chem 7: 10/16/24 03:55 10/16/24 03:55 Labs: Abnormal Lab Results - Last 24 Hours (Table) 10/16/24 10/16/24 Range/Units 03:55 03:55 RBC 3.63 L (4.10-5.20) 10*6/uL Hgb 11.6 L (12.0-15.0) g/dL Hct 33.2 L (37.2-46.3) % Plt Count 109 L (140-440) 10*3/uL Sodium 133 L (137-145) mmol/L Potassium 3.4 L (3.5-5.1) mmol/L Chloride 97 L (98-107) mmol/L BUN 21 H (7-17) mg/dL Glucose 131 H (74-99) mg/dL Assessment and Plan Assessment: Acute toxic/metabolic encephalopathy, secondary to chronic liver disease, hepatic encephalopathy, as well as hyperammonemia. History of liver cirrhosis, secondary to chronic alcohol abuse. History of E. coli urinary tract infection. History of depression. Benign essential hypertension. History of chronic anemia. History of insomnia. History of restless leg syndrome. History of chronic thrombocytopenia. History of TIA. History of gastroesophageal reflux disease. Plan: Plan dated October 13, 2024. The patient is seen today in room 254. The patient is very lethargic and somnolent. She continues on 2 L of oxygen. She is getting D5W at 50 cc an hour. She is getting saline at 10 cc an hour. All labs, x-rays, and medications are reviewed. The patient is a quite agitated and confused at times. We increase her Seroquel to 25 mg 3 times a day, write for Haldol 4 to 8 mg every 4 hours as needed IM, and add Ativan 0.5 to 1 mg IV, every 6 hours, as needed. Additional recommendations and suggestions are forthcoming. The patient's overall prognosis is very guarded. She continues on GI and DVT prophylaxis. Her ammonia level is back in the normal range. We continue her on the CIWA protocol. Dictation was produced using [employer] software. Please excuse any grammatical, word or spelling errors. Plan dated October 14, 2024. The patient is seen today in room 254. Her mental status is still poor, with significant encephalopathy. The patient continues on 3 L nasal cannula. She has an NG tube in place. She is getting D5W at 50 cc an hour. We add back Rocephin for E. coli urinary tract infection. The family members request neurology consultation. Will have one of our neurologist see her. Clinically, she is doing poorly. I do not know that she will ever improve much beyond this. Her ammonia level is normal. Labs, x-rays, and all medications are reviewed. We will continue to follow make recommendations along the way. Dictation was produced using Dragon dictation software. Please excuse any grammatical, word or spelling errors. Plan dated October 16, 2024. The patient remains in the intensive care unit. Her overall mental status is poor, given her severe liver disease and hepatic encephalopathy. The patient is currently on 2 L nasal cannula. She has got an NG tube in place. She is receiving Jevity 1.5 at 30 cc an hour, which is goal. The patient is also getting D5W at 50 cc an hour. Neurology did see the patient. EEG was done. Official report is pending. Likely will show diffuse slowing consistent with toxic/metabolic encephalopathy. The patient remains a full code. Hospitalist will see the patient as per the patient's son. Additional recommendations and suggestions are forthcoming. The patient's overall prognosis is very poor. I did attempt to talk to the son today, but only was able to leave a message on his voicemail. Dictation was produced using [employer] dictation software. Please excuse any grammatical, word or spelling errors. Time with Patient: Greater than 30
--- NOTE | 2024-10-16 12:45 | P.PN ---
Subjective Progress Note Date: 10/16/24 I am following-up with the patient and she stated she is at baseline. She continues to have NG tube. Objective - Vital Signs Vital signs: Vital Signs Temp 97.8 F 10/16/24 12:00 Pulse 65 10/16/24 12:00 Resp 12 10/16/24 12:00 BP 124/67 10/16/24 12:00 Pulse Ox 96 10/16/24 12:00 FiO2 3 10/14/24 00:00 Intake & Output 10/15/24 10/16/24 10/16/24 18:59 06:59 18:59 Intake Total 1150 970 500 Output Total 850 360 421 Balance 300 610 79 Weight 67.4 kg 67.2 kg Intake: IV 700 550 300 Dextrose 5% in Water 1, 650 550 250 000 ml @ 50 mls/hr IV . Q20H PIPE Rx#:[id number] cefTRIAXone 1 gm In 50 50 Sodium Chloride 0.9% 50 ml @ 100 mls/hr IVPB Q24HR [facility] Rx#:[id number] Tube Feeding 360 330 170 Other 90 90 30 Output: Urine 850 360 420 Stool 1 Other: Voiding Method Indwelling Catheter Indwelling Catheter Indwelling Catheter # Bowel Movements 1 1 1 - Exam General: Lying in bed and does not appear in acute distress. GI: Has NG tube. Neuro: The patient is drowsy but is briefly awakeable to voice. Is more awakeable today compared to yesterday. She is oriented to self. She was able to follow few simple commands (such as sticking her tongue out and upon asking her to show me a thumbs up on right hand she lifted the right hand and was attempting). No facial weakness from limitation. Strength: Hard to assess individual muscle strength and would not cooperate. Some of the work-up during this hospital visit: Patient had some episode of hypotension episode as low as 70's over 40's wbc is normal. ammonia level 159-->26 TSH: 0.638 B1 level is [address] head: Moderate generalized atrophy and mild to moderate chronic ischemic white matter demyelination. No acute bleed or mass effect. I personally reviewed CT and feel there is motion artifact. There is generalized atrophy but appreciable acute ischemia with limitation of examination. Routine EEG: Is abnormal. The study was limited due to significant myogenic artifact. The background slowing is suggestive of moderately encephalopathy. There is no focal slowing, epileptiform discharges or seizure on the EEG. - Labs CBC & Chem 7: 10/16/24 03:55 10/16/24 03:55 Labs: Abnormal Lab Results - Last 24 Hours (Table) 10/16/24 10/16/24 Range/Units 03:55 03:55 RBC 3.63 L (4.10-5.20) 10*6/uL Hgb 11.6 L (12.0-15.0) g/dL Hct 33.2 L (37.2-46.3) % Plt Count 109 L (140-440) 10*3/uL Sodium 133 L (137-145) mmol/L Potassium 3.4 L (3.5-5.1) mmol/L Chloride 97 L (98-107) mmol/L BUN 21 H (7-17) mg/dL Glucose 131 H (74-99) mg/dL Assessment and Plan Assessment: This is a 69 year-old woman with elevated ammonia, cirrhosis, chronic alcohol use Hepatic encephalopathy---ammonia normalized Delirium due to above Possible patient has underlying dementia due to her chronic alcohol use and hepatic cirrhosis. She is currently is oriented X1 and following few simple commands--per nursing staff, was reported she is at baseline Hyperammonemia due to Advanced alcoholic cirrhosis--ammonia level normalized after lactulose Few Hypotension episode Thrombocytopenia History of alcohol abuse, chronic encephalopathy from alcohol use Depression Plan: I reordered B12 and folate level since no results. Upon discharge, recommend outpatient neuropsych evaluation for detailed memory testing once ammonia continues to be stabilized. Patient is on Seroquel 25mg 1 tab tid. Please avoid sedation as much as possible for better neurological examination. Will defer the rest of medical management to primary team and other specialist. The patient as stated in my impression seems to have underlying dementia from her chronic alcohol use leading to cirrhosis with elevated ammonia and patient refusing to take her lactulose at her nursing facility-->probable leading to irreversible brain damage. The plan is discussed with her nurse. Will follow-up with patient sporadically. Time with Patient: Less than 30
[2024-10-16 14:02] VITALS: BP 128/64; PULSE 75; RESP 17
== END 2024-10-16 15:18 | disposition hospice, inpatient (51) | DRG 441 ==
LOC: EC 16:56 → 4SSUR 17:13 → 2SICU 10-08 10:43
PROVIDERS: ADMIT Hospitalist; ATTEND Hospitalist
PROC: 0DH67UZ Insertion of Feeding Device into Stomach, Via Natural or Artificial Opening (ICD-10-PCS; principal; 2024-10-07)
PROC: 5A09357 Assistance with Respiratory Ventilation, Less than 24 Consecutive Hours, Continuous Positive Airway Pressure (ICD-10-PCS; 2024-10-13)
DX: K76.82 Hepatic encephalopathy (principal); G92.8 Other toxic encephalopathy; K70.30 Alcoholic cirrhosis of liver without ascites; E87.0 Hyperosmolality and hypernatremia; E87.20 Acidosis, unspecified; Z51.5 Encounter for palliative care; F02.83 Dementia in other diseases classified elsewhere, unspecified severity, with mood disturbance; F10.20 Alcohol dependence, uncomplicated; F32.A Depression, unspecified; I10 Essential (primary) hypertension; D69.6 Thrombocytopenia, unspecified; G25.81 Restless legs syndrome; N39.0 Urinary tract infection, site not specified; Z66 Do not resuscitate; R00.0 Tachycardia, unspecified; I95.9 Hypotension, unspecified; G31.2 Degeneration of nervous system due to alcohol; G47.00 Insomnia, unspecified; K21.9 Gastro-esophageal reflux disease without esophagitis; B96.20 Unspecified Escherichia coli [E. coli] as the cause of diseases classified elsewhere; E87.70 Fluid overload, unspecified; T50.905A Adverse effect of unspecified drugs, medicaments and biological substances, initial encounter; Z79.899 Other long term (current) drug therapy; Z86.73 Personal history of transient ischemic attack (TIA), and cerebral infarction without residual deficits; Z87.440 Personal history of urinary (tract) infections; Z71.3 Dietary counseling and surveillance
CPT/HCPCS: 36415; 36600; 70450; 71045; 80048; 80053; 81001; 82140; 82271; 82607; 82746; 82805; 83735; 84100; 84132; 84425; 84443; 85025; 85027; 85610; 85730; 87077; 87086; 87186; 94660; 94760; 95816; 96361; 96374; 96375; 96376; 99285

== ENCOUNTER 2024-10-16 14:48 | Inpatient (IN) | payer MEDICAID ==
[2024-10-16] MEDS ORDERED: ACETAMINOPHEN SUPPOSITORY 650 MG SUPP RECTAL PRN (14:57)
[2024-10-16] MEDS ORDERED: DRY MOUTH SPRAY 59 SPRAY/59 ML SPRAY MUCOUS MEM PRN (14:57)
[2024-10-16] MEDS: MORPHINE SULFATE 4 MG/ML SYRINGE IV PRN (15:35)
[2024-10-16] MEDS: LORazepam 1 MG/0.5 ML VIAL IV PRN (15:36)
[2024-10-16] MEDS: SODIUM CHLORIDE 0.9% 1,000 ML IV SCH (16:06)
[2024-10-16] MEDS: SCOPOLAMINE 1 MG/72 HR PATCH TRANSDERM SCH (16:06)
[2024-10-16] MEDS: GLYCOPYRROLATE 0.2 MG/ML 2 ML VIAL IVP PRN (19:37)
[2024-10-17 06:34] VITALS: BMI 24.6
[2024-10-17] MEDS: MORPHINE SULFATE 100 MG in SODIUM CHLORIDE 0.9% 90 ML IV SCH (09:53)
[2024-10-17] MEDS: ATROPINE OPHTH SOLN 1% 5ML BTL SUBLINGUAL PRN (10:17)
--- NOTE | 2024-10-17 11:25 | P.HPIM ---
History of Present Illness H&P Date: 10/17/24 69-year-old female with baseline chronic dementia/encephalopathy from chronic alcoholism cirrhosis and hepatic encephalopathy was transferred from outside hospital with elevated ammonia of around 250. Patient had NG tube and patient is is receiving lactulose through NG tube and patient. Recent ammonia is around 75. Patient is quite a bit agitated confused because of which patient was started on Precedex drip and was admitted to ICU. Patient will be started on Haldol for agitation will try to wean off of Precedex. CT brain CT abdomen pelvis and chest x-ray are all within normal limits from the outside hospital. Unfortunately patient is also on Tylenol as well as [place] as an outpatient which can cause severe encephalopathy and and patient can have acetaminophen toxicity because of cirrhosis. Presently my concern for acetaminophen toxicity is low. Urinalysis are not significantly elevated. 10/09/2024 Patient is evaluated today in the intensive care unit. Remains on BiPAP 04/03 with FiO2 of 35%. Patient remains altered. NG tube in place with small amt of coffee grounds in the canister although clearing up. Gastric occult was positive. Transitioned to IV protonix twice daily. Ammonia level down to 56 and continues on scheduled lactulose. Continues on IV precedex. Hemoglobin 11.4 10/10/2024 Patient remains in the intensive care unit. Currently off the BiPAP. Patient remains confused and altered. NG tube in place and no evidence of coffee grounds in the canister today. Hemoglobin today 10.6. Sodium 148, BUN 31, creatinine 0.58. Ammonia level 24. UA was completed last night with concern for UTI. Was started on IV ceftriaxone and currently pending urine culture. Currently off precedex. 10/11/2024 Patient remains in intensive care unit currently off the BiPAP. Patient has not been sleeping per staff. Remains on lactulose which was cut down to daily. Ammonia level is down to less than 9 today. Urine culture currently pending she continues on IV ceftriaxone. Her mentation is slightly better than yesterday but still confused alert x 1. Has a sitter at the bedside. NG tube remains in place. Chest xray today reveals right-sided airspace opacities correlate for pneumonia. 10/12/2024 Patient remains in intensive care unit. Plan oxygen via nasal cannula at 2 L with saturations of 97%. She did require BiPAP overnight and did not get much sleep again. She is slow to respond able to state her name sometimes. Per the RN she will have moments of lucidity where she will be able to speak sentences but overall she still appears significantly encephalopathic. Her electrolytes are also normalizing today her sodium level is 138 her potassium was 3.6 BUN of 23 creatinine 0.51, magnesium of 1.5. Her ammonia level has gone back up to 31 after her lactulose was cut back. Patient will need to have 2-3 loose bowel movements per day in order to keep her ammonia at a normal level. Her urine culture showing gram-negative bacilli and she continues on a course of IV ceftriaxone pending final cultures. In the last few years since she came over from [place]; son Reinaldo states she is not able to tell where she is and feels she is in a state of delirium and doesn't have a good sense of reality. He would like her to be evaluated by neurologist with concerns for possible Dementia. Discussed a dementia diagnosis with neurologist would have to come on an outpatient basis. Speech therapy was consulted for cognitive evaluation and this was discussed with Reinaldo who is the patients guardian. Will follow up tomorrow after the ST consultation. 10/13/2024 Patient remains the intensive care unit. Ammonia is better at 28. She has been started on IV Lasix secondary to significant volume overload. Pending speech therapy evaluation today. Patient is more awake and alert x 2 able to tell me her name and birthday. She is more appropriate. NG tube remains in place. 10/14/2024 Patients mentation is worsen today and could be due to the sedating affect of the seroquel which was increased to TID by pulmonology. Neurology was consulted. Ammonia level 26 today. Continues on lactulose. NG tube remains in place and on enteral feedings. Speech therapy unable to complete evaluation again today because of her mentation. 10/15/2024 Patient is in the MICU. Awake alert and able to tell her name. Afebrile. Currently on room air. No cough or sputum production. Patient is on lactulose 30 g 3 times daily via NG tube. Patient is also on Seroquel 25 mg 3 times daily and antibiotics in the form of ceftriaxone. Patient is also on IV Lasix 20 mg every 8 hourly. Laboratory data showed WBC 5.2 hemoglobin 11.4 and platelets 106 sodium 135 potassium 3.8 chloride 102 bicarb is 24 BUN 21 and creatinine 0.90 and blood sugar 121 TSH 0.638 within normal limits. Most recent ammonia level 26 Urine culture showed E. coli. 10/17/2024 Patient has transition to [facility] hospice meeting GIP criteria and morphine drip is being started. Patient to continue with comfort measures only and overall prognosis is extremely poor and guarded at this time. We will continue to follow with [facility] during hospitalization Unable to complete review of systems due to patients level of consciousness. PHYSICAL EXAMINATION: GENERAL: unable to assess orientation altered. AO x 1 today. On nasal cannula, appears to be restless and agitated HEENT: Pupils are round and equally reacting to light. EOMI. No scleral icterus. No conjunctival pallor. Normocephalic, atraumatic. No pharyngeal erythema. No thyromegaly. CARDIOVASCULAR: S1 and S2 muffled PULMONARY: Diminished breath sounds bilaterally with some scattered rhonchi and crackles noted ABDOMEN: Soft, nontender, nondistended, normoactive bowel sounds. No palpable organomegaly. NG tube in place MUSCULOSKELETAL: No joint swelling or deformity. EXTREMITIES: No cyanosis, clubbing, or pedal edema. NEUROLOGICAL: Agitated and altered SKIN: No rashes. Assessment: - Altered mental status due to hepatic and toxic encephalopathy - Hepatic encephalopathy chronic because of the alcoholism - Advanced alcoholic cirrhosis - E. coli urinary tract infection, present on admission - History of alcohol abuse and dementia and chronic encephalopathy from alcohol use. - Depression - Hypertension - Sinus tachycardia secondary to agitation; resolved - Hypernatremia from free water deficit DVT prophylaxis: Subcutaneous heparin GI prophylaxis IV protonix twice daily No code Plan: Patient continues to have clinical decline and family has met with [facility] and agreeable to hospice services with comfort measures only. Patient meets GIP criteria and is being transition to morphine drip today Recommend to continue with supportive care We will continue to follow with [facility] during hospitalization overall prognosis remains extremely poor and guarded The impression and plan of care has been dictated by Mckenzie Posadas, Nurse Practitioner as directed. Dr. Carley MD I have performed a history and examination and MDM of this patient, discussed the same with the dictator, and agree with the dictator's assessment and plan as written ,documented as a scribe. Based on total visit time, I have performed more than 50% of the visit. Past Medical History Past Medical History: GERD/Reflux, Hypertension, Liver Disease Additional Past Medical History / Comment(s): Anemia, hepatic encephlopathy. Patient denies having hx of CVA/TIA.in prevouis charting CVA/TIA was checked off. History of Any Multi-Drug Resistant Organisms: Unobtainable Date of last positivie culture/infection: NA MDRO Source:: Stool Past Surgical History: No Surgical Hx Reported Additional Past Surgical History / Comment(s): C2 Fracture Past Anesthesia/Blood Transfusion Reactions: Unable to Obtain Smoking Status: Never smoker Medications and Allergies Home Medications Medication Instructions Recorded Confirmed Type Multivitamins, Thera [Multivitamin 1 tab PO DAILY 04/20/23 10/16/24 History (formulary)] Propranolol [Inderal] 20 mg PO BID #120 tab 04/28/23 10/16/24 Rx Acetaminophen Tab [Tylenol] 650 mg PO Q6HR PRN tab 05/17/23 10/16/24 Rx Lactulose [Cephulac] 20 gm PO Q12H ml 05/17/23 10/16/24 Rx Ammonium Lactate Cream [Lac-Hydrin 1 applic TOPICAL BID 10/07/24 10/16/24 History 12% Cream] Cetirizine HCl [Zyrtec] 10 mg PO DAILY PRN 10/07/24 10/16/24 History DULoxetine HCL [Cymbalta] 60 mg PO DAILY 10/07/24 10/16/24 History Luna-Tussin Dm 10 ml PO Q4H PRN 10/07/24 10/16/24 History HYDROcodone/APAP 5-325MG [[place] 1 tab PO Q6HR PRN 10/07/24 10/16/24 History 5-325] Liniments Cream 1 applic TOPICAL Q6H PRN 10/07/24 10/16/24 History Loperamide [Imodium] 2 mg PO Q4H PRN 10/07/24 10/16/24 History Mag Hydrox/Aluminum Hyd/Simeth 20 ml PO Q8H PRN 10/07/24 10/16/24 History [Mylanta Maximum Strength Liq] Magnesium Hydroxide [Milk of 2,400 mg PO Q12H PRN 10/07/24 10/16/24 History Magnesia] Magnesium Oxide [Mag-Ox] 400 mg PO DAILY 10/07/24 10/16/24 History Mirtazapine 7.5 mg PO HS 10/07/24 10/16/24 History Omeprazole [PriLOSEC] 20 mg PO DAILY 10/07/24 10/16/24 History Triamcinolone 0.1% Cream [Kenalog 1 applic TOPICAL BID PRN 10/07/24 10/16/24 History 0.1% Cream] Vitamin B Complex/Folic Acid 1 tab PO DAILY 10/07/24 10/16/24 History [Vitamin B Complex] bisacodyL [Dulcolax] 10 mg PO DAILY PRN 10/07/24 10/16/24 History bisacodyL [Dulcolax] 10 mg RECTAL Q72H PRN 10/07/24 10/16/24 History rOPINIRole HCL [Requip] 0.5 mg PO HS 10/07/24 10/16/24 History Allergies Allergy/AdvReac Type Severity Reaction Status Date / Time Iodinated Contrast Media Allergy Rash/Hives Verified 10/07/24 18:09 lisinopril Allergy Unknown Verified 10/07/24 18:09 gabapentin AdvReac Confusion/a Verified 10/07/24 18:09 ggression/v iolent Physical Exam Vitals: Intake and Output 10/16/24 10/17/24 10/17/24 22:59 06:59 14:59 Output Total 150 Balance -150 Output: Urine 150 Other: Voiding Method Indwelling Catheter Weight 67.2 kg
== END 2024-10-17 23:55 | disposition expired | DRG 951 ==
LOC: 2SICU 15:20 → 5NMEDONC 16:50
PROVIDERS: ADMIT Internal Medicine; ATTEND Internal Medicine
DX: Z51.5 Encounter for palliative care (principal); G92.9 Unspecified toxic encephalopathy; E87.0 Hyperosmolality and hypernatremia; K76.82 Hepatic encephalopathy; K70.30 Alcoholic cirrhosis of liver without ascites; F03.93 Unspecified dementia, unspecified severity, with mood disturbance; F10.20 Alcohol dependence, uncomplicated; F32.A Depression, unspecified; I10 Essential (primary) hypertension; N39.0 Urinary tract infection, site not specified; B96.20 Unspecified Escherichia coli [E. coli] as the cause of diseases classified elsewhere; E87.70 Fluid overload, unspecified; R00.0 Tachycardia, unspecified; Z79.899 Other long term (current) drug therapy; Z71.41 Alcohol abuse counseling and surveillance of alcoholic; Z88.8 Allergy status to other drugs, medicaments and biological substances; Z91.041 Radiographic dye allergy status